=== PATIENT | female | born 1955 | race Caucasian/White ===

== ENCOUNTER 2018-05-09 15:18 | Outpatient (REF) | payer MEDICARE, SELFPAY ==
[2018-05-09 23:14] LABS: BUN 18 mg/dL (7-18); CREATININE 0.83 mg/dL (0.55-1.02); Calcium 9.4 mg/dL (8.5-10.1); Chloride 102 mmol/L (98-107); Glucose 111 mg/dL (70-100); Potassium 4.6 mmol/L (3.5-5.1); Sodium 140 mmol/L (136-145)
[2018-05-09 23:26] LABS: HGB 13.7 g/dL (12.0-15.5); Mean Corp. HGB Concentration 32.6 g/dL (32.0-36.0); Mean Corpuscular Hemoglobin 30.4 pg (27.0-33.0); Mean Corpuscular Volume 93.3 fL (80-95); Mean Platelet Volume 10.7 fL (8.0-11.0); Platelet Count 354 x1000/uL (130-400); White Blood Cell Count 7.05 k/cumm (4.4-10.8)
== END 2018-05-09 15:38 ==
LOC: NCHCN 15:18
PROVIDERS: PCP Specialist/Technologist Athletic Trainer; Visit Provider Specialist/Technologist Athletic Trainer
DX: D64.9 Anemia, unspecified (principal); R73.09 Other abnormal glucose; Z51.81 Encounter for therapeutic drug level monitoring
CPT/HCPCS: 80048; 85027

== ENCOUNTER 2018-05-10 10:55 | Outpatient (REF) | payer MEDICARE, SELFPAY | END 2018-05-10 11:15 | LOC: NCHCN 10:55 | PROVIDERS: PCP Specialist/Technologist Athletic Trainer; Visit Provider Physician Assistant Medical | DX: N39.0 Urinary tract infection, site not specified (principal) | CPT/HCPCS: 87077; 87086; 87186 ==

== ENCOUNTER 2018-07-06 10:14 | Outpatient (CLI) | payer MEDICARE, SELFPAY ==
--- NOTE | 2018-07-06 08:50 | DIABASSESS_ITS ---
DESCRIPTION/ASSESSMENT: Food Guidelines - Chelsea measures her food carefully, mixes carbohydrate with protein; already limits carbohydrate and has given up most sugar. 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 She does not snack. She self-reports 16 pound weight loss since diagnosis. Physical Activity - walks before lunch some days; knows she will not exercise after lunch. Medication - Metformin 500mg daily without side effects after first few days. Monitoring - Monitored mostly fasting 85-226 mostly less than 135. Her glucometer is broken at this time. She has returned to the pharmacy on a weekend and they were unable to help her after changing the battery. Risks/Related health history - h/o TBI with surgeries over past 8 years; sick past 3 years. Coping - reports an ability to let worries goat the door and is faithful to AA and its principles. She reports being 28 years sober. INTERVENTION: DSME is provided in the following AADE 7 areas based on patients interest and assessment of needs: Food Guidelines - reviewed diabetes food guide focused on balancing carbohydrate and protein/fat and to increase her variety of choices. Physical Activity - Discussed winter activities given that she needs to be careful to prevent injury. She loves a treadmill and will work to obtain one. Medication - discussed action of medication and dosage. Discussed possibility of going off medication if A1c decreases. Monitoring - Monitoring at least once a day, mostly fasting, until her glucometer broke. Troubleshooted this without success. Suggested she call [phone] on back for support. Problem Solving - discussed risks of heavy alcohol use years ago on diabetes development. ACTION PLAN: Face time [id number] No DM group education series being offered at this time.
== END 2018-07-06 10:34 ==
PROVIDERS: PCP Specialist/Technologist Athletic Trainer; Visit Provider Dietitian, Registered
DX: E11.9 Type 2 diabetes mellitus without complications (principal); Z71.3 Dietary counseling and surveillance
CPT/HCPCS: 97802

== ENCOUNTER 2018-09-14 22:26 | Outpatient (REF) | payer MEDICARE, SELFPAY ==
[2018-09-15 01:16] LABS: Cholesterol 161 mg/dL (50-200); HDL Cholesterol 28 mg/dL (40-60); LDL CHOLESTEROL 98 mg/dL (<100); Triglyceride 268 mg/dL (30-150)
[2018-09-15 01:44] LABS: HCT 39.8 % (36.0-46.0)
== END 2018-09-14 22:46 ==
LOC: NCHCN 22:26
PROVIDERS: PCP Specialist/Technologist Athletic Trainer; Visit Provider Specialist/Technologist Athletic Trainer
DX: E11.9 Type 2 diabetes mellitus without complications (principal); I10 Essential (primary) hypertension; E78.00 Pure hypercholesterolemia, unspecified; F64.9 Gender identity disorder, unspecified
CPT/HCPCS: 80061; 83721; 85014; 85018

== ENCOUNTER 2019-09-27 22:35 | Emergency (ER) | payer OTHER, SELFPAY ==
--- NOTE | 2019-09-27 00:08 | DI.CT_ITS ---
EXAM: CT BRAIN NECK CTA CLINICAL HISTORY: TIA COMPARISON: No exams were available for comparison FINDINGS: CT brain: The ventricles and sulci are consistent with the patient's age. There are areas of decreased attenua tion in the white matter most consistent with small vessel ischemic disease. No acute territorial in farct, hemorrhage, midline shift or mass effect is identified. Calvarium is intact. The visualized paranasal sinuses are clear. CT angiography of the neck: Common carotid arteries: Unremarkable. No evidence of dissection, stenosis or occlusion. External carotid arteries: Unremarkable. No evidence of occlusion or significant stenosis. Internal carotid arteries: No evidence of dissection, occlusion or significant stenosis. Vertebral arteries: Unremarkable. No evidence of dissection, occlusion or significant stenosis. Thyroid gland: Enlarged with several hypodense nodules measuring up to 1.[address] angiography of the head: Internal carotid arteries: Unremarkable. No evidence of occlusion, aneurysm or significant stenosis. Anterior cerebral arteries: Unremarkable. No evidence of occlusion, aneurysm or significant stenosis . Middle cerebral arteries: Unremarkable. No evidence of occlusion, aneurysm or significant stenosis. Posterior cerebral arteries: Unremarkable. No evidence of occlusion, aneurysm or significant stenosi s. Vertebral arteries and basilar artery: Unremarkable. No evidence of occlusion, aneurysm or significa nt stenosis. IMPRESSION: 1. No acute intracranial process. 2. No evidence of arterial occlusion or significant stenosis.
[2019-09-27 22:38] VITALS: BP 166/88; PULSE 77; RESP 16; TEMP 36.6; O2SAT 96
--- NOTE | 2019-09-27 22:46 | W.ED.GENAD ---
Discharge Plan Disposition Patient Disposition: HOME Condition: Stable Discharge Details Chief Complaint: AMS/LOC Clinical Impression: Slurring of speech Primary Care Provider: Aquilino Starkey ED Provider: Charles Richards Home Meds and New Rx's Prescriptions: Continued omeprazole 40 MG capsule,delayed release(DR/EC) 40 mg PO DAILY Qty: 30 RF: 1 simvastatin 20 MG tablet 20 mg PO DAILY RF: 0 estrogens-methyltestosterone 1 EACH tablet 1 ea PO DAILY RF: 0 metoprolol succinate 25 MG tablet extended release 24 hr 25 mg PO DAILY RF: 0 lisinopril-hydrochlorothiazide 1 EACH tablet 1 ea PO DAILY RF: 0 prazosin 2 MG capsule 3 cap PO HS RF: 0 mirtazapine 7.5 MG tablet 3 tab PO HS RF: 0 atomoxetine [Strattera] 80 MG capsule 80 mg PO DAILY RF: 0 CalMag Thins 1 EACH tablet 1 ea PO DAILY RF: 0 ferrous sulfate 325 MG tablet 325 mg PO DAILY RF: 0 venlafaxine [Effexor XR] 150 mg Capsule,Extended Release 24hr 300 mg PO DAILY RF: 0 bupropion HCl [Wellbutrin SR] 200 mg Tablet Sustained-Release 12 Hr 200 mg PO DAILY RF: 0 Discharge Instructions Instructions: Transient Ischemic Attack (ED) Additional Instructions: Based on your symptoms you likely had a transient ischemic attack (TIA) take 81mg aspirin daily see your primary care provider as soon as possible and have an MRI brain performed if you feel more ill, have weakness or vision changes return to the emergency department Medical Decision Making 64 yo female with hx of htn, gerd, hld, who comes in after she went to bed feeling fine but then woke up feeling anxious and noted wavy vision and felt her speech was slurred. This lasted a minute and she came here. She currently has no symptoms. She denies every having chest pain, abd pain, vomit, weakness, numbness. She has normal gait, CN II-XII are intact, clear speech, caox4, no focal motor or sensation deficits, NIH of 0. Unclear cause for her symptoms could be TIA vs anxiety, will obtain lab work and imaging and monitor. pt remains stable, nih 0 still. Labs and imaging unremarkable. I recommended admission but pt declined as she would prefer to see pcp and have outpatient MRI. She has capacity to make her own decisions. Will d/c and advised to take 81mg asa daily and return precautions given Differential Diagnosis Differential Diagnosis: TIA, anxiety, anemia Medical Records Medical records reviewed: Yes I reviewed the patient's medical records. Imaging Data Radiologic Study: Attestation: I personally reviewed and interpreted this imaging study as follows: Imaging: CT Scan Radiologist's impression: no acute findings Lab Data Lab results reviewed: Yes I reviewed the patient's lab results. ECG Data Attestation: I personally reviewed and interpreted this ECG (s) as follows: Prior ECG tracings: not available for review Interpretation: sinus rhythm, rate of 72, pr 196 HPI General Mode of arrival: ambulatory. Date/Time Provider Initiated Documentation: 09/27/19 22:36. Limitations to Documentation: no limitations. Information obtained by: patient. History of Present Illness 64 year old F presents to the emergency department with the chief complaint of slurred speech, described as moderate, Patient started experiencing this hour(s) (1) and it has been now resolved. No relieving factors improve symptom(s), No exacerbating factors reported . Patient did receive the following treatments prior to arrival, Aspirin Related Data Home Medications Medication Instructions Recorded Confirmed CalMag Thins 1 ea PO DAILY 05/11/17 09/27/19 atomoxetine [Strattera] 80 mg PO DAILY 05/11/17 09/27/19 estrogens-methyltestosterone 1 ea PO DAILY 05/11/17 09/27/19 lisinopril-hydrochlorothiazide 1 ea PO DAILY 05/11/17 09/27/19 metoprolol succinate 25 mg PO DAILY 05/11/17 09/27/19 mirtazapine 3 tab PO HS 05/11/17 09/27/19 prazosin 3 cap PO 05/11/17 09/27/19 simvastatin 20 mg PO DAILY 05/11/17 09/27/19 ferrous sulfate 325 mg PO DAILY 06/08/17 09/27/19 omeprazole 40 mg PO DAILY #30 tab-cap 06/25/17 09/27/19 bupropion HCl [Wellbutrin SR] 200 mg PO DAILY 09/27/19 09/27/19 venlafaxine [Effexor XR] 300 mg PO DAILY 09/27/19 09/27/19 Previous Rx's Medication Instructions Recorded omeprazole 40 mg PO DAILY #30 tab-cap 06/25/17 Allergies Allergy/AdvReac Type Severity Reaction Status Date / Time amoxicillin Allergy Skin Rash Unverified 09/27/19 23:04 Sulfa (Sulfonamide Allergy Skin Rash Unverified 09/27/19 23:04 Antibiotics) haloperidol [From Haldol] AdvReac Unverified 09/27/19 23:04 General Stated Complaint: AMS/LOC RICCI: 3 Review of Systems All systems reviewed & are unremarkable except as noted in HPI and below Constitutional Constitutional: Denies chills, Denies fever(s) and Denies weakness ENT Ears, Nose, Mouth, and Throat: Denies change in voice Cardiovascular Cardiovascular: Denies chest pain and Denies dyspnea Respiratory Respiratory: Denies cough and Denies dyspnea Gastrointestinal Gastrointestinal: Denies abdominal pain, Denies nausea and Denies vomiting Musculoskeletal Musculoskeletal: Denies joint swelling Neurologic Neurologic: Denies weakness Psychiatric Psychiatric: Denies depression [facility] Medical History (Updated 09/28/19 @ 01:07 by Charles Richards MD) Alcoholism in remission Allergic rhinitis Benign essential HTN Chronic depression Estrogen deficiency Family history of breast disease Hypercholesterolemia Prediabetes PTSD (post-traumatic stress disorder) Seasonal allergies Surgical History (Updated 05/19/17 @ 10:46 by Sonia Peng) Colonoscopy - MAC (05/17/17) EGD - MAC (05/17/17) Social History Smoking/Tobacco Use Status: Former Tobacco Use Alcohol Intake: former Drug use: Never Do you feel safe in your relationship?: Yes Exam Const General: no acute distress Orientation: alert HENMT Head: normal to inspection Ears: external ears normal General nose exam: external nose normal Mouth: moist mucous membranes Eyes General: appearance normal, both eyes and all related structures Neck Neck: normal visual inspection Resp Effort & Inspection: normal respiratory effort and able to speak in complete sentences Cardio Rate: regular rate Skin General skin exam: no rashes or lesions noted Neuro General: alert and oriented x3 Extrem General: normal to inspection Psych Mental Status: mental status grossly normal Course Vital Signs Vital signs: Vital Signs Temperature 36.6 C 09/27/19 22:38 Pulse 77 09/27/19 22:38 Respiratory Rate 16 09/27/19 22:38 Blood Pressure 166/88 H 09/27/19 22:38 Pulse Oximetry 96 09/27/19 22:38 Temperature 36.6 C 09/27/19 22:38 Temperature Source Skin 09/27/19 22:38 Pulse 77 02/12/20 22:38 Respiratory Rate 16 09/27/19 22:38 Respiratory Effort 09/27/19 22:42 Blood Pressure 166/88 H 09/27/19 22:38 Pulse Oximetry 96 09/27/19 22:38 Oxygen Delivery Method Room Air 09/27/19 22:38 Oxygen Flow Rate 0 09/27/19 22:38 Pain Level 0 09/27/19 22:38
[2019-09-27 22:52] VITALS: BP 156/67; PULSE 74; PULSE 77; RESP 20; O2SAT 92
[2019-09-27 23:01] VITALS: BP 120/59; PULSE 74; PULSE 75; RESP 19; O2SAT 92
[2019-09-27 23:03] LABS: Abs Immature Grans 0.02 k/cumm (0.0-0.09); Absolute Basophil Count 0.05 k/cumm (0.0-0.2); Absolute Eosinophil Count 1.06 k/cumm (0.0-0.7); Absolute Lymphocyte Count 1.85 k/cumm (1.2-3.4); Absolute Monocyte Count 0.61 k/cumm (0.11-0.7); Absolute Neutrophil Count 3.39 k/cumm (1.2-6.7); Basophils % 0.7; Eosinophils % 15.2; HCT 39.8 % (36.0-46.0); HGB 13.3 g/dL (12.0-15.5); Immature Grans % 0.3 %; Lymphocytes % 26.5; Mean Corp. HGB Concentration 33.4 g/dL (32.0-36.0); Mean Corpuscular Hemoglobin 30.4 pg (27.0-33.0); Mean Corpuscular Volume 90.9 fL (80-95); Mean Platelet Volume 9.1 fL (8.0-11.0); Monocytes % 8.7; Neutrophils % 48.6; Platelet Count 276 x1000/uL (130-400); RBC 4.38 m/cumm (4.00-5.20); White Blood Cell Count 6.98 k/cumm (4.4-10.8)
[2019-09-27 23:15] VITALS: PULSE 71; RESP 17; O2SAT 91
[2019-09-27 23:16] VITALS: BP 132/78; PULSE 70; PULSE 74; RESP 17; O2SAT 92
[2019-09-27 23:16] LABS: INR 0.9 (0.9-1.1); PTT Activated 24.6 sec (21.0-31.4); Prothrombin Time 9.5 sec (9.3-11.0)
[2019-09-27 23:20] LABS: ALT 29 U/L (14-59); AST 16 U/L (15-37); Albumin 3.5 g/dL (3.4-5.0); Alkaline Phosphatase 112 U/L (46-116); Anion Gap 8.7 mmol/L (3-11); BUN 18 mg/dL (7-18); Bilirubin, Total 0.1 mg/dL (0.2-1.0); CO2 28.3 mmol/L (21.0-32.0); Calcium 8.8 mg/dL (8.5-10.1); Chloride 105 mmol/L (98-107); Glucose 156 mg/dL (74-106); Magnesium 2.2 mg/dL (1.8-2.4); Potassium 3.9 mmol/L (3.5-5.1); Sodium 142 mmol/L (136-145)
--- NOTE | 2019-09-27 23:23 | DI.RAD_ITS ---
EXAM: XR CHEST 2V PA LATERAL CLINICAL HISTORY: TIA. TECHNIQUE: 2D digital imaging was performed. COMPARISON: No exams were available for comparison FINDINGS: LUNGS: Clear. No pleural abnormality seen. HEART: Normal. MEDIASTINUM: Normal. OTHER FINDINGS:Retrocardiac hiatal hernia. BONE:Age-appropriate degenerative changes. IMPRESSION: No acute pulmonary findings.
[2019-09-27 23:25] LABS: Troponin I < 0.05 ng/Ml (<0.06)
[2019-09-28] VITALS (10 sets, daily range): BP systolic 124–141; BP diastolic 65–83; PULSE 69–75; RESP 10–23; O2SAT 92–98
[2019-09-28] MEDS: Normal Saline - Diluent 50 ML VIAL IV (00:06)
[2019-09-28] MEDS: Omnipaque 350 MG/ML 100 ML BTL IJ (00:07)
[2019-09-28] MEDS: Normal Saline Flush 10 ML SYR IVP (00:08)
--- NOTE | 2019-09-28 00:18 | DI.VRAD_ITS ---
PROCEDURE INFORMATION: Exam: XR Chest, 2 Views Exam date and time: 09/27/2019 11:23 PM Age: 64 years old Clinical indication: Other: TIA; Prior surgery; Surgery date: 6+ months; Surgery type: Double mastectomy 2008, no HX breast cancer, brca2+; Additional info: PT states she was seeing white orbs swirling together, weakness, SOB x2days TECHNIQUE: Imaging protocol: XR of the chest Views: 2 views. COMPARISON: No relevant prior studies available. FINDINGS: Lungs: Unremarkable. No consolidation. Pleural space: Unremarkable. No pleural effusion. No pneumothorax. Heart/Mediastinum: Normal heart size. Evidence of retrocardiac hiatal hernia. Vasculature: The thoracic aorta is mildly tortuous and ectatic. Bones/joints: There is mild thoracic degenerative disc disease. IMPRESSION: No acute findings. Dictated and Authenticated by: Adis Lebron MD. Ordering:BRUNO Soto MD
--- NOTE | 2019-09-28 00:59 | DI.VRAD_ITS ---
PROCEDURE INFORMATION: Exam: CT Angiography Head Without And With Contrast Exam date and time: 09/27/2019 10:46 PM Age: 64 years old Clinical indication: Visual disturbance; Other visual defect; Patient HX: Brain injury in 2002; Additional info: PT states she was seeing white orbs swirling together, weakness, SOB x2days TECHNIQUE: Imaging protocol: Computed tomographic angiography of the head without and with intravenous contrast. 3D rendering: MIP and/or 3D reconstructed images were created by the technologist. Contrast material: [id number]; Contrast volume: 100 ml; Contrast route: IV RAC 18G; Other technique: STROKE PROTOCOL was implemented. COMPARISON: No relevant prior studies available. FINDINGS: Right internal carotid artery: Unremarkable. Intracranial segment is patent with no significant stenosis. No aneurysm. Right anterior cerebral artery: Unremarkable. No occlusion or significant stenosis. No aneurysm. Right middle cerebral artery: Unremarkable. No occlusion or significant stenosis. No aneurysm. Right posterior cerebral artery: Unremarkable. No occlusion or significant stenosis. No aneurysm. Right vertebral artery: Unremarkable. No occlusion or significant stenosis. No aneurysm. Left internal carotid artery: Unremarkable. Intracranial segment is patent with no significant stenosis. No aneurysm. Left anterior cerebral artery: Unremarkable. No occlusion or significant stenosis. No aneurysm. Left middle cerebral artery: Unremarkable. No occlusion or significant stenosis. No aneurysm. Left posterior cerebral artery: Unremarkable. No occlusion or significant stenosis. No aneurysm. Left vertebral artery: Unremarkable. No occlusion or significant stenosis. No aneurysm. Basilar artery: Unremarkable. No occlusion or significant stenosis. No aneurysm. HEAD: Brain: A focus of hypodensity seen in the left anterior insular region may be from remote lacunar infarct. No hemorrhage. No edema. Foci of hypodensity in the periventricular and subcortical white matter is likely on the basis of chronic microvascular ischemic disease. Ventricles: Normal. No ventriculomegaly. Bones/joints: Unremarkable. No acute fracture. Sinuses: Visualized sinuses are normal. No fluid levels. Mastoid air cells: Visualized mastoids are normal. No mastoid effusion. Soft tissues: Unremarkable. IMPRESSION: 1. No acute intracranial hemorrhage, mass effect or midline shift. 2. No arterial occlusion or significant stenosis. No aneurysm. ASSESSMENT: ASPECTS ([place] Stroke Program Early CT Score) is 10. PROCEDURE INFORMATION: Exam: CT Angiography Neck Without And With Contrast Exam date and time: 09/27/2019 10:46 PM Age: 64 years old Clinical indication: Visual disturbance; Other visual defect; Patient HX: Brain injury in 2002; Additional info: PT states she was seeing white orbs swirling together, weakness, SOB x2days TECHNIQUE: Imaging protocol: Computed tomographic angiography of the neck without and with intravenous contrast. 3D rendering: MIP and/or 3D reconstructed images were created by the technologist. Radiation optimization: All CT scans at this facility use at least one of these dose optimization techniques: automated exposure control; mA and/or kV adjustment per patient size (includes targeted exams where dose is matched to clinical indication); or iterative reconstruction. Contrast material: [id number]; Contrast volume: 100 ml; Contrast route: IV RAC 18G; COMPARISON: No relevant prior studies available. FINDINGS: VASCULATURE: Right common carotid artery: Unremarkable. No stenosis. No dissection or occlusion. Right internal carotid artery: No stenosis. No dissection or occlusion. There is a retropharyngeal course. Right external carotid artery: Unremarkable. No occlusion or stenosis of the origin. Right vertebral artery: Unremarkable. No stenosis. No dissection or occlusion. Left common carotid artery: Unremarkable. No stenosis. No dissection or occlusion. Left internal carotid artery: No stenosis. No dissection or occlusion. There is a retropharyngeal course. Left external carotid artery: Unremarkable. No occlusion or stenosis of the origin. Left vertebral artery: Unremarkable. No stenosis. No dissection or occlusion. NECK: Thyroid: The thyroid gland is enlarged and contains hypodense nodules measuring up to 1.3 cm on the left and 1.0 cm on the right. He he Bones/joints: No acute fracture. Soft tissues: Normal. No significant soft tissue swelling. Lungs: Mild ground-glass opacity seen in the lungs may be secondary to atelectasis versus motion artifact. IMPRESSION: No arterial occlusion or hemodynamically significant stenosis. No dissection or pseudoaneurysm. COMMENT: Using NASCET method for measuring degree of carotid artery stenosis: Mild is less than 50% stenosis. Moderate is 50-69% stenosis. Severe is 70-94% stenosis. Near occlusion is 95-99% stenosis. Dictated and Authenticated by: Chhaya Pierce MD. Ordering:BRUNO Soto MD
--- NOTE | 2019-09-28 00:59 | NUR.NOTE ---
Nursing Note: Pt sitting up in bed, talking with spouse. No c/o of feeling anxious or of visual changes since arrival to ER. Waiting CT results.
--- NOTE | 2019-09-28 06:11 | NUR.NOTE ---
FAXED REFERA;L TO PCP, MATT HUNT, , FOR FOLLOW UP APPOINTMENT FOR TIA PER REQUEST WITHIN 1 WEEK (Nursing Note:
== END 2019-09-28 00:15 | disposition home or self-care (01) ==
PROVIDERS: Emergency Provider Emergency Medicine; PCP Specialist/Technologist Athletic Trainer
DX: R47.81 Slurred speech (principal); F41.9 Anxiety disorder, unspecified; H53.8 Other visual disturbances; I10 Essential (primary) hypertension
CPT/HCPCS: 36415; 70496; 70498; 80053; 93005; 99285; 71046; 83735; 84484; 85025; 85610; 85730; 93010; J3490

== ENCOUNTER 2020-12-10 02:00 | Outpatient (CLI) | payer OTHER, SELFPAY ==
--- NOTE | 2020-12-10 | DI.DEXA_ITS ---
EXAM: XR DEXA BONE DENSITY W/WO MERARY CLINICAL HISTORY: SCREENING FOR OSTEOPOROSIS, Z13.820 TECHNIQUE: Routine DEXA evaluation of the lumbar spine, hip, or forearm. COMPARISON: No exams were available for comparison FINDINGS: Performed on a Hologic unit. Lateral image: No compression fracture evident. Lumbar Spine total T-score: 3.6 Hip total T-score:1.8 Independent reading at the femoral neck yields T-score 1.1 Forearm total T-score: 0.5 IMPRESSION: Bone mineral density measures in the normal range. Fracture risk is low. Note: Any spine fracture indicates 5x risk for subsequent spine fracture and 2x risk for subsequent h ip fracture. World Health Organization criteria for BMD interpretation classify patients: Normal...... T- Score at or above -1.0 Osteopenic... T- Score between -1.0 and -2.5 Osteoporosis... T-Score at or below -2.5
== END 2020-12-10 02:20 ==
PROVIDERS: PCP Specialist/Technologist Athletic Trainer; Visit Provider Nurse Practitioner Family
DX: Z13.820 Encounter for screening for osteoporosis (principal)
CPT/HCPCS: 77080

== ENCOUNTER 2021-04-09 10:20 | Outpatient (REF) | payer OTHER, SELFPAY ==
[2021-04-09 14:07] LABS: Anion Gap 12.2 mmol/L (3-11); BUN 17 mg/dL (7-18); CO2 24.8 mmol/L (21.0-32.0); CREATININE 0.7 mg/dL (0.55-1.02); Calcium 9.1 mg/dL (8.5-10.1); Calculated LDL 112 mg/dL (<100); Chloride 102 mmol/L (98-107); Cholesterol 195 mg/dL (<200); Glucose 152 mg/dL (74-106); HDL Cholesterol 36 mg/dL (40-60); Potassium 4.6 mmol/L (3.5-5.1); Sodium 139 mmol/L (136-145); Triglyceride 235 mg/dL (<150)
[2021-04-11 13:39] LABS: Tissue Transglutaminase Ab IgA <1.2 U/mL
== END 2021-04-09 10:21 | disposition home or self-care (01) ==
LOC: NCHCN 10:20
PROVIDERS: PCP Specialist/Technologist Athletic Trainer; Visit Provider Nurse Practitioner Family
DX: E11.9 Type 2 diabetes mellitus without complications (principal); Z83.79 Family history of other diseases of the digestive system
CPT/HCPCS: 80048; 80061; 83516

== ENCOUNTER 2021-07-18 19:00 | Outpatient (REF) | payer OTHER, SELFPAY ==
[2021-07-20 22:25] LABS: COVID-19 RT-PCR UVMMC Result Positive (Negative)
== END 2021-07-18 19:01 | disposition home or self-care (01) ==
LOC: NCHCN 19:00
PROVIDERS: PCP Specialist/Technologist Athletic Trainer; Visit Provider Family Medicine
DX: Z20.822 Contact with and (suspected) exposure to COVID-19 (principal); R05.8 Other specified cough
CPT/HCPCS: U0003

== ENCOUNTER 2021-07-21 10:58 | Outpatient (CLI) | payer MEDICARE, SELFPAY ==
[2021-07-21 14:45] VITALS: BP 152/87; PULSE 72; RESP 18; TEMP 36.8; O2SAT 93
[2021-07-21] MEDS: Normal Saline 500 ML 30 ML IV (14:58)
[2021-07-21 15:05] VITALS: BP 109/68; PULSE 74; RESP 20; TEMP 37.7; O2SAT 94
[2021-07-21] MEDS: Normal Saline Flush 10 ML SYR IVP (15:13)
[2021-07-21 15:24] VITALS: BP 127/82; PULSE 70; RESP 18; TEMP 37.9; O2SAT 94
[2021-07-21 16:10] VITALS: BP 133/76; PULSE 75; RESP 18; TEMP 37.9; O2SAT 96
== END 2021-07-21 10:59 | disposition home or self-care (01) ==
PROVIDERS: Visit Provider Family Medicine
DX: U07.1 COVID-19 (principal)
CPT/HCPCS: 96365

== ENCOUNTER 2022-01-29 18:26 | Outpatient (REF) | payer MEDICARE, SELFPAY ==
[2022-01-29 14:57] LABS: HCT 39.8 % (36.0-46.0); HGB 12.8 g/dL (11.2-15.7); MCH 29.5 pg (27.0-33.0); MCHC 32.2 % (32.0-36.0); MCV 92 fL (80-95); MPV 10.3 fL (8.0-11.0); Platelet Count 301 10^3/uL (130-400); RBC 4.34 10^6/uL (3.93-5.22); RDW 12.6 % (11.7-14.6); RDW-SD 42.2 fL; WBC 4.45 10^3/uL (4.4-10.8)
[2022-01-29 15:23] LABS: ALT 48 U/L (14-59); AST 25 U/L (15-37); Albumin 3.5 g/dL (3.4-5.0); Alkaline Phosphatase 160 U/L (46-116); BUN 20 mg/dL (7-18); Bilirubin, Total 0.2 mg/dL (0.2-1.0); CREATININE 0.9 mg/dL (0.55-1.02); Calcium 9.1 mg/dL (8.5-10.1); Calculated LDL 86 mg/dL (<100); Chloride 103 mmol/L (98-107); Cholesterol 169 mg/dL (<200); Glucose 249 mg/dL (74-106); HDL Cholesterol 33 mg/dL (40-60); Potassium 4.5 mmol/L (3.5-5.1); Sodium 138 mmol/L (136-145); Triglyceride 251 mg/dL (<150)
== END 2022-01-29 18:27 | disposition home or self-care (01) ==
LOC: NCHCN 18:26
PROVIDERS: Visit Provider Nurse Practitioner Family
DX: E11.9 Type 2 diabetes mellitus without complications (principal)
CPT/HCPCS: 80053; 80061; 85027

== ENCOUNTER 2022-03-24 18:53 | Outpatient (REF) | payer MEDICARE, SELFPAY ==
[2022-03-24 20:53] LABS: Bilirubin Negative (Negative); Blood Moderate (Negative); Clarity Cloudy (Clear); Glucose Negative (Negative); Ketones Negative (Negative); Leukocyte Esterase Small (Negative); Nitrite Positive (Negative); Specific Gravity 1.025 (1.005-1.025); Urobilinogen 0.2 EU/dL (Up TO 0.2)
[2022-03-24 21:10] LABS: Bacteria Moderate HPF (Negative); C & S Indicated? C&S Done As Ordered; Casts Negative LPF (Negative); Crystals Negative HPF (Negative); Epithelial Cells Few HPF (Negative); Mucus Negative (Negative); WBC >50 HPF (0-5)
== END 2022-03-24 18:54 | disposition home or self-care (01) ==
LOC: LBN 18:53
PROVIDERS: Visit Provider Nurse Practitioner Family
DX: N39.0 Urinary tract infection, site not specified (principal)
CPT/HCPCS: 87077; 81003; 81015; 87086; 87186

== ENCOUNTER 2023-07-06 18:49 | Outpatient (REF) | payer MEDICARE, SELFPAY ==
[2023-07-06 14:52] LABS: HCT 39.7 % (36.0-46.0); HGB 13.3 g/dL (11.2-15.7); MCH 30.2 pg (27.0-33.0); MCHC 33.5 % (32.0-36.0); MCV 90 fL (80-95); MPV 9.8 fL (8.0-11.0); Platelet Count 319 10^3/uL (130-400); RBC 4.41 10^6/uL (3.93-5.22); RDW 12.2 % (11.7-14.6); RDW-SD 40.8 fL; WBC 6.36 10^3/uL (4.4-10.8)
[2023-07-06 15:33] LABS: ALT 27 U/L (14-59); AST 21 U/L (15-37); Albumin 3.2 g/dL (3.4-5.0); Alkaline Phosphatase 116 U/L (46-116); Anion Gap 6.4 mmol/L (3-11); BUN 17 mg/dL (7-18); CO2 26.6 mmol/L (21.0-32.0); CREATININE 0.8 mg/dL (0.55-1.02); Calcium 9.7 mg/dL (8.5-10.1); Calculated LDL 88 mg/dL (<100); Chloride 102 mmol/L (98-107); Cholesterol 198 mg/dL (<200); Estimated GFR 79.22 (mL/min/1.73m2); Glucose 163 mg/dL (74-106); HDL Cholesterol 44 mg/dL (40-60); Potassium 4.3 mmol/L (3.5-5.1); Sodium 135 mmol/L (136-145); Total Protein 7.2 g/dL (6.4-8.2); Triglyceride 330 mg/dL (<150)
[2023-07-06 16:23] LABS: Bilirubin, Total 0.2 mg/dL (0.2-1.0)
== END 2023-07-06 18:50 | disposition home or self-care (01) ==
LOC: NCHCN 18:49
PROVIDERS: Visit Provider Nurse Practitioner Family
DX: I10 Essential (primary) hypertension (principal); E78.5 Hyperlipidemia, unspecified
CPT/HCPCS: 80053; 80061; 85027

== ENCOUNTER 2024-07-12 15:38 | Outpatient (REF) | payer OTHER, SELFPAY ==
[2024-07-12 14:56] LABS: HCT 41.1 % (36.0-46.0); HGB 13.4 g/dL (11.2-15.7); MCH 29.9 pg (27.0-33.0); MCHC 32.6 % (32.0-36.0); MCV 92 fL (80-95); MPV 9.8 fL (8.0-11.0); Platelet Count 327 10^3/uL (130-400); RBC 4.48 10^6/uL (3.93-5.22); RDW 12.4 % (11.7-14.6); RDW-SD 41.8 fL; WBC 5.86 10^3/uL (4.4-10.8)
[2024-07-12 15:40] LABS: ALT 41 U/L (14-59); AST 24 U/L (15-37); Albumin 3.5 g/dL (3.4-5.0); Alkaline Phosphatase 115 U/L (46-116); Anion Gap 8.1 mmol/L (3-11); BUN 13 mg/dL (7-18); CO2 27.9 mmol/L (21.0-32.0); CREATININE 0.8 mg/dL (0.55-1.02); Calcium 9.3 mg/dL (8.5-10.1); Calculated LDL 82 mg/dL (<100); Chloride 98 mmol/L (98-107); Cholesterol 172 mg/dL (<200); Estimated GFR 78.72 (mL/min/1.73m2); Glucose 180 mg/dL (74-106); HDL Cholesterol 44 mg/dL (40-60); Potassium 4.1 mmol/L (3.5-5.1); Sodium 134 mmol/L (136-145); Triglyceride 230 mg/dL (<150)
--- OUTSIDE RECORDS SUMMARY | 2024-07-12 15:55 | XMS_ITS | Encounter Summary ---
Author Organization [facility] Address [address] [place] [address] Care Team Providers Care Pipe Coverer Helper Name Role Phone Zain, Slick FINANCIAL WRITER Unavailable [phone] Kathia Alvarado ACCOUNTS RECEIVABLE SPECIALIST Primary Care Provider [phone] Reason for Visit * Reason Onset Date Comments Medications Refill 02/23/2022 Encounter Details Date Type Department Care Team (Late st Contact Info) Description 02/23/2022 Refill [facility] Family Psychiatry [address] [place] [address] Jannette Carroll RN [address] [facility] [address] [place] [address] Medications Refill Social History Tobacco Use Types Packs/Day Years Used Date Smoking Tobacco: Former Cigarettes Smokeless Tobacco: Never Comments:quit in 1985 Alcohol Use Standard Drinks/Week Comments Not Currently 0 (1 standard drink = 0.6 oz pur e alcohol) PHQ-2 Answer Date Recorded PHQ-2 SUBTOTAL 2 06/18/2021 Interpersonal Safety Answer Date Record ed Physically Hurt Never 03/18/2020 Verbally Threaten Not on file 03/18/2020 Comments Unknown Sex and Gender Information Value Date Recorded Sex Assigned at Not on file Legal Sex Female 14:41 EDT Gender Identity Female 08/21/2019 10:55 EST Sexual Orientation Not on file documented as of this encounter Functional Status * Because of a physical, mental, or emotional condition, does this person have difficulty doing errands alone such as visiting a doctor's office or shopping? Answer Date of Assessment Author No 12/06/2019 9:45 EDT documented as of this encounter Mental Status * Because of a physical, mental, or emotional condition, does this person have serious difficulty concentrating, remembering, or making decisions? Answer Entry Date Author No 12/06/2019 9:45 EDT documented in this encounter Ordered Prescriptions Prescription Sig Dispense Quantity Refills Last Filled Start Date End Date atomoxetine (STRATTERA) 80 mg capsule Take 1 capsule by mouth every morning. 30 capsule 02/23/2022 2 documented in this encounter Miscellaneous Notes * Telephone Encounter - Jannette Carroll RN - 02/23/2022 1104 EDT JUN 25 bryn/Aditya documented in this encounter Plan of Treatment Not on file documented as of this encounter Visit Diagnoses Not on filedocumented in this encounter Discontinued Medications Medication Sig Discontinue Reason Start Date End Da te atomoxetine (STRATTERA) 80 mg capsule Take 1 capsule by mouth every morning Reorder 12/26/2021 02/23/2022 documented as of this encounter Care Teams Pipe Coverer Helper Relationship Specialty Start Date End Date Kathia Alvarado FNP [address] [facility] [address] [place] [phone] PCP - General 12/16/20 Slick Pittman NP [address] [facility] [address] [place] [phone] Nurse Practitioner Psychiatry 05/10/20 12/15/23 documented as of this encounter
--- OUTSIDE RECORDS SUMMARY | 2024-07-12 15:55 | XMS_ITS | Encounter Summary ---
Author Organization [facility] Address [address] [place] [address] Care Team Providers Care Knife Edger Name Role Phone Slick Pittman EXTRUSION SUPERVISOR Unavailable [phone] Kathia Alvarado Primary Care Provider [phone] Reason for Visit * Reason Comments Other Encounter Details Date Type Department Care Team ([facility] Contact Info) Description 08/08/2021 [facility] Family Psychiatry [address] [place] [address] Slick Pittman NP [address] [facility] [address] [place] [address] Other Social History Tobacco Use Types Packs/Day Years [...] 12/06/2019 9:45 EDT documented in this encounter Plan of Treatment Not on file documented as of this encounter Visit Diagnoses Not on filedocumented in this encounter Care Teams Knife Edger Relationship Specialty Start Date End Date Kathia Alvarado FNP [address] [facility] [address] [place] [phone] PCP - General 12/16/20 Slick Pittman NP 82 [facility] [address] [place] [phone] Nurse Practitioner Psychiatry 05/10/20 12/15/23 documented as of this encounter
--- OUTSIDE RECORDS SUMMARY | 2024-07-12 15:55 | XMS_ITS | Encounter Summary ---
Author Organization [facility] Address [address] [place] [address] Care Team Providers Care International Operations Manager Name Role Phone Kathia Alvarado ELENA Primary Care Provider [phone] Reason for Visit * Reason Comments Medications Refill Encounter Details Date Type Department Care Team (Late st Contact Info) Description 03/31/2024 Refill [facility] Family Psychiatry [address] [place] [address] Slick Pittman NP 82 [facility] [address] [place] [phone] Medications Refill Social History Tobacco Use Types [...] on filedocumented in this encounter Care Teams International Operations Manager Relationship Specialty Start Date End Date Kathia Alvarado FNP [address] [facility] [address] [place] [phone] PCP - General 12/16/20 documented as of this encounter
--- OUTSIDE RECORDS SUMMARY | 2024-07-12 15:55 | XMS_ITS | Encounter Summary ---
Author Organization [facility] Address [address] [place] [address] Care Team Providers Care Fiberglass Quality Technician Name Role Phone Slick Pittman INTERNAL SPECIALIST Unavailable Kathia Alvarado Primary Care Provider [phone] Reason for Visit * Reason Comments Other Encounter Details Date Type Department Care Team (Late st Contact Info) Description 03/04/2021 Refill [facility] Family Psychiatry [address] [place] [address] Rodolfo Blanco NP 82 [facility] [address] [place] [address] Other Social History Tobacco Use Types Packs/Day Years Used Date Smoking Tobacco: Former Cigarettes Smokeless Tobacco: Never Comments:quit in 1985 Alcohol Use Standard Drinks/Week Comments Not Currently 0 (1 standard drink = 0.6 oz pur e alcohol) Interpersonal Safety Answer Date Record ed Physically [...] Refills Last Filled Start Date End Date Prazosin (MINIPRESS) 2 mg capsule TAKE 3 CAPSULES BY MOUTH AT BEDTIME 270 capsule 03/04/2021 documented in this encounter Miscellaneous Notes * Telephone Encounter - Jannette Carroll RN - 03/04/2021 0802 EDT JUN 26 documented in this encounter Plan of Treatment Not on file documented as of this encounter Visit Diagnoses Not on filedocumented in this encounter Discontinued Medications Medication Sig Discontinue Reason Start Date End Da te Prazosin (MINIPRESS) 2 mg capsule TAKE THREE CAPSULES BY MOUTH AT BEDTIME 01/01/2021 03/04/2021 documented as of this encounter Additional Health Concerns Infection Onset Date Last Indicated Resolved Time COVID-19 07/18/2021 07/18/2021 08/07/2021 22:1 5 EST documented as of this encounter Care Teams Fiberglass Quality Technician Relationship Specialty Start Date End Date Kathia Alvarado FNP 26 [facility] [address] [place] [phone] PCP - General 12/16/20 Slick Pittman NP 82 [facility] [address] [place] [phone] Nurse Practitioner Psychiatry 05/10/20 12/15/23 documented as of this encounter
--- OUTSIDE RECORDS SUMMARY | 2024-07-12 15:55 | XMS_ITS | Encounter Summary ---
Author Organization Health system Address [address] [place] [address] Care Team Providers Care Document Control Associate Name Role Phone Slick Pittman STRATEGIC MARKETING SPECIALIST Unavailable [phone] Kathia Alvarado Primary Care Provider [phone] Reason for Visit * Reason Comments Other Encounter Details Date Type Department Care Team ([facility] st Contact Info) Description 12/13/2021 [facility] Family Psychiatry [address] [place] [address] Slick Pittman NP 82 [facility] [address] [place] [address] Other Social History Tobacco Use [...] Refills Last Filled Start Date End Date mirtazapine (REMERON) 7.5 mg tablet TAKE 3 TABLETS BY MOUTH AT BEDTIME 270 Tablet 3 12/16/2021 2 documented in this encounter Plan of Treatment Not on file documented as of this encounter Visit Diagnoses Not on filedocumented in this encounter Discontinued Medications Medication Sig Discontinue Reason Start Date End Da te mirtazapine (REMERON) 7.5 mg tablet TAKE 3 TABLETS BY MOUTH AT BEDTIME 01/14/2021 12/16/2021 documented as of this encounter Care Teams Document Control Associate Relationship Specialty Start Date End Date Kathia Alvarado FNP 26 [facility] [address] [place] [phone] PCP - General 12/16/20 Slick Pittman NP 82 [facility] 3 [place] [address] Nurse Practitioner Psychiatry 05/10/20 12/15/23 documented as of this encounter
--- OUTSIDE RECORDS SUMMARY | 2024-07-12 15:55 | XMS_ITS | Encounter Summary ---
Author Organization [facility] Address [address] [place] [address] Care Team Providers Care Asphalt Roller Operator Name Role Phone Slick Pittman SUPERVISOR SHIPPING Unavailable [phone] Kathia Alvarado Primary Care Provider [phone] Reason for Visit * Reason Comments Other Encounter Details Date Type Department Care Team (Late st Contact Info) Description [facility] [address] [place] [address] Slick Pittman NP 82 [facility] [address] [place] [address] Other Social History Tobacco Use [...] CAPSULES BY MOUTH AT BEDTIME 270 capsule 05/06/2021 documented in this encounter Miscellaneous Notes * Telephone Encounter - Jannette Carroll RN - 05/06/2021 0813 EDT JUN 26 Van documented in this encounter Plan of Treatment Not on file documented as of this encounter Visit Diagnoses Not on filedocumented in this encounter Discontinued Medications Medication Sig Discontinue Reason Start Date End Da te Prazosin (MINIPRESS) 2 mg capsule TAKE 3 CAPSULES BY MOUTH AT BEDTIME 03/04/2021 05/06/2021 documented as of this encounter Additional Health Concerns Infection Onset Date Last Indicated Resolved Time COVID-19 07/18/2021 07/18/2021 08/07/2021 22:1 5 EST documented as of this encounter Care Teams Asphalt Roller Operator Relationship Specialty Start Date End Date Kathia Alvarado FNP 26 [facility] [address] [place] [address] PCP - General 12/16/20 Slick Pittman NP [address] [address] Nurse Practitioner Psychiatry 05/10/20 12/15/23 documented as of this encounter
--- OUTSIDE RECORDS SUMMARY | 2024-07-12 15:55 | XMS_ITS | Encounter Summary ---
Author Organization [facility] Address [address] [place] [address] Care Team Providers Care Piano Refinisher Name Role Phone Zain, Slick BUSINESS CENTER REPRESENTATIVE Unavailable [phone] Kathia AlvaradoP Primary Care Provider [phone] Reason for Visit * Reason Onset Date Comments Medications Refill 01/07/2021 Encounter Details Date Type Department Care Team (Late st Contact Info) Description 01/07/2021 Refill [facility] Family Psychiatry [address] [place] [address] Jannette Carroll RN 82 [facility] [place], [place] [address] Medications Refill Social History Tobacco Use Types [...] End Date atomoxetine (STRATTERA) 80 mg capsule One po q am 90 Cap 01/08/2021 04/03/2021 documented in this encounter Miscellaneous Notes * Telephone Encounter - Jannette Carroll RN - 01/07/2021 1605 EDT JUN 26 documented in this encounter Plan of Treatment Not on file documented as of this encounter Visit Diagnoses Not on filedocumented in this encounter Discontinued Medications Medication Sig Discontinue Reason Start Date End Da te atomoxetine (STRATTERA) 80 mg capsule One po q am Reorder 09/17/2020 01/07/2021 documented as of this encounter Care Teams Piano Refinisher Relationship Specialty Start Date End Date Kathia Alvarado FNP 26 [facility] [address] [place] [address] PCP - General 12/16/20 Slick Pittman NP 82 [facility] 3 [place] [address] Nurse Practitioner Psychiatry 05/10/20 12/15/23 documented as of this encounter
--- OUTSIDE RECORDS SUMMARY | 2024-07-12 15:55 | XMS_ITS | Encounter Summary ---
Author Organization [facility] Address [address] [place] [address] Care Team Providers Care White Sugar Boiler Name Role Phone Slick Pittman BARREL LAPPER Unavailable [phone] Kathia Alvarado Primary Care Provider [phone] Reason for Visit * Reason Comments Other Encounter Details Date Type Department Care Team ([facility] st Contact Info) Description 01/01/2022 [facility] Family Psychiatry [address] [place] [address] Slick Pittman NP 82 [facility] [address] [place] [address] Other Social History Tobacco Use [...] Refills Last Filled Start Date End Date venlafaxine (EFFEXOR-XR) 150 mg XR capsule TAKE 2 CAPSULES BY MOUTH DAILY 180 capsule 01/02/2022 documented in this encounter Miscellaneous Notes * Telephone Encounter - Jannette Carroll RN - 01/02/2022 0815 EDT JUN 21 documented in this encounter Plan of Treatment Not on file documented as of this encounter Visit Diagnoses Not on filedocumented in this encounter Discontinued Medications Medication Sig Discontinue Reason Start Date End Da te venlafaxine (EFFEXOR-XR) 150 mg XR capsule TAKE 2 CAPSULES BY MOUTH DAILY 10/14/2021 01/02/2022 documented as of this encounter Care Teams White Sugar Boiler Relationship Specialty Start Date End Date Kathia Alvarado FNP 26 [facility] [address] [place] [phone] PCP - General 12/16/20 Slick Pittman NP 82 [facility] 3 [place] [address] Nurse Practitioner Psychiatry 05/10/20 12/15/23 documented as of this encounter
--- OUTSIDE RECORDS SUMMARY | 2024-07-12 15:55 | XMS_ITS | Encounter Summary ---
Author Organization [facility] Address [address] [place] [address] Care Team Providers Care Media Relations Intern Name Role Phone Kathia Alvarado Primary Care Provider [phone] Encounter Details Date Type Department Care Team (Late st Contact Info) Description 07/12/2024 Lab Requisition [facility] Pathology & Laboratory Medicine - [facility] [address] [place] [address] Outr Resulting Lab, Provider Social History Tobacco Use Types Packs/Day Years [...] documented in this encounter Plan of Treatment Scheduled Orders Name Type Priority Associated Diagnoses Orde r Schedule HIV 1/2 ANTIGEN AND ANTIBODY , 4TH GENERATION Lab Routine Ordered: 024 documented as of this encounter Visit Diagnoses Not on filedocumented in this encounter Care Teams Media Relations Intern Relationship Specialty Start Date End Date Kathia Alvarado FNP [address] [place] [phone] PCP - General 12/16/20 documented as of this encounter
--- OUTSIDE RECORDS SUMMARY | 2024-07-12 15:55 | XMS_ITS | Encounter Summary ---
Author Organization [facility] Address [address] [place] [address] Care Team Providers Care Doughnut Icer Name Role Phone Zain, Slick DOCTOR OF NURSING PRACTICE Unavailable [phone] Kathia AlvaradoP Primary Care Provider [phone] Reason for Visit * Reason Onset Date Comments Medications Refill 01/01/2021 Encounter Details Date Type Department Care Team (Late st Contact Info) Description 01/01/2021 Refill [facility] Family Psychiatry [address] [place] [address] Jannette Carroll RN 82 [facility] [place], [place] [address] Medications Refill Social History Tobacco Use Types [...] Date Prazosin (MINIPRESS) 2 mg capsule TAKE THREE CAPSULES BY MOUTH AT BEDTIME 270 Cap 01/01/2021 documented in this encounter Miscellaneous Notes * Telephone Encounter - Jannette Carroll RN - 01/01/2021 1023 EDT JUN 26 Van documented in this encounter Plan of Treatment Not on file documented as of this encounter Visit Diagnoses Not on filedocumented in this encounter Discontinued Medications Medication Sig Discontinue Reason Start Date End Da te Prazosin (MINIPRESS) 2 mg capsule TAKE THREE CAPSULES BY MOUTH AT BEDTIME Reorder 09/30/2020 01/01/2021 documented as of this encounter Care Teams Doughnut Icer Relationship Specialty Start Date End Date Kathia Alvarado FNP 26 [facility] [address] [place] [phone] PCP - General 12/16/20 Slick Pittman NP 82 [facility] 3 [place] [address] Nurse Practitioner Psychiatry 05/10/20 12/15/23 documented as of this encounter
--- OUTSIDE RECORDS SUMMARY | 2024-07-12 15:55 | XMS_ITS | Encounter Summary ---
Author Organization [facility] Address [address] [place] [address] Care Team Providers Care Data Analytics Developer Name Role Phone Slick Pittman NETWORK OPERATIONS CENTER ENGINEER Unavailable [phone] Kathia Alvarado Primary Care Provider [phone] Reason for Visit * Reason Comments Other Encounter Details Date Type Department Care Team (Late st Contact Info) Description 10/14/2021 [facility] Family Psychiatry [address] [place] [address] Slick Pittman NP 82 [facility] [address] [place] [address] Other Social History Tobacco Use [...] 2 CAPSULES BY MOUTH DAILY 180 capsule 10/14/2021 documented in this encounter Miscellaneous Notes * Telephone Encounter - Jannette Carroll RN - 10/14/2021 0818 EST NOV 12/17 documented in this encounter Plan of Treatment Not on file documented as of this encounter Visit Diagnoses Not on filedocumented in this encounter Discontinued Medications Medication Sig Discontinue Reason Start Date End Da te venlafaxine (EFFEXOR-XR) 150 mg XR capsule TAKE 2 CAPSULES BY MOUTH DAILY 11/22/2020 10/14/2021 documented as of this encounter Care Teams Data Analytics Developer Relationship Specialty Start Date End Date Kathia Alvarado FNP 26 [facility] [address] [place] [phone] PCP - General 12/16/20 Slick Pittman NP 82 [facility] 3 [place] [address] Nurse Practitioner Psychiatry 05/10/20 12/15/23 documented as of this encounter
--- OUTSIDE RECORDS SUMMARY | 2024-07-12 15:55 | XMS_ITS | Encounter Summary ---
Author Organization [facility] Address [address] [place] [address] Care Team Providers Care Account Underwriter Name Role Phone Slick Pittman STAFF READINESS OFFICER Unavailable [phone] Kathia Alvarado Primary Care Provider [phone] Reason for Visit * Reason Onset Date Comments Medications Refill 10/05/2023 Mirtazapine 7 .5 mg Encounter Details Date Type Department Care Team (Late st Contact Info) Description 10/05/2023 Refill [facility] Family Psychiatry [address] [place] [address] Slick Pittman NP 82 [facility] [address] [place] [phone] Medications Refill (Mirtazapine 7.5 mg ) Social History Tobacco Use Types Packs/Day Years [...] End Date mirtazapine (REMERON) 7.5 mg tablet Take 3 Tablets by mouth at bedtime. 270 Tablet 10/06/2023 documented in this encounter Miscellaneous Notes * Telephone Encounter - Bhumi Pacheco - 10/05/2023 0826 EST 10/05 [place] needs a refill of Mitazapine 7.5 mg to [facility] documented in this encounter Plan of Treatment Not on file documented as of this encounter Visit Diagnoses Not on filedocumented in this encounter Discontinued Medications Medication Sig Discontinue Reason Start Date End Da te mirtazapine (REMERON) 7.5 mg tablet TAKE 3 TABLETS BY MOUTH AT BEDTIME Reorder 02/03/2023 10/05/2023 documented as of this encounter Care Teams Account Underwriter Relationship Specialty Start Date End Date Kathia Alvarado FNP 26 [facility] [address] [place] [address] PCP - General 12/16/20 Slick Pittman NP 82 [facility] 3 [place] [address] Nurse Practitioner Psychiatry 05/10/20 12/15/23 documented as of this encounter
--- OUTSIDE RECORDS SUMMARY | 2024-07-12 15:55 | XMS_ITS | Encounter Summary ---
Author Organization [facility] Address [address] [place] [address] Care Team Providers Care Nurse Extern Name Role Phone Kathia Alvarado Primary Care Provider [phone] Encounter Details Date Type Department Care Team (Late st Contact Info) Description 07/12/2024 Lab Requisition [facility] Pathology & Laboratory Medicine - [facility] [address] [place] [address] Outr Resulting Lab, Provider Social History Tobacco [...] Type Priority Associated Diagnoses Orde r Schedule HEPATITIS C AB W REFLEX TO H CV RNA BY PCR Lab Routine Ordered: 024 SYPHILIS SEROLOGY Lab Routine Ordered : 07/12/2024 documented as of this encounter Visit Diagnoses Not on filedocumented in this encounter Care Teams Nurse Extern Relationship Specialty Start Date End Date Kathia Alvarado FNP 26 [facility] [address] [place] [phone] PCP - General 12/16/20 documented as of this encounter
--- OUTSIDE RECORDS SUMMARY | 2024-07-12 15:55 | XMS_ITS | Encounter Summary ---
Author Organization [facility] Address [address] [place] [address] Care Team Providers Care Control Room Agent Name Role Phone Zain, Slick FINISHING SUPERVISOR Unavailable [phone] Kathia Alvarado Primary Care Provider [phone] Encounter Details Date Type Department Care Team (Late st Contact Info) Description 07/19/2021 Lab Requisition [facility] Pathology & Laboratory Medicine - [address] [address] Outr Resulting Lab, Provider Social History Tobacco [...] on file documented as of this encounter Procedures Procedure Name Priority Date/Time Associated Diagnosis Comments ZZCOVID-19 TEST [facility] PCR Today 07/18/2021 16:50 EST COVID-19 TESTING Routine 07/18/2021 16:5 0 EST documented in this encounter Results * COVID-19 TEST [facility] PCR (07/18/2021 16:50 EST) Swab 07/18/2021 16:5 0 EST 07/19/2021 22:13 EST us Provider Outr Resulting Lab MICROBIOLOGY - GENER AL ORDERABLES Final Result Performing Organization Address City/State/[facility] Co de Phone Number [facility] [address] [place] [phone] * (ABNORMAL) COVID-19 TESTING (07/18/2021 16:50 EST) COVID-19 rt-PCR Result Positive(AA ) Negative 07/20/2021 17:23 EST [facility] Comment: This test has not been FDA cleared or approved. This test has been authorized by FDA under an EUA for use by authorized laboratories. This test has been authorized only for detection of nucleic acid from 2019-nCoV, not for any other viruses or pathogens. This test is only authorized for the duration of the declaration that circumstances exist justifying the authorization of emergency use of in vitro diagnostic tests for detection and/or diagnosis of 2019-nCoV under section 564(b)(1) of Act, 21 U.S.C ?? 360bbb-3(b) (1), unless the authorization is terminated or revoked sooner. Performed on the Veriousher Fusion instrument Performing Lab [place] [facility] 07/20/2021 17:23 EST [facility] Swab 07/18/2021 16:5 0 EST 07/19/2021 22:13 EST us Provider Outr Resulting Lab MICROBIOLOGY - GENER AL ORDERABLES Final Result [facility] [address] [place] [address] documented in this encounter Visit Diagnoses Not on filedocumented in this encounter Additional Health Concerns Infection Onset Date Last Indicated Resolved Time COVID-19 07/18/2021 07/18/2021 08/07/2021 22:1 5 EST documented as of this encounter Care Teams Control Room Agent Relationship Specialty Start Date End Date Kathia Alvarado FNP 26 [facility] [address] [place] [address] PCP - General 12/16/20 Slick Pittman NP 82 [facility] [address] [place] [address] Nurse Practitioner Psychiatry 05/10/20 12/15/23 documented as of this encounter
--- OUTSIDE RECORDS SUMMARY | 2024-07-12 15:55 | XMS_ITS | Clinical Summary ---
Author Organization [facility] Address [address] [place] [address] Care Team Providers Care Field Artillery Basic Name Role Phone Kathia Alvarado ELENA Primary Care Provider [phone] Allergies Active Allergy Reactions Criticality Noted Date Comments Amoxicillin Hives 10/26/2018 Haloperidol 10/26/2018 Other reaction(s): agitation Sulfa (Sulfonamide Antibiotics) Rash 10/26/2018 Medications omega-3s/dha/epa /fish oil/D3 (VITAMIN-D + OMEGA-3 ORAL) 1 cap orally once daily Active Calcium-Cholecal ciferol, D3, (CALCARB) 600 mg(1,500mg) -200 unit tablet 1 tab(s) orally with mag once a day Active estrogens, conjugated, (PREMARIN) 0.9 mg tablet 1 tab(s) orally once a day Active hydroCHLOROthiaz ayana (HYDRODIURIL) 25 mg tablet 1 tab(s) orally once a day Active lisinopril (PRINIVIL) 10 mg tablet 1 tab(s) orally once a day Active lisinopril-hydro chlorothiazide (ZESTORETIC) 10-12.5 mg per tablet TKE 1 TABLET BY MOUTH DAILY 07/29/20 19 Active loratadine (CLARITIN) 10 mg tablet 1 orally every day A ctive metFORMIN (GLUCOPHAGE-XR) 500 mg ER tablet Take 500 mg by mouth 2 times daily. 3 07/15/20 19 Active Fish Oil-Whitewood-3 Fatty Acids (FISH OIL) 360-1,200 mg capsule 1 cap by mouth daily Active omeprazole (PRILOSEC) 40 mg capsule 1 cap(s) orally once a day Active simvastatin (ZOCOR) 20 mg tablet 1 tab(s) orally once a day (at bedtime) Active NONFORMULARY Active ferrous sulfate (IRON ORAL) as directed Active multivit-mins no.63/iron/folic (M-VIT ORAL) 1 Active MAGNESIUM STEARATE MISC 2,500 g. Active metoprolol succinate 25 mg capsule,sprinkle ,ER 24hr 1 tab(s) orally once a day Active cholecalciferol, Vitamin D3, 25 mcg (1,000 unit) tablet Take 2,000 Units by mouth daily. Active Whitewood-3 Fatty Acids 500 mg capsule Take 1 capsule by mouth daily. Active VITAMIN B COMPLEX ORAL Take 1 Tablet by mouth daily. Active atorvastatin (LIPITOR) 40 mg tablet 01/01/20 22 Active PREMPRO 0.625-2.5 mg per tablet 04/13/20 22 Active metFORMIN (GLUCOPHAGE) 500 mg tablet 04/20/20 22 Active metoprolol SUCCinate (TOPROL-XL) 25 mg tablet 05/19/20 22 Active omeprazole (PRILOSEC) 20 mg capsule 04/03/20 22 Active ONETOUCH VERIO TEST STRIPS test strips 02/22/20 23 Active OZEMPIC subcutaneous pen 11/17/19 23 Active Prazosin (MINIPRESS) 2 mg capsule TAKE 3 CAPSULE BY MOUTH AT BEDTIME 270 Capsule 1 10/04/19 24 Active venlafaxine (EFFEXOR-XR) 150 mg XR capsule Take 2 Capsules by mouth daily for 90 days. 180 Capsule 12/16/19 24 Active mirtazapine (REMERON) 7.5 mg tablet Take 3 Tablets by mouth at bedtime. 270 Tablet 12/16/19 24 Active OZEMPIC 1 mg/dose (4 mg/3 mL) pen injector INJECT 1 MG SUBCUTANEOUSLY ONCE WEEKLY 11/17/19 24 Active Active Problems Problem Noted Date Diagnosed Date Alcohol use disorder, mild, in sustained remissi on, abuse 06/17/2021 ADHD, adult residual type 08/23/2019 PTSD (post-traumatic stress disorder) 08/23/2019 Major depressive disorder, recurrent episode ( C-CMS) 01/03/2014 Cognitive change 10/09/2013 Acute post-traumatic headache, not intractable 0 10/06/2013 Anxiety 10/06/2013 Concussion with no loss of consciousness 014 Overview (06/17/2021): DOI 09/13/13 Dizziness 10/06/2013 MCI (mild cognitive impairment) 10/06/2013 Lumbar pain 05/15/2013 Overview (06/17/2021): chronic issue reported during PT eval Bilateral hip pain 04/26/2013 Encounters Date Type Department Care Team Description 07/12/2024 Lab Requisition [facility] Pathology & Laboratory [address] [address] Outr Resulting Lab, Provider 07/12/2024 Lab Requisition [facility] Pathology Laboratory [address] [address] Outr Resulting Lab, Provider 04/29/2024 Refill [facility] Family Psychiatry [address] [place] [address] lSick Pittman NP Medications Refill from Last 3 Months Immunizations Name Administration Dates Next Due Influenza Vaccine High Dose (FLUZONE HIGH DOSE) PF 0.7 ml IM (65 yrs+) 06/06/2019 Surgical History Surgery Date Site/Laterality Comments HYSTERECTOMY CHOLECYSTECTOMY MASTECTOMY COSMETIC SURGERY BREAST SURGERY Bilateral masectomy Medical History Medical History Date Comments History of blood transfusion Diabetes mellitus ([facility]) Hypertension Psychiatric problem PTSD ADHD, adult residual type TBI (traumatic brain injury) ([facility]) Hypercholesterolemia Family History Medical History Relation Comments Mental Illness Father Mental Illness Mother Relation Status Comments Brother Alive Daughter 1 Alive Daughter 2 Alive Father Mother Alive Sister Alive Social History Tobacco Use Types Packs/Day Years [...] 10:55 EST Sexual Orientation Not on file Obstetrics History Plan of Treatment Health Maintenance Due Date Last Done Comments Hepatitis C Screen 1953 Lipid Profile Screening (Cholesterol) 01/24/1956 Pneumococcal Immunization (65+) (1 of 2 - PCV) 959 Depression Screening 1965 Preventive Care Visit 1971 Tetanus (Adult) Immunization 01/24/1972 Shingles Immunization (1 of 2) 2003 Fall Risk Screening 2018 COVID-19 Vaccine (1 - 2023- season) 2024 Influenza Immunization (Adult) (#1) 05/16/202406/06 RSV Immunization ( o r 60+ Years) (1 - 1-dose 75+ series) 01/24/2028 Insurance [facility] MEDICARE Care Teams Field Artillery Basic Relationship Specialty Start Date End Date Kathia Alvarado FNP [address] [facility] [address] [place] [phone] PCP - General 12/16/20
--- OUTSIDE RECORDS SUMMARY | 2024-07-12 15:55 | XMS_ITS | Encounter Summary ---
Author Organization [facility] Address [address] [place] [address] Care Team Providers Care Cartridge Assembling Machine Adjuster Name Role Phone Kathia Alvarado ELENA Primary Care Provider [phone] Reason for Visit * Reason Comments Medications Refill Encounter Details Date Type Department Care Team (Late st Contact Info) Description 04/29/2024 Refill [facility] Family Psychiatry [address] [place] [address] Slick Pittman NP 82 [facility] [address] [place] [phone] Medications Refill Social History Tobacco Use Types [...] on filedocumented in this encounter Care Teams Cartridge Assembling Machine Adjuster Relationship Specialty Start Date End Date Kathia Alvarado FNP 26 [facility] [address] [place] [phone] PCP - General 12/16/20 documented as of this encounter
--- OUTSIDE RECORDS SUMMARY | 2024-07-12 15:55 | XMS_ITS | Encounter Summary ---
Author Organization [facility] Address [address] [place] [address] Care Team Providers Care Field Automobile Adjuster Name Role Phone Slick Pittman LAUNCHMAN Unavailable [phone] Kathia Alvarado Primary Care Provider [phone] Reason for Visit * Reason Comments Anxiety Depression ADHD Post Traumatic Stress Disorder Encounter Details Date Type Department Care Team (Late st Contact Info) Description 06/17/2021 10:00 EDT Office Visit [facility] Family Psychiatry [address] [place] [address] Slick Pittman NP 82 [facility] [address] [place] [address] ADHD, adult residual type (Primary Dx); PTSD (post-traumatic stress disorder); Anxiety; Moderate episode of recurrent major depressive disorder (HCC); Alcohol use disorder, mild, in sustained remission, abuse Social History Tobacco Use Types Packs/Day Years [...] mg capsule One po q am 90 capsule 06/17/2021 2 buPROPion (WELLBUTRIN XL) 150 mg XL tablet One every morning 90 Tablet 3 06/17/2021 4 documented in this encounter Progress Notes * Slick Pittman - 06/17/2021 1000 EDT Psychiatric Follow-Up Visit Visit Date: 06/17/2021 Present for Visit: Patient Chief Complaint/Reason for Visit: Chief Complaint Patient presents with ??? Anxiety ??? Depression ??? ADHD ??? Post Traumatic Stress Disorder History of Present Illness: 66??year old female with long history of mood and anxiety Sx concurrentwith problems with attention. ??These have responded well to treatment and she has been able to function independently. ??She also has a history of Alcohol Use Disorder - in remission Subjective: I'm a great grandmother twice. She describes her mood as good and stable with no PTSDSx at this time. We also discussed my planned shelter in June 2023. We will discuss this in more detail as that date draws nearer Side-effects to psychiatric medication: denies Social History Tobacco Use ??? Smoking status: Former Smoker Years: 32.00 ??? Smokeless tobacco: Never Used ??? Tobacco comment: quit in 1985 Substance Use Topics ??? Alcohol use: Not Currently ??? Drug use: Not Currently Allergies: Allergies Allergen Reactions ??? Amoxicillin Hives ??? Haloperidol Other reaction(s): agitation ??? Sulfa (Sulfonamide Antibiotics) Rash Medications: Current Outpatient Medications on File Prior to Visit Medication Sig Dispense Refill ??? atomoxetine (STRATTERA) 80 mg capsule One po q am 90 capsule 0 ??? buPROPion (WELLBUTRIN XL) 150 mg XL tablet One every morning 90 Tab 3 ??? Calcium-Cholecalciferol, D3, (CALCARB) 600 mg(1,500mg) -200 unit tablet 1 tab(s) orally with mag once a day ??? estrogens, conjugated, (PREMARIN) 0.9 mg tablet 1 tab(s) orally once a day ??? estrogens, conjugated,-methyltestosterone (ESTRATEST) 1.25-2.5 mg per tablet TAKE 1 TABLET BY MOUTH EVERY DAY WITH FOOD 1 ??? ferrous sulfate (IRON ORAL) as directed ??? Fish Oil-Waterloo-3 Fatty Acids (FISH OIL) 360-1,200 mg capsule 1 cap by mouth daily ??? hydroCHLOROthiazide (HYDRODIURIL) 25 mg tablet 1 tab(s) orally once a day ??? lisinopril (PRINIVIL) 10 mg tablet 1 tab(s) orally once a day ??? lisinopril-hydrochlorothiazide (ZESTORETIC) 10-12.5 mg per tablet TKE 1 TABLET BY MOUTH DAILY ??? loratadine (CLARITIN) 10 mg tablet 1 orally every day ??? MAGNESIUM STEARATE MISC 2,500 g. ??? metFORMIN (GLUCOPHAGE-XR) 500 mg ER tablet Take 500 mg by mouth 2 times daily. 3 ??? metoprolol succinate 25 mg capsule,sprinkle,ER 24hr 1 tab(s) orally once a day ??? mirtazapine (REMERON) 7.5 mg tablet TAKE 3 TABLETS BY MOUTH AT BEDTIME 270 Tab 3 ??? multivit-mins no.63/iron/folic (M-VIT ORAL) 1 ??? NONFORMULARY ??? omega-3s/dha/epa/fish oil/D3 (VITAMIN-D + OMEGA-3 ORAL) 1 cap orally once daily ??? omeprazole (PRILOSEC) 40 mg capsule 1 cap(s) orally once a day ??? Prazosin (MINIPRESS) 2 mg capsule TAKE 3 CAPSULES BY MOUTH AT BEDTIME 270 capsule 0 ??? simvastatin (ZOCOR) 20 mg tablet 1 tab(s) orally once a day (at bedtime) ??? venlafaxine (EFFEXOR-XR) 150 mg XR capsule TAKE 2 CAPSULES BY MOUTH DAILY 180 Cap 3 No current facility-administered medications on file prior to visit. Review of Systems: Psychiatric: also per HPI. Sleep - good/restorative Energy - good Appetite - wnl Psychiatric Exam: Current relevant Sx: denies General Appearance: casually dressed/well groomed Mood and Affect: good/full Speech: normal rate and tone Language: structured/appropriate Thought Process: wnl - no unusual content Associations: wnl Abnormal/Psychotic Thoughts:none Judgment and Insight: good/appropriate Orientation: alert, oriented x 4 Recent and Remote Memory: intact Attention and Concentration: attends well to conversation Fund of Knowledge: good SI/HI -NONE Assessment 1. ADHD, adult residual type Good Sx relief at this time 2. PTSD (post-traumatic stress disorder) No Sx at this time 3. Anxiety No current Sx 4. Moderate episode of recurrent major depressive disorder (HCC) Good and stable mood PLAN: Goals: 1) Minimize or eliminate Sx 2) Minimize or eliminate impact of Sx on functioning 3)Maintain or improve level of functioning Progress Towards Goals: 1) No current Sx of mood, anxiety, ADHD 2) No current impact on functioning 3) Functioning well at this time Treatment Plan: Modality - Psychotherapy/Medication management Frequency - q Duration of Sessions - 30 minutes Expected Duration of Therapy - ongoing Maintain current medications Follow-up in for medication management and psychotherapy 30 minute appointment The patient was requested to call my office if there was a significant change in symptoms. documented in this encounter Plan of Treatment Not on file documented as of this encounter Visit Diagnoses Diagnosis ADHD, adult residual type- Primary Attention deficit disorder with hyperactivity PTSD (post-traumatic stress disorder) Posttraumatic stress disorder Anxiety Anxiety state, unspecified Moderate episode of recurrent major depressive disorder (HCC-CMS) Alcohol use disorder, mild, in sustained remission, abuse documented in this encounter Discontinued Medications Medication Sig Discontinue Reason Start Date End Da te estrogens, conjugated,-methyltestos terone (ESTRATEST) 1.25-2.5 mg per tablet TAKE 1 TABLET BY MOUTH EVERY DAY WITH FOOD 06/02/2019 06/17/2021 buPROPion (WELLBUTRIN XL) 150 mg XL tablet One every morning Reorder 05/31/2020 atomoxetine (STRATTERA) 80 mg capsule One po q am Reorder 04/03/2021 06/17/2021 documented as of this encounter Historical Medications * This list may reflect changes made after this encounter. VITAMIN B COMPLEX ORAL Take 1 Tablet by mouth daily. Waterloo-3 Fatty Acids 500 mg capsule Take 1 capsule by mouth daily. cholecalciferol, Vitamin D3, 25 mcg (1,000 unit) tablet Take 2,000 Units by mouth daily. added in this encounter Care Teams Field Automobile Adjuster Relationship Specialty Start Date End Date Kathia Alvarado FNP 26 [facility] [address] [place] [address] PCP - General 12/16/20 Slick Pittman NP 82 [facility] 3 [place] [address] Nurse Practitioner Psychiatry 05/10/20 12/15/23 documented as of this encounter
--- OUTSIDE RECORDS SUMMARY | 2024-07-12 15:55 | XMS_ITS | Encounter Summary ---
Author Organization [facility] Address [address] [place] [address] Care Team Providers Care Environmental Scientist Name Role Phone Slick Pittman COMPENSATION SUPERVISOR Unavailable [phone] Kathia Alvarado Primary Care Provider [phone] Encounter Details Date Type Department Care Team (Late st Contact Info) Description 08/19/2021 Orders Only [facility] [address] [place] [address] Slick Pittman NP [address] [facility] [address] [place] [phone] Social History Tobacco Use Types Packs/Day Years [...] End Date Prazosin (MINIPRESS) 2 mg capsule 3 po Q HS 270 capsule 3 08/19/2021 10/09/2022 documented in this encounter Plan of Treatment Not on file documented as of this encounter Visit Diagnoses Not on filedocumented in this encounter Discontinued Medications Medication Sig Discontinue Reason Start Date End Da te Prazosin (MINIPRESS) 2 mg capsule TAKE 3 CAPSULES BY MOUTH AT BEDTIME Reorder 08/11/2021 08/19/2021 documented as of this encounter Care Teams Environmental Scientist Relationship Specialty Start Date End Date Kathia Alvarado FNP 26 [facility] [address] [place] [address] PCP - General 12/16/20 Slick Pittman NP 82 [facility] [address] [place] [address] Nurse Practitioner Psychiatry 05/10/20 12/15/23 documented as of this encounter
--- OUTSIDE RECORDS SUMMARY | 2024-07-12 15:55 | XMS_ITS | Encounter Summary ---
Author Organization [facility] Address [address] [place] [address] Care Team Providers Care Bean Snipper Name Role Phone Slick Pittman LAMP INSPECTOR Unavailable [phone] Kathia Alvarado Primary Care Provider Reason for Visit * Reason Onset Date Comments Medications Refill 11/02/2023 Effexor XR 15 0mg 2 daily Encounter Details Date Type Department Care Team (Late Contact Info) Description 11/02/2023 Refill [facility] Family Psychiatry [address] [place] [address] Slick Pittman NP 82 [facility] [address] [place] [phone] Medications Refill (Effexor XR 150mg 2 daily) Social History Tobacco Use Types Packs/Day Years [...] Date venlafaxine (EFFEXOR-XR) 150 mg XR capsule Take 2 Capsules by mouth daily for 90 days. 180 Capsule 11/02/2023 documented in this encounter Miscellaneous Notes * Telephone Encounter - Aleyda Laureano - 11/02/2023 1237 EDT Effexor XR 150mg 2 daily Mina Rees pt - NOV 12/16/23 documented in this encounter Plan of Treatment Not on file documented as of this encounter Visit Diagnoses Not on filedocumented in this encounter Discontinued Medications Medication Sig Discontinue Reason Start Date End Da te venlafaxine (EFFEXOR-XR) 150 mg XR capsule Take 2 Capsules by mouth daily for 90 days. Reorder 03/04/2023 11/02/2023 documented as of this encounter Care Teams Bean Snipper Relationship Specialty Start Date End Date Kathia Alvarado FNP 26 [facility] [address] [place] [phone] PCP - General 12/16/20 Slick Pittman NP 82 [facility] 3 [place] [address] Nurse Practitioner Psychiatry 05/10/20 12/15/23 documented as of this encounter
--- OUTSIDE RECORDS SUMMARY | 2024-07-12 15:55 | XMS_ITS | Encounter Summary ---
Author Organization [facility] Address [address] [place] [address] Care Team Providers Care Marketing Communication Manager Name Role Phone Slick Pittman PROCESS ARCHITECT Unavailable [phone] Kathia Alvarado Primary Care Provider [phone] Reason for Visit * Reason Comments Medications Refill Encounter Details Date Type Department Care Team (Late st Contact Info) Description 10/01/2023 Refill [facility] Family Psychiatry [address] [place] [address] Slick Pittman NP 82 [facility] [address] [place] [phone] Medications Refill Social History Tobacco Use Types [...] BY MOUTH AT BEDTIME 270 Capsule 1 10/04/2023 documented in this encounter Miscellaneous Notes * Telephone Encounter - Jannette Carroll RN - 10/04/2023 1002 EST JUN 18 documented in this encounter Plan of Treatment Not on file documented as of this encounter Visit Diagnoses Not on filedocumented in this encounter Discontinued Medications Medication Sig Discontinue Reason Start Date End Da te Prazosin (MINIPRESS) 2 mg capsule TAKE THREE CAPSULES BY MOUTH AT BEDTIME Reorder 10/09/2022 10/04/2023 documented as of this encounter Care Teams Marketing Communication Manager Relationship Specialty Start Date End Date Kathia Alvarado FNP 26 [facility] [address] [place] [phone] PCP - General 12/16/20 Slick Pittman NP 82 [facility] 3 [place] [phone] Nurse Practitioner Psychiatry 05/10/20 12/15/23 documented as of this encounter
--- OUTSIDE RECORDS SUMMARY | 2024-07-12 15:55 | XMS_ITS | Encounter Summary ---
Author Organization [facility] Address [address] [place] [address] Care Team Providers Care Oil Well Logging Engineer Name Role Phone Slick Pittman COMPLIANCE CLERK Unavailable [phone] Kathia Alvarado Primary Care Provider [phone] Reason for Visit * Reason Onset Date Comments Medication Problem 09/09/2021 patient has b een out of strattera for two weeks Encounter Details Date Type Department Care Team (Late Contact Info) Description 09/09/2021 Telephone [facility] Family Psychiatry [address] [place] [address] Slick Pittman NP 82 [facility] [address] [place] [address] Medication Problem (patient has been out of strattera for two weeks) Social History Tobacco Use Types Packs/Day Years [...] 12/06/2019 9:45 EDT documented in this encounter Miscellaneous Notes * Telephone Encounter - Jannette Carroll RN - 09/09/2021 1058 EST Not sure what pt was told or why, but I called [facility] and through insurance it's $300 and with the discount it's $75 for 90 days. They ran the rx through with no issues. I have informed pt she is all set. * Telephone Encounter - Sonia Valentine - 09/09/2021 1028 EST Patient called [facility] for refill of strattera About two weeks early - patient did not receive medication. Patient called again still has not received medication. Received phone call from pharmacy stating they could not give her a discount until she had seen Cabrera again. She can getmedication if she pays $75. documented in this encounter Plan of Treatment Not on file documented as of this encounter Visit Diagnoses Not on filedocumented in this encounter Care Teams Oil Well Logging Engineer Relationship Specialty Start Date End Date Kathia Alvarado FNP 26 [facility] [address] [place] [address] PCP - General 12/16/20 Slick Pittman NP 82 [facility] 3 [place] [address] Nurse Practitioner Psychiatry 05/10/20 12/15/23 documented as of this encounter
--- OUTSIDE RECORDS SUMMARY | 2024-07-12 15:55 | XMS_ITS | Encounter Summary ---
Author Organization [facility] Address [address] [place] [address] Care Team Providers Care Lawn Specialist Name Role Phone Slick Pittman FOOD TASTER Unavailable [phone] Kathia Alvarado Primary Care Provider [phone] Reason for Visit * Reason Comments Other Encounter Details Date Type Department Care Team ([facility] st Contact Info) Description 08/10/2021 [facility] [place] [facility] Family Psychiatry [address] [place] [address] Rodolfo Blanco NP 82 [facility] [address] [place] [address] Other Social History Tobacco Use [...] TAKE 3 CAPSULES BY MOUTH AT BEDTIME 90 capsule 08/11/2021 2 documented in this encounter Miscellaneous Notes * Telephone Encounter - Jannette Carroll RN - 08/11/2021 0835 EST NOV 09/17/21 bryn/Ten documented in this encounter Plan of Treatment Not on file documented as of this encounter Visit Diagnoses Not on filedocumented in this encounter Discontinued Medications Medication Sig Discontinue Reason Start Date End Da te Prazosin (MINIPRESS) 2 mg capsule TAKE 3 CAPSULES BY MOUTH AT BEDTIME 05/06/2021 08/11/2021 documented as of this encounter Care Teams Lawn Specialist Relationship Specialty Start Date End Date Kathia Alvarado FNP 26 [facility] [address] [place] [phone] PCP - General 12/16/20 Slick Pittman NP 82 [facility] 3 [place] [phone] Nurse Practitioner Psychiatry 05/10/20 12/15/23 documented as of this encounter
--- OUTSIDE RECORDS SUMMARY | 2024-07-12 15:55 | XMS_ITS | Encounter Summary ---
Author Organization [facility] Address [address] [place] [address] Care Team Providers Care Bakery Team Leader Name Role Phone Zain, Slick ASSOCIATE SPA DIRECTOR Unavailable [phone] Kathia Alvarado CLINICAL BUSINESS ANALYST Primary Care Provider [phone] Reason for Visit * Reason Onset Date Comments Medications Refill 04/15/2022 Encounter Details Date Type Department Care Team (Late st Contact Info) Description 04/15/2022 Refill [facility] Family Psychiatry [address] [place] [address] Jannette Carroll RN 82 [facility] [place] [address] Medications Refill Social History Tobacco Use Types [...] Take 1 capsule by mouth every morning. 90 capsule 04/16/2022 documented in this encounter Miscellaneous Notes * Telephone Encounter - Jannette Carroll RN - 04/15/2022 1029 EDT JUN 25 documented in this encounter Plan of Treatment Not on file documented as of this encounter Visit Diagnoses Not on filedocumented in this encounter Discontinued Medications Medication Sig Discontinue Reason Start Date End Da te atomoxetine (STRATTERA) 80 mg capsule Take 1 capsule by mouth every morning. Reorder 02/23/2022 04/15/2022 documented as of this encounter Care Teams Bakery Team Leader Relationship Specialty Start Date End Date Kathia Alvarado FNP 26 [facility] [address] [place] [phone] PCP - General 12/16/20 Slick Pittman NP 82 [facility] 3 [place] [address] Nurse Practitioner Psychiatry 05/10/20 12/15/23 documented as of this encounter
--- OUTSIDE RECORDS SUMMARY | 2024-07-12 15:55 | XMS_ITS | Encounter Summary ---
Author Organization [facility] Address [address] [place] [address] Care Team Providers Care Senior Site Manager Name Role Phone Kathia Alvarado ELENA Primary Care Provider [phone] Reason for Visit * Reason Comments ADHD Anxiety Post Traumatic Stress Disorder Encounter Details Date Type Department Care Team (Late st Contact Info) Description 12/16/2023 8:30 EDT Telemedicine [facility] [address] [place] [address] Slick Pittman NP [address] [facility] [address] [place] [id number] ADHD, adult residual type (Primary Dx); Alcohol use disorder, mild, in sustained remission, abuse; Anxiety; Moderate episode of recurrent major depressive disorder (HCC-CMS); PTSD (post-traumatic stress disorder) Social History Tobacco Use Types Packs/Day Years [...] Tablets by mouth at bedtime. 270 Tablet 12/16/2023 venlafaxine (EFFEXOR-XR) 150 mg XR capsule Take 2 Capsules by mouth daily for 90 days. 180 Capsule 12/16/2023 documented in this encounter Progress Notes * Slick Pittman - 12/16/2023 0830 EDT Psychiatric Follow-Up Visit The concept of ???Telemedicine?? has been described to the patient.? Patient has been informed of the anticipated benefits and possible risks.? Patient understands the information provided regardingtelemedicine, has had the opportunity to ask questions about this information, and all questions have been answered to patient???s satisfaction. Patient consents for the use of telemedicine in his/her medical care and authorizes the transmission of any relevant medical information to providers and their staff involved in patient???s medical or mental health care. Patient understands that they maybe responsible for copays, deductible or coinsurance for this service. TELEMEDICINE VIDEO VISIT Today's visit was provided through telemedicine video conferencing: I have reviewed the appropriateness of using video technology with the patient with regards to today's visit. The location of the patient : Home (where patient lives) The location of the provider: Office The following people and their roles were present for today's visit: Appointment Provider: Slick Pittman NP James Greenleaf, NP Visit Date: 12/16/2023 Present for Visit: Patient Chief Complaint/Reason for Visit: Chief Complaint Patient presents with ADHD Anxiety Post Traumatic Stress Disorder History of Present Illness: 68 year old female with long history of mood and anxiety Sx concurrent with problems with attention. These have responded well to treatment and she has been able to function independently. She also has a history of Alcohol Use Disorder - in remission Subjective: I'm pretty good. She reports that she is doing well. 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 She also has remainedabstinent from alcohol. She has spoken with her PCP about taking over her medications, and her PCP agreed to take this on. I ordered Rfs of her medications to last until the end of January. Side-effects to psychiatric medication: denies Social History Tobacco Use Smoking status: Former Types: Cigarettes Smokeless tobacco: Never Tobacco comments: quit in 1985 Substance Use Topics Alcohol use: Not Currently Drug use: Not Currently Allergies: Allergies Allergen Reactions Amoxicillin Hives Haloperidol Other reaction(s): agitation Sulfa (Sulfonamide Antibiotics) Rash Medications: Current Outpatient Medications on File Prior to Visit Medication Sig Dispense Refill atomoxetine (STRATTERA) 80 mg capsule Take 1 Capsule by mouth every morning. 90 Capsule 0 atorvastatin (LIPITOR) 40 mg tablet buPROPion (WELLBUTRIN XL) 150 mg XL tablet One every morning 90 Tablet 3 Calcium-Cholecalciferol, D3, (CALCARB) 600 mg(1,500mg) -200 unit tablet 1 tab(s) orally with mag once a day cholecalciferol, Vitamin D3, 25 mcg (1,000 unit) tablet Take 2,000 Units by mouth daily. estrogens, conjugated, (PREMARIN) 0.9 mg tablet 1 tab(s) orally once a day ferrous sulfate (IRON ORAL) as directed Fish Oil-[place]-3 Fatty Acids (FISH OIL) 360-1,200 mg capsule 1 cap by mouth daily hydroCHLOROthiazide (HYDRODIURIL) 25 mg tablet 1 tab(s) orally once a day lisinopril (PRINIVIL) 10 mg tablet 1 tab(s) orally once a day lisinopril-hydrochlorothiazide (ZESTORETIC) 10-12.5 mg per tablet TKE 1 TABLET BY MOUTH DAILY loratadine (CLARITIN) 10 mg tablet 1 orally every day MAGNESIUM STEARATE MISC 2,500 g. metFORMIN (GLUCOPHAGE) 500 mg tablet metFORMIN (GLUCOPHAGE-XR) 500 mg ER tablet Take 500 mg by mouth 2 times daily. 3 metoprolol SUCCinate (TOPROL-XL) 25 mg tablet metoprolol succinate 25 mg capsule,sprinkle,ER 24hr 1 tab(s) orally once a day mirtazapine (REMERON) 7.5 mg tablet Take 3 Tablets by mouth at bedtime. 270 Tablet 0 multivit-mins no.63/iron/folic (M-VIT ORAL) 1 NONFORMULARY [place]-3 Fatty Acids 500 mg capsule Take 1 capsule by mouth daily. omega-3s/dha/epa/fish oil/D3 (VITAMIN-D + OMEGA-3 ORAL) 1 cap orally once daily omeprazole (PRILOSEC) 20 mg capsule omeprazole (PRILOSEC) 40 mg capsule 1 cap(s) orally once a day ONETOUCH VERIO TEST STRIPS test strips OZEMPIC subcutaneous pen Prazosin (MINIPRESS) 2 mg capsule TAKE 3 CAPSULE BY MOUTH AT BEDTIME 270 Capsule 1 PREMPRO 0.625-2.5 mg per tablet simvastatin (ZOCOR) 20 mg tablet 1 tab(s) orally once a day (at bedtime) venlafaxine (EFFEXOR-XR) 150 mg XR capsule Take 2 Capsules by mouth daily for 90 days. 180 Capsule 0 VITAMIN B COMPLEX ORAL Take 1 Tablet by mouth daily. No current facility-administered medications on file prior to visit. Review of Systems: Psychiatric: also per HPI. Sleep - good/restorative Energy - good Appetite - wnl Psychiatric Exam: Current relevant Sx: General Appearance: casually dressed/well groomed Mood and Affect: good/full Speech: normal rate and tone Language: structured/appropriate Thought Process: wnl - no unusual content Associations: wnl Abnormal/Psychotic Thoughts:none Judgment and Insight: good/appropriate Orientation: alert, oriented x 4 Recent and Remote Memory: intact Attention and Concentration: attends well to conversation Fund of Knowledge: good SI/HI -NONE Assessment 1. ADHD, adult residual type 2. Alcohol use disorder, mild, in sustained remission, abuse 3. Anxiety 4. Moderate episode of recurrent major depressive disorder ([facility]) 5. PTSD (post-traumatic stress disorder) Stable, no current Sx PLAN: Goals: 1) Minimize or eliminate Sx 2) Minimize or eliminate impact of Sx on functioning 3)Maintain or improve level of functioning Progress Towards Goals: 1) Minimal impact of Sx on functioning 2) Functioning well. Treatment Plan: Modality - Psychotherapy/Medication management Duration of Sessions - 30 minutes Expected Duration of Therapy - ongoing Maintain current medications Follow-up with PCP 30 minute appointment The patient was requested to call my office if there was a significant change in symptoms. documented in this encounter Plan of Treatment Not on file documented as of this encounter Visit Diagnoses Diagnosis ADHD, adult residual type- Primary Attention deficit disorder with hyperactivity Alcohol use disorder, mild, in sustained remission, abuse Anxiety Anxiety state, unspecified Moderate episode of recurrent major depressive disorder ([facility]) PTSD (post-traumatic stress disorder) Posttraumatic stress disorder documented in this encounter Discontinued Medications Medication Sig Discontinue Reason Start Date End Da te atomoxetine (STRATTERA) 80 mg capsule Take 1 Capsule by mouth every morning. Therapy completed 03/04/2023 12/16/2023 buPROPion (WELLBUTRIN XL) 150 mg XL tablet One every morning 06/17/2021 mirtazapine (REMERON) 7.5 mg tablet Take 3 Tablets by mouth at bedtime. Reorder 10/06/2023 12/16/2023 venlafaxine (EFFEXOR-XR) 150 mg XR capsule Take 2 Capsules by mouth daily for 90 days. Reorder 11/02/2023 12/16/2023 documented as of this encounter Historical Medications * This list may reflect changes made after this encounter. OZEMPIC 1 mg/dose (4 mg/3 mL) pen injector INJECT 1 MG SUBCUTANEOUSLY ONCE WEEKLY 11/17/2023 added in this encounter Care Teams Senior Site Manager Relationship Specialty Start Date End Date Kathia Alvarado FNP [address] [place] [address] [address] [place] [phone] PCP - General 12/16/20 documented as of this encounter
--- OUTSIDE RECORDS SUMMARY | 2024-07-12 15:55 | XMS_ITS | Encounter Summary ---
Author Organization [facility] Address [address] [place] [address] Care Team Providers Care Vp Software Engineering Name Role Phone Slick Pittman SENIOR UI UX DESIGNER Unavailable [phone] Kathia Alvarado Primary Care Provider [phone] Reason for Visit * Reason Comments Anxiety ADHD Encounter Details Date Type Department Care Team ([facility] Contact Info) Description 06/19/2022 10:30 EDT Office Visit [facility] Family Psychiatry [address] [place] [address] Slick Pittman NP 82 [facility] [address] [place] [address] ADHD, adult residual type (Primary Dx); PTSD (post-traumatic stress disorder) Social History Tobacco [...] by mouth daily for 90 days. 180 capsule 3 06/19/2022 3 documented in this encounter Progress Notes * Slick Pittman - 06/19/2022 1030 EDT Psychiatric Follow-Up Visit Visit Date: 06/19/2022 Present for Visit: Patient Chief Complaint/Reason for Visit: Chief Complaint Patient presents with ??? Anxiety ??? ADHD History of Present Illness: 67??year old female with long history of mood and anxiety Sx concurrentwith problems with attention. ??These have responded well to treatment and she has been able to function independently. ??She also has a history of Alcohol Use Disorder - in remission ?? She is aware of [place] [facility] [place] Subjective: I've been abstinent. She states her mood has been good and stable and she is functioning well. She is also satisfied with the current Sx releif. Side-effects to psychiatric medication: denies Social History [...] Refill ??? atomoxetine (STRATTERA) 80 mg capsule Take 1 capsule by mouth every morning. 90 capsule 0 ??? atorvastatin (LIPITOR) 40 mg tablet ??? buPROPion (WELLBUTRIN XL) 150 mg XL tablet One every morning 90 Tablet 3 ??? Calcium-Cholecalciferol, D3, (CALCARB) 600 mg(1,500mg) -200 unit tablet 1 tab(s) orally with mag once a day ??? cholecalciferol, Vitamin D3, 25 mcg (1,000 unit) tablet Take 2,000 Units by mouth daily. ??? estrogens, conjugated, (PREMARIN) 0.9 mg tablet 1 tab(s) orally once a day ??? ferrous sulfate (IRON ORAL) as directed ??? Fish Oil-[place]-3 Fatty Acids (FISH OIL) 360-1,200 mg capsule [...] day ??? mirtazapine (REMERON) 7.5 mg tablet Take 3 Tablets by mouth at bedtime. 270 Tablet 3 ??? multivit-mins no.63/iron/folic (M-VIT ORAL) 1 ??? NONFORMULARY ??? [place]-3 Fatty Acids 500 mg capsule Take 1 capsule by mouth daily. ??? omega-3s/dha/epa/fish oil/D3 (VITAMIN-D + OMEGA-3 ORAL) 1 cap orally once daily ??? omeprazole (PRILOSEC) 40 mg capsule 1 cap(s) orally once a day ??? Prazosin (MINIPRESS) 2 mg capsule 3 po Q HS 270 capsule 3 ??? simvastatin (ZOCOR) 20 mg tablet 1 tab(s) orally once a day (at bedtime) ??? VITAMIN B COMPLEX ORAL Take 1 Tablet [...] -NONE Assessment 1. ADHD, adult residual type Reports good control of sx 2. PTSD (post-traumatic stress disorder) Reports good control of Sx. PLAN: Goals: 1) Minimize or eliminate Sx 2) Minimize or eliminate impact of Sx on functioning 3)Maintain or improve level of functioning Progress Towards Goals: 1) Mild to moderate Sx 2) Minimal impact of Sx on functioning 3) Functioning well Treatment Plan: Modality - Psychotherapy/Medication management Frequency - q 3 months Duration of Sessions - 30 minutes Expected Duration of Therapy - ongoing Maintain current medications Follow-up in 3 months for medication management and psychotherapy 30 minute [...] by mouth daily for 90 days. Reorder 01/27/2022 06/19/2022 documented as of this encounter Historical Medications * This list may reflect changes made after this encounter. Medication Sig Dispense Quantity Refills Last Filled Start D ate End Date omeprazole (PRILOSEC) 20 mg capsule 04/03/2022 metoprolol SUCCinate (TOPROL-XL) 25 mg tablet 05/19/2022 metFORMIN (GLUCOPHAGE) 500 mg tablet 04/20/2022 PREMPRO 0.625-2.5 mg per tablet 04/13/2022 added in this encounter Care Teams Vp Software Engineering Relationship Specialty Start Date End Date Kathia Alvardao FNP [address] [place] [phone] PCP - General 12/16/20 Slick Pittman NP [address] [address] Nurse Practitioner Psychiatry 05/10/20 12/15/23 documented as of this encounter
--- OUTSIDE RECORDS SUMMARY | 2024-07-12 15:55 | XMS_ITS | Encounter Summary ---
Author Organization [facility] Address [address] [place] [address] Care Team Providers Care Wet Washer Machine Name Role Phone Slick Pittman RAILROAD DISPATCHER Unavailable [phone] Kathia Alvarado Primary Care Provider [phone] Reason for Visit * Reason Comments Other Encounter Details Date Type Department Care Team ([facility] st Contact Info) Description 12/26/2021 [facility] Family Psychiatry [address] [place] [address] Slick Pittman NP 82 [facility] [address] [place] [address] Other Social History Tobacco Use [...] Take 1 capsule by mouth every morning 30 capsule 12/26/2021 2 documented in this encounter Miscellaneous Notes * Telephone Encounter - Sonia Valentine - 12/26/2021 1326 EDT LM 12/26/21 * Telephone Encounter - Jannette Carroll RN - 12/26/2021 1135 EDT Please schedule with Cabrera and return to me for refills - thanks documented in this encounter Plan of Treatment Not on file documented as of this encounter Visit Diagnoses Not on filedocumented in this encounter Discontinued Medications Medication Sig Discontinue Reason Start Date End Da te atomoxetine (STRATTERA) 80 mg capsule Take 1 capsule by mouth every morning 09/04/2021 12/26/2021 documented as of this encounter Care Teams Wet Washer Machine Relationship Specialty Start Date End Date Kathia Alvarado FNP [address] [facility] [address] [place] [phone] PCP - General 12/16/20 Slick Pittman NP 82 [facility] 3 [place] [address] Nurse Practitioner Psychiatry 05/10/20 12/15/23 documented as of this encounter
--- OUTSIDE RECORDS SUMMARY | 2024-07-12 15:55 | XMS_ITS | Encounter Summary ---
Author Organization [facility] Address [address] [place] [address] Care Team Providers Care Banking Services Clerk Name Role Phone Slick Pittman TALENT ACQUISITION OPERATIONS MANAGER Unavailable [phone] Kathia Alvarado Primary Care Provider [phone] Reason for Visit * Reason Comments Other Encounter Details Date Type Department Care Team ([facility] st Contact Info) Description 09/04/2021 [facility] Family Psychiatry [address] [place] [address] Slick Pittman NP 82 [facility] [address] [place] [address] Other Social History Tobacco Use [...] Take 1 capsule by mouth every morning 90 capsule 09/04/2021 documented in this encounter Miscellaneous Notes * Telephone Encounter - Jannette Carroll RN - 09/04/2021 1311 EST JUN 17 documented in this encounter Plan of Treatment Not on file documented as of this encounter Visit Diagnoses Not on filedocumented in this encounter Discontinued Medications Medication Sig Discontinue Reason Start Date End Da te atomoxetine (STRATTERA) 80 mg capsule One po q am 06/17/2021 09/04/2021 documented as of this encounter Care Teams Banking Services Clerk Relationship Specialty Start Date End Date Kathia Alvarado FNP [address] [employer] [address] [place] [address] PCP - General 12/16/20 Slick Pittman NP 82 [facility] 3 [place] [address] Nurse Practitioner Psychiatry 05/10/20 12/15/23 documented as of this encounter
--- OUTSIDE RECORDS SUMMARY | 2024-07-12 15:55 | XMS_ITS | Encounter Summary ---
Author Organization [facility] Address [address] [place] [address] Care Team Providers Care Licensed Architect Name Role Phone Slick Pittman POURER OFF Unavailable [phone] Kathia Alvarado Primary Care Provider [phone] Reason for Visit * Reason Comments Other Encounter Details Date Type Department Care Team (Late st Contact Info) Description 01/11/2021 [facility] Family Psychiatry [address] [place] [address] Rodolfo Blanco NP 82 [facility] [address] [place] [address] Other Social History Tobacco Use [...] BY MOUTH AT BEDTIME 270 Tab 3 01/14/2021 documented in this encounter Miscellaneous Notes * Telephone Encounter - Jannette Carroll RN - 01/14/2021 0844 EDT JUN 26 documented in this encounter Plan of Treatment Not on file documented as of this encounter Visit Diagnoses Not on filedocumented in this encounter Discontinued Medications Medication Sig Discontinue Reason Start Date End Da te mirtazapine (REMERON) 7.5 mg tablet Take 3 Tabs by mouth at bedtime for 360 days. 12/25/2019 01/14/2021 documented as of this encounter Additional Health Concerns Infection Onset Date Last Indicated Resolved Time COVID-19 07/18/2021 07/18/2021 08/07/2021 22:1 5 EST documented as of this encounter Care Teams Licensed Architect Relationship Specialty Start Date End Date Kathia Alvarado FNP 26 [facility] [address] [place] [address] PCP - General 12/16/20 Slick Pittman NP 82 [facility] 3 [place] [address] Nurse Practitioner Psychiatry 05/10/20 12/15/23 documented as of this encounter
--- OUTSIDE RECORDS SUMMARY | 2024-07-12 15:55 | XMS_ITS | Encounter Summary ---
Author Organization [facility] Address [address] [place] [address] Care Team Providers Care Steam Presser Name Role Phone Slick Pittman QUALITY CONTROL CLERK Unavailable [phone] Kathia Alvarado Primary Care Provider [phone] Reason for Visit * Reason Comments Other Encounter Details Date Type Department Care Team ([facility] st Contact Info) Description 10/10/2021 [facility] Family Psychiatry [address] [place] [address] Slick Pittman NP 82 [facility] [address] [place] [address] Other Social History Tobacco Use [...] on filedocumented in this encounter Care Teams Steam Presser Relationship Specialty Start Date End Date Kathia Alvarado FNP [address] [facility] [address] [place] [phone] PCP - General 12/16/20 Slick Pittman NP 82 [facility] 3 [place] [address] Nurse Practitioner Psychiatry 05/10/20 12/15/23 documented as of this encounter
--- OUTSIDE RECORDS SUMMARY | 2024-07-12 15:55 | XMS_ITS | Encounter Summary ---
Author Organization [facility] Address [address] [place] [address] Care Team Providers Care Tech Ed Teacher Name Role Phone Slick Pittman REGISTERED NURSE BONE MARROW TRANSPLANT Unavailable [phone] Kathia Alvarado Primary Care Provider [phone] Reason for Visit * Reason Onset Date Comments No Show 01/16/2022 Encounter Details Date Type Department Care Team (Late st Contact Info) Description 01/16/2022 Telephone [facility] Family Psychiatry [address] [place] [address] Slick Pittman NP 82 [facility] [address] [place] [address] No Show Social History Tobacco Use Types Packs/Day Years [...] * Telephone Encounter - Sonia Valentine - 01/19/2022 0926 EDT Appt 01/27/22 * Telephone Encounter - Slick Pittman - 01/16/2022 1114 EDT Ms. Jensen did not show for nor call to cancel her in-person appointment today documented in this encounter Plan of Treatment Not on file documented as of this encounter Visit Diagnoses Not on filedocumented in this encounter Care Teams Tech Ed Teacher Relationship Specialty Start Date End Date Kathia Alvarado FNP 26 [facility] [address] [place] [address] PCP - General 12/16/20 Slick Pittman NP [address] [facility] [place] [address] [place] [address] Nurse Practitioner Psychiatry 05/10/20 12/15/23 documented as of this encounter
--- OUTSIDE RECORDS SUMMARY | 2024-07-12 15:55 | XMS_ITS | Encounter Summary ---
Author Organization [facility] Address [address] [place] [address] Care Team Providers Care Air And Missile Defense Crewmember Name Role Phone Slick Pittman NYLON OPERATOR Unavailable [phone] Kathia Alvarado Primary Care Provider [phone] Reason for Visit * Reason Comments Other Encounter Details Date Type Department Care Team ([facility] st Contact Info) Description 07/24/2021 [facility] Family Psychiatry [address] [place] [address] Slick Pittman NP 82 [facility] [address] [place] [address] Other Social History Tobacco Use [...] documented as of this encounter Care Teams Air And Missile Defense Crewmember Relationship Specialty Start Date End Date Kathia Alvarado FNP 26 [facility] [address] [place] [address] PCP - General 12/16/20 Slick Pittman NP 82 [facility] 3 [place] [address] Nurse Practitioner Psychiatry 05/10/20 12/15/23 documented as of this encounter
--- OUTSIDE RECORDS SUMMARY | 2024-07-12 15:55 | XMS_ITS | Encounter Summary ---
Author Organization [facility] Address [address] [place] [address] Care Team Providers Care Electronics Mechanic Name Role Phone Slick Pittman HAND DRY CLEANER Unavailable [phone] Kathia Alvarado Primary Care Provider [phone] Reason for Visit * Reason Comments Anxiety ADHD Alcohol Problem Encounter Details Date Type Department Care Team ([facility] Contact Info) Description 01/27/2022 8:00 EDT Office Visit [facility] Family Psychiatry [address] [place] [address] Slick Pittman NP 82 [facility] [address] [place] [address] ADHD, adult residual type (Primary Dx); PTSD (post-traumatic stress disorder); Alcohol use disorder, mild, in sustained remission, [...] daily for 90 days. 180 capsule 3 01/27/2022 2 mirtazapine (REMERON) 7.5 mg tablet Take 3 Tablets by mouth at bedtime. 270 Tablet 3 01/27/2022 3 documented in this encounter Progress Notes * Slick Pittman - 01/27/2022 0800 EDT Psychiatric Follow-Up Visit Visit Date: 01/27/2022 Present for Visit: Patient Chief Complaint/Reason for Visit: Chief Complaint Patient presents with ??? Anxiety ??? ADHD ??? Alcohol Problem History of Present Illness: 67??year old female with long history of mood and anxiety Sx concurrentwith problems with attention. ??These have responded well to treatment and she has been able to function independently. ??She also has a history of Alcohol Use Disorder - in remission She is aware of my residential plans Subjective: I'm good. She is keeping busy at home, outside, and writing. She has made herself re- integrate back into society She started an AA meeting in [place] and this is going well. Side-effects to psychiatric medication: denies Social History [...] capsule by mouth every morning 30 capsule 0 ??? buPROPion (WELLBUTRIN XL) 150 [...] sulfate (IRON ORAL) as directed ??? Fish Oil-[place]-3 Fatty Acids (FISH OIL) 360-1,200 mg capsule [...] BY MOUTH AT BEDTIME 270 Tablet 3 ??? multivit-mins no.63/iron/folic (M-VIT ORAL) 1 ??? NONFORMULARY ??? [place]-3 Fatty Acids 500 mg capsule Take 1 [...] 2 CAPSULES BY MOUTH DAILY 180 capsule 0 ??? VITAMIN B COMPLEX ORAL Take 1 [...] Assessment 1. ADHD, adult residual type 2. PTSD (post-traumatic stress disorder) 3. Alcohol use disorder, mild, in sustained remission, abuse Functioning well at this time. Minimal Sx PLAN: Goals: 1) Minimize or eliminate Sx 2) Minimize or eliminate impact of Sx on functioning 3)Maintain or improve level of functioning Progress Towards Goals: 1) Minimal to no Sx at this time 2) No impact of Sx on functioning 3) Functioning well at this time Treatment Plan: Modality - Psychotherapy/Medication management Frequency - q 4 months Duration of Sessions - 30 minutes Expected Duration of Therapy - ongoing Maintain current medications Follow-up in 4 months for medication management and psychotherapy 30 minute appointment The patient was requested to call my office if there was a significant change in symptoms. documented in this encounter Plan of Treatment Not on file documented as of this encounter Visit Diagnoses Diagnosis ADHD, adult residual type- Primary Attention deficit disorder with hyperactivity PTSD (post-traumatic stress disorder) Posttraumatic stress disorder Alcohol use disorder, mild, in sustained remission, abuse documented in this encounter Discontinued Medications Medication Sig Discontinue Reason Start Date End Da te mirtazapine (REMERON) 7.5 mg tablet TAKE 3 TABLETS BY MOUTH AT BEDTIME Reorder 12/16/2021 01/27/2022 venlafaxine (EFFEXOR-XR) 150 mg XR capsule TAKE 2 CAPSULES BY MOUTH DAILY Reorder 01/02/2022 01/27/2022 documented as of this encounter Historical Medications * This list may reflect changes made after this encounter. Medication Sig Dispense Quantity Refills Last Filled Start D ate End Date atorvastatin (LIPITOR) 40 mg tablet 12/31/2021 added in this encounter Care Teams Electronics Mechanic Relationship Specialty Start Date End Date Kathia Alvarado FNP [address] [facility] [address] [place] [address] PCP - General 12/16/20 Slick Pittman NP 82 [facility] 3 [place] [address] Nurse Practitioner Psychiatry 05/10/20 12/15/23 documented as of this encounter
--- OUTSIDE RECORDS SUMMARY | 2024-07-12 15:55 | XMS_ITS | Encounter Summary ---
Author Organization [facility] Address [address] [place] [address] Care Team Providers Care Pulp Mixer Name Role Phone Zain, Slick DIGITAL SALES DIRECTOR Unavailable [phone] Kathia Alvarado CHROME CLEANER Primary Care Provider [phone] Reason for Visit * Reason Onset Date Comments Medications Refill 04/03/2021 Encounter Details Date Type Department Care Team (Late st Contact Info) Description 04/03/2021 Refill [facility] Family Psychiatry [address] [place] [address] Jannette Carroll RN 82 [facility] [place] [address] Medications Refill Social History Tobacco Use Types [...] capsule One po q am 90 capsule 04/03/2021 06/17/2021 documented in this encounter Miscellaneous Notes * Telephone Encounter - Jannette Carroll RN - 04/03/2021 1515 EDT JUN 26 documented in this encounter Plan of Treatment Not on file documented as of this encounter Visit Diagnoses Not on filedocumented in this encounter Discontinued Medications Medication Sig Discontinue Reason Start Date End Da te atomoxetine (STRATTERA) 80 mg capsule One po q am Reorder 01/08/2021 04/03/2021 documented as of this encounter Care Teams Pulp Mixer Relationship Specialty Start Date End Date Kathia Alvarado FNP 26 [facility] [address] [place] [address] PCP - General 12/16/20 Slick Pittman NP 82 [facility] 3 [place] [address] Nurse Practitioner Psychiatry 05/10/20 12/15/23 documented as of this encounter
--- OUTSIDE RECORDS SUMMARY | 2024-07-12 15:55 | XMS_ITS | Encounter Summary ---
Author Organization [facility] Address [address] [place] [address] Care Team Providers Care Preschool Assistant Name Role Phone Slick Pittman EMBEDDED FIRMWARE DEVELOPER Unavailable [phone] Kathia Alvarado Primary Care Provider [phone] Reason for Visit * Reason Comments New Med Request Encounter Details Date Type Department Care Team (Late st Contact Info) Description 10/04/2023 [facility] Family Psychiatry [address] [place] [address] Slick Pittman NP 82 [facility] [address] [place] [address] New Med Request Social History Tobacco Use Types Packs/Day Years [...] on filedocumented in this encounter Care Teams Preschool Assistant Relationship Specialty Start Date End Date Kathia Alvarado FNP 26 [facility] [address] [place] [address] PCP - General 12/16/20 Slick Pittman NP 82 [facility] 3 [place] [address] Nurse Practitioner Psychiatry 05/10/20 12/15/23 documented as of this encounter
--- OUTSIDE RECORDS SUMMARY | 2024-07-12 15:55 | XMS_ITS | Encounter Summary ---
Author Organization [facility] Address [address] [place] [address] Care Team Providers Care Dealer Accounts Investigator Name Role Phone Slick Pittman APPLICATION PROJECT LEADER Unavailable [phone] Kathia Alvarado Primary Care Provider [phone] Reason for Visit * Reason Comments ADHD Post Traumatic Stress Disorder Encounter Details Date Type Department Care Team ([facility] Contact Info) Description 03/04/2023 9:30 EDT Telemedicine [facility] [place] [address] [place] [address] Slick Pittman NP 82 [facility] [address] [place] [address] ADHD, adult residual type (Primary [...] Capsule by mouth every morning. 90 Capsule 03/04/2023 venlafaxine (EFFEXOR-XR) 150 mg XR capsule Take 2 Capsules by mouth daily for 90 days. 180 Capsule 3 03/04/2023 4 documented in this encounter Progress Notes * This document contains information received from the source organization and may not represent a complete record from that organization. * Restricted notes were excluded * Bhumi Pacheco - 03/04/2023 0930 EDT 03/29 left a VM for her to call us back to schedule her follow up appointment * Bhumi Pacheco - 03/04/2023 0930 EDT 09/08 Letter sent documented in this encounter Plan of Treatment Not on file documented as of this encounter Visit Diagnoses Diagnosis ADHD, adult residual type- Primary Attention deficit disorder with hyperactivity PTSD (post-traumatic stress disorder) Posttraumatic stress disorder documented in this encounter Discontinued Medications Medication Sig Discontinue Reason Start Date End Da te atomoxetine (STRATTERA) 80 mg capsule Take 1 capsule by mouth every morning. Reorder 04/16/2022 03/04/2023 venlafaxine (EFFEXOR-XR) 150 mg XR capsule Take 2 Capsules by mouth daily for 90 days. Reorder 06/19/2022 03/04/2023 documented as of this encounter Historical Medications * This list may reflect changes made after this encounter. Medication Sig Dispense Quantity Refills Last Filled Start D ate End Date OZEMPIC subcutaneous pen 11/16/2022 ONETOUCH VERIO TEST STRIPS test strips 02/21/2023 added in this encounter Care Teams Dealer Accounts Investigator Relationship Specialty Start Date End Date Kathia Alvarado FNP 26 [facility] [address] [place] [address] PCP - General 12/16/20 Slick Pittman NP 82 [facility] 3 [place] [address] Nurse Practitioner Psychiatry 05/10/20 12/15/23 documented as of this encounter
--- OUTSIDE RECORDS SUMMARY | 2024-07-12 15:55 | XMS_ITS | Referral Summary ---
Author Organization [facility] Address [address] [place] [address] Care Team Providers Care Small Engine Specialist Name Role Phone Kathia Alvarado ELENA Primary Care Provider [phone] Encounters Date Type Department Care Team Description 07/12/2024 Lab Requisition [facility] Pathology & Laboratory [facility] [address] [place] [address] Outr Resulting Lab, Provider 07/12/2024 Lab Requisition [facility] Pathology & Laboratory [facility] [address] [place] [address] Outr Resulting Lab, Provider 04/29/2024 Refill [facility] Family Psychiatry [address] [place] [address] Slick Pittman NP Medications Refill from Last 3 Months Allergies Active Allergy Reactions Criticality Noted Date [...] times daily. 3 07/15/20 19 Active Fish Oil-[place]-3 Fatty Acids (FISH OIL) 360-1,200 mg capsule [...] Take 2,000 Units by mouth daily. Active [place]-3 Fatty Acids 500 mg capsule Take 1 [...] Tablets by mouth at bedtime. 270 Tablet 05/02/20 24 Active OZEMPIC 1 mg/dose (4 mg/3 mL) pen injector INJECT 1 MG SUBCUTANEOUSLY ONCE WEEKLY 11/17/19 24 Active Active Problems Problem Noted Date Diagnosed Date Alcohol use disorder, mild, in sustained remissi on, abuse 06/17/2021 ADHD, adult residual type 08/23/2019 PTSD (post-traumatic stress disorder) 08/23/2019 Major depressive disorder, recurrent episode ( [facility]) 01/03/2014 Cognitive change 10/09/2013 Acute post-traumatic headache, not intractable 0 10/06/2013 Anxiety 10/06/2013 Concussion with no loss of consciousness 014 Overview (06/17/2021): DOI 09/13/13 Dizziness 10/06/2013 MCI (mild cognitive impairment) 10/06/2013 Lumbar pain 05/15/2013 Overview (06/17/2021): chronic issue reported during PT eval Bilateral hip pain 04/26/2013 Immunizations Name Administration Dates Next Due Influenza Vaccine High Dose (FLUZONE HIGH DOSE) PF 0.7 ml IM (65 yrs+) 06/06/2019 Social History Tobacco Use Types Packs/Day Years [...] 10:55 EST Sexual Orientation Not on file Functional Status * Because of a physical, mental, or emotional condition, does this person have difficulty doing errands alone such as visiting a doctor's office or shopping? Answer Date of Assessment Author No 12/06/2019 9:45 EDT Mental Status * Because of a physical, mental, or emotional condition, does this person have serious difficulty concentrating, remembering, or making decisions? Answer Entry Date Author No 12/06/2019 9:45 EDT Plan of Treatment Not on file Insurance [employer] Care Teams Small Engine Specialist Relationship Specialty Start Date End Date Kathia Alvarado FNP 26 [facility] [address] [place] [address] PCP - General 12/16/20
--- OUTSIDE RECORDS SUMMARY | 2024-07-12 15:55 | XMS_ITS | Encounter Summary ---
Author Organization [facility] Address [address] [place] [address] Care Team Providers Care Garbage Collection Supervisor Name Role Phone Slick Pittman MACHINERY CLEANER Unavailable [phone] Kathia Alvarado Primary Care Provider [phone] Reason for Visit * Reason Comments Medications Refill Encounter Details Date Type Department Care Team (Late st Contact Info) Description 02/02/2023 Refill [facility] Family Psychiatry [address] [place] [address] Slick Pittman NP 82 [facility] [address] [place] [phone] Medications Refill Social History Tobacco Use Types [...] BY MOUTH AT BEDTIME 270 Tablet 3 02/03/2023 4 documented in this encounter Miscellaneous Notes * Telephone Encounter - Jannette Carroll RN - 02/03/2023 0800 EDT JUN 22 documented in this encounter Plan of Treatment Not on file documented as of this encounter Visit Diagnoses Not on filedocumented in this encounter Discontinued Medications Medication Sig Discontinue Reason Start Date End Da te mirtazapine (REMERON) 7.5 mg tablet Take 3 Tablets by mouth at bedtime. 01/27/2022 02/03/2023 documented as of this encounter Care Teams Garbage Collection Supervisor Relationship Specialty Start Date End Date Kathia Alvarado FNP 26 [facility] [address] [place] [address] PCP - General 12/16/20 Slick Pittman NP 82 [facility] 3 [place] [address] Nurse Practitioner Psychiatry 05/10/20 12/15/23 documented as of this encounter
--- OUTSIDE RECORDS SUMMARY | 2024-07-12 15:55 | XMS_ITS | Encounter Summary ---
Author Organization [facility] Address [address] [place] [address] Care Team Providers Care Scientific Publications Editor Name Role Phone Slick Pittman INFECTION CONTROL PREVENTIONIST Unavailable [phone] Kathia Alvarado Primary Care Provider [phone] Reason for Visit * Reason Comments Medications Refill Encounter Details Date Type Department Care Team (Late st Contact Info) Description 10/09/2022 Refill [facility] Family Psychiatry [address] [place] [address] Slick Pittman NP 82 [facility] [address] [place] [phone] Medications Refill Social History Tobacco Use Types [...] THREE CAPSULES BY MOUTH AT BEDTIME 270 Capsule 3 10/09/2022 4 documented in this encounter Miscellaneous Notes * Telephone Encounter - Jannette Carroll RN - 10/09/2022 1022 EST JUN 20 documented in this encounter Plan of Treatment Not on file documented as of this encounter Visit Diagnoses Not on filedocumented in this encounter Discontinued Medications Medication Sig Discontinue Reason Start Date End Da te Prazosin (MINIPRESS) 2 mg capsule 3 po Q HS 08/19/2021 10/09/2022 documented as of this encounter Care Teams Scientific Publications Editor Relationship Specialty Start Date End Date Kathia Alvarado FNP [address] [place] [address] PCP - General 12/16/20 Slick Pittman NP 82 [facility] 3 [place] [address] Nurse Practitioner Psychiatry 05/10/20 12/15/23 documented as of this encounter
--- OUTSIDE RECORDS SUMMARY | 2024-07-12 15:56 | XMS_ITS | Encounter Summary ---
[place] [address] Care Team Providers Care Mail Agent Name Role Phone Charles Huitron MD Primary Care Provider [phone] Encounter Details Date Type Department Care Team (Latest Contact Info) Description 03/16/2024 Travel Social History Tobacco Use Types Packs/Day Years Used Date Smoking Tobacco: Former Cigarettes 1 22 0 12/24/1963 - 12/23/1985 Smokeless Tobacco: Never Alcohol Use Standard Drinks/Week Comments No 0 (1 standard drink = 0.6 oz pur e alcohol) stopped 21 yrs. ago Sex and Gender Information Value Date Recorded Sex Assigned at Not on file Gender Identity Not on file Sexual Orientation Not on file documented as of this encounter Plan of Treatment Upcoming Encounters Date Type Department Care Team (Late st Contact Info) Description 08/18/2024 1:30 PM EST Appointment Mammography/[place] [address] Kathia Alvarado APRN [address] [place] [address] documented as of this encounter Visit Diagnoses Not on filedocumented in this encounter Care Teams Mail Agent Relationship Specialty Start Date End Date Charles Huitron MD [address] [place] [address] PCP - General 07/08/10 documented as of this encounter
--- OUTSIDE RECORDS SUMMARY | 2024-07-12 15:56 | XMS_ITS | Encounter Summary ---
Author Organization [facility] Address [address] [place] [address] Care Team Providers Care English Language Learner Tutor Name Role Phone Aquilino Starkey PA-C Primary Care Provider [phone] Reason for Visit * Reason Onset Date Comments Medications Refill 12/11/2019 refill Encounter Details Date Type Department Care Team ([facility] st Contact Info) Description 12/11/2019 Telephone [facility] Family Psychiatry [address] [place] [address] Slick Pittman NP 82 [facility] [address] [place] [address] Medications Refill (refill) Social History Tobacco Use Types Packs/Day Years Used Date Smoking Tobacco: Former Cigarettes Smokeless Tobacco: Never Comments:quit in 1985 Alcohol Use Standard Drinks/Week Comments Not Currently 0 (1 standard drink = 0.6 oz pur e alcohol) Comments Unknown Sex and Gender Information Value [...] Miscellaneous Notes * Telephone Encounter - Sonia Drummnod - 12/11/2019 1249 EDT Refill Mirtazapine 7.5 MG Pharmacy - [facility] documented in this encounter Plan of Treatment Not on file documented as of this encounter Visit Diagnoses Not on filedocumented in this encounter Care Teams English Language Learner Tutor Relationship Specialty Start Date End Date Aquilino Starkey PA-C PCP - General 08/21/19 12/15/20 documented as of this encounter
--- OUTSIDE RECORDS SUMMARY | 2024-07-12 15:56 | XMS_ITS | Encounter Summary ---
Author Organization [facility] Address [address] [place] [address] Care Team Providers Care Extrusion Press Adjuster Name Role Phone Aquilino Starkey PA-C Primary Care Provider [phone] Reason for Visit * Reason Onset Date Comments No Show 03/12/2020 Encounter Details Date Type Department Care Team (Late st Contact Info) Description 03/12/2020 Telephone [facility] [place] [facility] [address] [place] [address] Slick Pittman NP 82 [facility] [address] [place] [phone] No Show Social History Tobacco Use Types [...] documented in this encounter Miscellaneous Notes * This document contains information received from the source organization and may not represent a complete record from that organization. * Restricted notes were excluded * Telephone Encounter - Sonia Valentine - 03/22/2020 1324 EDT appt scheduled documented in this encounter Plan of Treatment Not on file documented as of this encounter Visit Diagnoses Not on filedocumented in this encounter Care Teams Extrusion Press Adjuster Relationship Specialty Start Date End Date Aquilino Starkey PA-C PCP - General 08/21/19 12/15/20 documented as of this encounter
--- OUTSIDE RECORDS SUMMARY | 2024-07-12 15:56 | XMS_ITS | Encounter Summary ---
Author Organization [facility] Address [address] [place] [address] Care Team Providers Care Position Classification Specialist Name Role Phone Aquilino Starkey PA-C Primary Care Provider [phone] Slick Pittman NP Unavailable [phone] Kathia Alvarado Primary Care Provider [phone] Reason for Visit * Reason Comments Other Encounter Details Date Type Department Care Team (Late Contact Info) Description 11/21/2020 Refill [facility] Family Psychiatry [address] [place], [place] [id number] Rodolfo Blanco NP 82 [facility] [address] [place] [address] Other Social History Tobacco Use [...] CAPSULES BY MOUTH DAILY 180 Cap 3 11/22/2020 2 documented in this encounter Miscellaneous Notes * Telephone Encounter - Jannette Carroll RN - 11/22/2020 0803 EDT JUN 20 documented in this encounter Plan of Treatment Not on file documented as of this encounter Visit Diagnoses Not on filedocumented in this encounter Discontinued Medications Medication Sig Discontinue Reason Start Date End Da te venlafaxine (EFFEXOR-XR) 150 mg XR capsule TAKE 2 CAPSULES BY MOUTH DAILY 12/25/2019 11/22/2020 documented as of this encounter Additional Health Concerns Infection Onset Date Last Indicated Resolved Time COVID-19 07/18/2021 07/18/2021 08/07/2021 22:1 5 EST documented as of this encounter Care Teams Position Classification Specialist Relationship Specialty Start Date End Date Aquilino Starkey PA-C PCP - General 08/21/19 12/15/20 aKthia Alvarado FNP 26 [facility] [address] [place] [address] PCP - General 12/16/20 Slick Pittman NP [address] [address] Nurse Practitioner Psychiatry 05/10/20 12/15/23 documented as of this encounter
--- OUTSIDE RECORDS SUMMARY | 2024-07-12 15:56 | XMS_ITS | Encounter Summary ---
Author Organization [facility] [place] [address] Care Team Providers Care Food Editor Name Role Phone Charles Huitron MD Primary Care Provider [phone] Reason for Visit * Reason Comments Medication Refill Encounter Details Date Type Department Care Team (Late st Contact Info) Description 05/30/2015 Refill Psychiatry [place] [phone] Filomena Muñoz ONLINE USER EXPERIENCE STRATEGIST [facility] [place] [address] Social History Tobacco Use Types Packs/Day Years [...] 08/18/2024 1:30 PM EST Appointment Mammography/[place] [phone] Kathia Alvarado APRN [address] [place] [address] documented as of this encounter Visit Diagnoses Not on filedocumented in this encounter Care Teams Food Editor Relationship Specialty Start Date End Date Charles Huitron MD [address] [place] [address] PCP - General 07/08/10 documented as of this encounter
--- OUTSIDE RECORDS SUMMARY | 2024-07-12 15:56 | XMS_ITS | Encounter Summary ---
[place] [address] Care Team Providers Care Organic Preparation Analyst Name Role Phone Charles Huitron MD Primary Care Provider [phone] Encounter Details Date Type Department Care Team (Latest Contact Info) Description 02/24/2024 Travel Social History Tobacco Use Types Packs/Day [...] 08/18/2024 1:30 PM EST Appointment Mammography/[place] [address] Kathia Alvarado APRN [address] [place] [address] documented as of this encounter Visit Diagnoses Not on filedocumented in this encounter Care Teams Organic Preparation Analyst Relationship Specialty Start Date End Date Charles Huitron MD [address] [place] [address] PCP - General 07/08/10 documented as of this encounter
--- OUTSIDE RECORDS SUMMARY | 2024-07-12 15:56 | XMS_ITS | Encounter Summary ---
Author Organization [facility] [place] [address] Care Team Providers Care Mechanical Car Checker Name Role Phone Charles Huitron MD Primary Care Provider [phone] Reason for Visit * Reason Onset Date Comments Medication Refill 05/27/2015 Encounter Details Date Type Department Care Team (Late st Contact Info) Description 05/27/2015 Refill Psychiatry [place] [address] Filomena Muñoz SET UP TECHNICIAN [facility] [place] [address] Social History Tobacco Use Types Packs/Day Years [...] 08/18/2024 1:30 PM EST Appointment Mammography/[place] [address] Kathia Alvarado APRN [address] [place] [address] documented as of this encounter Visit Diagnoses Not on filedocumented in this encounter Care Teams Mechanical Car Checker Relationship Specialty Start Date End Date Charles Huitron MD [address] [place] [address] PCP - General 07/08/10 documented as of this encounter
--- OUTSIDE RECORDS SUMMARY | 2024-07-12 15:56 | XMS_ITS | Encounter Summary ---
Author Organization [place] [address] Care Team Providers Care Forge Utility Worker Name Role Phone Charles Huitron MD Primary Care Provider [phone] Reason for Visit * Reason Comments Medication Refill Encounter Details Date Type Department Care Team (Late st Contact Info) Description 10/29/2014 Refill Psychiatry [place] [id number] Filomena Muñoz PREASSEMBLER PRINTED [employer] BOARD [facility] [place] [address] Social History Tobacco Use Types Packs/Day Years [...] 08/18/2024 1:30 PM EST Appointment Mammography/[place] [phone] Kathia Alvarado APRN [address] [place] [address] documented as of this encounter Visit Diagnoses Not on filedocumented in this encounter Care Teams Forge Utility Worker Relationship Specialty Start Date End Date Charles Huitron MD [address] [place] [address] PCP - General 07/08/10 documented as of this encounter
--- OUTSIDE RECORDS SUMMARY | 2024-07-12 15:56 | XMS_ITS | Encounter Summary ---
Author Organization [facility] Address [facility] [place] [address] Care Team Providers Care Group Program Manager Name Role Phone Charles Huitron MD Primary Care Provider [phone] Encounter Details Date Type Department Care Team (Latest Contact Info) Description 02/24/2024 12:44 PM EDT - 02/24/2024 11:59 PM EDT Hospital [place] [facility] [place] [facility] [place] [id number] Left knee pain, unspecified chronicity Discharge Disposition: Home Social History Tobacco Use Types Packs/Day Years [...] on file documented as of this encounter Medications at Time of Discharge Medication Sig Dispensed Refills Start Date End Date semaglutide (Ozempic) 0.25 mg or 0.5 mg(2 mg/1.5 mL) Pen Injector 11/16/2022 blood sugar diagnostic strips (OneTouch Verio test strips) Strip 02/21/2023 omeprazole (PriLOSEC) [address] capsule Take 20 mg by mouth daily. atorvastatin (Lipitor) 40 mg tablet Take 40 mg by mouth daily. estrogen, conjugated,-medroxypr ogesterone (Prempro) 0.625-2.5 mg tablet 04/13/2022 prazosin (MINIPRESS) 2 mg Capsule Take 3 capsules by mouth nightly. NO FURTHER REFILLS FROM THIS AUTHOR WITHOUT RESCHEDULING; MAY OBTAIN FROM PCP 90 capsule 2 05/30/2015 mirtazapine (REMERON) 7.5 mg Tablet Take 3 tablets by mouth nightly. No further refills from this prescriber beyond these; may obtain from PCP. 90 tablet 2 05/27/2015 venlafaxine (EFFEXOR-XR) 150 mg Capsule, Sust. Release 24 hr TAKE 1 CAPSULE BY MOUTH DAILY WITH 75 MG CAPSULE 30 capsule 3 04/15/2015 metoprolol succinate (TOPROL-XL) 25 mg 24 hr tabletIndications:Shorty rhina Take 1 tablet by mouth daily. 30 tablet 3 04/14/2013 cholecalciferol, Vitamin D3, (VITAMIN D) 1,000 unit Tab tablet Take 2,000 Units by mouth daily. Calcium-Magnesium 750-465 mg Tab Take 1 tablet by mouth daily. lisinopril-hydrochlor othiazide (PRINZIDE;ZESTORETIC) 10-12.5 mg per tablet Take 1 tablet by mouth daily. meloxicam (Mobic) 15 mg tablet Take 1 tablet by mouth daily. 30 tablet 1 02/24/2024 04/18/2024 documented as of this encounter Plan of Treatment Upcoming Encounters Date Type Department Care Team (Late st Contact Info) Description 08/18/2024 1:30 PM EST Appointment Mammography/[place] [address] Kathia Alvarado APRN [address] [place] [address] documented as of this encounter Procedures Procedure Name Priority Date/Time Associated Diagnosis Comments XR KNEE STANDING ALIGNMENT AP LAT [place] SKYLINE LEFT Routine 02/24/2024 1:00 PM EDT Left knee pain, unspecified chronicity documented in this encounter Results * XR Knee Standing Alignment AP Lat [place] Left (02/24/2024 1:00 PM EDT) [place] [employer] [place] WORKSTATION ID [id number] RAD Anatomical Region Laterality Modality Left Digital Radiogra phy Impressions 02/24/2024 3:18 PM EDT 1. ??Mild bilateral knee osteoarthropathy. 2. ??Neutral alignment of both knees. 3. ??Foreign bodies projecting over the left tibiotalar joint, left distal tibia, and left distal fibula. These findings may represent foreign bodies that are internal and/or external to the patient. Recommend correlation with physical examination, including inspection of the patient's clothing. Recommend correlation with any history of penetrating trauma or surgery/instrumentation to this site which may place the patient at risk for retained foreign bodies. Thank you for letting us participate in the care of this patient. ??If you are a health care provider and have any questions regarding this report, please contact the number below. ??For patients who have questions please contact the health hospice home care coordinator that requested your imaging first. ? Electronically signed by: Nilda Bernal MD, [facility] ([phone]), at 02/24/2024 3:18 PM Narrative 02/24/2024 3:18 PM EDT EXAMINATION: XR KNEE STANDING ALIGNMENT AP LAT [place] SKYLINE LEFT CLINICAL HISTORY: LEFT KNEE PAIN M25.562, Pain in left knee (as entered by ordering provider in the order requisition) TECHNIQUE: Separate images of the pelvis, knees and feet were acquired in the AP projection with the patient standing. ??These images were stitched together to form a composite image of the pelvis and legs. AP, Holcomb, sunrise views the bilateral knees, lateral view the left knee. COMPARISON: None FINDINGS: The mechanical axis of the right leg passes between the tibial spines. Mechanical axis of the left leg passes through the lateral tibial spine. Radiodense foreign bodies projecting over the left distal tibia, distal fibula, tibiotalar joint and on the medial and lateral skin surface. Mild left hip joint space narrowing. ??The right hip joint space is preserved. Normal spacing the pubic symphysis and bilateral sacral iliac joints. There is degenerative disease and facet arthropathy lower lumbar spine. The right tibiotalar joint spaces are preserved. The left tibiotalar joint space is partially obscured by radiodense foreign bodies. Left knee: No focal soft tissue swelling. ??No joint effusion or lipohemarthrosis. No radiodense foreign body. ??No soft tissue gas. Normal alignment of the left knee. No acute fracture. Medial and lateral compartment narrowing. ??No destructive bone lesion. No osseous erosion. Right knee: Medial and lateral compartment narrowing. Procedure Note Nilad Bernal MD - 02/24/2024 EXAMINATION: XR KNEE STANDING ALIGNMENT AP LAT [place] SKYLINE LEFT CLINICAL HISTORY: LEFT KNEE PAIN M25.562, Pain in left knee (as entered by ordering provider in the order requisition) TECHNIQUE: Separate images of the pelvis, knees and feet were acquired inthe AP projection with the patient standing. These images were stitched togetherto form a composite image of the pelvis and legs. AP, Holcomb, sunriseviews the bilateral knees, lateral view the left knee. COMPARISON: None FINDINGS: The mechanical axis of the right leg passes between the tibial spines. Mechanical axis of the left leg passes through the lateral tibial spine. Radiodense foreign bodies projecting over the left distal tibia, distalfibula, tibiotalar joint and on the medial and lateral skin surface. Mild left hip joint space narrowing. The right hip joint space ispreserved. Normal spacing the pubic symphysis and bilateral sacral iliac joints. There is degenerative disease and facet arthropathy lower lumbar spine. The right tibiotalar joint spaces are preserved. The left tibiotalar joint space is partially obscured by radiodenseforeign bodies. Left knee: No focal soft tissue swelling. No joint effusion or lipohemarthrosis. No radiodense foreign body. No soft tissue gas. Normal alignment of the left knee. No acute fracture. Medial and lateral compartment narrowing. No destructive bone lesion.No osseous erosion. Right knee: Medial and lateral compartment narrowing. IMPRESSION 1. Mild bilateral knee osteoarthropathy. 2. Neutral alignment of both knees. 3. Foreign bodies projecting over the left tibiotalar joint, left distaltibia, and left distal fibula. These findings may represent foreign bodies thatare internal and/or external to the patient. Recommend correlation withphysical examination, including inspection of the patient's clothing. Recommend correlation with any history of penetrating trauma orsurgery/instrumentation to this site which may place the patient at risk for retained foreignbodies. Thank you for letting us participate in the care of this patient. If youare a health care provider and have any questions regarding this report,please contact the number below. For patients who have questions please contactthe health hospice home care coordinator that requested your imaging first. Electronically signed by: Nilda Bernal MD, [facility]([phone]), at 02/24/2024 3:18 PM Chris Mariee MD IMG DX ORDERABLES documented in this encounter Visit Diagnoses Diagnosis Left knee pain, unspecified chronicity documented in this encounter Care Teams Group Program Manager Relationship Specialty Start Date End Date Charles Huitron MD [address] [place] [id number] PCP - General 07/08/10 documented as of this encounter
--- OUTSIDE RECORDS SUMMARY | 2024-07-12 15:56 | XMS_ITS | Clinical Summary ---
Author Organization [facility] Address One [facility] [place] [address] Care Team Providers Care Nurse Orthopaedic Name Role Phone Charles Huitron MD Primary Care Provider [phone] Allergies Active Allergy Reactions Criticality Noted Date Comments Amoxicillin Trihydrate Rash Medium red from head to toe Haloperidol Medium Per patient, she was very anxious and scared. Haloperidol made these symptoms worse. Sulfa (Sulfonamide Antibiotics) Rash Medium red rash Medications Medication Sig Dispensed Refills Start Date End Date Status lisinopril-hydrochlor othiazide (PRINZIDE;ZESTORETIC) 10-12.5 mg per tablet Take 1 tablet by mouth daily. Active cholecalciferol, Vitamin D3, (VITAMIN D) 1,000 unit Tab tablet Take 2,000 Units by mouth daily. Active Calcium-Magnesium 750-465 mg Tab Take 1 tablet by mouth daily. Active metoprolol succinate (TOPROL-XL) 25 mg 24 hr tabletIndications:Shorty rhina Take 1 tablet by mouth daily. 30 tablet 3 04/14/2013 Active venlafaxine (EFFEXOR-XR) 150 mg Capsule, Sust. Release 24 hr TAKE 1 CAPSULE BY MOUTH DAILY WITH 75 MG CAPSULE 30 capsule 3 04/15/2015 Active mirtazapine (REMERON) 7.5 mg Tablet Take 3 tablets by mouth nightly. No further refills from this prescriber beyond these; may obtain from PCP. 90 tablet 2 05/27/2015 Active prazosin (MINIPRESS) 2 mg Capsule Take 3 capsules by mouth nightly. NO FURTHER REFILLS FROM THIS AUTHOR WITHOUT RESCHEDULING; MAY OBTAIN FROM PCP 90 capsule 2 05/30/2015 Active omeprazole (PriLOSEC) [address] capsule Take 20 mg by mouth daily. Active atorvastatin (Lipitor) 40 mg tablet Take 40 mg by mouth daily. Active estrogen, conjugated,-medroxypr ogesterone (Prempro) 0.625-2.5 mg tablet 04/13/2022 Activ e semaglutide (Ozempic) 0.25 mg or 0.5 mg(2 mg/1.5 mL) Pen Injector 11/16/2022 Active blood sugar diagnostic strips (OneTouch Verio test strips) Strip 02/21/2023 Active meloxicam (Mobic) 15 mg tabletIndications:Michelle ifrah osteoarthritis of left knee TAKE ONE TABLET BY MOUTH EVERY DAY 30 tablet 1 04/18/2024 Active Active Problems Problem Noted Date Diagnosed Date Acute pain of left knee 02/24/2024 Primary osteoarthritis of left knee 02/24/2024 Depression 01/03/2014 Major depressive disorder, recurrent episode 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 Preventative surgery Resolved Problems Problem Noted Date Diagnosed Date Resolved Date Right lateral epicondylitis 12/09/2012 01/05/2013 Overview (12/09/2012): PT diagnosis Encounters Date Type Department Care Team Description 04/16/2024 [place] [address] Arian Puente PA Primary osteoarthritis of left knee from Last 3 Months Immunizations Name Administration Dates Next Due Influenza (Fluzone HD) Quadr ivalent High Dose, Preservative Free 06/06/2020 Influenza Vaccine, Whole 04/29/2009,05/16,06/20/2006,06/21 Pneumococcal 23-Valent Polys accharide (Pneumovax 23) 01/20/2008 Tuberculin Skin Test, PPD 2013 Family History Medical History Relation Comments Alcohol Use Disorder Mother Breast Cancer Mother Relation Status Comments Mother Social History Tobacco Use Types Packs/Day Years [...] on file Sexual Orientation Not on file Last Filed Vital Signs Vital Sign Reading Time Taken Comments Blood Pressure 135/63 03/21/2015 10:24 AM EDT Pulse 89 03/21/2015 10:24 AM EDT Temperature 36.8 ??C (98.2 ??F) 01/05/2014 8:22 AM ED T Respiratory Rate 16 01/19/2014 11:02 AM EDT Oxygen Saturation 98% 01/19/2014 11:02 AM EDT Inhaled Oxygen Concentration - - Weight 90.7 kg (200 lb) 03/16/2024 3:53 PM EDT Height 158.8 cm (5' 2.5) 03/16/2024 3:53 PM EDT Body Mass Index 36 03/16/2024 3:53 PM EDT Plan of Treatment Upcoming Encounters Date Type Department Care Team (Late st Contact Info) Description 08/18/2024 1:30 PM EST Appointment Mammography/[place] [phone] Kathia Alvarado APRN [address] [place] [address] Health Maintenance Due Date Last Done Comments CT Colonography 1953 Colonoscopy 1953 Colorectal Cancer Screening 1953 FIT DNA 1953 FIT 1953 Sigmoidoscopy (10 year) with FIT yearly 1953 Sigmoidoscopy 1953 Hepatitis C Screening 1971 Tetanus/Diphtheria/Pertussis Vaccines (1 - Tdap) 01/24/1972 Breast Cancer Share Decision Needed 1993 Breast Cancer screening 1993 Zoster vaccine (1 of 2) 2003 Advance Directive 01/24/2008 Bone Density Scan 2018 Pneumoccocal Vaccine: 65+ (2 of 2 - PCV) 2018 01/20/2008 Covid-19 Vaccine (1 - 2023-2 5 season) 2024 Influenza (Flu) vaccine (1 o f 1 - Influenza standard series) 04/16/2024 06/06/2020, 04/29/2009, 06/03/2008, Additional history exists Procedures Procedure Name Priority Date/Time Associated Diagnosis Comments ORDS - PROVIDER CARE SCAN 04/13/2024 12:00 AM EDT from Last 3 Months Results * Scan Doc: Ords - Provider Care (04/13/2024 12:00 AM EDT) Narrative 04/13/2024 12:00 AM EDT Ordered by an unspecified provider. Scanning Provider MEDIA MGR SCAN EXT O RDR/RSLT from Last 3 Months Advance Directives * Full Code (Latest Code Status on File) Date Activated Date Inactivated Comments 01/05/2014 1:01 PM Question Answer Comments Does patient have decision m aking capacity? Yes, Order is based on Patients wishes. * Full Code Date Activated Date Inactivated Comments 01/03/2014 3:26 PM 01/05/2014 1:01 PM Question Answer Comments Does patient have decision m aking capacity? Yes, order is based on Patient wishes. * Full Code Date Activated Date Inactivated Comments 12/23/2010 1:31 PM 12/23/2010 8:39 PM Question Answer Comments Order Status: Initial Order Does patient have decision m aking capacity? Yes, Order is based on Patients wishes. * Full Code Date Activated Date Inactivated Comments 12/23/2010 11:56 AM 12/23/2010 1:31 PM Question Answer Comments Does patient have decision m aking capacity? Yes, order is based on Patient wishes. Care Teams Nurse Orthopaedic Relationship Specialty Start Date End Date Charles Huitron MD [address] [place] [address] PCP - General 07/08/10
--- OUTSIDE RECORDS SUMMARY | 2024-07-12 15:56 | XMS_ITS | Encounter Summary ---
Author Organization [facility] [place] [address] Care Team Providers Care Senior Solutions Workflow Consultant Name Role Phone Charles Huitron MD Primary Care Provider [phone] Reason for Visit * Reason Comments Follow-up LT KNEE INJECTION Encounter Details Date Type Department Care Team (Latest Contact Info) Description 03/16/2024 4:00 PM EDT [place] [address] Arian Puente PA [facility] [place] [address] Primary osteoarthritis of left knee (Primary Dx) Social History Tobacco Use Types Packs/Day Years [...] on file documented as of this encounter Last Filed Vital Signs Vital Sign Reading Time Taken Comments Blood Pressure - - Pulse - - Temperature - - Respiratory Rate - - Oxygen Saturation - - Inhaled Oxygen Concentration - - Weight 90.7 kg (200 lb) 03/16/2024 3:53 PM EDT Height 158.8 cm (5' 2.5) 03/16/2024 3:53 PM EDT Body Mass Index 36 03/16/2024 3:53 PM EDT documented in this encounter Progress Notes * Arian Puente PA - 03/16/2024 4:00 PM EDT Cheslea Jensen is a 69-year-old female who presents today for left knee injection. She was seenpreviously by me for left knee pain. X-rays shows mild knee osteoarthritis. Due to joint line pain,the tentative diagnosis was osteoarthritis on top of the degenerative meniscal tear. Conservative treatment was initiated with an anti-inflammatory and PT. Patient initially responded well with this and had about 3 to 4 days of no acute pain. She tried to do her normal walk on her treadmill and flared up her knee again. This caused pain for several days after. She presents to the outpatient clinic today for a left knee corticosteroid injection. Reviewed the risks, merits, benefits of these. A ti meout was performed, confirming the patient's name, , procedure, laterality, and allergies. The patient elects to proceed. The patient understands to call with any post-procedure difficulties. She has a tentative MRI scheduled of her left knee, and I encouraged her to keep this if the injection is ineffective at controlling her pain, or if she just wants to find the extent the arthritis ofthe pain generator in her knee. If the knee injection completely relieves her pain, she most certainly could cancel this. Left knee injection: We discussed with the patient the risks of this procedure include, but are not limited to increasedpain, infection, bleeding, increase in blood sugars, and steroid flare. A timeout was performed at the bedside. Patient confirmed name, , allergies, and site of injection. The injection site was marked over the supero-lateral border of the patella, and prepared with Dura-prep. Using sterile gloves, a local anesthetic injection was performed using 4 ccs of 1% plain Lidocaine on a 27 gauge needle followed by 40 mg of Kenalog with 4 mL of .25% Bupivicaine on a 22 gauge needle. The procedure waswell tolerated. The injection site was covered cleaned with sterile gauze and covered with a sterile band-aid. We discussed monitoring for signs and symptoms of infection which includes fevers, chills, night sweats, injection site redness and discharge, increase in knee pain, and red, hot, and swollen knee. documented in this encounter Plan of Treatment Upcoming Encounters Date Type Department Care Team (Late st Contact Info) Description 08/18/2024 1:30 PM EST Appointment Mammography/[place] [address] Kathia Alvarado APRN [address] [place] [address] documented as of this encounter Visit Diagnoses Diagnosis Primary osteoarthritis of left knee- Primary Primary localized osteoarthrosis, lower leg documented in this encounter Administered Medications Inactive Administered Medications - up to 3 most recent administrations Medication Order MAR Action Action Date Dose Rate Site BUPivacaine (pf) (Marcaine) (2.5 mg/mL) 0.25% injection 10 mg 10 mg, Intra-articular, ONCE, 1 dose, On Rhonda 03/16/24 at 1730, Routine Given 03/16/2024 5:07 PM EDT 10 mg lidocaine (Xylocaine) 1% (10 mg/mL) injection 40 mg 40 mg, Intra-articular, ONCE, 1 dose, On Rhonda 03/16/24 at 1730, Routine Given 03/16/2024 5:08 PM EDT 40 mg triamcinolone acetonide (Kenalog-40) (40 mg/mL) injection 40 mg 40 mg, Intra-articular, ONCE, 1 dose, On Rhonda 03/16/24 at 1730, Routine Given 03/16/2024 5:08 PM EDT 40 mg documented in this encounter Care Teams Senior Solutions Workflow Consultant Relationship Specialty Start Date End Date Charles Huitron MD [address] [place] [address] PCP - General 07/08/10 documented as of this encounter
--- OUTSIDE RECORDS SUMMARY | 2024-07-12 15:56 | XMS_ITS | Encounter Summary ---
Author Organization [facility] Address [address] [place] [address] Care Team Providers Care Mechanical Systems Engineer Name Role Phone Unknown, Provider Primary Care Provider Unava ilable Reason for Visit * Reason Onset Date Comments Medications Refill 08/03/2019 Encounter Details Date Type Department Care Team ([facility] Contact Info) Description 08/03/2019 Telephone [facility] [place] [facility] [place] [address] [place] [address] Slick Pittman NP [address] [facility] [address] [place] [phone] Medications Refill Social History Tobacco Use Types Packs/Day Years Used Date Smoking Tobacco: Never Assessed Comments Unknown Sex and Gender Information Value Date Recorded Sex Assigned at Not on file Legal Sex Female 14:41 EDT Gender Identity Female 08/21/2019 10:55 EST Sexual Orientation Not on file documented as of this encounter Ordered Prescriptions Prescription Sig Dispense Quantity Refills Last Filled Start Date End Date venlafaxine (EFFEXOR-XR) 150 mg XR capsule TAKE 2 CAPSULES BY MOUTH DAILY 180 Cap 3 08/03/2019 0 Prazosin (MINIPRESS) 2 mg capsule TAKE THREE CAPSULES BY MOUTH AT BEDTIME 270 Cap 3 08/03/2019 0 atomoxetine (STRATTERA) 80 mg capsule One po q am 90 Cap 1 08/03/2019 0 documented in this encounter Miscellaneous Notes * Telephone Encounter - Sonia Drummond - 08/03/2019 1352 EST Refill Prazosin 2 MG 3 times a day, Atomoxetine HCL 80 MG andVenlafaxine HCl 150 MG documented in this encounter Plan of Treatment Not on file documented as of this encounter Visit Diagnoses Not on filedocumented in this encounter Discontinued Medications Medication Sig Discontinue Reason Start Date End Da te atomoxetine (STRATTERA) 80 mg capsule one Reorder 08/03/2019 Prazosin (MINIPRESS) 2 mg capsule TAKE THREE CAPSULES BY MOUTH AT BEDTIME Reorder 05/09/2019 08/03/2019 venlafaxine (EFFEXOR-XR) 150 mg XR capsule TAKE 2 CAPSULES BY MOUTH DAILY FOR 90 DAYS Reorder 05/04/2019 08/03/2019 documented as of this encounter Historical Medications * This list may reflect changes made after this encounter. venlafaxine (EFFEXOR-XR) 150 mg XR capsule TAKE 2 CAPSULES BY MOUTH DAILY FOR 90 DAYS 3 05/04/2019 08/03/2019 Prazosin (MINIPRESS) 2 mg capsule TAKE THREE CAPSULES BY MOUTH AT BEDTIME 3 05/09/2019 08/03/2019 atomoxetine (STRATTERA) 80 mg capsule one 08/03/2019 added in this encounter Care Teams Mechanical Systems Engineer Relationship Specialty Start Date End Date Unknown, Provider, PCP - General 02/04/16 08/20/19 documented as of this encounter
--- OUTSIDE RECORDS SUMMARY | 2024-07-12 15:56 | XMS_ITS | Encounter Summary ---
Author Organization [facility] Address [address] [place] [address] Care Team Providers Care Lime Burner Name Role Phone Aquilino Starkey PA-C Primary Care Provider [phone] Reason for Visit * Reason Comments Anxiety Depression Alcohol Problem Encounter Details Date Type Department Care Team (Late st Contact Info) Description 12/06/2019 10:00 EDT Telemedicine [facility] [place] [facility] [place] [address] [place] [address] Slick Pittman NP [address] [facility] [address] [place] [phone] ADHD, adult residual type (Primary Dx); PTSD [...] Refills Last Filled Start Date End Date buPROPion (WELLBUTRIN XL) 150 mg XL tablet One every morning 90 Tab 3 12/06/2019 0 documented in this encounter Progress Notes * This document contains information received from the source organization and may not represent a complete record from that organization. 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
--- OUTSIDE RECORDS SUMMARY | 2024-07-12 15:56 | XMS_ITS | Encounter Summary ---
Author Organization [facility] Address [facility] [place] [address] Care Team Providers Care Children'S Tutor Name Role Phone Charles Huitron MD Primary Care Provider [phone] Reason for Visit * Reason Comments Establish Care Left Knee Pain * Consultation (Routine) - Closed Specialty Diagnoses / Procedures Referred By Beverly t Referred To Contact Orthopaedics Diagnoses LT KNEE PAIN, NO INJURY Self mail [facility] [address] [place] [address] Referral ID Status Reason Start Date Expiration Date V isits Requested Visits Authorized [id number] Closed Consult, Test & Treat 02/23/2024 02/22/2025 1 1 Encounter Details Date Type Department Care Team (Latest Contact Info) Description 02/24/2024 2:40 PM EDT Office [place] [address] Arian Puente PA [facility] [place] [address] Acute pain of left knee; Primary osteoarthritis of left knee Social History Tobacco Use Types Packs/Day Years [...] - - Weight 90.7 kg (200 lb) 02/24/2024 2:47 PM EDT Height 158.8 cm (5' 2.5) 02/24/2024 2:47 PM EDT Body Mass Index 36 02/24/2024 2:47 PM EDT documented in this encounter Progress Notes * Arian Puente PA - 02/24/2024 2:40 PM EDT Images from the original note were not included. Department of Orthopaedics Division of Adult Joint Reconstructive Surgery CHIEF COMPLAINT: Chief Complaint Patient presents with Establish Care Left Knee Pain ARTHROPLASTY HISTORY/PREVIOUS KNEE SURGERY: None Chelsea was referred from Self mail I.D.: Chelsea Jensen is a 69 y.o. year old female being seen today to discuss her left knee. Her history and physical exam were reviewed in detail. She states the knee has been symptomatic for weeks. The pain is predominantly medial, anterior, popliteral. There was not inciting trauma/injury. She does not describe hip pain. She feels that her knee pain is keeping her from walking, standing, ADLS. Insidious onset of pain. Denies hx of fracture, procedures, injection. She notes a history of some pain and swelling in the back of the knee 2 years ago, managed with a compressive brace, and went away on its own with no treatment. Tried a brace this time it flared back up, but did not resolve. Patient explains pain over the inside of the knee as she localizes to the medial joint line and back of the knee. She endorses that the pain can radiate up into the anterolateral thigh as she localizes. She denies any radiation of the knee pain into the thigh into the hip and groin. She denies any pain at the radiation down into the rubio and foot and ankle. She denies instability. She denies any m echanical symptoms. Presents today with radiographs to evaluate source of pain. Aggravating factors include activity, stair climbing, kneeling, deep knee bending, weight bearing. Alleviating factors include rest, medication: Ibuprofen, NSAID, Tylenol used but not effective. Chelsea has no pain at night.. She can weight bear on the left leg and does not use assistive devices. She has not tried physical therapy. She has not had injections into the joint She has NSAIDs/Pain meds: Ibuprofen, NSAID, Tylenol used and not effective. She has brace treatment: and not effective Ms. Jensen denies fevers/chills/headache/chest pain/shortness of breath/abdominal pain/nausea or vomiting/weight changes She does not endorse a history of DVT/PE or clotting disorder. QUESTIONNAIRE RESPONSES: 04/26/2013 General Health, Prior Treatments, PreExisting Condition, Health Habits, About You PROMIS-10 General Health Very Good PROMIS-10 Quality of Life Very Good PROMIS-10 Physical Health Very Good PROMIS-10 Mental Health Very Good PROMIS-10 Social Activity Very Good PROMIS-10 Everyday Activities Moderately PROMIS-10 Pain 6 PROMIS-10 Fatigue Moderate PROMIS-10 Social Roles Good PROMIS-10 Anxious or Depressed Never PROMIS PHYSICAL SCORE (range 16-68) 42.3 PROMIS MENTAL SCORE (range 21-68) 56 Live Alone Yes Combined Household Income $15,000 to less than $20,000 # People Supported 1 No data to display No data to display ALLERGIES Allergies Allergen Reactions Amoxicillin Trihydrate Rash red from head to toe Haloperidol Per patient, she was very anxious and scared. Haloperidol made these symptoms worse. Sulfa (Sulfonamide Antibiotics) Rash red rash Allergies to metals: None. SOCIAL HISTORY: reports that she quit smoking about 38 years ago. Her smoking use included cigarettes. She started smoking about 60 years ago. She has a 22 pack-year smoking history. She has never used smokeless tobacco. She reports that she does not drink alcohol and does not use drugs. 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 PHYSICAL EXAM: Constitution: Chelsea sits in the clinic today alert, appears stated age, and cooperative. The patient is alert and oriented. I have made the following determinations: Knee Exam: Left Prior surgery on this joint: No Knee ROM: Extension:0 Flexion: 120 Alignment: 0-4 degrees Neutral Stability: A/P Translation <5mm Varus (lateral stability) <5mm Valgus (medial stability) <5mm Extension La degrees or less Radiographic evidence of joint damage: [0= normal; 1=minimal ; 2= some osteophytes , some narrowing ; 3= moderate osteophytes, significantnarrowing, mild deformity; 4= large osteophytes, marked narrowing, obvious deformity]: 2= some osteophytes, some narrowing Patella Tracking: Normal Skin Integrity: Normal Pulses Palpable: Left PT:Yes Left DP:Yes Motor/Sensory: Distal Motor:Normal Distal Sensory: Normal Quadriceps Strength:5 Knee Effusion: 0-1+ Ecchymosis: none Patella: Patellar apprehension test: negative Patellar compression test: negative Tenderness: medial joint line. Most tender posterior medial joint line IMAGING: X-rays of the left knee demonstrate joint space narrowing, subchondral sclerosis, and shows DJD changes, likely chronic. There is mild bilateral knee osteoarthritis. This is characterized by some minimal medial compartment joint space narrowing. There is subchondral sclerosis about the medial tibia. There is also small marginal osteophytes about the medial tibia and femur. ASSESSMENT AND PLAN: Ms. Jensen is a 69 y.o. year old female with mild osteoarthritis of her left knee We discussed the elective management of osteoarthritis treatment. We discussed the arthritis ladder, attempting conservative therapy first with [id number] anti-inflammatories such as ibuprofen or naproxen along with acetaminophen if they can be tolerated. We also discussed attempting formal ph ysical therapy, as that can help keep core and knee musculature strong, in conjunction with focusing on range of motion. We also discussed using walking aids, continue and regular exercise along withmaintaining an appropriate weight. The patient is receptive to this. We also discussed corticosteroid injection. Risks and benefits explained including but not limited to steroid flare, increase in blood glucose, infection, continued pain, bleeding, damage to nerves and vessels and can safely be given every 3-4 months. We reviewed the indications of total knee arthroplasty and th elective management of this. We discussed the procedure, recovery, and expectations post-operatively. We reviewed risks and benefits, which include but are not limited to infection, bleeding, damage to nerves and vessels, hardware failure, fracture, dislocation, blood clot, heart attack, stroke, adverse reaction toanesthesia, and continued pain. Patient demonstrates and understanding of the above. We reviewed her history, her clinical exam, her radiographs. We discussed that her radiographs demonstrate mild knee osteoarthritis most confounded the medial compartment. This is where she is tender, most specifically posteriorly. We discussed that this could be an osteoarthritis flare, progression of some degenerative meniscal tears. At this point I offered the patient a trial of conservative therapy. We discussed stopping her ibuprofen and starting meloxicam 15 mg daily taken with food and water. We discussed a trial of physical therapy. We discussed at home versus formal outpatient PT. She would like to try some exercises at home. I handout was provided. We also discussed an MRI evaluating for an internal derangement such as progressive and degenerative meniscal tears. There is no trauma, and her knee exam is quite stable so I have a low threshold for ligamentous injury. We discussed possible corticosteroid injection if this flare does not aishwarya and her MRI shows progressive DJD. Until then, she would like to try a round of conservative treatment which I think is reasonable based on her exam and her plain films. She will call us to let us know how she is doing after 2 weeks. Potential barriers to total joint arthroplasty: -BMI > 40: No -Active Tobacco use: No -Diabetes with hemoglobin A1C > 7.5: No JSEUS KLEIN documented in this encounter Plan of Treatment Upcoming Encounters Date Type Department Care Team (Late st Contact Info) Description 08/18/2024 1:30 PM EST Appointment Mammography/[place] [address] Kathia Alvarado APRN [address] [place] [address] documented as of this encounter Visit Diagnoses Diagnosis Acute pain of left knee Primary osteoarthritis of left knee Primary localized osteoarthrosis, lower leg documented in this encounter Care Teams Children'S Tutor Relationship Specialty Start Date End Date Charles Huitron MD [address] [facility] [address] [place] [id number] PCP - General 07/08/10 documented as of this encounter
--- OUTSIDE RECORDS SUMMARY | 2024-07-12 15:56 | XMS_ITS | Encounter Summary ---
Author Organization [facility] Address [address] [place] [address] Care Team Providers Care Bottom Polisher Name Role Phone Aquilino Starkey PA-C Primary Care Provider [phone] Reason for Visit * Reason Comments Other Encounter Details Date Type Department Care Team ([facility] Contact Info) Description 02/08/2020 Refill [facility] [place] [address] [place] [address] Slick Pittman NP 82 [facility] [address] [place] [phone] Other Social History Tobacco Use Types Packs/Day [...] encounter Miscellaneous Notes * Telephone Encounter - Renetta Mancilla RN - 02/09/2020 0829 EDT Tele visit 01/09/20 Scheduled for 03/12/20 Mirtazapine 7.5 mg Take 3 tabs by mouth at bedtime Last filled 11/09/19 Noted also ordered through [facility] [employer] mail service on 12/25/19 for one years worth documented in this encounter Plan of Treatment Not on file documented as of this encounter Visit Diagnoses Not on filedocumented in this encounter Care Teams Bottom Polisher Relationship Specialty Start Date End Date Aquilino Starkey PA-C PCP - General 08/21/19 12/15/20 documented as of this encounter
--- OUTSIDE RECORDS SUMMARY | 2024-07-12 15:56 | XMS_ITS | Encounter Summary ---
Author Organization [facility] Address [address] [place] [address] Care Team Providers Care Secondary Set Up Man Name Role Phone Aquilino Starkey PA-C Primary Care Provider [phone] Slick Pittman BRASS PLATER Unavailable [phone] Reason for Visit * Reason Onset Date Comments Medications Refill 09/30/2020 prazosin - sh e would like this called in today so she will receive by Wednesday from mail order pharmacy Encounter Details Date Type Department Care Team (Late st Contact Info) Description 09/30/2020 Refill [facility] [place]ry [address] [place] [address] Slick Pittman NP 82 [facility] [address] [place] [phone] Medications Refill (prazosin - she would like this called in today so she will receive by Wednesday from mail order pharmacy) Social History Tobacco Use Types Packs/Day Years [...] CAPSULES BY MOUTH AT BEDTIME 270 Cap 09/30/2020 documented in this encounter Miscellaneous Notes * Addendum Note - Jannette Carroll RN - 09/30/2020 1421 ESTAddended by: JANNETTE CARROLL on: 09/30/2020 14:21 Modules accepted: Orders * Telephone Encounter - Jannette Carroll RN - 09/30/2020 1420 EST Appt tomorrow 10/01 Van * Telephone Encounter - Sonia Valnetine - 09/30/2020 1316 EST prazosin - she would like this called in today so she will receive by Wednesday from mail order pharmacy [facility] - fax to [phone] documented in this encounter Plan of Treatment Not on file documented as of this encounter Visit Diagnoses Not on filedocumented in this encounter Discontinued Medications Medication Sig Discontinue Reason Start Date End Da te Prazosin (MINIPRESS) 2 mg capsule TAKE THREE CAPSULES BY MOUTH AT BEDTIME Reorder 09/02/2020 09/30/2020 documented as of this encounter Care Teams Secondary Set Up Man Relationship Specialty Start Date End Date Aquilino Starkey PA-C PCP - General 08/21/19 12/15/20 Slick Pittman NP [address] [phone] Nurse Practitioner Psychiatry 05/10/20 12/15/23 documented as of this encounter
--- OUTSIDE RECORDS SUMMARY | 2024-07-12 15:56 | XMS_ITS | Encounter Summary ---
Author Organization [facility] Address [address] [place] [address] Care Team Providers Care Floor Care Technician Name Role Phone Unknown, Provider Primary Care Provider Unava ilable Encounter Details Date Type Department Care Team (Latest Contact Info) Description 05/17/2017 11:00 EDT - 05/17/2017 23:59 EDT Hospital Encounter [address] [address] Unknown, Provider, Discharge Disposition: Home or Self Care Social History Tobacco Use Types Packs/Day Years Used Date Smoking Tobacco: Never Assessed Comments Unknown Sex and Gender Information Value Date Recorded Sex Assigned at Not on file Legal Sex Female 14:41 EDT Gender Identity Female 08/21/2019 10:55 EST Sexual Orientation Not on file documented as of this encounter Discharge Disposition Disposition Code Departure Means Destination Home or Self [facility] documented in this encounter Plan of Treatment Not on file documented as of this encounter Visit Diagnoses Not on filedocumented in this encounter Care Teams Floor Care Technician Relationship Specialty Start Date End Date Unknown, ProviderMD PCP - General 02/04/16 08/20/19 documented as of this encounter
--- OUTSIDE RECORDS SUMMARY | 2024-07-12 15:56 | XMS_ITS | Encounter Summary ---
Author Organization [facility] Address [address] [place] [address] Care Team Providers Care Single Stroke Preformer Name Role Phone Aquilino Starkey PA-C Primary Care Provider [phone] Slick Pittman CONSUMER LOAN UNDERWRITER Unavailable [phone] Reason for Visit * Reason Onset Date Comments Medications Refill 09/02/2020 prazosin 2mg, 3 at bedtime - [facility] [place] - 30 day supply Encounter Details Date Type Department Care Team (Late st Contact Info) Description 09/02/2020 Refill [facility] [place] [address] [place] [address] Slick Pittman NP 82 [facility] [address] [place] [phone] Medications Refill (prazosin 2mg, 3 at bedtime - [facility] [place] - 30 day supply) Social History Tobacco Use Types Packs/Day Years [...] TAKE THREE CAPSULES BY MOUTH AT BEDTIME 90 Cap 09/02/2020 1 documented in this encounter Miscellaneous Notes * Telephone Encounter - Jannette Carroll RN - 09/02/2020 1028 EST NOV 10/01 Van * Telephone Encounter - Sonia Valentine - 09/02/2020 1021 EST prazosin 2mg, 3 at bedtime - [facility] - 30 day supply documented in this encounter Plan of Treatment Not on file documented as of this encounter Visit Diagnoses Not on filedocumented in this encounter Discontinued Medications Medication Sig Discontinue Reason Start Date End Da te Prazosin (MINIPRESS) 2 mg capsule TAKE THREE CAPSULES BY MOUTH AT BEDTIME Reorder 07/05/2020 09/02/2020 documented as of this encounter Care Teams Single Stroke Preformer Relationship Specialty Start Date End Date Aquilino Starkey PA-C PCP - General 08/21/19 12/15/20 Slick Pittman NP [address] [place] [phone] Nurse Practitioner Psychiatry 05/10/20 12/15/23 documented as of this encounter
--- OUTSIDE RECORDS SUMMARY | 2024-07-12 15:56 | XMS_ITS | Encounter Summary ---
Author Organization [facility] Address [address] [place] [address] Care Team Providers Care Agricultural Equipment Test Engineer Name Role Phone Aquilino Starkey PA-C Primary Care Provider [phone] Reason for Visit * Reason Comments Anxiety Depression ADHD Encounter Details Date Type Department Care Team (Late st Contact Info) Description 04/10/2020 9:00 EDT Telemedicine [facility] [place] [address] [place] [address] Slick Pittman NP 82 [facility] [address] [place] [phone] PTSD (post-traumatic stress disorder) (Primary Dx); ADHD, adult residual type Social History Tobacco Use Types Packs/Day Years [...] One po q am 90 Cap 1 04/10/2020 06/03/2020 documented in this encounter Progress Notes * This document contains information received from the source organization and may not represent a complete record from that organization. * Restricted notes were excluded * Sonia Valentine - 04/10/2020 0900 EDT 06/04/20 - appt scheduled documented in this encounter Plan of Treatment Not on file documented as of this encounter Visit Diagnoses Diagnosis PTSD (post-traumatic stress disorder)- Primary Posttraumatic stress disorder ADHD, adult residual type Attention deficit disorder with hyperactivity documented in this encounter Discontinued Medications Medication Sig Discontinue Reason Start Date End Da te atomoxetine (STRATTERA) 80 mg capsule One po q am Reorder 08/03/2019 04/10/2020 documented as of this encounter Care Teams Agricultural Equipment Test Engineer Relationship Specialty Start Date End Date Aquilino Starkey PA-C PCP - General 08/21/19 12/15/20 documented as of this encounter
--- OUTSIDE RECORDS SUMMARY | 2024-07-12 15:56 | XMS_ITS | Encounter Summary ---
Author Organization [facility]ly [facility] [place] [address] Care Team Providers Care Peripheral Edp Equipment Operator Name Role Phone Charles Huitron MD Primary Care Provider [phone] Reason for Visit * Reason Comments Medication Refill Encounter Details Date Type Department Care Team (Late st Contact Info) Description 06/20/2015 Refill Psychiatry [place] [phone] Filomena Muñoz EXTRUSION DIE CORRECTOR [facility] [place] [address] Social History Tobacco Use Types Packs/Day Years [...] 08/18/2024 1:30 PM EST Appointment Mammography/[place] [phone] Kathia Alvarado APRN [address] [place] [address] documented as of this encounter Visit Diagnoses Not on filedocumented in this encounter Care Teams Peripheral Edp Equipment Operator Relationship Specialty Start Date End Date Charles Huitron MD [address] [place] [address] PCP - General 07/08/10 documented as of this encounter
--- OUTSIDE RECORDS SUMMARY | 2024-07-12 15:56 | XMS_ITS | Encounter Summary ---
Author Organization [facility] [place] [address] Care Team Providers Care Family Centered Specialist Name Role Phone Charles Huitron MD Primary Care Provider [phone] Reason for Visit * Reason Comments Medication Refill Encounter Details Date Type Department Care Team (Late st Contact Info) Description 02/28/2015 Refill Psychiatry [place] [phone] Filomena Muñoz ASP NET C DEVELOPER [facility] [address] [place] [address] Social History Tobacco Use Types Packs/Day Years [...] 08/18/2024 1:30 PM EST Appointment Mammography/[place] [phone] Kathia Alvarado APRN [address] [place] [address] documented as of this encounter Visit Diagnoses Not on filedocumented in this encounter Care Teams Family Centered Specialist Relationship Specialty Start Date End Date Charles Huitron MD [address] [place] [address] PCP - General 07/08/10 documented as of this encounter
--- OUTSIDE RECORDS SUMMARY | 2024-07-12 15:56 | XMS_ITS | Encounter Summary ---
Author Organization [facility] Address [address] [place] [address] Care Team Providers Care Billing Administrator Name Role Phone Aquilino Starkey PA-C Primary Care Provider [phone] Encounter Details Date Type Department Care Team (Late st Contact Info) Description 12/11/2019 Orders Only [facility] [address] [place] [address] Slick Pittman NP 82 [facility] [address] [place] [address] Social History Tobacco Use Types Packs/Day Years [...] by mouth at bedtime for 360 days. 270 Tab 3 12/11/2019 0 documented in this encounter Plan of Treatment Not on file documented as of this encounter Visit Diagnoses Not on filedocumented in this encounter Discontinued Medications Medication Sig Discontinue Reason Start Date End Da te mirtazapine (REMERON) 7.5 mg tablet Take 22.5 mg by mouth at bedtime. Reorder 08/12/2019 12/11/2019 documented as of this encounter Care Teams Billing Administrator Relationship Specialty Start Date End Date Aquilino Starkey PA-C PCP - General 08/21/19 12/15/20 documented as of this encounter
--- OUTSIDE RECORDS SUMMARY | 2024-07-12 15:56 | XMS_ITS | Encounter Summary ---
Author Organization [facility] Address [address] [place] [address] Care Team Providers Care Metal Treater Name Role Phone Slick Pittman PATENT ENGINEER Unavailable [phone] Kathia Alvarado Primary Care Provider [phone] Reason for Visit * Reason Comments Anxiety Depression ADHD Encounter Details Date Type Department Care Team ([facility] Contact Info) Description 12/18/2020 15:00 EDT Telemedicine [facility] Family Psychiatry [address] [place] [address] Slick Pittman NP 82 [facility] [address] [place] [address] ADHD, adult residual type (Primary [...] 12/06/2019 9:45 EDT documented in this encounter Progress Notes * Slick Pittman - 12/18/2020 1500 EDT [facility] [place] Chief Complaint(s): Anxiety, Depression, and ADHD HPI: :??65??year old female with long history of mood and anxiety Sx concurrent with problems with attention. ??These have responded well to treatment and she has been able to function independently.She also has a history of Alcohol Use Disorder - in remission Subjective: I have a daughter getting this weekend. She is excited about this, and focussing on her home life. Objective: Alert, oriented. Mood good, affect full. Speech WNL and free of bizarre content or pressure. Denies AH, VH, HI, SI. I have reviewed current problem list and current medications. Assessment: Anxiety Depression Alcohol use Disorder Plan: Maintain current meds Routine follow-up Length of Visit: 22 minutes Today's visit was provided through telemedicine audio conferencing: The location of the patient: Home The location of the provider: Office Verbal consent: The concept of ???Telemedicine?? has been described to the patient. Patient has been informed of the anticipated benefits and possible risks. Patient understands the information provided regarding telemedicine, has had the opportunity to ask questions about this information, and all questions havebeen answered to patient's satisfaction. Patient consents for the use of telemedicine in his/her medical care and authorizes the transmission of any relevant medical information to providers and their staff involved in patient's medical or mental health care. Verbal consent obtained: yes. documented in this encounter Plan of Treatment Not on file documented as of this encounter Visit Diagnoses Diagnosis ADHD, adult residual type- Primary Attention deficit disorder with hyperactivity PTSD (post-traumatic stress disorder) Posttraumatic stress disorder documented in this encounter Care Teams Metal Treater Relationship Specialty Start Date End Date Kathia Alvarado FNP [address] [facility] [address] [place] [address] PCP - General 12/16/20 Slick Pittman NP 82 [facility] 3 [place] [address] Nurse Practitioner Psychiatry 05/10/20 12/15/23 documented as of this encounter
--- OUTSIDE RECORDS SUMMARY | 2024-07-12 15:56 | XMS_ITS | Encounter Summary ---
Author Organization [facility] Address [address] [place] [address] Care Team Providers Care Pole Sander Operator Name Role Phone Aquilino Starkey PA-C Primary Care Provider [phone] Slick Pittman FUSION JUNCTURE GRINDER Unavailable [phone] Reason for Visit * Reason Comments Anxiety Depression Encounter Details Date Type Department Care Team ([facility] Contact Info) Description 07/02/2020 8:00 EST Telemedicine [facility] Family Psychiatry [address] [place] [address] Slick Pittman NP 82 [facility] [address] [place] [address] ADHD, adult residual type (Primary [...] disorder documented in this encounter Care Teams Pole Sander Operator Relationship Specialty Start Date End Date Aquilino Starkey PA-C PCP - General 08/21/19 12/15/20 Slick Pittman NP [address] [phone] Nurse Practitioner Psychiatry 05/10/20 12/15/23 documented as of this encounter
--- OUTSIDE RECORDS SUMMARY | 2024-07-12 15:56 | XMS_ITS | Encounter Summary ---
Author Organization [facility] Address [address] [place] [address] Care Team Providers Care Biodiesel Engine Specialist Name Role Phone Aquilino Starkey PA-C Primary Care Provider [phone] Reason for Visit * Reason Onset Date Comments Follow-up 03/22/2020 not able to conn ect at time of last appt Encounter Details Date Type Department Care Team ([facility] Contact Info) Description 03/22/2020 Telephone [facility] Family Psychiatry [address] [place] [address] Slick Pittman NP 82 [facility] [address] [place] [address] Follow-up (not able to connect at time of last appt) Social History Tobacco Use Types Packs/Day Years [...] notes were excluded * Telephone Encounter - MemeSonia quiñones - 03/22/2020 1203 EDT Not able to connect at last appt - would like to talk with you briefly at some point today. She hasrescheduled appt. documented in this encounter Plan of Treatment Not on file documented as of this encounter Visit Diagnoses Not on filedocumented in this encounter Care Teams Biodiesel Engine Specialist Relationship Specialty Start Date End Date Aquilino Starkey PA-C PCP - General 08/21/19 12/15/20 documented as of this encounter
--- OUTSIDE RECORDS SUMMARY | 2024-07-12 15:56 | XMS_ITS | Encounter Summary ---
Author Organization [facility] Address [address] [place] [address] Care Team Providers Care X [employer] Electronics Wiring Technician Name Role Phone Aquilino Starkey PA-C Primary Care Provider [phone] Slick Pittman NP Unavailable [phone] Kathia Alvarado Primary Care Provider [phone] Reason for Visit * Reason Comments Other Encounter Details Date Type Department Care Team ([facility] Contact Info) Description 12/01/2020 Refill [facility] Family Psychiatry [address] [place], [place] [id number] Jabari Bean MD [address] [place] [phone] Other Social History Tobacco Use Types Packs/Day [...] documented as of this encounter Care Teams [employer] Wiring Technician Relationship Specialty Start Date End Date Aquilino Starkey PA-C PCP - General 08/21/19 12/15/20 Kathia Alvarado FNP [address] [facility] [address] [place] [address] PCP - General 12/16/20 Slick Pittman NP 82 [facility] 3 [place] [address] Nurse Practitioner Psychiatry 05/10/20 12/15/23 documented as of this encounter
--- OUTSIDE RECORDS SUMMARY | 2024-07-12 15:56 | XMS_ITS | Encounter Summary ---
Author Organization [facility] Address [address] [place] [address] Care Team Providers Care Fur Plucker Name Role Phone Aquilino Starkey PA-C Primary Care Provider [phone] Encounter Details Date Type Department Care Team (Late st Contact Info) Description 12/04/2019 Abstract [facility] [address] [place], [place] [address] Melo Garcia MD [address] [place] [id number] Social History Tobacco Use Types Packs/Day Years [...] as of this encounter Plan of Treatment Not on file documented as of this encounter Visit Diagnoses Not on filedocumented in this encounter Discontinued Medications Medication Sig Discontinue Reason Start Date End Da te metoprolol XL (TOPROL-XL) 25 mg tablet Take 25 mg by mouth daily. Abstraction 07/11/2019 12/04/2019 documented as of this encounter Historical Medications * This list may reflect changes made after this encounter. metoprolol succinate 25 mg capsule,sprinkle, ER 24hr 1 tab(s) orally once a day MAGNESIUM STEARATE MISC 2,500 g. multivit-mins no.63/iron/folic (M-VIT ORAL) 1 ferrous sulfate (IRON ORAL) as directed NONFORMULARY added in this encounter Care Teams Fur Plucker Relationship Specialty Start Date End Date Aquilino Starkey PA-C PCP - General 08/21/19 12/15/20 documented as of this encounter
--- OUTSIDE RECORDS SUMMARY | 2024-07-12 15:56 | XMS_ITS | Encounter Summary ---
Author Organization [facility] Address [address] [place] [address] Care Team Providers Care Net Developer Consultant Name Role Phone Unknown, Provider Primary Care Provider Unava ilable Encounter Details Date Type Department Care Team (Late st Contact Info) Description 05/18/2017 Results Only [facility] [phone] Alessia Diana MD [address] [place], [place] [id number] Social History Tobacco Use Types Packs/Day Years [...] Procedure Name Priority Date/Time Associated Diagnosis Comments SURGICAL PATHOLOGY Routine 05/17/2017 8:43 EDT documented in this encounter Results * SURGICAL PATHOLOGY (05/17/2017 8:43 EDT) Pathology Report: SURGICAL PATHOLOGY REPORT Reports generated via electronic interface contain original data; however they are lacking the format of the original report. Caution should be taken when reading/interpretin g unformatted reports. Name: ? CHELSEA MARINA ? Accession #: ? [id number] ? : ? 1955 (Age: 62) ??F ? Collect Date: ? 05/17/2017 ? Location: ? [facility] ? Receive Date: ? 05/18/2017 ? Provider: ALESSIA DIANA MD Copy to: MATT RITCHIE PAC ? Final Pathologic Diagnosis: A. DUODENAL, BIOPSY: - Duodenal mucosa with mild peptic duodenitis. B. STOMACH, ULCER, BIOPSY: - Intestinal metaplasia in a background of reactive (chemical) gastropathy. C. STOMACH, ANTRUM, BIOPSY: - Gastric antral mucosa with reactive (chemical) gastropathy. D. GASTROESOPHAGEAL JUNCTION, BIOPSY: - Squamous mucosa with mildly active reflux esophagitis. E. COLON, DESCENDING, POLYP, BIOPSY: - Hyperplastic polyp. - Deeper levels have been examined. Document reviewed and electronically signed by: JEREMY MEEK MD Report ??Date: 05/20/2017 10:27 By the signature above, the attending physician certifies that he/she has personally conducted a gross and/or microscopic examination of the described specimens and rendered or confirmed the above diagnosis. Specimen(s) Received: A. ??Duodenum bx B. ??Gastric ulcer bx C. ??Antrum bx D. ??GE junction bx E. ??Descending colon polyp Clinical History: Anemia Gross Description: A. ?Received in formalin labelled with proper patient identification (initials L, R) and 1. duodenum biopsy is a pink-beebe tissue fragment (0.5 x 0.2 x 0.1 cm). Submitted intact in A1. B. ?Received in formalin labelled with proper patient identification (initials L, R) and 2. gastric ulcer biopsies are two pink-beebe tissues (0.4 x 0.3 x 0.2 cm and 0.5 x 0.3 x 0.2 cm). Entirely submitted in B1. C. ?Received in formalin labelled with proper patient identification (initials L, R) and 3. antrum biopsies are three pink-beebe tissues (0.2 x 0.1 x 0.1 cm to 0.4 x 0.3 x 0.1 cm). Entirely submitted in C1. D. ?Received in formalin labelled with proper patient identification (initials L, R) and 4. GE junction biopsy is a pink-beebe tissue fragment (0.3 x 0.3 x 0.1 cm). Submitted intact in D1. E. ?Received in formalin labelled with proper patient identification (initials L, R) and 5. descending colon polyp is a pink-beebe tissue fragment (0.4 x 0.2 x 0.1 cm). Submitted intact in E1. JESUS Farris (ASCP) 05/18/2017 10:24 AM End of Report [facility] 05/17/2017 8:43 EDT 05/18/2017 8:43 EDT us Alessia Diana MD PATHOLOGY ORDERABLES Fin al Result Performing Organization Address City/State/[facility] Co de Phone Number [facility] [address] [place] [address] documented in this encounter Visit Diagnoses Not on filedocumented in this encounter Care Teams Net Developer Consultant Relationship Specialty Start Date End Date Unknown, Provider, PCP - General 02/04/16 08/20/19 documented as of this encounter
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
--- OUTSIDE RECORDS SUMMARY | 2024-07-12 15:56 | XMS_ITS | Encounter Summary ---
Author Organization [facility] Address [address] [place] [address] Care Team Providers Care Staff Software Engineer Name Role Phone Aquilino Starkey PA-C Primary Care Provider [phone] Slick Pittman BATTER MIXER HELPER Unavailable [phone] Reason for Visit * Reason Onset Date Comments Medications Refill 05/31/2020 Bupropion 150 mg Encounter Details Date Type Department Care Team (Late st Contact Info) Description 05/31/2020 Refill [facility] Family Psychiatry [address] [place] [address] Slick Pittman NP [address] [facility] [address] [place] [phone] Medications Refill (Bupropion 150 mg ) Social History Tobacco Use Types [...] tablet One every morning 90 Tab 3 05/31/2020 1 documented in this encounter Miscellaneous Notes * Telephone Encounter - Jannette Carroll RN - 05/31/2020 1119 EDT Bupropion XL 150mg tablet, take 1 tab daily Last OV 04/10 Nothing future scheduled yet [facility] * Telephone Encounter - Nichole Lowe - 05/31/2020 1047 EDT Bupropion Xl 150 mg - send to [facility] documented in this encounter Plan of Treatment Not on file documented as of this encounter Visit Diagnoses Not on filedocumented in this encounter Discontinued Medications Medication Sig Discontinue Reason Start Date End Da te buPROPion (WELLBUTRIN XL) 150 mg XL tablet One every morning Reorder 12/06/2019 05/31/2020 documented as of this encounter Care Teams Staff Software Engineer Relationship Specialty Start Date End Date Aquilino Starkey PA-C PCP - General 08/21/19 12/15/20 Slick Pittman NP [address] [place] [id number] Nurse Practitioner Psychiatry 05/10/20 12/15/23 documented as of this encounter
--- OUTSIDE RECORDS SUMMARY | 2024-07-12 15:56 | XMS_ITS | Encounter Summary ---
Author Organization [facility] [place] [address] Care Team Providers Care Lead Press Operator Name Role Phone Charles Huitron MD Primary Care Provider [phone] Encounter Details Date Type Department Care Team (Late st Contact Info) Description 09/01/2018 [place] [phone] Bhavani Martinez MD [facility] [place] [address] Social History Tobacco Use Types Packs/Day Years [...] 08/18/2024 1:30 PM EST Appointment Mammography[place] [phone] Kathia Alvarado APRN [address] [place] [address] documented as of this encounter Visit Diagnoses Not on filedocumented in this encounter Care Teams Lead Press Operator Relationship Specialty Start Date End Date Charles Huitron MD [address] [place] [id number] PCP - General 07/08/10 documented as of this encounter
--- OUTSIDE RECORDS SUMMARY | 2024-07-12 15:56 | XMS_ITS | Encounter Summary ---
Author Organization [facility] [place] [address] Care Team Providers Care Home Care Liaison Name Role Phone Charles Huitron MD Primary Care Provider [phone] Reason for Visit * Reason Comments Medication Refill Encounter Details Date Type Department Care Team (Late st Contact Info) Description 11/02/2014 Refill Psychiatry [place] [phone] Filomena Muñoz FURNITURE BUILDER [facility] [place] [address] Social History Tobacco Use Types Packs/Day Years [...] 08/18/2024 1:30 PM EST Appointment Mammography/[place] [phone] Kathia Alvarado APRN [address] [place] [address] documented as of this encounter Visit Diagnoses Not on filedocumented in this encounter Care Teams Home Care Liaison Relationship Specialty Start Date End Date Charles Huitron MD [address] [place] [id number] PCP - General 07/08/10 documented as of this encounter
--- OUTSIDE RECORDS SUMMARY | 2024-07-12 15:56 | XMS_ITS | Encounter Summary ---
Author Organization [facility] Address [address] [place] [address] Care Team Providers Care Drum Cleaner Name Role Phone Aquilino Starkey PA-C Primary Care Provider [phone] Reason for Visit * Reason Comments Anxiety Depression Encounter Details Date Type Department Care Team ([facility] st Contact Info) Description 01/09/2020 14:00 EDT Telemedicine [facility] Family Psychiatry [address] [place] [address] Slick Pittman NP [address] [facility] [address] [place] [phone] ADHD, adult residual type (Primary Dx) Social History Tobacco Use Types [...] notes were excluded * Sonia Drummond - 01/09/2020 1400 EDT 01/11 left message to schedule a follow up * Sonia Drummond - 01/09/2020 1400 EDT 01/23 left message to schedule a follow up * Sonia Drummond - 01/09/2020 1400 EDT scheduled documented in this encounter Plan of Treatment Not on file documented as of this encounter Visit Diagnoses Diagnosis ADHD, adult residual type- Primary Attention deficit disorder with hyperactivity documented in this encounter Care Teams Drum Cleaner Relationship Specialty Start Date End Date Aquilino Starkey PA-C PCP - General 08/21/19 12/15/20 documented as of this encounter
--- OUTSIDE RECORDS SUMMARY | 2024-07-12 15:56 | XMS_ITS | Encounter Summary ---
Author Organization [facility] [place] [address] Care Team Providers Care Grinder Set Up Operator Surface Name Role Phone Charles Huitron MD Primary Care Provider [phone] Reason for Visit * Reason Onset Date Comments Medication Refill 05/27/2015 Encounter Details Date Type Department Care Team (Late st Contact Info) Description 05/27/2015 Refill Psychiatry [place] [address] Filomena Muñoz AIR HOIST OPERATOR [facility] [place] [address] Social History Tobacco Use Types Packs/Day Years [...] 08/18/2024 1:30 PM EST Appointment Mammography[place] [address] Kathia Alvarado APRN [address] [place] [address] documented as of this encounter Visit Diagnoses Not on filedocumented in this encounter Care Teams Grinder Set Up Operator Surface Relationship Specialty Start Date End Date Charles Huitron MD [address] [place] [address] PCP - General 07/08/10 documented as of this encounter
--- OUTSIDE RECORDS SUMMARY | 2024-07-12 15:56 | XMS_ITS | Encounter Summary ---
Author Organization [facility] Address [address] [place] [address] Care Team Providers Care Box Brander Name Role Phone Aquilino Starkey PA-C Primary Care Provider [phone] Reason for Visit * Reason Comments Mood Disorder Encounter Details Date Type Department Care Team ([facility] st Contact Info) Description 08/23/2019 10:30 EST Office Visit [facility] Family Psychiatry [address] [place] [address] Slick Pittman NP [address] [facility] [address] [place] [phone] ADHD, adult residual type (Primary Dx); PTSD (post-traumatic stress disorder) Social History Tobacco Use Types Packs/Day Years Used Date Smoking Tobacco: Former Cigarettes Smokeless Tobacco: Never Alcohol Use Standard Drinks/Week Comments Not Currently [...] CAPSULES BY MOUTH DAILY 180 Cap 3 08/23/2019 0 documented in this encounter Progress Notes * Slick Pittamn - 08/23/2019 1030 EST Psychiatric Follow-Up Visit Visit Date: 08/23/2019 Present for Visit: Patient Chief Complaint Patient presents with ??? Mood Disorder Ms. Jensen reports ongoing situational stressors in her life but she feels she is addressing these appropriately. Her mood remains relatively stable and she is functioning well at her home. 1. ADHD, adult residual type stable 2. PTSD (post-traumatic stress disorder) Stable - functioning well Side-effects to psychiatric medication: none Therapist - Anup Collins Social History: Social History Tobacco Use ??? Smoking status: Not on file Substance Use Topics ??? Alcohol use: Not on file ??? Drug use: Not on file Allergies: Allergies not on file Medications: Current Outpatient Medications on File Prior to Visit Medication Sig Dispense Refill ??? atomoxetine (STRATTERA) 80 mg capsule One po q am 90 Cap 1 ??? buPROPion (WELLBUTRIN XL) 150 mg XL tablet one ??? Prazosin (MINIPRESS) 2 mg capsule TAKE THREE CAPSULES BY MOUTH AT BEDTIME 270 Cap 3 ??? venlafaxine (EFFEXOR-XR) 150 mg XR capsule TAKE 2 CAPSULES BY MOUTH DAILY 180 Cap 3 No current facility-administered medications on file prior to visit. Review of Systems: Psychiatric: also per HPI. Sleep - adequate Energy - none Appetite - good Psychiatric Exam: General Appearance: Neatly dressed, well-groomed Mood and Affect:good/full Speech: normal rate and tone Language: structured/appropriate Thought Process: wnl Associations: wnl Abnormal/Psychotic Thoughts:none Judgment and Insight: good Orientation: alert, oriented x 4 Recent and Remote Memory:intacct Attention and Concentration: attended well to conversation Fund of Knowledge:good Muscle Tone and Strength:good Gait and Station: good Assessment/Plan: Problem List Items Addressed This Visit Psychiatric ADHD, adult residual type - Primary PTSD (post-traumatic stress disorder) 1. ADHD, adult residual type 2. PTSD (post-traumatic stress disorder) Maintain current medications as patient is functioning well. A majority of the 30 minute appointment was spent in psychotherapy discussing mood management skills. documented in this encounter Plan of Treatment Not on file documented as of this encounter Visit Diagnoses Diagnosis ADHD, adult residual type- Primary Attention deficit disorder with hyperactivity PTSD (post-traumatic stress disorder) Posttraumatic stress disorder documented in this encounter Discontinued Medications Medication Sig Discontinue Reason Start Date End Da te venlafaxine (EFFEXOR-XR) 150 mg XR capsule TAKE 2 CAPSULES BY MOUTH DAILY Reorder 08/03/2019 08/23/2019 documented as of this encounter Historical Medications * This list may reflect changes made after this encounter. simvastatin (ZOCOR) 20 mg tablet 1 tab(s) orally once a day (at bedtime) omeprazole (PRILOSEC) 40 mg capsule 1 cap(s) orally once a day Fish Oil-[place]-3 Fatty Acids (FISH OIL) 360-1,200 mg capsule 1 cap by mouth daily metFORMIN (GLUCOPHAGE-XR) 500 mg ER tablet Take 500 mg by mouth 2 times daily. 3 07/15/2019 loratadine (CLARITIN) 10 mg tablet 1 orally every day lisinopril-hydroc hlorothiazide (ZESTORETIC) 10-12.5 mg per tablet TKE 1 TABLET BY MOUTH DAILY 07/29/2019 lisinopril (PRINIVIL) 10 mg tablet 1 tab(s) orally once a day hydroCHLOROthiazi de (HYDRODIURIL) 25 mg tablet 1 tab(s) orally once a day estrogens, conjugated, (PREMARIN) 0.9 mg tablet 1 tab(s) orally once a day Calcium-Cholecalc iferol, D3, (CALCARB) 600 mg(1,500mg) -200 unit tablet 1 tab(s) orally with mag once a day omega-3s/dha/epa/ fish oil/D3 (VITAMIN-D + [place]ME[place]-3 ORAL) 1 cap orally once daily mirtazapine (REMERON) 7.5 mg tablet Take 22.5 mg by mouth at bedtime. 08/12/2019 12/11/2019 metoprolol XL (TOPROL-XL) 25 mg tablet Take 25 mg by mouth daily. 3 07/11/2019 12/04/2019 estrogens, conjugated,-methy ltestosterone (ESTRATEST) 1.25-2.5 mg per tablet TAKE 1 TABLET BY MOUTH EVERY DAY WITH FOOD 1 06/02/2019 06/17/2021 buPROPion (WELLBUTRIN XL) 150 mg XL tablet one 12/06/19 20 added in this encounter Care Teams Box Brander Relationship Specialty Start Date End Date Aquilino Starkey PA-C PCP - General 08/21/19 12/15/20 documented as of this encounter
--- OUTSIDE RECORDS SUMMARY | 2024-07-12 15:56 | XMS_ITS | Encounter Summary ---
Author Organization [facility] [address] Care Team Providers Care Shot Grinder Operator Name Role Phone Charles Huitron MD Primary Care Provider [phone] Reason for Visit * Reason Comments Medication Refill Encounter Details Date Type Department Care Team (Late st Contact Info) Description 11/29/2014 Refill Psychiatry [place] [phone] Filomena Muñoz EXTRACORPOREAL TECHNICIAN [facility] [place] [address] Social History Tobacco Use Types Packs/Day Years [...] 08/18/2024 1:30 PM EST Appointment Mammography[place] [phone] Kathia Alvarado APRN [address] [place] [address] documented as of this encounter Visit Diagnoses Not on filedocumented in this encounter Care Teams Shot Grinder Operator Relationship Specialty Start Date End Date Charles Huitron MD [address] [place] [id number] PCP - General 07/08/10 documented as of this encounter
--- OUTSIDE RECORDS SUMMARY | 2024-07-12 15:56 | XMS_ITS | Encounter Summary ---
Author Organization [facility] Address [address] [place] [address] Care Team Providers Care Security Monitor Name Role Phone Aquilino Starkey PA-C Primary Care Provider [phone] Slick Pittman LOCAL TANKER TRUCK DRIVER Unavailable [phone] Reason for Visit * Reason Onset Date Comments Medications Refill 09/17/2020 strattera 80m g - [facility] Encounter Details Date Type Department Care Team (Late st Contact Info) Description 09/17/2020 Refill [facility] Family Psychiatry [address] [place] [address] Slick Pittman NP 82 [facility] [address] [place] [address] Medications Refill (strattera 80mg - [facility]) Social History Tobacco Use Types Packs/Day Years [...] capsule One po q am 90 Cap 09/17/2020 01/07/2021 documented in this encounter Miscellaneous Notes * Telephone Encounter - Jannette Carroll, RN - 09/17/2020 0848 EST Our records show pt stopped taking in May, however patient states she takes it every day. Says it was last filled at [facility] in [place]. [facility] shows last filled 06/15 for 90 days. JUN 17 * Telephone Encounter - Sonia Valentine - 09/17/2020 0834 EST strattera 80mg - [facility] documented in this encounter Plan of Treatment Not on file documented as of this encounter Visit Diagnoses Not on filedocumented in this encounter Care Teams Security Monitor Relationship Specialty Start Date End Date Aquilino Starkey PA-C PCP - General 08/21/19 12/15/20 Slick Pittman NP [address] [place] [id number] Nurse Practitioner Psychiatry 05/10/20 12/15/23 documented as of this encounter
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
--- OUTSIDE RECORDS SUMMARY | 2024-07-12 15:56 | XMS_ITS | Encounter Summary ---
Author Organization [facility] Address [address] [place] [address] Care Team Providers Care Regulatory Administrator Name Role Phone Aquilino Starkey PA-C Primary Care Provider [phone] Slick Pittman NP Unavailable [phone] Reason for Visit * Reason Onset Date Comments Medications Refill 07/05/2020 Prazosin 2mg Encounter Details Date Type Department Care Team ([facility] Contact Info) Description 07/31/2020 Telephone [facility] Family Psychiatry [address] [place], [place] [id number] Jannette Carroll RN 82 [facility] [place], [place] [address] Medications Refill (Prazosin 2mg ) Social History Tobacco Use Types Packs/Day [...] CAPSULES BY MOUTH AT BEDTIME 90 Cap 07/05/2020 1 documented in this encounter Miscellaneous Notes * Telephone Encounter - Jannette Carroll RN - 07/31/2020 0845 EST Prazosin 2mg documented in this encounter Plan of Treatment Not on file documented as of this encounter Visit Diagnoses Not on filedocumented in this encounter Discontinued Medications Medication Sig Discontinue Reason Start Date End Da te Prazosin (MINIPRESS) 2 mg capsule TAKE THREE CAPSULES BY MOUTH AT BEDTIME Reorder 12/25/2019 07/31/2020 documented as of this encounter Care Teams Regulatory Administrator Relationship Specialty Start Date End Date Aquilino Starkey PA-C PCP - General 08/21/19 12/15/20 Slick Pittman NP [address] [address] Nurse Practitioner Psychiatry 05/10/20 12/15/23 documented as of this encounter
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
--- OUTSIDE RECORDS SUMMARY | 2024-07-12 15:56 | XMS_ITS | Encounter Summary ---
Author Organization [facility] Address [address] [place] [address] Care Team Providers Care Senior Java Software Developer Name Role Phone Aquilino Starkey PA-C Primary Care Provider [phone] Slick Pittman UNEMPLOYMENT CLAIMS ADJUDICATOR Unavailable [phone] Reason for Visit * Reason Comments Anxiety ADHD Depression Alcohol Problem Encounter Details Date Type Department Care Team ([facility] Contact Info) Description 10/01/2020 8:00 EST Telemedicine [facility] Family Psychiatry [address] [place] [address] Slick Pittman NP 82 [facility] [address] [place] [address] ADHD, adult residual type (Primary [...] encounter Progress Notes * Slick Pittman - 10/01/2020 0800 EST [facility] Telephone Visit Chief Complaint(s): Anxiety, ADHD, Depression, and Alcohol Problem History of Present Illness: 65 year old female with long history of mood and anxiety Sx concurrent with problems with attention. ??These have responded well to treatment and she has been able to function independently. She also has a history of Alcohol Use Disorder - in remission Subjective: I've been good. She reports that about 4 weeks ago she began feeling more alone. We discussed how the imposed isolation has impacted her and other people. Objective: Alert, oriented. Mood good, affect full. Speech WNL and free of bizarre content or pressure. Denies AH, VH, HI, SI. I have reviewed current problem list and current medications. Assessment: ADHD Anxiety Alcohol Use Disorder (in remission) Plan: Maintain current medications Routine follow-up Length of Visit: 28 minutes Today's visit was provided through telemedicine telephone conferencing: The location of the patient: Home The location of the provider: Office Verbal consent: The concept of ???Telemedicine?? has been described to the patient. Patient has been informed of the anticipated benefits and possible risks. Patient understands the information provided regarding telemedicine, has had the opportunity to ask questions about this information, and all questions havebeen answered to patient???s satisfaction. Patient consents for the use of telemedicine in his/her medical care and authorizes the transmission of any relevant medical information to providers and their staff involved in patient???s medical or mental health care. Verbal consent obtained: yes. * Sonia Valentine - 10/01/2020 0800 EST 10/02/20 documented in this encounter Plan of Treatment Not on file documented as of this encounter Visit Diagnoses Diagnosis ADHD, adult residual type- Primary Attention deficit disorder with hyperactivity PTSD (post-traumatic stress disorder) Posttraumatic stress disorder documented in this encounter Care Teams Senior Java Software Developer Relationship Specialty Start Date End Date Aquilino Starkey PA-C PCP - General 08/21/19 12/15/20 Slick Pittman NP [address] [address] Nurse Practitioner Psychiatry 05/10/20 12/15/23 documented as of this encounter
--- OUTSIDE RECORDS SUMMARY | 2024-07-12 15:56 | XMS_ITS | Encounter Summary ---
Author Organization [facility] [place] [address] Care Team Providers Care Valve Assembler Name Role Phone Charles Huitron MD Primary Care Provider [phone] Reason for Visit * Reason Comments Medication Refill Encounter Details Date Type Department Care Team (Late st Contact Info) Description 04/16/2024 Ref[place] [address] Arian Puente PA [facility] [place] [address] Primary osteoarthritis of left knee Social History [...] on file documented as of this encounter Miscellaneous Notes * Telephone Encounter - Anselmo Oliveira RMA - 04/18/2024 8:34 AM EDT Surgery/Injury/Provider: Left knee OA Kwame Medication being requested: meloxicam 15mg Query: Last refill or Original Rx: 02/24/24 Seen within 30 days (if no, than when): 03/16/24 Requested Prescription to be sent electronically to [facility] in [place], [place] Prescription prepped and pended for Dr. Mariee to review. documented in this encounter Plan of Treatment Upcoming Encounters Date Type Department Care Team (Late st Contact Info) Description 08/18/2024 1:30 PM EST Appointment Mammography/[place] [address] Kathia Alvarado APRN [address] [place] [address] documented as of this encounter Visit Diagnoses Diagnosis Primary osteoarthritis of left knee Primary localized osteoarthrosis, lower leg documented in this encounter Care Teams Valve Assembler Relationship Specialty Start Date End Date Charles Huitron MD [address] [place] [address] PCP - General 07/08/10 documented as of this encounter
--- OUTSIDE RECORDS SUMMARY | 2024-07-12 15:56 | XMS_ITS | Encounter Summary ---
Author Organization [facility] [place] [address] Care Team Providers Care Electrophysiologist Name Role Phone Charles Huitron MD Primary Care Provider [phone] Encounter Details Date Type Department Care Team (Late st Contact Info) Description 02/23/2024 [place] [address] Arian Puente PA [facility] DR [place] [address] Left knee pain, unspecified chronicity Social History Tobacco Use Types Packs/Day Years [...] 08/18/2024 1:30 PM EST Appointment Mammography/[place] [address] Kathia Alvarado APRN [address] [place] [address] documented as of this encounter Results * XR Knee Standing Alignment AP Lat [place] Left (02/24/2024 1:00 PM EDT) WORKSTATION ID [id number] RAD Anatomical Region Laterality Modality Left Digital [...] who have questions please contact the health intensive care anaesthetist that requested your imaging first. ? Narrative 02/24/2024 3:18 PM EDT EXAMINATION: XR [...] Medial and lateral compartment narrowing. Procedure Note Nilda Bernal MD - 02/24/2024 EXAMINATION: XR KNEE [...] patients who have questions please contactthe health intensive care anaesthetist that requested your imaging first. Chris Mariee MD IMG DX ORDERABLES documented in this encounter Visit Diagnoses Diagnosis Left knee pain, unspecified chronicity Left knee pain, unspecified chronicity documented in this encounter Care Teams Electrophysiologist Relationship Specialty Start Date End Date Charles Huitron MD [address] [place] [address] PCP - General 07/08/10 documented as of this encounter
--- OUTSIDE RECORDS SUMMARY | 2024-07-12 15:56 | XMS_ITS | Encounter Summary ---
Author Organization [facility] Address [address] [place] [address] Care Team Providers Care Field Hand Name Role Phone Aquilino Starkey PA-C Primary Care Provider [phone] Reason for Visit * Reason Onset Date Comments Medications Refill 12/25/2019 Encounter Details Date Type Department Care Team (Late st Contact Info) Description 12/25/2019 Telephone [facility] - [facility] [place] Family Psychiatry [address] [place] [address] Rodolfo Blanco NP [address] [facility] [address] [place] [phone] Medications Refill Social History Tobacco Use Types [...] CAPSULES BY MOUTH DAILY 180 Cap 3 12/25/2019 1 Prazosin (MINIPRESS) 2 mg capsule TAKE THREE CAPSULES BY MOUTH AT BEDTIME 270 Cap 3 12/25/2019 0 mirtazapine (REMERON) 7.5 mg tablet Take 3 Tabs by mouth at bedtime for 360 days. 270 Tab 3 12/25/2019 1 documented in this encounter Miscellaneous Notes * Telephone Encounter - Nichole Lowe - 12/25/2019 0819 EDT [facility] mail order Prazosin 2 mg, Mirtazapine 7.5 mg, Effexor 150 mg- [place] pt appt 01/09/2020 documented in this encounter Plan of Treatment Not on file documented as of this encounter Visit Diagnoses Not on filedocumented in this encounter Discontinued Medications Medication Sig Discontinue Reason Start Date End Da te mirtazapine (REMERON) 7.5 mg tablet Take 3 Tabs by mouth at bedtime for 360 days. Reorder 12/11/2019 12/25/2019 Prazosin (MINIPRESS) 2 mg capsule TAKE THREE CAPSULES BY MOUTH AT BEDTIME Reorder 08/03/2019 12/25/2019 venlafaxine (EFFEXOR-XR) 150 mg XR capsule TAKE 2 CAPSULES BY MOUTH DAILY Reorder 08/23/2019 12/25/2019 documented as of this encounter Care Teams Field Hand Relationship Specialty Start Date End Date Aquilino Starkey PA-C PCP - General 08/21/19 12/15/20 documented as of this encounter
--- OUTSIDE RECORDS SUMMARY | 2024-07-12 15:56 | XMS_ITS | Encounter Summary ---
Author Organization [facility] Address [address] [place] [address] Care Team Providers Care Chef Under Name Role Phone Aquilino Starkey PA-C Primary Care Provider [phone] Slick Pittman NP Unavailable [phone] Kathia Alvarado Primary Care Provider [phone] Reason for Visit * Reason Onset Date Comments Other Medications Refill 09/17/2020 Encounter Details Date Type Department Care Team (Late st Contact Info) Description 09/11/2020 Refill [facility] - [facility] [place] [address] [place], [place] [address] Slick Pittman NP [address] [facility] [address] [place] [phone] Other; Medications Refill Social History Tobacco Use Types [...] documented as of this encounter Care Teams Chef Under Relationship Specialty Start Date End Date Aquilino Starkey PA-C PCP - General 08/21/19 12/15/20 Kathia Alvarado FNP [address] [facility] [address] [place] [phone] PCP - General 12/16/20 Slick Pittman NP 82 [facility] [address] [place] [address] Nurse Practitioner Psychiatry 05/10/20 12/15/23 documented as of this encounter
--- OUTSIDE RECORDS SUMMARY | 2024-07-12 15:56 | XMS_ITS | Encounter Summary ---
Author Organization [facility] Address [address] [place] [address] Care Team Providers Care Chain Builder Loom Control Name Role Phone Aquilino Starkey PA-C Primary Care Provider [phone] Slick Pittman GRADE RECORDER Unavailable [phone] Encounter Details Date Type Department Care Team (Late st Contact Info) Description 06/03/2020 Orders Only [facility] - [facility] [place] Family Psychiatry [address] [place] [address] Slick Pittman NP 82 [facility] [address] [place] [phone] Social History Tobacco Use Types Packs/Day Years [...] 80 mg capsule One po q am 04/10/2020 06/03/2020 documented as of this encounter Care Teams Chain Builder Loom Control Relationship Specialty Start Date End Date Aquilino Starkey PA-C PCP - General 08/21/19 12/15/20 Slick Pittman NP [address] [phone] Nurse Practitioner Psychiatry 05/10/20 12/15/23 documented as of this encounter
--- OUTSIDE RECORDS SUMMARY | 2024-07-12 15:56 | XMS_ITS | Encounter Summary ---
Author Organization [facility] [place] [address] Care Team Providers Care Scouring Machine Operator Name Role Phone Charles Huitron MD Primary Care Provider [phone] Reason for Visit * Reason Comments Medication Refill Encounter Details Date Type Department Care Team (Late st Contact Info) Description 02/28/2015 Refill Psychiatry [place] [phone] Filomena Muñoz PRINTED CIRCUIT BOARDS SOLDER LEVELER [facility] [place] [address] Social History Tobacco Use Types Packs/Day Years [...] 08/18/2024 1:30 PM EST Appointment Mammography[place] [phone] Kathia Alvarado APRN [address] [place] [address] documented as of this encounter Visit Diagnoses Not on filedocumented in this encounter Care Teams Scouring Machine Operator Relationship Specialty Start Date End Date Charles Huitron MD [address] [place] [address] PCP - General 07/08/10 documented as of this encounter
--- OUTSIDE RECORDS SUMMARY | 2024-07-12 15:56 | XMS_ITS | Encounter Summary ---
Author Organization [facility] [place] [address] Care Team Providers Care Servomechanism Designer Name Role Phone Charles Huitron MD Primary Care Provider [phone] Reason for Visit * Reason Comments Medication Refill Encounter Details Date Type Department Care Team (Late st Contact Info) Description 04/13/2015 Refill Psychiatry [place] [phone] Filomena Muñoz FELT PULLER [facility] [place] [address] Social History Tobacco Use Types Packs/Day Years [...] 08/18/2024 1:30 PM EST Appointment Mammography[place] [phone] Kathia Alvarado APRN [address] [place] [address] documented as of this encounter Visit Diagnoses Not on filedocumented in this encounter Care Teams Servomechanism Designer Relationship Specialty Start Date End Date Charles Huitron MD [address] [place] [address] PCP - General 07/08/10 documented as of this encounter
--- OUTSIDE RECORDS SUMMARY | 2024-07-12 15:56 | XMS_ITS | Encounter Summary ---
Author Organization [facility] [place] [address] Care Team Providers Care Mica Splitter Name Role Phone Charles Huitron MD Primary Care Provider [phone] Reason for Visit * Reason Comments Medication Refill Encounter Details Date Type Department Care Team (Late st Contact Info) Description 09/09/2014 Refill Psychiatry [place] [phone] Filomena Muñoz AURICULOTHERAPIST [facility] [place] [address] Social History Tobacco Use Types Packs/Day Years [...] 08/18/2024 1:30 PM EST Appointment Mammography/[place] [phone] Kathia Alvarado APRN [address] [place] [address] documented as of this encounter Visit Diagnoses Not on filedocumented in this encounter Care Teams Mica Splitter Relationship Specialty Start Date End Date Charles Huitron MD [address] [place] [address] PCP - General 07/08/10 documented as of this encounter
--- OUTSIDE RECORDS SUMMARY | 2024-07-12 15:57 | XMS_ITS | Encounter Summary ---
Author [facility] [place] [place] [address] Care Team Providers Care Stock Wetter Name Role Phone Charles Huitron MD Primary Care Provider [phone] Encounter Details Date Type Department Care Team (Late st Contact Info) Description 10/31/2013 9:00 AM EDT Follow-Up [place] [address] Yolanda Abbasi, OT [facility] PHYSICAL MEDICINE & [place] [address] Cognitive change; Concussion with no loss of consciousness, subsequent encounter Social History Tobacco Use Types Packs/Day Years [...] on file documented as of this encounter Progress Notes * Yolanda Abbasi, OT - 10/31/2013 8:53 AM EDT OCCUPATIONAL THERAPY PROGRESS NOTE CERTIFICATION PERIOD: 10/08/13 - 01/05/14 REFERRAL SOURCE: Merlyn Olsen APRN DIAGNOSIS: 1. Cognitive change 2. Concussion with no loss of consciousness, subsequent encounter NEXT MD FOLLOW UP: 11/10/13 with Merlyn Olsen APRN TOTAL TREATMENT TIME: 60 minutes TIMED CODE TREATMENT TIME: 60 minutes SUBJECTIVE: Pt reports she has had severe neck/shoulder pain over the past week. Ringing in her ears began 2 days after the neck/shoulder pain began. She has addressed this by icing regularly and having her SO provide massage. She rates current R>L neck/shoulder pain 3/10 on numeric pain scale (ache). -Pt reports she feels her memory has improved over the past week. She reports this was the first week she has not had a bathing cap sensation of pressure on her head. OBJECTIVE: Chelsea Gar is a 58 y.o. year old left handed female who presents today with a diagnosis of concussion. Patient was seen by Merlyn Olsen APRN and referred to occupational therapy for evaluation and treatment. Chelsea Gar was unloading the back of her car on 09/13/13 when the kilgore door came down on the top of her head. She was seen by her PCP later that day and sent home with recommendation to rest. The following morning, she awoke with symptoms of nausea and dizziness. She was evaluated by the ED and had a CT scan which was normal. TREATMENT TODAY: -Hospital-wide scavenger medley - provided pt with a list of items to locate/information to collect at various sites around the hospital. Instructed pt to formulate a logical plan prior to leaving the rehab department. With increased time using 2 maps of the facility, pt able to formulate and verbalize a plan to go to all locations and numbered each step by location. Pt ambulated the duration of the activity (~40) without a seated rest break. Pt completed 5/8 tasks on the scavenger medley and required cue to return to the rehab department by agreed upon time. Pt required occasional cues to attend to details she had written. Pt observed to interact with multiple staff members to ask for directions independently without difficulty. ASSESSMENT: Chelsea Gar presents today with limited functional performance due to headache pain, cognitive impairments, visual changes, and decreased activity tolerance; all related to a concussion sustained on 09/13/13. Pt has noted an improvement in cognitive skills over the past week but hashad severe neck/shoulder pain which has limited her participation in activities. Chelsea became somewhat overwhelmed when attempting to plan/organize a scavenger medley today and will benefit from further participation in similar high-level cognitive tasks. She demonstrated improved endurance and wasable to navigate around the hospital without significant difficulty, however she did require a reminder to appropriately manage her time. G-Code: Self-Care Status Modifier CURRENT CJ - At least 20 percent but less than 40 percent impaired, limited or restricted PROJECTED CI - At least 1 percent but less than 20 percent impaired, limited or restricted DISCHARGE Not Discharged Yet - Ongoing G Code Rationale: This G-Code and these disability modifiers were selected as the primary therapy goal based upon the patient's evaluation including the following functional test(s) Cognistat. Current ability measures, co-morbidities and clinical judgement were also used to select the disability modifier. Medicare Therapy G-Code Date Tracking: (Update G-Code status every 10 visits or when code changes) 1 2 3 4 5 6 7 8 9 10 10/09/13 10/17/13 10/31/13 [facility] Goals (to be met by discharge): Date Goal Met: 1.) Chelsea Gar will complete activities of daily living independently at a 10/10 level. Goal Status: 2.) Chelsea Gar will be able to resume all occupational roles independently without restriction. Goal Status: Short Term Goals (to be met by 2 weeks - 10/24/13): Date Goal Met: Chelsea Gar will be independent with home activities with 100% compliance. Goal Status: Chelsea Gar will be able to independently recall 5/5 pharmacy items and locate items in the store as measure of improved memory/attention. Goal Status: Extend x4 weeks (11/21/13) Chelsea Gar will score WNL on Map Scanning and Elevator Counting subtests of the TEA as measure of improved sustained attention. 10/17/13 Goal Status: Met PLAN: The patient is to be seen 1 time(s) per week, for 4 week(s) to progress toward short and care home goals. for Visual compensation, Cognitive retraining attention and compensatory strategies andSequencing and planning (X) Chelsea Gar participated in the evaluation, collaborated on treatment goals, and agrees tothe treatment plan. Yolanda Abbasi OT Pager: [phone] documented in this encounter Plan of Treatment Upcoming Encounters Date Type Department Care Team (Late st Contact Info) Description 08/18/2024 1:30 PM EST Appointment Mammography/[place] [address] Kathia Alvarado APRN [address] [place] [address] documented as of this encounter Visit Diagnoses Diagnosis Cognitive change Other signs and symptoms involving cognition Concussion with no loss of consciousness, subsequent encounter documented in this encounter Care Teams Stock Wetter Relationship Specialty Start Date End Date Charles Huitron MD [address] [facility] [address] [place] [address] PCP - General 07/08/10 documented as of this encounter
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
--- OUTSIDE RECORDS SUMMARY | 2024-07-12 15:57 | XMS_ITS | Encounter Summary ---
Author Organization [facility] Address [facility] [place] [address] Care Team Providers Care Senior Benefits Analyst Name Role Phone Charles Huitron MD Primary Care Provider [phone] Encounter Details Date Type Department Care Team (Late st Contact Info) Description 10/26/2013 Telephone [place] [address] Jannet Taveras, PT [facility] PHYSICAL MEDICINE & [place] [address] Social History Tobacco Use Types Packs/Day Years [...] encounter Miscellaneous Notes * Telephone Encounter - Jannet Taveras, PT - 10/26/2013 3:59 PM EDT Returned patient's call to me. She reports her neck started aching shortly after leaving PT yesterday. She took Tylenol and was icing. She awoke at 2:00 a.m. And had a burning sensation on the right side of her neck and had achiness in her (R) > (L) shoulder and across her shoulder blades. She has has continued to take Tylenol during the day and is icing. She reports her shoulder is looser butshe still has burning pain in the middle of her neck. She states she had a headache this morning when I asked but it has subsided. She denies UE numbness or paresthesias. No other new neuro symptoms.She contacted her PCP this morning and they felt she should speak with me. She feels the ice is helping-gives her relief--lasts for a while but she wants to ice it within 45 minutes. In her evaluation yesterday, she did report she was beginning to have (R) shoulder and cervical pain prior to the evaluation, but did not report any increased pain during the evaluation. I recommended she continue with icing and rest, she could do gentle stretches. She is scheduled forPT next Wednesday. I leg her know I am out of town until that time beginning tomorrow. She will contact us tomorrow if she is still having pain to see if someone else could see her. I recommended she contact her PCP if she has any onset of headache or numbness/paresthesias or any other new symptoms. She states she is comfortable with this plan. documented in this encounter Plan of Treatment Upcoming Encounters Date Type Department Care Team (Late st Contact Info) Description 08/18/2024 1:30 PM EST Appointment Mammography/[place] [address] Kathia Alvarado APRN [address] [place] [address] documented as of this encounter Visit Diagnoses Not on filedocumented in this encounter Care Teams Senior Benefits Analyst Relationship Specialty Start Date End Date Charles Huitron MD [address] [place] [address] PCP - General 07/08/10 documented as of this encounter
--- OUTSIDE RECORDS SUMMARY | 2024-07-12 15:57 | XMS_ITS | Encounter Summary ---
Author Organization [facility] [place] [address] Care Team Providers Care Civil Engineering Technician Name Role Phone Charles Huitron MD Primary Care Provider [phone] Encounter Details Date Type Department Care Team (Late st Contact Info) Description 01/18/2014 Telephone Psychiatry [place] [address] Carmen Palacios, [facility] [address] [facility] - [place] [address] Social History Tobacco Use Types Packs/Day Years [...] encounter Miscellaneous Notes * Telephone Encounter - Carmen [place], [facility] [place]/18/2014 1:45 PM EDT Pt called the scheduling office inquiring about her psychiatry intake appointment, as she was told from the inpatient unit it would happen quickly. ([facility] tells me she is low priority pt,andmay not be an extended length of time). Is concerned because she has learned her PCP is not willingto prescribe the psych meds for her, and she is feeling much better on the new medication and doesn't want it to run out. Eventually worked out the following colon and called th pt back to inform her of this plan and she agreed: 1. She will come see me at 10am on 01/23 for a quick check in appointment. If doing well, then 2. Dr Gordon has agreed to call in one more script for her. 3. She and I will work on getting a psychiatric referral set up over the next month. documented in this encounter Plan of Treatment Upcoming Encounters Date Type Department Care Team (Late st Contact Info) Description 08/18/2024 1:30 PM EST Appointment Mammography[place] [address] Kathia Alvarado APRN [address] [place] [address] documented as of this encounter Visit Diagnoses Not on filedocumented in this encounter Care Teams Civil Engineering Technician Relationship Specialty Start Date End Date Charles Huitron MD [address] [place] [address] PCP - General 07/08/10 documented as of this encounter
--- OUTSIDE RECORDS SUMMARY | 2024-07-12 15:57 | XMS_ITS | Encounter Summary ---
Author Organization [facility] Address [facility] [place] [address] Care Team Providers Care Decorating Kiln Operator Name Role Phone Charles Huitron MD Primary Care Provider [phone] Encounter Details Date Type Department Care Team (Late st Contact Info) Description 01/02/2014 3:30 PM EDT Follow-[place] [address] Santos Arshad, PT [facility] PHYSICAL MEDICINE & [place] [address] Unsteadiness on feet (Primary Dx); Concussion with no loss of consciousness, sequela Social History Tobacco Use Types Packs/Day Years [...] as of this encounter Progress Notes * Santos Arshad, PT - 01/02/2014 3:32 PM EDT Images from the original note were not included. Physical Therapy Progress Note Total Timed Code Treatment: 45 minutes Total Treatment Time: 45 minutes Medicare Cert Period: 01/20/14-03/01/14 G-Code: Mobility Status Modifier CURRENT CJ - At least [...] patient's evaluation including the following functional test(s) DHI - Dizziness Handicapped Inventory and FGA - Functional Gait Assessment. Current ability measures, co-morbidities and clinical judgement were also used to select the disability modifier. Ms. Gar's current G-Codefunctional level is 35% impaired based upon (-) Fall Risk on FGA and moderate category on DHI. Medicare Therapy G-Code Date Tracking: (Update G-Code status every 10 visits or when code changes) 1 2 3 4 5 6 7 8 9 10 10/25/13 11/07/13 11/10/13 11/17/13 11/24/13 12/22/13 01/02/14 --- --- --- Date of Exam/First treatment: 10/25/2013 Date of Onset 09/13/13 Referring Provider: Merlyn Olsen APRN Diagnosis: 1. Abnormality of gait 2. Concussion with no loss of consciousness, sequela S: Patient reports not a good day-3 appointments today (this is the 3rd appt). Saw Ayde Olsen APRN today-she is going to refer to psychiatry for meds. Overall there is improvement. She has startedusing ear plugs -helpful. She reports recovery with exs is faster. O: Therex: Neuromuscular Re-Ed (41156) 45 min Dizziness at onset of appt 3/10, range over the past few weeks 0-5/10-there are days with no pain (overall rating same as eval) (FGA 20/30 on eval) 8->3-below normal with > 2 line loss; rating of dizziness 4/10 (DVA with 5 line loss on eval) 360 pivot 2-3 seconds rated 2/10. (DHI 64/100 on eval) Instructed in, performed and add to HEP adding busy visual-will add TV on to VOR x 1 ex A: Improvement in function on DHI, just under MCID level (18 point difference), Improved FGA (Balance) score and now above the (+) Fall Risk range. She has continued scores below normal for gaze stabilization (DVA) testing. She will benefit from additional skilled PT for progressing balance and vestibular program. ST Goals: 11/25/13 1. Independent with home exercise program. 2. DVA losing no more than 4 lines to decrease symptoms in crowds/busy visual Not met 01/02/14 3. Walk with head turn and tilt without slowing or drift to improve balance looking around during ADL Not met 01/02/14 4. Tandem walk 10 steps without step out to improve balance and decrease fall risk with ADL met 01/02/14 LT Goals 01/22/14 1. DHI 30 or lower to indicate functional improvement with regards to dizziness or unsteadiness andbe in mild category Not met 01/02/14 but progress made 2. DVA losing no more than 3 lines to decrease symptoms in crowds/busy visual Not met 01/02/14 3. FGA at least 23/30 to decrease fall risk met 01/02/14 Plan: Frequency: every other week x 8 weeks, tapering as appropriate or adding appts if needed. Manual Techniques, Therapeutic exercise and Home Exercise Program , vestibular therex to include: 1. Progressing VOR to x 2, busy visual, unstable surface as needed 2. Postural stability exs: EC/EO, narrow DL, unstable surfaces 3. Progress habituation ex challenge 4. Cervical manual therapy and add stretching exs 5 Possibly do CDP at some point SANTOS ARSHAD PT documented in this encounter Plan of Treatment Upcoming Encounters Date Type Department Care Team (Late st Contact Info) Description 08/18/2024 1:30 PM EST Appointment Mammography/[place] [address] Kathia Alvarado APRN [address] [place] [address] documented as of this encounter Visit Diagnoses Diagnosis Unsteadiness on feet- Primary Abnormality of gait Concussion with no loss of consciousness, sequela documented in this encounter Care Teams Decorating Kiln Operator Relationship Specialty Start Date End Date Charles Huitron MD [address] [place] [address] PCP - General 07/08/10 documented as of this encounter
--- OUTSIDE RECORDS SUMMARY | 2024-07-12 15:57 | XMS_ITS | Encounter Summary ---
Author Organization [facility] [place] [address] Care Team Providers Care Weatherstrip Machine Operator Name Role Phone Charles Huitron MD Primary Care Provider [phone] Encounter Details Date Type Department Care Team (Late st Contact Info) Description 01/19/2014 9:30 AM EDT Follow-[place] [address] Sonia Solorio, [facility] PHYSICAL MEDICINE & [place] [address] Charles Huitron MD [facility] KYLE MULLEN [address] [address] Abnormality of gait and mobility (Primary Dx); Concussion with no loss of consciousness, subsequent encounter Discharge Disposition: Home Social History Tobacco [...] as of this encounter Progress Notes * Sonia Solorio, [facility] - 01/19/2014 10:18 AM EDT Physical Therapy Progress Note Total Timed Code Treatment: 45 minutes Total Treatment Time: 45 minutes Date of Exam/First treatment: 10/25/2013 Date of Onset 09/13/13 Referring Provider: Merlyn Olsen APRN Medicare Cert Period: 10/25/2013 - 01/22/14 G-Code: Mobility Status Modifier CURRENT CK - At least 40 percent but less than 60 percent impaired, limited or restricted PROJECTED CI [...] modifier. Ms. Gar's current G-Codefunctional level is 50% impaired based upon (+) Fall Risk on FGA and severe category on DHI. Medicare Therapy G-Code Date Tracking: (Update G-Code status every 10 visits or when code changes) 1 2 3 4 5 6 7 8 9 10 10/25/13 11/07/13 11/10/13 11/17/13 11/24/13 12/22/13 01/19/14 Follow up visit for a patient with ICD-9-CM 1. Abnormality of gait and mobility 781.2 2. Concussion with no loss of consciousness, subsequent encounter V58.89 3. Pain in left shoulder 719.41 S: Patient reports she is very good today. She states she is sleeping 3 more hours a night since her meds. have been adjusted. She wakes up ready to go which is huge. She states she has been able to walk a lot more. Some days she can do VOR with a busy background and some days not. O: neuromuscular re-ed: 35 min., manual therapy x 10 min. dizziness/fuzziness before treatment 0/10 treadmill 2.0 mph x 10 min.with head turns and tilts, gaze stabilization, tandem walking with no sxs. VOR x 1 with busy visual--no double vision or dizziness today VOR x 2--same as VOR x 1 2 foam: romberg stance with head turns and tilts, EC up to 1 min., EC with head turns x 30 sec.--moved slowly piotr discs: static stance, PF/DF, circles, marching, EC up to 21 sec. manual therapy x 10 min. to cervical musculature with occipital release and manual cervical traction A: Pt. is feeling better--able to do vestibular activities without sxs. She is able to be more active. She has an appt. with Ayde Olsen immediately following this treatment. ST Goals: 11/25/13 1. Independent with home exercise program. 2. DVA losing no more than 4 lines to decrease symptoms in crowds/busy visual 3. Walk with head turn and tilt without slowing or drift to improve balance looking around during ADL 4. Tandem walk 10 steps without step out to improve balance and decrease fall risk with ADL LT Goals 01/22/14 1. DHI 30 or lower to indicate functional improvement with regards to dizziness or unsteadiness andbe in mild category 2. DVA losing no more than 3 lines to decrease symptoms in crowds/busy visual 3. FGA at least to decrease fall risk 4. P: Continue PT for Therapeutic exercise and Balance and Gait Training SONIA SOLORIO, CRANE HELPER documented in this encounter Plan of Treatment Upcoming Encounters Date Type Department Care Team (Late st Contact Info) Description 08/18/2024 1:30 PM EST Appointment Mammography/[place] [address] Kathia Alvarado APRN [address] [place] [address] documented as of this encounter Visit Diagnoses Diagnosis Abnormality of gait and mobility- Primary Abnormality of gait Concussion with no loss of consciousness, subsequent encounter documented in this encounter Care Teams Weatherstrip Machine Operator Relationship Specialty Start Date End Date Charles Huitron MD [address] [place] [address] PCP - General 07/08/10 documented as of this encounter
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
--- OUTSIDE RECORDS SUMMARY | 2024-07-12 15:57 | XMS_ITS | Encounter Summary ---
Author Organization [place] [address] Care Team Providers Care Farm Facility Manager Name Role Phone Charles Huitron MD Primary Care Provider [phone] Encounter Details Date Type Department Care Team (Late st Contact Info) Description 12/22/2013 2:30 PM EDT [place] [address] Sonia Solorio PTA [facility] PHYSICAL MEDICINE & [place] [address] Eleazar Machuca MD [facility] [place] [address] Abnormality of gait and mobility (Primary Dx); [...] of this encounter Progress Notes * Sonia Solorio PTA - 12/22/2013 3:29 PM EDT Physical Therapy Progress Note Total Timed Code Treatment: 45 minutes Total Treatment Time: 45 minutes Medicare Cert Period: 10/25/2013 - 01/22/14 G-Code: [...] 10 10/25/13 11/07/13 11/10/13 11/17/13 11/24/13 12/22/13 Follow up visit for a patient with 1. Abnormality of gait and mobility 2. Concussion with no loss of consciousness, subsequent encounter S: Patient reports she is not good today. She states she is very fuzzy. Wednesday, 5 days ago, she spent a long time cleaning out her car and has been feeling bad since. 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 She states she had been doing so well. O: neuromuscular re-ed: 35 min., manual therapy x 10 min. dizziness/fuzziness before treatment 12/23 treadmill 2.0 mph x 10 min.with head turns and tilts, gaze stabilization VOR x 1 with busy visual--diplopia at edge of target VOR x 2--same as above-- 2 foam: romberg stance with head turns and tilts, EC up to 1 min. 2 foam: tandem stance up to 1 min. on each side 2' foam: 360 degree turns--dizziness after foam work at 2.5//10 manual therapy x 10 min. to cervical musculature with occipital release and manual cervical traction A: Pt. has not had a good week. She thinks it may be related to increased stress in her life. Her dizziness/fuzziness went to 2/[address] Goals: 11/25/13 1. Independent with [...] exercise and Balance and Gait Training SONIA SOLORIO PTA documented in this encounter Plan of Treatment Upcoming Encounters Date Type Department Care Team (Late st Contact Info) Description 08/18/2024 1:30 PM EST Appointment Mammography/[place] [address] Kathia Alvarado APRN [address] [place] [address] documented as of this encounter Visit Diagnoses Diagnosis Abnormality of gait and mobility- Primary Abnormality of gait Concussion with no loss of consciousness, subsequent encounter documented in this encounter Care Teams Farm Facility Manager Relationship Specialty Start Date End Date Charles Huitron MD [address] [place] [address] PCP - General 07/08/10 documented as of this encounter
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
--- OUTSIDE RECORDS SUMMARY | 2024-07-12 15:57 | XMS_ITS | Encounter Summary ---
[facility] [place] [address] Care Team Providers Care Title I Teacher Name Role Phone Yina Huitron MD Primary Care Provider [phone] Reason for Referral * Psychiatric (Routine) - Closed by system - Referral Specialty Diagnoses / Procedures Referred By Contac t Referred To Contact Psychiatry Diagnoses Migraine Cristino Perkins MD [facility] [place] [address] [facility] [address] Referral ID Status Reason Start Date Expiration Date Visits Requested Visits Authorized [id number] Closed by system - Referral Assume Subset of Care 01/04/2014 07/03/2014 1 1 Encounter Details Date Type Department Care Team (Latest Contact Info) Description 01/03/2014 1:02 PM EDT - 01/05/2014 2:01 PM EDT Hospital Encounter [address] [place] [address] Mauricio Christensen MD [facility] [address] [place] [address] Migraine Discharge Disposition: Home Social History Tobacco Use [...] Sign Reading Time Taken Comments Blood Pressure 118/75 01/05/2014 8:22 AM EDT Pulse 74 01/05/2014 8:22 AM EDT Temperature 36.8 ??C (98.2 ??F) 01/05/2014 8:22 AM ED T Respiratory Rate 18 01/05/2014 8:22 AM EDT Oxygen Saturation 99% 01/03/2014 1:10 PM EDT Inhaled Oxygen Concentration - - Weight 97.5 kg (214 lb 15.2 oz) 01/03/2014 4:21 PM EDT Height 157.5 cm (5' 2.01) 01/03/2014 4:21 PM ED T Body Mass Index 39.3 01/03/2014 4:21 PM EDT documented in this encounter Discharge Instructions * Discharge Instructions* Neisha Marie RN - 01/05/2014 9:[address] [facility] Bridge Program - Desk 5D Please call the program on January 09 at [phone] and speak to Carmen Mcneill. She will give you an intake appointment for next week. Regina Gee January 10 at 9:00am * Patient Instructions* Cristino Perkins - 01/05/2014 1:01 PM EDT PATIENT DISCHARGE INSTRUCTIONS Vital Signs: Vital Signs Temp: 36.8 ??C (98.2 ??F) Temp Source: Oral Heart Rate: 74 Resp: 18 BP: 118/75 mmHg BP Method: Automatic BP Location: Left arm Patient Position: Sitting SpO2: 99 % O2 Device: None (Room air) Operations and Procedures: None Pending Lab Data at Discharge: None Discharge Disposition: Home Primary Care Physician: YINA HUITRON MD [phone] Special Instructions Provided to Chelsea Gar: Call your doctor, your local mental health center, or your local emergency room if you develop worsening symptoms of depression, anxiety, thoughts of harming yourself, thoughts of harming others, or any other decline in your overall condition. [facility] Emergency Services: [facility] [phone] [facility] Emergency Services: [phone] [facility] Central Access Services: [phone] [facility] Main Line: [phone] Activity level: no restrictions from psychiatry Diet: no restrictions from psychiatry Driving: do not drive if sedated by medications Medications have been reviewed with the patient and the patient understands the use and side effects of these medications as evidenced by discussions on interdisciplinary rounds. Follow up appointments (external or yet-to-be scheduled): documented in this encounter Medications at Time of Discharge Medication Sig Dispensed Refills Start Date End Date metoprolol succinate (TOPROL-XL) 25 mg 24 hr tabletIndications:Migra ine Take 1 tablet by mouth daily. 30 tablet 3 04/14/2013 cholecalciferol, Vitamin D3, (VITAMIN D) 1,000 unit Tab tablet Take 2,000 Units by mouth daily. Calcium-Magnesium 750-465 mg Tab Take 1 tablet by mouth daily. lisinopril-hydrochlorot hiazide (PRINZIDE;ZESTORETIC) 10-12.5 mg per tablet Take 1 tablet by mouth daily. mirtazapine (REMERON) 7.5 mg tablet Take 3 tablets by mouth nightly. 90 tablet 0 01/05/2014 02/15/2014 traZODone (DESYREL) 50 mg tablet Take 1 tablet by mouth nightly as needed for Sleep. 90 tablet 0 01/05/2014 01/19/2014 traZODone (DESYREL) 50 mg tablet Take 1 tablet by mouth nightly. 60 tablet 0 01/05/2014 08/21/2014 Atomoxetine (STRATTERA) 80 mg Cap Take 1 capsule by mouth every morning. 08/21/2014 ascorbic acid (VITAMIN C) 1,000 mg tablet Take 1,000 mg by mouth daily. 02/24/2024 b complex vitamins tablet Take 1 tablet by mouth daily. 02/24/2024 estrogens, conjugated,-methyltesto sterone (ESTRATEST HS) 0.625-1.25 mg per tablet Take 1 tablet by mouth daily. 02/24/2024 [employer] Fatty Acids (FISH OIL) 500 mg Cap Take 1 capsule by mouth daily. 02/24/2024 prazosin (MINIPRESS) 5 mg capsule Take 5 mg by mouth nightly. 05/01/2014 simvastatin (ZOCOR) 20 mg tablet Take 20 mg by mouth daily. 02/24/2024 venlafaxine (EFFEXOR-XR) 75 mg 24 hr capsule Take 225 mg by mouth daily. 3 capsules--total 225 mg. 06/26/2014 documented as of this encounter Progress Notes * Cecy Mcadams RN - 01/05/2014 2:01 PM EDT Psychiatric Nursing Discharge Note Patient Completed Relapse Prevention Plan: yes Patient aware of follow-up appointments: yes Patient evidences understanding of medication use and regime: yes Patient belongings returned: cellphone and cubby items Patient left unit with: friend At what time? 1400 * Yu Soto MHT - 01/05/2014 10:15 AM EDT Inpatient Daily Group Note Group: Goals Group Reviewed Climb Your Ladder worksheet from the JACQUELINE folder. Encouraged members to be actively fillingout their CUB's daily. Provided rationale for JACQUELINE program highlighting that the overall goal is to have behavior be goal directed as opposed to mood directed. Attendance: Present Behavior: Quiet Mood: Stable Notes: Pt states she will be going home today. HARVINDER MEEHAN 01/05/2014 * Cecy Mcadams RN - 01/05/2014 9:36 AM EDT Pt denies depression, anxiety, pain, and SI. Pt reports she slept well last PM. States she has beenreminded by groups of good ways to cope and needs to practice them. Feels ready for discharge today. Bright. No mood lability. CFS- denies SI. Relapse prevention plan complete. * Mauricio Christensen MD - 01/05/2014 9:04 AM EDT PSYCHIATRY TEACHING PHYSICIAN INVOLVEMENT Location: Inpatient Psychiatry Attending Physician: BAUTISTA Christensen MD Resident name: Christian Perkins MD I saw and evaluated the patient with the above named resident/ See their note for details. I reviewed the patient's history during the visit and I agree with the details as written. My exam confirms the resident's findings. The assessment and plan were formulated in discussion with me and I agree with them as documented. Major issues addressed/discussed: 1. D/c to home today per pt request 2. F/u Ayde Olsen [facility] psychopharm clinic Primary Diagnosis: Major Depression I certify that the patient requires: [x] inpatient care for psychiatric treatment that could reasonably be expected to improve the patient's condition and or diagnostic study. * Cristino Perkins H - 01/05/2014 7:40 AM EDT Psychiatry Inpatient - Progress Note ID: Chelsea is a 58 yo F w a PPhx notable for MDD, PTSD and ADD who presents w worsening depression andinability to fxn over the past 3 weeks. Pertinent medical issues being addressed: None Interval History: (1,1,4) Denies SI/HI/AVH. Brighter affect. Has stated that increased stimulation throughout the day can overwhelm her. Quality: I feel good;+Depression Severity: No depression; anxiety 2/10 Timing: Persistent Assoc. signs & sxs: good energy levels; good appetite Modifying factors: Effect of medications: Tolerating well Effect of groups: Attending. Beneficial. Review of Systems: (0,1,2) CONST HENT CV No chest pain RESP No shortness of breath GI NEURO PSYCH See above Physical Exam: Patient Vitals for the past 24 hrs: BP Temp Temp src Pulse Resp 01/04/14 2100 113/63 mmHg - - - - 01/04/14 0816 102/55 mmHg 36.6 ??C (97.9 ??F) Oral 56 18 Musculoskeletal System: Ambulates independently Mental Status Exam: Appearance: NAD, resting in bed Behavior: No PMR or PMA noted. Cooperative. Speech: Normal rate and tone. No word finding difficulties. Language: Normal. Non-profane. Mood:calm Affect: Full. Mood congruent Thought Process: linear, circumstantial Associations: intact Thought Content: No SI/HI today Perception: Denies AVH. No delusions or IOR apparent. Orientation: Grossly oriented to self and situation. Attention/Concentration: Attends well to conversation. Answer questions appropriately. Does not seem to be responding to internal stimuli. Cognition: No gross impairments noted in conversation. Memory: No deficits noted in recent or remote recall. Fund of Knowledge: Seems appropriate for age, education, and experience. Insight: good Judgment: good Extent of Exam Determination: Vaibhav completed bullets and level of exam with x. Bullets Completed 1-5 6-8 x 9+ Level of Exam PF EPF x D Scheduled Meds: ??? mirtazapine 22.5 mg Oral Nightly ??? traZODone 50 mg Oral Nightly ??? ascorbic acid 1,000 mg Oral Daily ??? atomoxetine 80 mg Oral QAM ??? cholecalciferol (Vitamin D3) 2,000 Units Oral Daily ??? estrogens (conjugated)-methyltestosterone 1 tablet Oral Daily ??? metoprolol succinate 25 mg Oral Daily ??? omega-3 acid ethyl esters 1 capsule Oral Daily ??? prazosin 5 mg Oral Nightly ??? simvastatin 20 mg Oral QPM ??? venlafaxine 225 mg Oral Daily ??? B-Complex with Vitamin C 1 capsule Oral Daily ??? lisinopril 10 mg Oral Daily And ??? hydrochlorothiazide 12.5 mg Oral Daily ??? [DISCONTINUED] traZODone 100 mg Oral Nightly ??? [DISCONTINUED] mirtazapine 15 mg Oral Nightly PRN Meds:.traZODone, acetaminophen, [DISCONTINUED] traZODone Labs (over the last 24hr): No results found for this or any previous visit (from the past 24 hour(s)). Assessment: Chelsea is a 58 yo F w a PPhx notable for MDD, PTSD and ADD who presents w worsening depression andinability to fxn over the past 3 weeks. Pt's presentation was notable for functional limitations and intermittent SI in response to enduring effects of a head injury in August. CBC/BMP fairly unremar kable. TSH wnl. Urine tox screen negative. Pt consented to being started on Remeron for depression augmentation after being made aware of the r, b and se. Given risk of increased sedation with Trazodone+Remeron, the pt's outpatient dose of Trazodone was reduced. Pt feels very rested today. There are no safety concerns w this pt and she is ready for discharge today. Clinical Global Impression Severity of illness: Considering your total clinical experience with this particular population, how mentally ill is the patient at this time? 3 = Mildly ill Global improvement: Rate total improvement compared to condition at admission, how much has he changed? Markedly Improved Reasons for continued hospitalization: Stabilization. Monitoring for safety. Medication optimization. I certify that the patient requires inpatient care for psychiatric treatment that could reasonably be expected to improve the patient's condition and/or diagnostic study. Primary Diagnosis: MDD, r, s w/o PF Plan: Activity: ETG Diet: Regular Group therapy for coping skills training Pt to have outpatient follow up at [facility] vice president of human resources clinic Medications: Continue Remeron 22.5 mg PO nightly for sleep, depression augmentation and anxiety Continue Trazodone 50 mg PO nightly w 50 mg PO available as prn Continue Effexor 225 mg PO qd for MDD Continue Prazosin 5 mg PO nightly for PTSD-related sx Continue Atomoxetine 80 mg PO qd for ADD Continue Prinzide for HTN Continue Toprol 25 mg PO qd for migraine ppx Continue Simvastatin 20 mg PO qd for HLD Labs/Consults/Diagnostic Procedures ordered: None today Safety Risk Management: Pt is safe for discharge today. Disposition: After stabilization, patient expected to return home. Follow up: Current Psychiatrist: None Current Therapist: Regina Gee PCP: YINA HUITRON MD Patient Instruction/Education Provided: Patient provided verbal instructions regarding medications and treatment plan. I have reviewed and agree with the multidisciplinary treatment plan. Cristino Evan, MD Coding Determination Complexity of MDM Determination: Vaibhav appropriate # of Dx, Amt, complexity of date, Risk, & corresponding level of MDM with x.2 out of 3 elements in row must be met to qualify. # of Possible Diagnoses or Management Options Amount and/or Complexity of Data Risk of Complications, Morbidity, and or Mortality Type of Decision Making Minimal Minimal/None Minimal Straightforward Limited Limited Low Low Multiple Moderate Moderate Moderate x Extensive x Extensive x High x High Subsequent Hospital Day Service Code Determination: Vaibhav Hx, Exam, MDM & NAIDA/CPT Code with x. 2 out of # mcgregor components in the row must be met toqualify. HISTORY EXAM MDM NAIDA/CPT CODE PF PF Straightforward/Low 3005/62988 EPF EPF Moderate 3015/78535 x D x D x High x 3025/68316 * Carin Boland, RN - 01/04/2014 8:58 PM EDT Patient denies SI or HI, AH or VH, she is self care. She stated excellent sleep last night and attributes this to a better day. Depression is rated 0 and anxiety is 2. She is working on a relapse plan. She denies problems with bowels or urine and states no pain. Affect is brighter, speech is normal. She is attending groups. A friend visited and this went well. She met her goal today. * Jennie Stanley MSW - 01/04/2014 11:22 AM EDT Psychosocial Assessment Update: O: Patient is a 58 year old DWF, known to [facility] (last psychiatry discharge from [facility] on 07/19/09), who represents to address her worsening depression, passive suicidal ideation and overall inability tocope/function safely and effectively in her community. Please refer to admit note for details. For comprehensive family history please refer to [facility] note dated 05/01/09. Patient reports that her 89 year old Mother is currently living with her brother Niles in [place]. Additional siblings are Arian in [place] and Fanny in [place]. Patient reports that she has occasional telephone contact with Mother and no contact with siblings. Patient lives alone, dating Alex age 59 for the past 3 years. Patient's children are doing well, Dali is in [place]., Melinda in [place], Yolanda is in [place] and Kathia is in [place]. Patient reports that she has regular contact with all of her children. 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 Patient is hoping to move into Elderly and Adult housing which would be income based and free up some of her money. Patient remains active in AA but has not been attending much since her injury 5 months ago. A: Pleasant, engageable female, appearing in no distress throughout interview process. Patient identifies recent TBI as primary trigger to decompensation. Patient is hopeful that medication changes coupled with supportive milieu will help decrease some of her symptoms. Patient denies any current self harm urges and easily contracts for her safety at this time. Patient is agreeable to referral to the [facility]. P: Will follow with team, assist as needed/requested. Available to assist with discharge planning. * Nissa Rodgers, MS - 01/04/2014 10:53 AM EDT Inpatient Daily Group Note Group: Goals; Reviewed JACQUELINE, CUB, Avoidance, daily schedule, patients' progress, patients' goals andread daily text. Attendance: Present Behavior: Quiet Therapeutic Work Observed: Moderate Mood: Depressed Notes: Patient initially said I don't know and then manage my brain illness referring to her TBI. Patient had to leave group suddenly to get ear plugs that helps her decrease stimulation and increase focus. Patient encouraged to go to groups and meet with [facility] program. NISSA RODGERS, MS 01/04/2014 Inpatient Daily Group Note Group: Stress management Briefly reviewed stress cycle and then focused on techniques one uses to manage stressors. Attendance: Present Behavior: Conversational Therapeutic Work Observed: Moderate Mood: Calm Notes: Pt. attentive and took notes. Did share thoughts. YU CANDELARIO 01/04/2014 Inpatient Daily Group Note Group: Communication Skills: Discussed how anxiety can lead to passive communication and in turn decrease self-esteem. Focused in particular on communication with their medical team on the unit. Patients' identified goals for improving communication with providers, family, work and intimate relation ships. Attendance: Present Behavior: Expressive Therapeutic Work Observed: Moderate Mood: Calm Notes: Patient engaged actively in group; discussing difficulty to communicate with team this morning and described assumptions and automatic thoughts interfering with assertive communication at times. NISSA RODGERS MS 01/04/2014 * Mauricio Christensen MD - 01/04/2014 9:23 AM EDT PSYCHIATRY TEACHING PHYSICIAN INVOLVEMENT Location: Inpatient Psychiatry 2E Attending Physician: BAUTISTA Christensen MD Resident name: Christian Perkins MD I saw and evaluated the patient with the above named resident/ See their note for details. I reviewed the patient's history during the visit and I agree with the details as written. My exam confirms the resident's findings. The assessment and plan were formulated in discussion with me and I agree with them as documented. Major issues addressed/discussed: 1. Pt woke feeling more rested this am with improved mood and anxiety, but is feeling progressivelyworse as she attempted to get through functional tasks this am and confronted her impairments. 2. Group therapy for coping skills training 3. Collateral info, Ayde Olsen Primary Diagnosis: Major Depression I certify that the patient requires: [x] inpatient care for psychiatric treatment that could reasonably be expected to improve the patient's condition and or diagnostic study. * Cristino Perkins - 01/04/2014 8:45 AM EDT Psychiatry Inpatient - Progress Note ID: Chelsea is a 58 yo F w a PPhx notable for MDD, PTSD and ADD who presents w worsening depression andinability to fxn over the past 3 weeks. Pertinent medical issues being addressed: None Interval History: (1,1,4) Pt continues to perseverate on her TBI. Quality: This is a new type of admission to me. I have to be open minded right now. I knew I was getting depressed.;+Depression Severity: Depression 10/23 Timing: Persistent Assoc. signs & sxs: Slept 8.5 hrs; Feels drained of energy; anhedonia; guilt; difficulty concentrating; hopelessness Modifying factors: Effect of medications: Tolerating well Effect of groups: Will start attending today Review of Systems: (0,1,2) CONST HENT CV No chest pain RESP No shortness of breath GI NEURO PSYCH See above Physical Exam: Patient Vitals for the past 24 hrs: BP Temp Temp src Pulse Resp SpO2 Height Weight 01/04/14 0816 102/55 mmHg 36.6 ??C (97.9 ??F) Oral 56 18 - - - 01/03/14 2100 111/68 mmHg - - - - - - - 01/03/14 1803 128/71 mmHg - - - - - - - 01/03/14 1621 121/65 mmHg 36.6 ??C (97.9 ??F) Oral 52 16 - 157.5 cm (5' 2.01) 97.5 kg (214 lb 15.2oz) 01/03/14 1545 128/71 mmHg - - 61 - - - - 01/03/14 1310 121/65 mmHg 36.6 ??C (97.9 ??F) Oral 52 16 99 % 157.5 cm (5' 2) 97.5 kg (214 lb 15.2oz) Musculoskeletal System: Ambulates independently Mental Status Exam: Appearance: NAD, resting in bed Behavior: No PMR or PMA noted. Cooperative. Speech: Normal rate and tone. No word finding difficulties. Language: Normal. Non-profane. Mood:I'm okay Affect: Full. Mood congruent Thought Process: linear, circumstantial Associations: intact Thought Content: No SI/HI today Perception: Denies AVH. No delusions or IOR apparent. Orientation: Grossly oriented to self and situation. Attention/Concentration: Attends well to conversation. Answer questions appropriately. Does not seem to be responding to internal stimuli. Cognition: No gross impairments noted in conversation. Memory: No deficits noted in recent or remote recall. Fund of Knowledge: Seems appropriate for age, education, and experience. Insight: limited Judgment: poor Extent of Exam Determination: Vaibhav completed bullets and level of exam with x. Bullets Completed 1-5 6-8 x 9+ Level of Exam PF EPF x D Scheduled Meds: ??? ascorbic acid 1,000 mg Oral Daily ??? atomoxetine 80 mg Oral QAM ??? cholecalciferol (Vitamin D3) 2,000 Units Oral Daily ??? estrogens (conjugated)-methyltestosterone 1 tablet Oral Daily ??? metoprolol succinate 25 mg Oral Daily ??? omega-3 acid ethyl esters 1 capsule Oral Daily ??? prazosin 5 mg Oral Nightly ??? simvastatin 20 mg Oral QPM ??? venlafaxine 225 mg Oral Daily ??? B-Complex with Vitamin C 1 capsule Oral Daily ??? lisinopril 10 mg Oral Daily And ??? hydrochlorothiazide 12.5 mg Oral Daily ??? traZODone 100 mg Oral Nightly ??? mirtazapine 15 mg Oral Nightly ??? [DISCONTINUED] b complex vitamins 1 tablet Oral Daily ??? [DISCONTINUED] lisinopril-hydrochlorothiazide 1 tablet Oral Daily ??? [DISCONTINUED] traZODone 200 mg Oral Nightly PRN Meds:.acetaminophen, traZODone Labs (over the last 24hr): Recent Results (from the past 24 hour(s)) BASIC METABOLIC PANEL (NON-FASTING) Component Value Range Glucose Lvl 90 60 - 199 mg/dL BUN 19 (*) 8 - 18 mg/dL Creatinine 0.79 0.70 - 1.20 mg/dL Sodium 137 135 - 145 mmol/L Potassium 4.0 3.5 - 5.0 mmol/L Chloride 101 98 - 107 mmol/L CO2 24 22 - 31 mmol/L Anion Gap 12 5 - 15 mmol/L Calcium 9.1 8.5 - 10.5 mg/dL Estimated GFR >60 >=60 TSH Component Value Range TSH 1.18 0.27 - 4.20 mcIU/mL CBC (WITH DIFF) Component Value Range WBC 7.6 4.0 - 10.0 x10(3)/mcL RBC 4.01 3.93 - 5.22 x10(6)/mcL Hemoglobin 11.5 11.2 - 15.7 gm/dL Hematocrit 36.3 34.0 - 45.0 % MCV 90.5 79.0 - 94.0 fL MCH 28.7 26.6 - 32.2 pg MCHC 31.7 (*) 32.0 - 36.5 gm/dL Platelets 312 145 - 370 x10(3)/mcL RDWSD 43.9 35.0 - 46.0 fL RDWCV 13.3 10.9 - 14.4 % MPV 9.9 9.0 - 12.0 fL DIFFERENTIAL, AUTOMATED Component Value Range Neutrophils % 61.8 34.0 - 71.0 % Neutr Abs (ANC) 4.73 1.50 - 6.30 x10(3)/mcL Lymphocytes % 29.1 19.0 - 53.0 % Lymphocytes Abs 2.2 1.0 - 3.6 x10(3)/mcL Monocytes % 5.9 4.0 - 13.0 % Monocyte Abs 0.4 0.2 - 1.0 x10(3)/mcL Eosinophils % 2.4 0.0 - 7.0 % Eosinophils Abs 0.2 0.0 - 0.5 x10(3)/mcL Basophils % 0.7 0.0 - 2.0 % Basophils Abs 0.0 0.0 - 0.2 x10(3)/mcL Immature Gran % 0.10 0.00 - 0.66 % Josselyn Gran Abs 0.01 0.00 - 0.05 x10(3)/mcL RAPID QUALITATIVE DRUG SCREEN, URINE ([facility]) Component Value Range THERESA Marijuana Metabolites Scr None Detected None Detected THERESA Phencyclidine Scr None Detected None Detected THERESA Cocaine Metabolites Scr None Detected None Detected THERESA Methamphetamines Scr None Detected None Detected THERESA Opiates Scr None Detected None Detected THERESA Amphetamines Scr None Detected None Detected THERESA Benzodiazepines Scr None Detected None Detected THERESA Tricyclics Scr None Detected None Detected THERESA Methadone Scr None Detected None Detected THERESA Barbiturates Scr None Detected None Detected THERESA Oxycodone Scr None Detected None Detected THERESA Propoxyphene Scr None Detected None Detected THERESA Buprenorphine Scr None Detected None Detected Assessment: Chelsea is a 58 yo F w a PPhx notable for MDD, PTSD and ADD who presents w worsening depression andinability to fxn over the past 3 weeks. Pt's presentation was notable for functional limitations and intermittent SI in response to enduring effects of a head injury in August. CBC/BMP fairly unremar kable. TSH wnl. Urine tox screen negative. Pt consented to being started on Remeron for depression augmentation after being made aware of the r, b and se. Given risk of increased sedation with Trazodone+Remeron, the pt's outpatient dose of Trazodone was reduced. Plan as below. Clinical Global Impression Severity of illness: Considering your total clinical experience with this particular population, how mentally ill is the patient at this time? 6 = Severely ill Global improvement: Rate total improvement compared to condition at admission, how much has he changed? No Change Reasons for continued hospitalization: Stabilization. Monitoring for safety. Medication optimization. I certify that the patient requires inpatient care for psychiatric treatment that could reasonably be expected to improve the patient's condition and/or diagnostic study. Primary Diagnosis: MDD, r, s w/o PF Plan: Activity: ETG Diet: Regular Group therapy for coping skills training Pt to have outpatient follow up at [facility] vice president of human resources clinic Medications: Will increase Remeron to 22.5 mg PO nightly (from 15 mg PO nightly) for sleep, depression augmentation and anxiety Will reduce Trazodone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 (select one of three reasons): No Discharge Conditions/Prognosis: Satisfactory condition. Prognosis is dependent on patient's participation in ongoing treatment and compliance with medications. Discharge to: Home. Discharge Medications ( Reviewed at time of discharge, Indication for Use Included): Your Medications As of 01/05/2014 1:02 PM New Medications Dose Details mirtazapine 7.5 mg tablet Commonly known as: REMERON Take 3 tablets by mouth nightly. 22.5 mg Quantity: 90 tablet Refills: 0 * traZODone 50 mg tablet Commonly known as: DESYREL Take 1 tablet by mouth nightly as needed for Sleep. 50 mg Quantity: 90 tablet Refills: 0 * Notice: This list has 1 medication(s) that are the same as other medications prescribed for you. Read the directions carefully, and ask your doctor or other care provider to review them with you. Continued medications with new dosing Dose Details * traZODone 50 mg tablet Commonly known as: DESYREL Take 1 tablet by mouth nightly. What changed: - medication strength - dose - doctor's instructions 50 mg Quantity: 60 tablet Refills: 0 * Notice: This list has 1 medication(s) that are the same as other medications prescribed for you. Read the directions carefully, and ask your doctor or other care provider to review them with you. Continued medications, unchanged Dose Details b complex vitamins tablet Take 1 tablet by mouth daily. 1 tablet Refills: 0 Calcium-Magnesium 750-465 mg Tab Take 1 tablet by mouth daily. 1 tablet Refills: 0 estrogens (conjugated)-methyltestosterone 0.625-1.25 mg per tablet Commonly known as: ESTRATEST HS Take 1 tablet by mouth daily. 1 tablet Refills: 0 FISH OIL 500 mg Cap Take 1 capsule by mouth daily. Generic drug: [employer] Fatty Acids 1 capsule Refills: 0 lisinopril-hydrochlorothiazide 10-12.5 mg per tablet Commonly known as: PRINZIDE;ZESTORETIC Take 1 tablet by mouth daily. 1 tablet Refills: 0 metoprolol succinate 25 mg 24 hr tablet Commonly known as: TOPROL-XL Take 1 tablet by mouth daily. 25 mg Quantity: 30 tablet Refills: 3 prazosin 5 mg capsule Commonly known as: MINIPRESS Take 5 mg by mouth nightly. 5 mg Refills: 0 simvastatin 20 mg tablet Commonly known as: ZOCOR Take 20 mg by mouth daily. 20 mg Refills: 0 STRATTERA 80 mg Cap Take 1 capsule by mouth every morning. Generic drug: Atomoxetine 1 capsule Refills: 0 venlafaxine 75 mg 24 hr capsule Commonly known as: EFFEXOR-XR Take 225 mg by mouth daily. 3 capsules--total 225 mg. 225 mg Refills: 0 VITAMIN C 1,000 mg tablet Take 1,000 mg by mouth daily. Generic drug: ascorbic acid 1000 mg Refills: 0 Vitamin D 1,000 unit Tab tablet Take 2,000 Units by mouth daily. Generic drug: cholecalciferol (Vitamin D3) 2000 Units Refills: 0 Remeron for sleep, depression augmentation and anxiety; Trazodone for sleep; Effexor for MDD; Prazosin for PTSD-related sx Atomoxetine for ADD; Prinzide for HTN; Toprolfor migraine ppx; Simvastatin for HLD; Fish oil for supplementation; Vitamin C for supplementation; Vitamin D for supplementation; Estratest for supplementation; Calcium-Magnesium for supplementation; b complex vitamin for supplementation Updated Allergies/ADRs: Allergies Allergen Reactions ??? Amoxicillin Trihydrate Rash red from head to toe ??? Haloperidol Per patient, she was very anxious and scared. Haloperidol made these symptoms worse. ??? Sulfa (Sulfonamide Antibiotics) Rash red rash Recommendations for Follow-Up Providers: - Monitor patient's condition and adjust treatment/medications as appropriate. Instructions Given to Patient at Discharge: Provider Instructions PATIENT DISCHARGE INSTRUCTIONS Vital Signs: Vital Signs Temp: 36.8 ??C (98.2 ??F) Temp Source: Oral Heart Rate: 74 Resp: 18 BP: 118/75 mmHg BP Method: Automatic BP Location: Left arm Patient Position: Sitting SpO2: 99 % O2 Device: None (Room air) Operations and Procedures: None Pending Lab Data at Discharge: None Discharge Disposition: Home Primary Care Physician: YINA HUITRON MD [phone] Special Instructions Provided to Chelsea Gar: Call your doctor, your local mental health center, or your local emergency room if you develop worsening symptoms of depression, anxiety, thoughts of harming yourself, thoughts of harming others, or any other decline in your overall condition. [facility] Emergency Services: [facility] [phone] [facility] Emergency Services: [phone] [facility] Central Access Services: [phone] [facility] Main Line: [phone] Activity level: no restrictions from psychiatry Diet: no restrictions from psychiatry Driving: do not drive if sedated by medications Medications have been reviewed with the patient and the patient understands the use and side effects of these medications as evidenced by discussions on interdisciplinary rounds. Follow up appointments (external or yet-to-be scheduled): General Instructions [facility] Bridge Program - Desk 5D Please call the program on January 09 at [phone] and speak to Cramen Mcneill. She will give you an intake appointment for next week. Regina Gee January 10 at 9:00am Pt to also have outpatient follow up at [facility] vice president of human resources clinic Follow Up Providers/Appointments (if not listed above): Future Appointments and Orders Future Appointments: Provider: Department: Dept Phone: Center: 01/09/2014 9:15 AM Yolanda Abbasi OT Occupational Therapy [phone] [facility] 01/19/2014 9:30 AM Sonia Sharp [facility] Physical Therapy [phone] [facility] 2014 9:00 AM Yolanda Abbasi OT Occupational Therapy [phone] [facility] 02/02/2014 9:30 AM Sonia Sharp, SIDE SEAM MACHINE OPERATOR Physical Therapy [phone] [facility] 03/01/2014 10:45 AM Jannetjoann Taveras, PT Physical Therapy [phone] [facility] Future Orders Please Complete By Expires Referral to Psychiatry [REF91 Custom] Process Instructions: If no progress note charted, please enter Clinical details in comments. Scheduling Instructions: Comments: Questions: Responses: My question or request is: Resident clinic for med management and follow up Full code [COD2 Custom] Process Instructions: 1) Ordering MD or PRINTED CIRCUIT LAYOUT TAPER must provide Order Justification documentation for a: Partial Code Order Do Not Attempt Resuscitation (DNR) Revision of Code Status order (Rescind DNR Order) 2) If the Attending of Record, as the Responsible decision maker selects a Partial Code or DNR order, a 2nd physician must document in a note, their agreement that resuscitation would be a non-beneficial treatment. 3) If the ordering provider is not the Attending of Record, the ordering MD or PRINTED CIRCUIT LAYOUT TAPER must obtain (verbal) approval of the Attending of Record. Completing this documentation indicates that you have obtained verbal approval from the Attending of Record Scheduling Instructions: Comments: Questions: Responses: Responsible decision maker(s), other than patient Does patient have decision making capacity? Yes, Order is based on Patients wishes. Content of discussion: Discharge References/Attachments None Signed: CRISTINO PERKINS MD 01/05/2014 * Miscellaneous - ProviderJuan - 01/04/2014 2:39 PM EDT * Plan of Care - Cecy Mcadams RN - 01/04/2014 10:13 AM EDT Problem: Coping, Compromised Individual (Adult, Obstetrics, Pediatric) Goal: Identify Signs and Symptoms and Related Risk Factors Signs and symptoms and related risk factors are identified upon initiation of Human Response Clinical Practice Guideline (CPG) Outcome: Present (see interventions, notes) Pt reports depression as 0, anxiety as 0, pain as 0, and denies SI. Pt reports Am's are good, but the increased stimulation throughout the day frequently overwhelms her and I cry a lot. I have difficulty concentrating, and my energy is drained easily. Pt requesting her PCP be included in her plan of care. * Plan of Care - Neisha Marie RN - 01/04/2014 9:06 AM EDT MULTIDISCIPLINARY TREATMENT PLAN Patient: Chelsea Gar Guardian: Ph: DPOA: Ph: Todays Date: 01/04/2014 Next Kin: Melinda Evans Admit Date: 01/03/2014 1:02 PM CODE STATUS: Full Initial date of care plan. 01/04/2014 Update every 7 day PATIENT'S REASON FOR HOSPITALIZATION (his or her own words) 1. I don't have the energy to be happy STRESSORS/PROBLEMS TARGET SYMPTOMS: 1. recent TBI 1. feeling overwhelmed, inability to function 2. 2. increasing depressive symptoms 3. 3. GOALS 1. Stabilize target symptoms and improve understanding of illness 2. Work with Patient Grooming Assistant to create and implement aftercare plan 3. Assessment of need following hospitalization, referrals as indicated 4. Groups for education, skill building and support 5. Complete Relapse Plan prior to discharge PHYSICIAN INTERVENTIONS ACTIVITY INTERVENTIONS 1. Continued psychiatric evaluation 1. Behavioral Activation Communication Program 2. Med management/Brief therapy 2. Therapeutic groups & activities 3. Diagnostic/Medical testing/Labs 3. Pt and family education NURSING INTERVENTIONS PCM & SW INTERVENTIONS 1. Purposeful rounding 1. Facilitate communication with family/supports as indicated 2. See Nursing care plan 2. Colaboration of care with outpatient providers 3. Medication administration and teaching 3. Assist with discharge planning I have worked with my treatment team and agree with the plan above. PATIENT SIGNATURE DATE: 01/04/14 Chelsea J Cong PRINT NAME: DATE: RESIDENT PHYSICIAN Cristino Perkins MD 01/04/14 ATTENDING PHYSICIAN Mauricio Christensen MD 01/04/14 NURSING Esther Mcadams, RN 01/04/14 PATIENT COMPUTER FORENSIC EXAMINER Venus Maire, [place]- 01/04/14 THERAPIST Nissa Rodgers [facility] 01/04/14 COMMERCIAL ESCROW OFFICER Jennie Stanley, [facility] 01/04/14 * Med Student Progress Note - Adis Duncan - 01/04/2014 8:54 AM EDT Psychiatry Inpatient - Progress Note Admit Date: 01/03/2014 Hospital Day Chief Complaint/ Brief Clinical History: Chelsea Gar is a 58 y.o. female with a PPHx of MDD, PTSD and ADD who presented from outpatient PT/OT with worsening depressive symptoms and inability to function in the setting of a recent TBI. Interim HPI: Chelsea slept 8.5 hours overnight and she believes the medication addition and adjustment from yesterday made a difference. She reports her depression as a 0/10 and anxiety as a 0/10. States that myhead feels better, further explaining that her feelings of poor balance, fuzzy headaches, and sensitive hearing have improved significantly since yesterday. However upon revisiting the patient laterin the morning after her breakfast and shower, she states depression is 3/10 and feels overwhelmed by sensory stimuli. Also describes feeling disappointed though she does not expound upon this. Pt feels that her symptoms worsen throughout the day as she becomes more fatigued, and thinks she may benefit from a nap in the afternoon. Pt denies SI/HI, delusions, or hallucinations. Review of Systems: Appetite and energy good. No racing thoughts or restlessness. Denies GI upset, trouble breathing, or chest pain. Mediations: Scheduled: Ascorbic acid 1000 mg PO qd Atomoxetine 80 mg PO qam Cholecalciferol 2000 U PO qd Estratest HS 1.25 mg PO qd Lisinopril 10 mg PO qd HCTZ 12.5 mg PO qd Metoprolol 25 mg PO qd Lovaza 1 g PO qd Prazosin 5 mg PO qhs Simvastatin 20 mg PO qhs Venlafaxine 225 mg PO qd Mirtazapine 15 mg PO qhs Trazodone 100 mg PO qhs PRN: Acetaminophen 650 mg q6h Trazodone 100 mg PO qhs Physical Exam: Vitals: Last value Range last 24hrs Temperature Temp: 36.6 ??C (97.9 ??F) Temp: [36.6 ??C (97.9 ??F)-36.8 ??C (98.2 ??F)] Heart Rate Heart Rate: 56 Heart Rate: [52-61] Blood Pressure BP: 102/55 mmHg BP: (102-128)/(55-71) Respiratory Rate Resp: 18 Resp: [14-18] SpO2 SpO2: 99 % SpO2: [99 %-100 %] Mental Status Evaluation: Appearance: Elderly woman, wearing sweater and shorts, upright posture, well groomed Behavior: Calm and collected; sitting in chair with arms crossed or hands folded. Mood: Okay Affect: Blunted, supple Thought Process: Tangential, difficulty describing her symptoms at times Thought Content: No HI/SI, no delusions or hallucinations Orientation: Oriented to person, place, time, and purpose Cognition/Fund of knowledge: Appropriate Insight: Full Judgment: Fair Assessment: Chelsea Gar is a 58 year old woman with a PPHx of MDD, PTSD and ADD who presented from outpatient PT/OT with worsening depressive symptoms and inability to function in the setting of a recent TBI.Over the past 24 hours her mood has subjectively improved, having described feeling depressed and anxious to 8/10 yesterday and now 3/10 today. She is showing some lability of mood and affect, been very depressed yesterday and today only 3/10. She is also intermittently tearful when trying to express her feelings. She seems to have responded well to the addition of mirtazapine and decrease in trazodone, as she noted better sleep and increased energy upon wakening. Will consider increasing mirtazapine for augmentation as an antidepressant and anxiolytic, and decrease trazodone to avoid oversedation. Diagnosis: [place] I: MDD without psychotic features, PTSD, ADD [place] II: Deferred [place] III: Hypertention, hyperlipidemia [place] IV: Economic stressors, inability to cope Plan: - Increase mirtazapine to 22.5 mg PO qhs - Decrease trazodone to 50 mg PO qhs, with 50 mg PO prn - Continue all other medications as prescribed - Group therapy for coping skills - Schedule for outpatient follow-up at [facility] clinic Adis Duncan MS3, [facility] [address] Psychiatry Pager [phone] * Miscellaneous - Provider, Scanning - 01/03/2014 8:52 PM EDT * Miscellaneous - Provider, Scanning - 01/03/2014 8:50 PM EDT * Plan of Care - Cecy Cooney RN - 01/03/2014 7:33 PM EDT Problem: Coping, Compromised Individual (Adult, Obstetrics, Pediatric) Goal: Effective Coping Patient will demonstrate the desired outcomes. Outcome: Present (see interventions, notes) Pt continues to experience symptoms from TBI related to accident within last yr. Pt expresses understanding time will be necessary for healing but relates frustration with symptoms, feelings of hopeless and isolation as she lives alone. Provided re-assurance, support and treatment for chronic, dullheadache pain. documented in this encounter Plan of Treatment Upcoming Encounters Date Type Department Care Team (Late st Contact Info) Description 08/18/2024 1:30 PM EST Appointment Mammography/[place] [id number] Kathia Alvarado APRN [address] [place] [address] Scheduled Referrals Name Type Priority Associated Diagnoses Order Schedule Referral to Psychiatry Outpatient Referral Routine Migraine Ordered: 01/04/2014 documented as of this encounter Procedures Procedure Name Priority Date/Time Associated Diagnosis Comments RAPID DRUG SCREEN W/O CONFIRMATION, URINE Routine 01/03/2014 8:02 PM EDT DIFFERENTIAL, AUTOMATED Routine 01/03/2014 3:42 PM EDT CBC (WITH DIFF) Routine 01/03/2014 3:42 PM EDT TSH Routine 01/03/2014 3:42 PM EDT BASIC METABOLIC PANEL Routine 01/03/2014 3:42 PM EDT documented in this encounter Results * Rapid Qual Drug Screen, Urine ([facility]) (01/03/2014 8:02 PM EDT) Pathologist [facility] THERESA Marijuana Metabolites Screen None Detected None Detected CERNER MILLENNIUM Comment: The marijuana metabolites screen detects the THC Metabolite (05-epp-9-carboxy-? 9 -THC) at concentrations >50 ng/mL. Qualitative Drug screens are reported as None Detected or Presumptive Positive as the results are not routinely confirmed by highly-specific methods. As with any screen occasional false positive results from cross-reacting substances can occur. Not for Medico-Legal Purposes. Phencyclidine Screen, Urine None Detected None Detected CERNER MILLENNIUM Comment: The phencyclidine screen detects phencyclidine at concentrations >25 ng/mL. Qualitative Drug screens are reported as None Detected or Presumptive Positive as the results are not routinely confirmed by highly-specific methods. As with any screen occasional false positive results from cross-reacting substances can occur. Not for Medico-Legal Purposes. THERESA Cocaine Metabolites Screen None Detected None Detected CERNER MILLENNIUM Comment: The cocaine metabolites screen detects benzoylecgonine (Cocaine Metabolite) at concentrations >150 ng/mL. Qualitative Drug screens are reported as None Detected or Presumptive Positive as the results are not routinely confirmed by highly-specific methods. As with any screen occasional false positive results from cross-reacting substances can occur. Not for Medico-Legal Purposes. Methamphetamines Screen, Urine None Detected None Detected CERNER MILLENNIUM Comment: The methamphetamine screen detects d-methamphetamine at concentrations >500 ng/mL. Qualitative Drug screens are reported as None Detected or Presumptive Positive as the results are not routinely confirmed by highly-specific methods. As with any screen occasional false positive results from cross-reacting substances can occur. Not for Medico-Legal Purposes. THERESA Opiates Screen None Detected None Detected CERNER MILLENNIUM Comment: The opiates screen detects opiates at a concentration >100 ng/mL and oxymorphone >250 ng/mL. Qualitative Drug screens are reported as None Detected or Presumptive Positive as the results are not routinely confirmed by highly-specific methods. As with any screen occasional false positive results from cross-reacting substances can occur. Not for Medico-Legal Purposes. THERESA Amphetamines Screen None Detected None Detected CERNER MILLENNIUM Comment: The amphetamine screen detects d-amphetamine at concentrations >500 ng/mL. Qualitative Drug screens are reported as None Detected or Presumptive Positive as the results are not routinely confirmed by highly-specific methods. As with any screen occasional false positive results from cross-reacting substances can occur. Not for Medico-Legal Purposes. THERESA Benzodiazepines Screen None Detected None Detected CERNER MILLENNIUM Comment: The benzodiazepines screen detects benzodiazepines at concentrations >150 ng/mL. Not all benzodiazepines cross-react equally with antibody used in this screen. Due to the low dosage of clonazepam, false negatives may be obtained due to low concentration of clonazepam metabolites. Qualitative Drug screens are reported as None Detected or Presumptive Positive as the results are not routinely confirmed by highly-specific methods. As with any screen occasional false positive results from cross-reacting substances can occur. Not for Medico-Legal Purposes. THERESA Tricyclics Screen None Detected None Detected CERNER MILLENNIUM Comment: The tricyclics screen detects tricyclic antidepressants at concentrations >300 ng/mL. Not all tricyclics cross-react equally with the antibody used in this screen. Qualitative Drug screens are reported as None Detected or Presumptive Positive as the results are not routinely confirmed by highly-specific methods. As with any screen occasional false positive results from cross-reacting substances can occur. Not for Medico-Legal Purposes. THERESA Methadone Screen None Detected None Detected CERNER MILLENNIUM Comment: The methadone screen detects methadone at concentrations >200 ng/mL. Qualitative Drug screens are reported as None Detected or Presumptive Positive as the results are not routinely confirmed by highly-specific methods. As with any screen occasional false positive results from cross-reacting substances can occur. Not for Medico-Legal Purposes. THERESA Barbiturates Screen None Detected None Detected CERNER MILLENNIUM Comment: The barbiturates screen detects barbiturate at concentrations >200 ng/mL. Note: Not all barbiturates cross-react equally with antibody used in this screen. Qualitative Drug screens are reported as None Detected or Presumptive Positive as the results are not routinely confirmed by highly-specific methods. As with any screen occasional false positive results from cross-reacting substances can occur. Not for Medico-Legal Purposes. THERESA Oxycodone Srceen None Detected None Detected CERNER MILLENNIUM Comment: The oxycodone screen detects oxycodone at concentrations >100 ng/mL and oxymorphone >250 ng/ml. Qualitative Drug screens are reported as None Detected or Presumptive Positive as the results are not routinely confirmed by highly-specific methods. As with any screen occasional false positive results from cross-reacting substances can occur. Not for Medico-Legal Purposes. Propoxyphene Screen, Urine None Detected None Detected CERNER MILLENNIUM Comment: The propoxyphene screen detects propoxyphene at concentrations >300 ng/mL. Qualitative Drug screens are reported as None Detected or Presumptive Positive as the results are not routinely confirmed by highly-specific methods. As with any screen occasional false positive results from cross-reacting substances can occur. Not for Medico-Legal Purposes. THERESA Buprenorphine Screen None Detected None Detected CERNER MILLENNIUM Comment: The buprenorphine screen detects buprenorphine at concentrations >10 ng/mL. Qualitative Drug screens are reported as None Detected or Presumptive Positive as the results are not routinely confirmed by highly-specific methods. As with any screen occasional false positive results from cross-reacting substances can occur. Not for Medico-Legal Purposes. Urine specimen (specimen) 01/03/2014 8:02 PM EDT 01/03/2014 8:14 PM EDT Narrative Resulting Agency Comment Spec In Lab Mauricio Christensen MD URINE ORDERABLES CERNER MILLENNIUM * Differential, Automated (01/03/2014 3:42 PM EDT) Neutrophil % 61.8 34.0 - 71.0 % CERNER MILLENNIUM Neutrophil Absolute 4.73 1.50 - 6.30 x10(3)/mcL CERNER MILLENNIUM Lymph % 29.1 19.0 - 53.0 % CERNER MILLENNIUM Lymphocytes Abs 2.2 1.0 - 3.6 x10(3)/mcL CERNER MILLENNIUM Monocyte % 5.9 4.0 - 13.0 % CERNER MILLENNIUM Monocyte Abs 0.4 0.2 - 1.0 x10(3)/mcL CERNER MILLENNIUM Eos % 2.4 0.0 - 7.0 % CERNER MILLENNIUM Eosinophils Abs 0.2 0.0 - 0.5 x10(3)/mcL CERNER MILLENNIUM Basophil % 0.7 0.0 - 2.0 % CERNER MILLENNIUM Baso Absolute 0.0 0.0 - 0.2 x10(3)/mcL CERNER MILLENNIUM Immature Gran % 0.10 0.00 - 0.66 % CERNER MILLENNIUM Comment: Immature granulocytes(IG's)percentage and absolute count will include metamyelocytes, myelocytes, and promyelocytes. Blood smears from CBCs yielding IG's will be scanned manually for concordance. If this scan disagrees with the automated IG or if promyelocytes are noted, a manual differential will be performed. Immature Gran Absolute 0.01 0.00 - 0.05 x10(3)/mcL CJNER JADAENNIUM Blood specimen (specimen) 01/03/2014 3:42 PM EDT 01/03/2014 3:48 PM EDT Mauricio Christensen MD HEMATOLOGY ORDERABL ES Performing Organization Address [facility] Co de Phone Number [facility] * TSH (01/03/2014 3:42 PM EDT) Thyroid Stimulating Hormone 1.18 0.27 - 4.20 mcIU/mL [facility] Blood specimen (specimen) 01/03/2014 3:42 PM EDT 01/03/2014 3:47 PM EDT Narrative Resulting Agency Comment Spec In Lab Mauricio Christensen MD CHEMISTRY ORDERABLE S Performing Organization Address [facility]/ZIP Co de Phone Number [facility] * (ABNORMAL) Basic Metabolic Panel (non-fasting) (01/03/2014 3:42 PM EDT) Glucose 90 60 - 199 mg/dL [facility] Comment:Diabetes: >=200 mg/d L plus symptoms Blood Urea Nitrogen 19(H) 8 - 18 mg/dL [facility] MILLENNIUM Creatinine 0.79 0.70 - 1.20 mg/dL CERNER MILLENNIUM Comment: Please note that the pediatric reference intervals supplied above were not validated at [facility]. Results from pediatric patients should be interpreted in conjunction to the patient's age, height and muscle mass. Sodium 137 135 - 145 mmol/L CERNER MILLENNIUM Potassium 4.0 3.5 - 5.0 mmol/L CERNER MILLENNIUM Comment: Please note: ??Patients with WBC >100,000 may have falsely elevated Potassium levels. ??For accurate Potassium quantification in these patients send serum separator tube (gold top) for subsequent determinations. ??Contact the Clinical Chemistry Laboratory if there are any questions. Chloride 101 98 - 107 mmol/L CERNER MILLENNIUM Carbon Dioxide 24 22 - 31 mmol/L CERNER MILLENNIUM Anion Gap 12 5 - 15 mmol/L CERNER MILLENNIUM Calcium 9.1 8.5 - 10.5 mg/dL CERNER MILLENNIUM Est Glomerular Filtration Rate >60 >=60 CERNER MILLENNIUM Comment: This estimated GFR (eGFR) value was calculated using the MDRD equation which has been validated on patients between the ages of 18 and 70. The MDRD should not be used to assess kidney function in patients < 18 years of age or in patients with extremes of body mass, or in patients with acute kidney failure. This value should be multiplied by 1.2 for patients. For further information please copy and paste the following links into your internet browser. http://www.nkdep.nih.gov/lab-evaluation.shtml http://www.kidney.org/professionals/ Blood specimen (specimen) 01/03/2014 3:42 PM EDT 01/03/2014 3:47 PM EDT Narrative Resulting Agency Comment Spec In Lab Mauricio Christensen MD CHEMISTRY ORDERABLE S [facility] * (ABNORMAL) CBC (with Diff) (01/03/2014 3:42 PM EDT) White Blood Cell 7.6 4.0 - 10.0 x10(3)/mc L CERNER MILLENNIUM Red Blood Cell 4.01 3.93 - 5.22 x10(6)/mc L CERNER MILLENNIUM Hemoglobin 11.5 11.2 - 15.7 gm/dL CERNER MILLENNIUM Hematocrit 36.3 34.0 - 45.0 % CERNER MILLENNIUM Mean Cell Volume 90.5 79.0 - 94.0 fL CERNER MILLENNIUM Mean Cell Hemoglobin 28.7 26.6 - 32.2 pg CERNER MILLENNIUM Mean Cell Hemoglobin Concentration 31.7(L) 32.0 - 36.5 gm/dL [facility]ER[facility] MILLENNIUM Platelet 312 145 - 370 x10(3)/mc L [facility]ER[facility] MILLENNIUM RDW Standard Deviation 43.9 35.0 - 46.0 fL [facility] MILLENNIUM RDW coefficient of variation 13.3 10.9 - 14.4 % [place] MILLENNIUM Mean Platelet Volume 9.9 9.0 - 12.0 fL [place] ELIASENNIUM Blood specimen (specimen) 01/03/2014 3:42 PM EDT 01/03/2014 3:48 PM EDT Narrative Resulting Agency Comment Spec In Lab Mauricio Christensen MD HEMATOLOGY ORDERABL ES [place] CONTRERAS documented in this encounter Visit Diagnoses Diagnosis Migraine Migraine, unspecified, without mention of intractable migraine without mention of status migrainosus Major depressive disorder, recurrent episode Major depressive disorder, recurrent episode, unspecified documented in this encounter Administered Medications Inactive Administered Medications - up to 3 most recent administrations Medication Order MAR Action Action Date Dose Rate Site acetaminophen (TYLENOL) tablet 650 mg 650 mg, Oral, EVERY 6 HOURS PRN, Starting on Wed01/03/14 at 1526, Until Wed01/05/14 at 1601, Pain, Fever, Administer for temperature greater than or equal to 38.2 degrees celsius (Not to exceed 4000 mg per 24 hours), Routine Given 01/03/2014 5:39 PM EDT 650 mg ascorbic acid (VITAMIN C) tablet 1,000 mg 1,000 mg, Oral, DAILY, First dose on Wed01/03/14 at 1545, Until Discontinued, Routine Given 01/05/2014 9:00 AM EDT 1,000 mg Given 01/04/2014 8:04 AM EDT 1,000 mg atomoxetine (STRATTERA) capsule 80 mg 80 mg, Oral, EVERY MORNING, First dose on Wed01/04/14 at 0900, Until Discontinued, Routine Given 01/05/2014 9:00 AM EDT 80 mg Given 01/04/2014 8:04 AM EDT 80 mg B-Complex with Vitamin C (SUPER B C) capsule 1 capsule 1 capsule, Oral, DAILY, First dose on Wed01/03/14 at 1600, Until Discontinued Given 01/05/2014 9:00 AM EDT 1 capsul e Given 01/04/2014 8:04 AM EDT 1 capsule cholecalciferol (Vitamin D3) tablet 2,000 Units 2,000 Units, Oral, DAILY, First dose on Wed01/03/14 at 1545, Until Discontinued, Routine Given 01/05/2014 9:00 AM EDT 2,000 Units Given 01/04/2014 8:04 AM EDT 2,000 Units hydrochlorothiazide (HYDRODIURIL) tablet 12.5 mg 12.5 mg, Oral, DAILY, First dose on Wed01/03/14 at 1600, Until Discontinued, Therapeutic interchange for: Prinzide;Zestoretic, Routine Given 01/05/2014 9:00 AM EDT 12.5 mg Given 01/04/2014 8:04 AM EDT 12.5 mg Given 01/03/2014 6:04 PM EDT 12.5 mg lisinopril (PRINIVIL;ZESTRIL) tablet 10 mg 10 mg, Oral, DAILY, First dose on Wed01/03/14 at 1600, Until Discontinued, Therapeutic interchange for: Prinzide;Zestoretic, Routine Given 01/05/2014 9:0 0 AM EDT 10 mg Given 01/04/2014 8:04 AM EDT 10 mg Given 01/03/2014 6:03 PM EDT 10 mg metoprolol succinate (TOPROL-XL) XL tablet 25 mg 25 mg, Oral, DAILY, First dose on Wed01/03/14 at 1545, Until Discontinued, Routine Given 01/05/2014 9:00 AM EDT 25 mg Given 01/04/2014 8:04 AM EDT 25 mg Given 01/03/2014 3:45 PM EDT 25 mg mirtazapine (REMERON) tablet 15 mg 15 mg, Oral, NIGHTLY, First dose on Wed01/03/14 at 2100, Until Discontinued, Routine Given 01/03/2014 9:00 PM EDT 15 mg mirtazapine (REMERON) tablet 22.5 mg 22.5 mg, Oral, NIGHTLY, First dose (after last modification) on Wed01/04/14 at 2100, Until Discontinued, Routine Given 01/04/2014 9:00 PM EDT 22.5 mg omega-3 acid ethyl esters (LOVAZA) capsule 1 g 1 g (1 capsule), Oral, DAILY, First dose on Wed01/03/14 at 1545, Until Discontinued, Routine Given 01/05/2014 9:00 AM EDT 1 g Given 01/04/2014 8:04 AM EDT 1 g prazosin (MINIPRESS) capsule 5 mg 5 mg, Oral, NIGHTLY, First dose on Wed01/03/14 at 2100, Until Discontinued, Routine Given 01/04/2014 9:00 PM EDT 5 mg Given 01/03/2014 9:00 PM EDT 5 mg simvastatin (ZOCOR) tablet 20 mg 20 mg, Oral, EVERY EVENING, First dose on Wed01/03/14 at 1700, Until Discontinued Given 01/04/2014 5:32 PM EDT 20 mg Given 01/03/2014 5:47 PM EDT 20 mg traZODone (DESYREL) tablet 100 mg 100 mg, Oral, NIGHTLY, First dose (after last modification) on Wed01/03/14 at 2100, Until Discontinued, Routine Given 01/03/2014 9:00 PM EDT 100 mg traZODone (DESYREL) tablet 50 mg 50 mg, Oral, NIGHTLY, First dose (after last modification) on Rhonda 01/04/14 at 2100, Until Discontinued, Routine Given 01/04/2014 9:00 PM EDT 50 mg venlafaxine (EFFEXOR-XR) XR Capsule 225 mg 225 mg, Oral, DAILY, First dose on Wed01/03/14 at 1545, Until Discontinued, Routine Given 01/05/2014 9:00 AM EDT 225 mg Given 01/04/2014 8:04 AM EDT 225 mg documented in this encounter Active and Recently Administered Medications Times are shown in EDT. Scheduled Medication Order 01/03/2014 01/04/2014 01/05/2014 ascorbic acid (VITAMIN C) tablet 1,000 mg (CANCELED) 1,000 mg, Oral, DAILY, First dose on Wed01/03/14 at 1545, Until Discontinued, Routine 1739 (Not Given - Provider: Cecy Cooney RN - Reason: See comment - Comment: Pt took this a.m.) 0804 (Given - Provider: Cecy Mcadams RN) 0900 (Given - Provider: Cecy Mcadams RN) atomoxetine (STRATTERA) capsule 80 mg (CANCELED) 80 mg, Oral, EVERY MORNING, First dose on Wed01/04/14 at 0900, Until Discontinued, Routine 0804 (Given - Provider: Cecy Mcadams RN) 0900 (Given - Provider: Cecy Mcadams RN) B-Complex with Vitamin C (SUPER B C) capsule 1 capsule (CANCELED) 1 capsule, Oral, DAILY, First dose on Wed01/03/14 at 1600, Until Discontinued 1600 (Not Given - Provider: Cecy Cooney RN - Reason: See comment - Comment: Pt [id number] took daily dose.) 0804 (Given - Provider: Cecy Mcadams RN) 0900 (Given - Provider: Cecy Mcadams RN) cholecalciferol (Vitamin D3) tablet 2,000 Units (CANCELED) 2,000 Units, Oral, DAILY, First dose on Wed01/03/14 at 1545, Until Discontinued, Routine 1545 (Not Given - Provider: Cecy Cooney RN - Reason: See comment - Comment: Pt took this a.m.) 0804 (Given - Provider: Cecy Mcadams RN) 0900 (Given - Provider: Cecy Mcadams RN) hydrochlorothiazide (HYDRODIURIL) tablet 12.5 mg (CANCELED)(Linked Group 1) 12.5 mg, Oral, DAILY, First dose on Wed01/03/14 at 1600, Until Discontinued, Therapeutic interchange for: Prinzide;Zestoretic, Routine 1804 (Given - Provider: Cecy Cooney RN) 0804 (Given - Provider: Cecy Mcadams RN) 0900 (Given - Provider: Cecy Mcadams RN) lisinopril (PRINIVIL;ZESTRIL) tablet 10 mg (CANCELED)(Linked Group 1) 10 mg, Oral, DAILY, First dose on Wed01/03/14 at 1600, Until Discontinued, Therapeutic interchange for: Prinzide;Zestoretic, Routine 1803 (Given - Provider: Cecy Cooney RN) 0804 (Given - Provider: Cecy Mcadams RN) 0900 (Given - Provider: Cecy Mcadams RN) metoprolol succinate (TOPROL-XL) XL tablet 25 mg (CANCELED) 25 mg, Oral, DAILY, First dose on Wed01/03/14 at 1545, Until Discontinued, Routine 1545 (Given - Provider: Cecy Cooney RN) 0804 (Given - Provider: Cecy Mcadams RN) 0900 (Given - Provider: Cecy Mcadams RN) mirtazapine (REMERON) tablet 15 mg (CANCELED) 15 mg, Oral, NIGHTLY, First dose on Wed01/03/14 at 2100, Until Discontinued, Routine 2100 (Given - Provider: Carin Boland RN) mirtazapine (REMERON) tablet 22.5 mg 22.5 mg, Oral, NIGHTLY, First dose (after last modification) on Wed01/04/14 at 2100, Until Discontinued, Routine 2100 (Given - Provider: Carin Boland RN) omega-3 acid ethyl esters (LOVAZA) capsule 1 g (CANCELED) 1 g (1 capsule), Oral, DAILY, First dose on Wed01/03/14 at 1545, Until Discontinued, Routine 1746 (Not Given - Provider: Cecy Cooney RN - Reason: See comment - Comment: Pt took this a.m.) 0804 (Given - Provider: Cecy Mcadams RN) 0900 (Given - Provider: Cecy Mcadams RN) prazosin (MINIPRESS) capsule 5 mg (CANCELED) 5 mg, Oral, NIGHTLY, First dose on Wed01/03/14 at 2100, Until Discontinued, Routine 2100 (Given - Provider: Carin Boland RN) 2100 (Given - Provider: Carin Boland RN) simvastatin (ZOCOR) tablet 20 mg (CANCELED) 20 mg, Oral, EVERY EVENING, First dose on Wed01/03/14 at 1700, Until Discontinued 1747 (Given - Provider: Cecy Cooney RN) 173 (Given - Provider: Cecy Mcadams RN) traZODone (DESYREL) tablet 100 mg (CANCELED) 100 mg, Oral, NIGHTLY, First dose (after last modification) on Wed01/03/14 at 2100, Until Discontinued, Routine 2100 (Given - Provider: Carin Boland RN) traZODone (DESYREL) tablet 50 mg 50 mg, Oral, NIGHTLY, First dose (after last modification) on Wed01/04/14 at 2100, Until Discontinued, Routine 2100 (Given - Provider: Carin Boland RN) venlafaxine (EFFEXOR-XR) XR Capsule 225 mg (CANCELED) 225 mg, Oral, DAILY, First dose on Wed01/03/14 at 1545, Until Discontinued, Routine 1545 (Not Given - Provider: Cecy Cooney RN - Reason: See comment - Comment: Pt took this a.m.) 0804 (Given - Provider: Cecy Mcadams RN) 0900 (Given - Provider: Cecy Mcadams RN) PRN Medication Order 01/03/2014 01/04/2014 01/05/2014 acetaminophen (TYLENOL) tablet 650 mg (CANCELED) 650 mg, Oral, EVERY 6 HOURS PRN, Starting on Wed01/03/14 at 1526, Until Wed01/05/14 at 1601, Pain, Fever, Administer for temperature greater than or equal to 38.2 degrees celsius (Not to exceed 4000 mg per 24 hours), Routine 1739 (Given - Provider: Cecy Cooney RN) traZODone (DESYREL) tablet 50 mg 50 mg, Oral, NIGHTLY PRN, Starting on Wed01/04/14 at 1123, Until Wed01/05/14 at 1601, Sleep, Routine Linked Groups Order Group 1: lisinopril (PRINIVIL;ZESTRIL) tablet 10 mg (CANCELED)Jump to med 10 mg, Oral, DAILY, First dose on Wed01/03/14 at 1600, Until Discontinued, Therapeutic interchange for: Prinzide;Zestoretic, Routine And hydrochlorothiazide (HYDRODIURIL) tablet 12.5 mg (CANCELED)Jump to med 12.5 mg, Oral, DAILY, First dose on Wed01/03/14 at 1600, Until Discontinued, Therapeutic interchange for: Prinzide;Zestoretic, Routine documented in this encounter Care Teams Title I Teacher Relationship Specialty Start Date End Date Yina Huitron MD [address] [place] [id number] PCP - General 07/08/10 documented as of this encounter
--- OUTSIDE RECORDS SUMMARY | 2024-07-12 15:57 | XMS_ITS | Encounter Summary ---
[facility] Organization [facility] [place] [address] Care Team Providers Care Manager Scheduling Name Role Phone Charles Huitron MD Primary Care Provider [phone] Reason for Visit * Reason Comments Depression Encounter Details Date Type Department Care Team (Late st Contact Info) Description 01/03/2014 10:05 AM EDT - 01/03/2014 1:00 PM EDT [place] [address] Quan Solo MD [facility] [place] [address] Depression Discharge Disposition: Psychiatric Center in an Acute Care Facility Social History Tobacco Use Types Packs/Day Years [...] Sign Reading Time Taken Comments Blood Pressure 123/71 01/03/2014 10:09 AM EDT Pulse 60 01/03/2014 10:09 AM EDT Temperature 36.8 ??C (98.2 ??F) 01/03/2014 10:09 AM E DT Respiratory Rate 14 01/03/2014 10:09 AM EDT Oxygen Saturation 100% 01/03/2014 10:09 AM EDT Inhaled Oxygen Concentration - - Weight - - Height - - Body Mass Index - - documented in this encounter Medications at Time [...] mouth nightly. 60 tablet 0 01/05/2014 08/21/2014 traZODone (DESYREL) 100 mg tablet Take 200 mg by mouth nightly. Taking 2 tablets--total 200 mg. 01/05/2014 Atomoxetine (STRATTERA) 80 mg Cap Take 1 capsule by mouth every morning. 08/21/2014 ascorbic acid (VITAMIN C) 1,000 mg tablet Take 1,000 mg by mouth daily. 02/24/2024 b complex vitamins tablet Take 1 tablet by mouth daily. 02/24/2024 estrogens, conjugated,-methyltesto sterone (ESTRATEST HS) 0.625-1.25 mg per tablet Take 1 tablet by mouth daily. 02/24/2024 [place]-3 Fatty Acids (FISH OIL) 500 mg Cap Take 1 capsule by mouth daily. 02/24/2024 prazosin (MINIPRESS) 5 mg capsule Take 5 mg by mouth nightly. 05/01/2014 simvastatin (ZOCOR) 20 mg tablet Take 20 mg by mouth daily. 02/24/2024 venlafaxine (EFFEXOR-XR) 75 mg 24 hr capsule Take 225 mg by mouth daily. 3 capsules--total 225 mg. 06/26/2014 documented as of this encounter ED Notes * Quan Solo MD - 01/03/2014 10:44 AM EDT Chief Complaint Patient presents with ??? Depression HPI Comments: 58 yof presenting w/ depression. Referred here from psych clinic. Pt has been functioning poorly as of late. Not getting things done, doesn't want to get out of bed. Vague suicidal thoughts last week. No specific plan. Pt doesn't feel that this is something she could go through with. No thoughts of hurting others. Pt taking her meds, but doesn't feel that they are helping. These include effexor, strattera, trazodone. 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 Pt is s/p a head injury this winter, being seen in rehab for same. She reports some persistent dizziness & headaches. This is not new or unusual relative to her baseline symptoms. No recent injury or illness. No cough, congestion, sob. Pt has been seeing a psychic healer as of late, feels that this has been quite helpful. The history is provided by the patient and medical records. No pot puller was used. Allergies Allergen Reactions ??? Amoxicillin Trihydrate Rash red from head to toe ??? Haloperidol Per patient, she was very anxious and scared. Haloperidol made these symptoms worse. ??? Sulfa (Sulfonamide Antibiotics) Rash red rash Review of Systems Constitutional: Negative for fever, chills and diaphoresis. HENT: Negative for congestion and sore throat. Eyes: Negative for discharge and visual disturbance. Respiratory: Negative for cough and shortness of breath. Cardiovascular: Negative for chest pain. Gastrointestinal: Negative for nausea, vomiting, abdominal pain and diarrhea. Genitourinary: Negative for dysuria and hematuria. Musculoskeletal: Negative for joint swelling and arthralgias. Skin: Negative for rash. Neurological: Positive for dizziness and headaches. Negative for weakness and numbness. Psychiatric/Behavioral: Positive for suicidal ideas, dysphoric mood and decreased concentration. Negative for self-injury and agitation. The patient is not nervous/anxious. All other systems reviewed and are negative. Physical Exam Nursing note and vitals reviewed. Constitutional: She is oriented to person, place, and time. She appears well- developed and well-nourished. HENT: Head: Normocephalic and atraumatic. Eyes: Conjunctivae normal are normal. Neck: Neck supple. Cardiovascular: Normal rate, regular rhythm and normal heart sounds. Pulmonary/Chest: Effort normal and breath sounds normal. Abdominal: Soft. Bowel sounds are normal. She exhibits no distension and no mass. There is no tenderness. Musculoskeletal: Normal range of motion. She exhibits no edema. Neurological: She is alert and oriented to person, place, and time. She has normal strength. No cranial nerve deficit or sensory deficit. Coordination normal. GCS eye subscore is 4. GCS verbal subscore is 5. GCS motor subscore is 6. Skin: Skin is warm and dry. No rash noted. Psychiatric: Her behavior is normal. Judgment and thought content normal. Her affect is blunt. Her speech is delayed. Cognition and memory are normal. She expresses no suicidal plans and no homicidalplans. Pt is slightly slow to respond to most questions. Admits to recent suicidal thoughts, although noneat the moment. No plan. Pt does not feel that she would actually carry it out. Procedures MDM Number of Diagnoses or Management Options Amount and/or Complexity of Data Reviewed Obtain history from someone other than the patient: yes Discuss the patient with other providers: yes Risk of Complications, Morbidity, and/or Mortality Presenting problems: high Management options: high ED Course: 58 yof referred here from psych clinic for depression. Vague suicidal thoughts, no plan. Contracts for safety. No recent illness or injury. No substance abuse. Pt suffers from residual sequela of oldhead injury, this is unchanged on review of the chart. Psychiatry contacted. They are planning to admit the patient for further management as an inpatient. DX: Acute exacerbation of depression Dispo: Admit Quan Solo MD 01/10/14 1204 * Merlyn Frank RN - 01/03/2014 10:17 AM EDT Psych called,s shana w/ attending in ED, she needs medical clearance and then admission to psych at [facility]. documented in this encounter Miscellaneous Notes * Miscellaneous - ProviderJuan - 01/03/2014 7:57 PM EDT * Med Student H&P - Adis Duncan - 01/03/2014 1:02 PM EDT * ED Triage - Jannette Portillo, [place] - 01/03/2014 10:08 AM EDT Pt here with thoughts of suicide last week, HX of brain injury since July, Lives alone No developed plan of self harm, no plan or intent to harm others Does Contract for safety documented in this encounter Plan of Treatment Upcoming Encounters Date Type Department Care Team (Late st Contact Info) Description 08/18/2024 1:30 PM EST Appointment Mammography/[place] [id number] Kathia Alvarado APRN [address] [place] [address] documented as of this encounter Visit Diagnoses Diagnosis Depression Depressive disorder, not elsewhere classified documented in this encounter Care Teams Manager Scheduling Relationship Specialty Start Date End Date Charles Huitron MD [address] [place] [address] PCP - General 07/08/10 documented as of this encounter
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
--- OUTSIDE RECORDS SUMMARY | 2024-07-12 15:57 | XMS_ITS | Encounter Summary ---
Author Organization [facility] [place] [address] Care Team Providers Care Press Set Up Person Name Role Phone Charles Huitron MD Primary Care Provider [phone] Reason for Visit * Reason Comments Major Depressive Disorder Encounter Details Date Type Department Care Team (Latest Contact Info) Description 02/02/2014 Unscheduled Encounter Psychiatry and [place] [phone] Carmen Palacios, [facility] [address] [facility] [place] [address] Depression (Primary Dx) Social History Tobacco Use [...] this encounter Progress Notes * Carmen Little, [facility] - 03/13/2014 3:33 PM EDT Pt arrived coming form another appointment in the hospital. Still trying to make sure she has enough medication that was so helpful from her hospitalization, as she is due to run out of the medication soon. See note of 01/18 when the plan was arranged. Pt could not make the appointment set up for 01/18, today is the appointment rescheduled. Pt come to 30 minute contact, dressed casually, presented very well with good eye contact and in a good mood, and reports is sleeping very well (aobut 9 hours a night) and wakes up refreshed and ready to tackle the day. Is very pleased and expresses no side effects from the Remeron that she started inpatient and now is crediting with a dramatic turn around in her mood. Denied any suicidal or homicidal thoughts, stated her depression is about a 2 (on scale of 1 - 10) and feels is doing very well. Reiterated plan with pt, that she will see Filomena Gomes soon for a full medication evaluation, but I will call her inpatient physician and see if he is willing to call in a refill of the Remeron. Called Dr Gordon and he to call in script to her pharmacy. documented in this encounter Plan of Treatment Upcoming Encounters Date Type Department Care Team (Late st Contact Info) Description 08/18/2024 1:30 PM EST Appointment Mammography/[place] [phone] Kathia Alvarado APRN [address] [place] [address] documented as of this encounter Visit Diagnoses Diagnosis Depression- Primary Depressive disorder, not elsewhere classified documented in this encounter Care Teams Press Set Up Person Relationship Specialty Start Date End Date Charles Huitron MD [address] [place] [address] PCP - General 07/08/10 documented as of this encounter
--- OUTSIDE RECORDS SUMMARY | 2024-07-12 15:57 | XMS_ITS | Encounter Summary ---
Author Organization [facility] [place] [address] Care Team Providers Care Mold Filling Operator Name Role Phone Charles Huitron MD Primary Care Provider [phone] Encounter Details Date Type Department Care Team (Late st Contact Info) Description 11/17/2013 1:00 PM EDT Follow-[place] [address] Sonia Solorio PTA [facility] PHYSICAL MEDICINE & [place] [address] Eleazar Machuca MD [facility] [place] [address] Abnormality of gait and mobility (Primary Dx); [...] Progress Notes * Sonia Solorio PTA - 11/17/2013 4:21 PM EDT Physical Therapy Progress Note Total Timed Code Treatment: 40 minutes Total Treatment Time: 40 minutes Medicare Cert Period: 10/25/2013 - 01/22/14 [...] 8 9 10 10/25/13 11/07/13 11/10/13 11/17/13 Follow up visit for a patient with 1. Abnormality of gait and mobility 2. Concussion with no loss of consciousness, subsequent encounter S: Patient reports she is good today. She states she had a massage this week and now has increased cervical ROM. Her ongoing pain is 98% better. She had dizziness last Wednesday--went to a birthday alliance party--rested all day. She states she panicked due to the noise from a live band. She didn't feel better until Thurs. evening. Today she went out for a 45 to 1 hour walk (at that point her brain was saying that's enough). She states even her eyes have been better. Her dizziness before this treatment is .5/10, and she noticed her memory is getting better. O: neuromuscular re-ed: 40 min treadmill 2.0 mph x 5 min.with head turns and tilts, gaze stabilization--dizziness with head turns 1/10 down from 7/10 at last treatment, without UE support x 2 min. VOR x 1 with double vision from the beginning, but did not progress as she proceeded 2 foam: romberg stance with head turns and tilts, EC up to 45 sec.--improved from 15 sec. last treatment, turning to look behind, 360 degree turns walking with head turns and tilts, tandem walking, gaze stabilization, bending to touch the floor, 360 degree turns 4/10 dizziness--resolved following a few minutes, walking with EC, braiding, retro walking A: Pt. demonstrated marked improvement with dizziness with balance activities. Any dizziness resolves fairly quickly. ST Goals: 11/25/13 1. Independent with home [...] 08/18/2024 1:30 PM EST Appointment Mammography/[place] [phone] Kathia Alvarado APRN [address] [place] [address] documented as of this encounter Visit Diagnoses Diagnosis Abnormality of gait and mobility- Primary Abnormality of gait Concussion with no loss of consciousness, subsequent encounter documented in this encounter Care Teams Mold Filling Operator Relationship Specialty Start Date End Date Charles Huitron MD [address] [place] [address] PCP - General 07/08/10 documented as of this encounter
--- OUTSIDE RECORDS SUMMARY | 2024-07-12 15:57 | XMS_ITS | Encounter Summary ---
Author Organization [facility] [place] [place] [address] Care Team Providers Care Direct Sales Consultant Name Role Phone Charles Huitron MD Primary Care Provider [phone] Encounter Details Date Type Department Care Team (Late st Contact Info) Description 11/24/2013 9:15 AM EDT [place] [address] Sonia Solorio, [facility] PHYSICAL [facility] & [place] [address] Concussion with no loss of consciousness, subsequent encounter; Abnormality of gait and mobility Social History Tobacco Use Types Packs/Day Years [...] this encounter Progress Notes * Sonia Solorio, JUNIOR HIGH SCHOOL TEACHER - 11/24/2013 12:38 PM EDT Physical Therapy Progress Note Total [...] 9 10 10/25/13 11/07/13 11/10/13 11/17/13 11/24/13 Follow up visit for a patient with 1. Concussion with no loss of consciousness, subsequent encounter 2. Abnormality of gait and mobility S: Patient reports it has been easier this week. No brain squeezing feeling this week. She states she doesn't have as much fear to move--moving more freely. She states she doesn't have any dizziness,but she is on the edge. No LILLY or nausea. She went for 2 walks this week and found it much easier and decreased difficulty with night driving. O: neuromuscular re-ed: 35 min., manual therapy x 10 min. treadmill 2.0 mph x 5 min.with head turns and tilts, gaze stabilization VOR x 1--diplopia at edge of target not on the top VOR x 2--same as above--difficulty with concentrating piotr disc: static stance x 1 min., marching x 20 sec., EC x 4 sec.--became tearful--states she was on the verge of nausea foam beam: tandem walking--able to walk the full distance without stepping off walking with bouncing a ball and toss from one hand to the other manual therapy x 10 min. to cervical musculature with occipital release and manual cervical traction A: Pt. continues to improve with decreased dizziness and improved ability with balance challenges. She did state that her neck tightened up following the balance challenges. No dizziness at end of treatment. ST Goals: 11/25/13 1. Independent with [...] 08/18/2024 1:30 PM EST Appointment Mammography[place] [phone] Kathia Alvarado APRN [address] [place] [address] documented as of this encounter Visit Diagnoses Diagnosis Concussion with no loss of consciousness, subsequent encounter Abnormality of gait and mobility Abnormality of gait documented in this encounter Care Teams Direct Sales Consultant Relationship Specialty Start Date End Date Charles Huitron MD [address] [place] [address] PCP - General 07/08/10 documented as of this encounter
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
--- OUTSIDE RECORDS SUMMARY | 2024-07-12 15:57 | XMS_ITS | Encounter Summary ---
Author Organization [facility] [place] [address] Care Team Providers Care Insulation Installer Name Role Phone Charles Huitron MD Primary Care Provider [phone] Encounter Details Date Type Department Care Team (Late st Contact Info) Description 11/14/2013 9:00 AM EDT Follow-[place] [address] CLINIC, Eleazar Remy MD [facility] [place] [address] Yolanda Abbasi, OT [facility] PHYSICAL MEDICINE & [place] [address] Cognitive change; Concussion with no loss of [...] Progress Notes * Yolanda Abbasi, OT - 11/14/2013 8:59 AM EDT OCCUPATIONAL THERAPY PROGRESS NOTE CERTIFICATION PERIOD: 2/23/14 - 01/05/14 REFERRAL SOURCE: Merlyn Olsen APRN DIAGNOSIS: 1. Cognitive change 2. Concussion with no loss of consciousness, subsequent encounter NEXT MD FOLLOW UP: 12/08/13 with Merlyn Olsen APRN TOTAL TREATMENT TIME: 60 minutes TIMED CODE TREATMENT TIME: 60 minutes SUBJECTIVE: Pt reports she is feeling very fuzzy today. She has noticed increased diplopia. OBJECTIVE: Chelsea Gar is a 58 y.o. [...] CT scan which was normal. TREATMENT TODAY: -Pt arrived with her friend Amisha. Reviewed pt's activities over the past week - pt/Amisha report pt has had increasing depressive symptoms. Led skilled discussion of common increase in anxiety/depression among people with TBI and possible avenues to address increase in symptoms. Pt with emotional lability during this discussion. Pt/friend in agreement with plan to call the office of her former psychiatrist to schedule an appt with the local office. Pt/friend also in agreement with plan topursue increased participation in leisure activities to address boredom pt is feeling at home - pt's friend to help with pt applying for a scholarship to the local [employer]. -Meal prep (pasta and sauce) to address planning/organization and safety awareness - pt prepared pasta on stovetop and heated sauce in microwave. Pt completed all steps independently and timed meal such that both parts were ready at the same time. Pt required 1 cue to initiate a rest break while pasta was cooking. Pt noted to leave upper cabinets open while ambulating around kitchen. ASSESSMENT: Chelsea Gar presents today with limited functional performance due to headache pain, cognitive impairments, visual changes, and decreased activity tolerance; all related to a concussion sustained on 09/13/13. Pt was very emotional today, and she and her friend reported concerns thatdepressive symptoms are increasing. She also spoke to Merlyn Olsen APRN on 11/10/13 about this and plans to follow-up with her former psychiatrist for recommendations. Chelsea performed very well on meal prep activity today, demonstrating good planning/organiziation skills. The only safety concern noted was pt left an overhead cabinet open while cooking, possibly posing a risk of bumping her head. She also required a cue to take a rest break and will benefit from further education on energy conservation. G-Code: Self-Care Status Modifier CURRENT CJ - [...] 7 8 9 10 10/09/13 10/17/13 10/31/13 11/07/13 11/14/13 Fpc Goals (to be met by discharge): Date [...] 4 week(s) to progress toward short and intermediate goals. for Visual compensation, Cognitive retraining attention and compensatory strategies andSequencing and planning (X) Chelsea Gar participated in the evaluation, collaborated on treatment goals, and agrees tothe treatment plan. Yolanda Abbasi OT Pager: [phone] documented in this encounter Plan of Treatment Upcoming Encounters Date Type Department Care Team (Late st Contact Info) Description 08/18/2024 1:30 PM EST Appointment Mammography/[place] [address] Kathia Alvarado APRN [address] [place] [address] documented as of this encounter Visit Diagnoses Diagnosis Cognitive change Other signs and symptoms involving cognition Concussion with no loss of consciousness, subsequent encounter documented in this encounter Care Teams Insulation Installer Relationship Specialty Start Date End Date Charles Huitron MD [address] [place] [address] PCP - General 07/08/10 documented as of this encounter
--- OUTSIDE RECORDS SUMMARY | 2024-07-12 15:57 | XMS_ITS | Encounter Summary ---
Author Organization [facility] [place] [address] Care Team Providers Care Formwork Carpenter Name Role Phone Charles Huitron MD Primary Care Provider [phone] Encounter Details Date Type Department Care Team (Late st Contact Info) Description 10/24/2013 2:00 PM EDT Follow-Up [place] [address] Yolanda Abbasi, OT [facility] PHYSICAL MEDICINE & [place] [address] Cognitive change; Concussion with no loss of [...] Progress Notes * Yolanda Abbasi, OT - 10/24/2013 2:01 PM EDT OCCUPATIONAL THERAPY PROGRESS NOTE CERTIFICATION PERIOD: 10/08/13 - 01/05/14 REFERRAL SOURCE: Merlyn Olsne APRN DIAGNOSIS: 1. Cognitive change 2. Concussion [...] CT scan which was normal. TREATMENT TODAY: Hopkin's Verbal Learning Test 12 Words Free Recall --- Trial #1 05/27 Trial #2 06/27 Trial #3 07/27 Delayed Recall 07/27 Recognition --- True Positives 07/27 False Positives related 0/6 False Positives unrelated 0/6 -Administered the remaining subtests of the Test of Everyday Attention (TEA). The TEA is a standardized, normed assessment of various forms of attention. -Subtests administered 10/17/13: 1) Map Search: 23 symbols in 1 (WNL), 46 symbols in 2 (WNL) 2) Elevator Countin/7 (normal) 3) Elevator Counting with Distraction: raw score 6/10 (BNL) 4) Visual Elevator: 9/10 correct, 5.26 timing score (WNL) 5) Elevator Counting with Reversal: raw score 3/10 (BNL) Subtests administered 10/24/13: 6) Telephone Search: 60 seconds, 15/20 symbols located (4.0 time per target score) 7) Telephone Search While Countin/20 symbols located, 2 minutes 55 seconds 8) Lottery: 3/6 (BNL) Vision Assessment ACUITY INTERMEDIATE DISTANCE Instruct the client to identify numbers on the Intermediate Distance Chart celio distance of 1 meter. Right eye noe 20/30 Left eye noe 20/30 Eyes together noe 20/30 READING ACUITY Instruct the client to read the sentences on the Nexeon text card at a distance of 40cm/16 inches noe 20/25 Observations: Pt wore reading glasses. Contrast sensitivity: Dalila numbers scale Instruct the client to read the first number of each row on the Dalila Numbers Screener at a distance of 40 cm using both eyes together. 1.25% (WNL) Kinetic Two-Person Confrontation Test Horizontal and Vertical Gonzales -Visual gonzales intact in all directions. Ocular Motor Function Assessment Eye Movement SMOOTH PURSUIT Instruct the client to focus on the penlight; move the penlight slowly in an arc 20 inches from the face through the 9 cardinal directions of gaze. Record deficiencies/deviations in eye movement. -Smooth pursuits in all directions Convergence Instruct the client to focus on the penlight (held vertically). Beginning at 20 inches, slowly movethe penlight towards the bridge of the client???s nose. Observe convergent eye movements. Record the distance from the nose at which the client breaks fixation in 1 or both eyes. Record deficiencies/deviations in eye movement. Also note pupillary response, effort, and ability to sustain convergence Near point of convergence in inches: 6 inches -No abnormal blinking noted or discomfort reported by the pt ASSESSMENT: Chelsea Gar presents today with limited functional performance due to headache pain, cognitive impairments, visual changes, and decreased activity tolerance; all related to a concussion sustained on 09/13/13. Results of vision screen reveal good intermediate distance and reading acuity, as well as intact visual gonzales and oculomotor functions WNL Continued administration of subtests of the TEA suggest possible decreased visual processing speed and decreased sustained auditory attention. G-Code: Self-Care Status Modifier CURRENT CJ - [...] 6 7 8 9 10 10/09/13 10/17/13 10/24/13 Halfway Goals (to be met by discharge): Date Goal Met: 1.) Chelsea Lita Gar will complete activities of daily living independently at a 10/10 level. Goal Status: 2.) Chelsea Gar will be able to resume all occupational roles independently without restriction. Goal Status: Short Term Goals (to be met by 2 weeks - 10/24/13): Date Goal Met: Chelsea Gar will be independent with home activities with 100% compliance. Goal Status: Extend x3 weeks - 11/14/13 Chelsea Gar will be able to independently recall 5/5 pharmacy items and locate items in the store as measure of improved memory/attention. Goal Status: Extend x3 weeks - 11/14/13 Chelsea Gar will score WNL on Map [...] tothe treatment plan. Yolanda Abbasi OT Pager: [phone] documented in this encounter Plan of Treatment Upcoming Encounters Date Type Department Care Team (Late st Contact Info) Description 08/18/2024 1:30 PM EST Appointment Mammography/[place] [address] Kathia Alvarado APRN [address] [place] [address] documented as of this encounter Visit Diagnoses Diagnosis Cognitive change Other signs and symptoms involving cognition Concussion with no loss of consciousness, subsequent encounter documented in this encounter Care Teams Formwork Carpenter Relationship Specialty Start Date End Date Charles Huitron MD [address] [place] [address] PCP - General 07/08/10 documented as of this encounter
--- OUTSIDE RECORDS SUMMARY | 2024-07-12 15:57 | XMS_ITS | Encounter Summary ---
Author Organization [facility] [place] [address] Care Team Providers Care Retail Salesworker Name Role Phone Charles Huitron MD Primary Care Provider [phone] Encounter Details Date Type Department Care Team (Late st Contact Info) Description 01/22/2014 Telephone Psychiatry [place] [address] Carmen Palacios, [facility] DR [facility] - [place] [address] Social History Tobacco Use Types Packs/Day Years [...] Notes * Telephone Encounter - Carmen Little, [facility] - 01/22/2014 12:51 PM EDT Call to pt to reschedule appointment set up for tomorrow at 10:00 am. She was not home so left a message and offered 9 or 9:30 am on Wednesday 6/11. documented in this encounter Plan of Treatment Upcoming Encounters Date Type Department Care Team (Late st Contact Info) Description 08/18/2024 1:30 PM EST Appointment Mammography/[place] [address] Kathia Alvarado APRN [address] [place] [address] documented as of this encounter Visit Diagnoses Not on filedocumented in this encounter Care Teams Retail Salesworker Relationship Specialty Start Date End Date Charles Huitron MD [address] [place] [address] PCP - General 07/08/10 documented as of this encounter
--- OUTSIDE RECORDS SUMMARY | 2024-07-12 15:57 | XMS_ITS | Encounter Summary ---
Author Organization [facility] [place] [address] Care Team Providers Care Base Filler Name Role Phone Charles Huitron MD Primary Care Provider [phone] Encounter Details Date Type Department Care Team (Late st Contact Info) Description 11/21/2013 9:00 AM EDT Follow-[place] [address] Yolanda Abbasi, OT [facility] PHYSICAL MEDICINE & [place] [address] Cognitive change; Concussion with no loss of [...] Progress Notes * Yolanda Abbasi, OT - 11/21/2013 9:04 AM EDT OCCUPATIONAL THERAPY PROGRESS NOTE CERTIFICATION PERIOD: 10/08/13 - 01/05/14 REFERRAL SOURCE: Merlyn Olsen APRN DIAGNOSIS: 1. Cognitive change 2. Concussion with no loss of consciousness, subsequent encounter NEXT MD FOLLOW UP: 12/08/13 with Merlyn Olsen APRN TOTAL TREATMENT TIME: 60 minutes TIMED CODE TREATMENT TIME: 60 minutes SUBJECTIVE: Pt reports she is feeling much better than last week. She got her new glasses yesterday. She has increased her hours at work (worked an 8-hour shift yesterday). OBJECTIVE: Chelsea Gar is a 58 y.o. [...] CT scan which was normal. TREATMENT TODAY: -Shifting attention activity - instructed pt to alphabetize and type a list of unusual names on thecomputer. While pt participated in this activity, called pt from another room and left phone messages with numerous details. Within allotted time, pt correctly alphabetized 20/30 names. Based the notes she had taken while on the phone, pt accurately recalled ~75-80% details (i.e. Names, dates). ASSESSMENT: Chelsea Gar presents today with limited functional performance due to headache pain, cognitive impairments, visual changes, and decreased activity tolerance; all related to a concussion sustained on 09/13/13. Pt presented with significantly improved mood today and is pleased she is feeling much better overall than last week. She demonstrated adequate shifting attention skills to attend to a challenging activity, then quickly shift attention to taking a phone call and taking notes. She will benefit from continued participation in similar activities. G-Code: Self-Care Status Modifier CURRENT CJ - [...] 9 10 10/09/13 10/17/13 10/31/13 11/07/13 11/14/13 11/21/13 Fpc Goals (to be met by discharge): [...] 4 week(s) to progress toward short and custodial goals. for Visual compensation, Cognitive retraining attention and compensatory strategies andSequencing and planning (X) Chelsea Gar participated in the evaluation, collaborated on treatment goals, and agrees tothe treatment plan. Yolanda Abbasi OT Pager: [phone] documented in this encounter Plan of Treatment Upcoming Encounters Date Type Department Care Team (Late st Contact Info) Description 08/18/2024 1:30 PM EST Appointment Mammography/[place] [address] Kathia Alvarado APRN [address] [place] [address] documented as of this encounter Visit Diagnoses Diagnosis Cognitive change Other signs and symptoms involving cognition Concussion with no loss of consciousness, subsequent encounter documented in this encounter Care Teams Base Filler Relationship Specialty Start Date End Date Charles Huitron MD [address] [place] [address] PCP - General 07/08/10 documented as of this encounter
--- OUTSIDE RECORDS SUMMARY | 2024-07-12 15:57 | XMS_ITS | Encounter Summary ---
Author Organization [facility] [place] [address] Care Team Providers Care Assistant Chief Train Dispatcher Name Role Phone Charles Huitron MD Primary Care Provider [phone] Reason for Visit * Reason Comments Follow-up Encounter Details Date Type Department Care Team (Late st Contact Info) Description 01/19/2014 11:00 AM EDT Follow-[place] [id number] Merlyn Olsen TIRE SHOP MANAGER [facility] [place] [address] MCI (mild cognitive impairment); Concussion with no loss of consciousness, sequela Discharge Disposition: Home Social History Tobacco Use [...] Sign Reading Time Taken Comments Blood Pressure 131/71 01/19/2014 11:02 AM EDT Pulse 72 01/19/2014 11:02 AM EDT Temperature - - Respiratory Rate 16 01/19/2014 11:02 AM EDT Oxygen Saturation 98% 01/19/2014 11:02 AM EDT Inhaled Oxygen Concentration - - Weight - - Height - - Body Mass Index - - documented in this encounter Progress Notes * Merlyn Olsen, TIRE SHOP MANAGER - 03/07/2014 3:44 PM EDT Division of Trauma and Acute Surgical Care Problem-focused Outpatient Progress Note: Rehabilitation Encounter Date: 01/19/14 Chief Complaint: Visit for rehabilitation needs s/p head trauma Date of Injury: 09/13/13 HPI: Please see previous records. In brief, Chelsea Gar sustained a concussion when she was unloading the back of her Civic, the kilgore door came down on her head. She states that she dropped to her knees and felt dazed, initially thinking that she had walked into the door edge somehow... Later realizing that it fell on tot he top of her head. She was seen by her PCP that day and sent home with recommendation for strict rest. The following morning, she awoke with dramatic fatigue, dizzinessand nausea. She presented to [facility] ED. She had a Head CT of the brain, read as normal and was discharged with follow up here as needed. Since last visit, she has had a psychiatric admission. She reports that there were medication changes recommended and that she did not find the groups helpful. In general however, understands why we had recommended admission, and reports feeling much better. Prior head trauma: 15 years ago, stood up quickly and hit head. Concussion. Previous migraine hx treated by Dr Cutler. Usually only bothered in warm weather. Identified problems for this visit: 1. MCI (mild cognitive impairment) 2. Concussion with no loss of consciousness, sequela Allergies and Medications: Allergies Allergen Reactions ??? Amoxicillin Trihydrate Rash red from head to toe ??? Haloperidol Per patient, she was very anxious and scared. Haloperidol made these symptoms worse. ??? Sulfa (Sulfonamide Antibiotics) Rash red rash Current Outpatient Prescriptions on File Prior to Visit Medication Sig Dispense Refill ??? traZODone (DESYREL) 50 mg tablet Take [...] tablet Take 1 tabletby mouth daily. ??? [place]-3 Fatty Acids (FISH OIL) 500 mg Cap [...] by mouth daily. 3 capsules--total 225 mg. Social History: History Substance Use Topics ??? Smoking status: Former Smoker -- 1.0 packs/day for 22 years Types: Cigarettes Quit date: 12/23/1985 ??? Smokeless tobacco: Never Used ??? Alcohol Use: No Comment: stopped 23 yrs. ago Lives alone. No pets. Adult children nearby. Significant other involved, supportive Connected with PCP and counselor. Psychiatric issues well controlled Has been on disability for 10 years for Depression and PTSD. 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 Left handed. Subjective: Concussion symptom checklist (in the last week) 0=none, 1-2=mild, 3-4=moderate, 5-6=severe 11/10 12/08 6/6 Physical symptoms headache 2 0 0 0 nausea 0 0 0 0 vomiting 0 0 0 0 balance problem 3 2 1 1 dizziness 3 2 1 1 visual problems 1 0 0 fatigue 1 3 2 0 sensitivity to light 3 0 0 0 sensitivity to sound / noise 4 1 0 1 numbness / tingling 0 0 0 0 pain other than headache 0 2 0 0 Cognitive symptoms feeling mentally foggy 4 1 0 1 feeling slowed down 4 1 1 0 difficulty concentrating 2 2 1 1 difficulty remembering 2 2 1 1 Sleep drowsiness 0 0 0 sleeping less than usual 4 0 0 0 sleeping more than usual 0 1 0 4 trouble falling asleep 1 0 0 0 Emotional symptoms irritability 3 2 0 0 sadness 4 2 0 0 nervousness 4 1 1 0 feeling more emotional 4 2 1 1 (n?) Symptoms are worse with cognitive activity (y) Symptoms are worse with physical activity Additional ROS: Chelsea Gar denies recent illness, and has had no new injury. Medication changes: remeron and trazodone changes -- sleeping better. Objective: Chelsea Gar is a pleasant, overweight woman wearing glasses and appropriate garb. She is alert, oriented to person, place, time and condition. she makes good eye contact and is able to engage in a linear and logical conversation about the injury symptoms and plan of care. she is nottangential. Brighter affect. Attention and concentration is appropriate for the context of this evaluation. No word finding difficulty. she can follow multi-step directions without delay. Insightful,but some limited ability to generate new ideas / problem-solving / anticipating management of symptoms. Assessment / Recommendations: Chelsea Gar is a 59 y.o. female who has sustained a concussive brain injury. Reviewed education given r/t concussion and metabolic changes following brain injury. Overall feeling better with improved energy - feeling rested. Mood improved and she feels that her functional status has markedly improved as well. She will continue with rehab interventions to meet stated therapy goals. We have also discussed the energy and importance of attention to sleep, nutrition, and encouraged light exercise. Additional restrictions: Drive with caution Follow up visit / return to clinic: 2-3 mo, prn follow up visit: 23 of this 25 minute visit (>than 50%) was spent on counseling and discussion related to recovery from traumatic brain injury and rehabilitation plan as discussed above. Ayde Olsen APRN, [facility]OR Trauma Division, Section of Trauma and Acute Care Surgery Department of General Surgery, [facility] documented in this encounter Plan of Treatment Upcoming Encounters Date Type Department Care Team (Late st Contact Info) Description 08/18/2024 1:30 PM EST Appointment Mammography/[place] [phone] Kathia Alvarado APRN [address] [place] [address] documented as of this encounter Visit Diagnoses Diagnosis MCI (mild cognitive impairment) Mild cognitive impairment, so stated Concussion with no loss of consciousness, sequela documented in this encounter Care Teams Assistant Chief Train Dispatcher Relationship Specialty Start Date End Date Charles Huitron MD [address] [place] [address] PCP - General 07/08/10 documented as of this encounter
--- OUTSIDE RECORDS SUMMARY | 2024-07-12 15:57 | XMS_ITS | Encounter Summary ---
Author Organization [facility] [place] [address] Care Team Providers Care Crew Truck Driver Name Role Phone Charles Huitron MD Primary Care Provider Encounter Details Date Type Department Care Team (Late st Contact Info) Description 01/03/2014 8:00 AM EDT Follow-[place] [address] Dorie Hills, GLACIOLOGIST Other specified nonpsychotic mental disorders following organic [...] as of this encounter Progress Notes * Dorie Hills GLACIOLOGIST - 01/09/2014 2:01 PM EDT Speech-Language Pathology Treatment session 01/03/2014 Total Treatment Time: 71 min. Total Timed Code Treatment: 71 min. KX Modifier used beginning date: n/a S: Patient was scheduled to be seen today to complete a cognitive-linguistic evaluation. At the beginning of the session, patient reported feeling desperate. She has been experiencing frustration with her symptoms following her most recent concussion and feels as if she can no longer care for herself. She is not satisfied with her current medication and feels as if she needs to see a psychiatrist. Chelsea discussed her history of depression including being admitted to the Psych Unit at [facility] on two separate occasions, once for suicidality and the second for homicidal intent. Chelsea stated complete anger toward [employer] and with everyone who works for [employer]. She understands that she shouldn't feel this way but cannot help it. 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 Chelsea was crying throughout the session. O + A: The majority of today's session involved discussion with the patient regarding her cognitive-linguistic impairment s/p recent concussion as well as her current frustration with symptoms associated with mTBI. Given concern with the patient's current emotional status, this GLACIOLOGIST requested assistance from Ayde Olsen who contacted the Psych Crisis Team, who agreed to evaluate Chelsea. Following evaluation, Chelsea was admitted to the inpatient psychiatry. P: 3 follow-up sessions 1x/month for 1 hour to be scheduled when patient is discharged from [facility]. Patient is in agreement with plan. RECOMMENDATIONS: Follow-up with psych Contact this GLACIOLOGIST to schedule visit when discharged from [facility] G-Code: Memory Status Modifier CURRENT CJ - At least 20 percent but less than 40 percent impaired, limited or restricted PROJECTED CI - At least 1 percent but less than 20 percent impaired, limited or restricted DISCHARGE Not Discharged Yet - Ongoing G Code Rationale: This G-Code and these disability modifiers were selected as the primary speech therapy goal based upon the patient's evaluation including clinical presentation on tests and clinicaljudgement. Ms. Gar's current G- Code functional level is 30% impaired based upon results of formal and informal assessment measures. 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
--- OUTSIDE RECORDS SUMMARY | 2024-07-12 15:57 | XMS_ITS | Encounter Summary ---
Author Organization [facility] Address [facility] [place] [address] Care Team Providers Care Geospatial Extractor Analysis Name Role Phone Charles Huitron MD Primary Care Provider [phone] Encounter Details Date Type Department Care Team (Late st Contact Info) Description 11/10/2013 2:45 PM EDT Follow-[place] [address] Sonia Solorio, [facility] PHYSICAL MEDICINE & [place] [address] Abnormality of gait and mobility (Primary Dx); [...] this encounter Progress Notes * Sonia Solorio CANDY PACKER - 11/13/2013 6:43 AM EDT Physical Therapy Progress Note Total [...] 7 8 9 10 10/25/13 11/07/13 11/10/13 Follow up visit for a patient with 1. Abnormality of gait and mobility 2. Concussion with no loss of consciousness, subsequent encounter S: Patient reports she is O.K. today. Her neck is still sore but better. She states her dizziness/unbalance is 4/10 after doing a lot of activity today. O: Manual Therapy (36135) 15 min, neuromuscular re-ed: 25 min dizziness 4/10 treadmill 2.0 mph with head turns and tilts--dizziness with head turns is 7/10 and tilts 4/10 VOR x 1 with dizziness within seconds 2 foam: romberg stance with head turns and tilts--she became tearful, scared she is not going to improve, EC up to 15 sec., 360 degree turns--dizziness turning to the (L) walking with head turns and tilts, tandem walking, gaze stabilization--she states she is tired at this time supine STM to anterior, lateral and posterior cervical musculature manual cervical traction occipital/suboccipital release A: Pt. was able to tolerate increased activity today, but she does still fatigue fairly quickly. Her dizziness takes a few minutes to resolve and did not go below 4/[address] Goals: 11/25/13 1. Independent [...] 08/18/2024 1:30 PM EST Appointment Mammography/[place] [address] Kathia Alvarado APRN [address] [place] [address] documented as of this encounter Visit Diagnoses Diagnosis Abnormality of gait and mobility- Primary Abnormality of gait Concussion with no loss of consciousness, subsequent encounter documented in this encounter Care Teams Geospatial Extractor Analysis Relationship Specialty Start Date End Date Charles Huitron MD [address] [place] [address] PCP - General 07/08/10 documented as of this encounter
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
--- OUTSIDE RECORDS SUMMARY | 2024-07-12 15:57 | XMS_ITS | Encounter Summary ---
Author Organization [facility] [address] Care Team Providers Care Agricultural Plow Operator Name Role Phone Charles Huitron MD Primary Care Provider [phone] Reason for Visit * Reason Comments Medication Refill Encounter Details Date Type Department Care Team (Late st Contact Info) Description 07/09/2014 Refill Psychiatry [place] [phone] Filomena Muñoz TURNING LATHE TENDER [facility] [address] [place] [address] Social History Tobacco Use Types Packs/Day Years [...] 08/18/2024 1:30 PM EST Appointment Mammography[place] [phone] Kathia Alvarado APRN [address] [place] [address] documented as of this encounter Visit Diagnoses Not on filedocumented in this encounter Care Teams Agricultural Plow Operator Relationship Specialty Start Date End Date Charles Huitron MD [address] [place] [address] PCP - General 07/08/10 documented as of this encounter
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
--- OUTSIDE RECORDS SUMMARY | 2024-07-12 15:57 | XMS_ITS | Encounter Summary ---
Author Organization [facility] [place] [address] Care Team Providers Care Dredge Deckhand Name Role Phone Charles Huitron MD Primary Care Provider [phone] Encounter Details Date Type Department Care Team (Late st Contact Info) Description 12/12/2013 9:00 AM EDT Follow-Up Occupational [place] [address] Yolanda Abbasi, OT [facility] PHYSICAL MEDICINE & [place] [address] Cognitive change; Concussion with no loss of [...] Progress Notes * Yolanda Abbasi, OT - 12/12/2013 9:05 AM EDT OCCUPATIONAL THERAPY PROGRESS NOTE CERTIFICATION PERIOD: 10/08/13 - 01/05/14 REFERRAL SOURCE: Merlyn Olsen APRN DIAGNOSIS: 1. Cognitive change 2. Concussion with no loss of consciousness, subsequent encounter NEXT MD FOLLOW UP: TBD TOTAL TREATMENT TIME: 60 minutes TIMED CODE TREATMENT TIME: 60 minutes therapeutic activities SUBJECTIVE: Pt reports she was driving to [place] 2 weeks ago and suddenly had the sensation that je was rolling backwards. 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 OBJECTIVE: Chelsea Gar is a 58 y.o. [...] CT scan which was normal. TREATMENT TODAY: -Led skilled discussion of energy conservation strategies and balancing rest/activity. Instructed pt to generate a list of activities that are enjoyable and do not provoke symptoms: 1) Knitting 2) Puzzles online 3) Folding clothes 4) Small meeting 2x/week 5) Cooking 6) Putting makeup 7) Watching the Red Sox -Instructed pt to begin using her appointment book as a place to track activity level and symptoms in a an attempt to find patterns. Pt in agreement with plan. -Re-administered the following subtests of the Test of Everyday Attention (TEA) to compare to performance on 10/17/13 and 10/24/13. The TEA is a standardized, normed assessment of various forms of attention. 1) Map Search: 25 symbols in 1, 48 symbols in 2 (WNL) 2) Elevator Countin/7 (normal) 3) Elevator Counting with Distraction: NE 4) Visual Elevator: NE 5) Elevator Counting with Reversal: NE 6) Telephone Search: NE 7) Telephone Search While Counting: NE 8) Lottery: NE ASSESSMENT: Chelsea Gar presents today with limited functional performance due to headache pain, cognitive impairments, visual changes, and decreased activity tolerance; all related to a concussion sustained on 09/13/13. Pt presented with fatigue today and reports she had a very stressful week.She has had difficulty balancing rest and activity and will benefit from keeping a daily journal totrack activity and symptoms. G-Code: Self-Care Status Modifier CURRENT CJ - [...] 10 10/09/13 10/17/13 10/31/13 11/07/13 11/14/13 11/21/13 12/12/13 Master Automotive Glass Technician Goals (to be met by discharge): Date [...] improved memory/attention. Goal Status: Extend x4 weeks (12/19/13) Chelsea Gar will score WNL on Map Scanning and Elevator Counting subtests of the TEA as measure of improved sustained attention. 10/17/13 Goal Status: Met PLAN: The patient is to be seen 1 time(s) per week, for 4 week(s) to progress toward short and assisted goals. for Visual compensation, Cognitive retraining attention and compensatory strategies andSequencing and planning (X) Chelsea Gar participated in the evaluation, collaborated on treatment goals, and agrees tothe treatment plan. Yolanda Abbasi OT Pager: [phone] documented in this encounter Plan of Treatment Upcoming Encounters Date Type Department Care Team (Late st Contact Info) Description 08/18/2024 1:30 PM EST Appointment Mammography/[place] [address] Kathia Alvarado APRN [address] [place] [address] documented as of this encounter Visit Diagnoses Diagnosis Cognitive change Other signs and symptoms involving cognition Concussion with no loss of consciousness, subsequent encounter documented in this encounter Care Teams Dredge Deckhand Relationship Specialty Start Date End Date Charles Huitron MD [address] [place] [address] PCP - General 07/08/10 documented as of this encounter
--- OUTSIDE RECORDS SUMMARY | 2024-07-12 15:57 | XMS_ITS | Encounter Summary ---
Author Organization [facility] [place] [address] Care Team Providers Care Radio Station Engineer Name Role Phone Charles Huitron MD Primary Care Provider [phone] Reason for Visit * Reason Comments Follow-up med check Encounter Details Date Type Department Care Team (Late st Contact Info) Description 01/02/2014 12:30 PM EDT Follow-Up [place] [phone] Merlyn Olsen APRN [facility] [place] [address] Acute post-traumatic headache, not intractable; Cognitive change; Concussion with no loss of consciousness, subsequent encounter; Depression; MCI (mild cognitive impairment) Discharge Disposition: Home Social History Tobacco Use [...] Sign Reading Time Taken Comments Blood Pressure 110/57 01/02/2014 12:12 PM EDT Pulse 59 01/02/2014 12:12 PM EDT Temperature - - Respiratory Rate - - Oxygen Saturation 99% 01/02/2014 12: 12 PM EDT Inhaled Oxygen Concentration - - Weight 96.6 kg (212 lb 14.4 oz) 014 12:12 PM EDT Height - - Body Mass Index 38.32 06/05/2013 8:24 AM EDT documented in this encounter Progress Notes * Merlyn Olsen APRN - 01/04/2014 3:38 PM EDT Division of Trauma and Acute Surgical Care Problem-focused Outpatient Progress Note: Rehabilitation 01/02/14 Chelsea Gar is a 58 y.o. female seen today in follow up. This was a brief visit as Chelsea is fatigue and distressed. Feeling as though she is not getting better. Frustrated. doesn't want to live like this. Discussed past depressive episodes and past psych hospitalizations. Suicidal ideation: yes Plan: no Means: n/a Intent: no Chelsea states that it has been years since she has had any adjustment in her psych meds, that her PCP was comfortable in prescribing as long as she were stable, and now is encouraging her to find a psychiatrist. She reports that she has been unsuccessful with this and agrees to referral here. Chelsea is quite distressed. Tearful. Fatigued. She would like to stay for physical therapy eval this afternoon, but is markedly tired. She drove herself. Arranged for her to stay in darkened exam room to rest until appointment. She felt strongly that this was all she needed to be able to follow through with treatment recommendations. Agrees to call / reach out for additional assistance and knows her resources. (later - patient appropriately left the exam room and completed PT appointment in the afternoon). Ayde Olsen APRN, CBIS Trauma Division, Section of Trauma and Acute Care Surgery Department of General Surgery, [facility] documented in this encounter Plan of Treatment Upcoming Encounters Date Type Department Care Team (Late st Contact Info) Description 08/18/2024 1:30 PM EST Appointment Mammography/[place] [address] Kathia Alvarado APRN [address] [place] [address] documented as of this encounter Visit Diagnoses Diagnosis Acute post-traumatic headache, not intractable Acute post-traumatic headache Cognitive change Other signs and symptoms involving cognition Concussion with no loss of consciousness, subsequent encounter Depression Depressive disorder, not elsewhere classified MCI (mild cognitive impairment) Mild cognitive impairment, so stated documented in this encounter Care Teams Radio Station Engineer Relationship Specialty Start Date End Date Charles Huitron MD [address] [place] [address] PCP - General 07/08/10 documented as of this encounter
--- OUTSIDE RECORDS SUMMARY | 2024-07-12 15:57 | XMS_ITS | Encounter Summary ---
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 12/29/2013-03/31/14 Total Timed Code Treatment: 120 minutes KX Modifier used beginning on date: N/A Presenting Problem: Patient is a 58 y.o. female who presents today with a diagnosis of concussion. Chelsea was seen by Merlyn Olsen APRN and referred to speech-language pathology to further evaluate her cognitive-linguistic function. Chelsea sustained a concussion on 09/13/13 when she was unloading her car and the kilgore door came down on her head. She was seen by her PCP that day and sent home with recommendation for rest. The following morning, Chelsea exhibited extreme dizziness, nausea and fatigue. She went to the ED that day and a Head CT was performed which was normal. Upon interview, Chelsea reports a history of alcoholism, attention deficit disorder and two previous concussions which she feels may be further complicating her recovery. She has a learning disability at baseline. She now presents with difficulty with word retrieval, memory, attention and higher level thought organization. She heavily relies on written notes to assist her in recall of salient information. She has increased sensitivity to sound, which she indicated she had at baseline and now can be unbearable at times. Her symptoms tend to fluctuate and she requires frequent rest breaks throughout the day. In addition, Chelsea has a history of depression and feels that it has been harder to manage her symptoms following her head injury. She is concerned that she may need a medication adjustment. She has been trying to set up an appointment with a psychiatrist, but has been unable to find one that will take her in. She is scheduled to see a counselor next week. Functional Limitations: Reduced communicative competence. Past Medical History: Past Medical History Diagnosis Date ??? Allergy ??? Elevated cholesterol ??? Chronic pain ??? Headache(784.0) Medications: Current Outpatient Prescriptions Medication Sig Dispense Refill ??? metoprolol succinate [...] tablet Take 1 tabletby mouth daily. ??? [place]-3 Fatty Acids (FISH OIL) 500 mg Cap [...] daily. 3 capsules--total 225 mg. Social History: Chelsea has 3 children, 1 of which was adopted, and 8 grandchildren. All live locally. She enjoys knitting in her free time. Academic/Vocational History: Chelsea completed her claudia year of high school and received her GED.She has taken a few college level courses. 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 Currently, she is being trained in the practice of Reiki, but has had to place this on hold following her recent concussion. S: Pt. contacted, alert. Sitting in chair. The room was quiet at the time of the assessment with reduced distractions. Chelsea was without report of pain at the time. O: Oral / Laryngeal Mechanism Clinical Assessment: Lingual: Tongue protrudes midline with functional ROM on all planes. Labial: Equal protrusion and retraction bilaterally. Velar: Uvula is midline. Velar elevation is present. Sensation: Grossly intact. Vocal fold function and airway protection: Strong productive cough. Speech Production & Voice Motor planning / execution: Within normal limits Slurred speech: Negative Nasality: Within normal limits Pitch: Within normal limits Rate: Within normal limits Loudness: Within normal limits Breath support: Adequate breath support Cognitive-linguistic skills: Corine-Trey Tests of Cognitive Ability: Subtest Memory for Names: An auditory-visual association task that measures the patient's ability to learn associations between unfamiliar auditory and visual stimuli, primarily measuring long-term retrieval. Raw Score: 40/72 W Score: 488 Standard Score: 4 Percentile: 35 WJ-R Classification: Average Subtest Memory for Sentences: A short-term memory and attention task, measures the ability to remember and repeat single words, phrases and sentences of stimuli presented in an auditory manner (of note the video recorded portion of this subtest was presented verbally which should be considered whenlooking at below standardized scores). Raw Score: 45/59 W Score: 498 Standard Score: 91 Percentile: 27 WJ-R Classification: Average Subtest Visual Matching: A test to primarily measure a patient's processing speed. Raw Score: 40/60 W Score: 501 Standard Score: 94 Percentile: 36 WJ-R Classification: Average Rome Naming Test (BNT): The Rome Naming Test (BNT) assesses word retrieval via confrontational naming in which the patient is presented with 60 black and white line drawings of objects. This assessment takes into account the finding that patients with dysnomia often have greater difficulties with the naming of low frequency objects. Thus, instead of a simple category of anomia, naming difficulties can be rank ordered along a continuum. Raw Score: 51/60 This places her below the mean BNT score when compared to same aged peers (mean=53.3) Chelsea falls within 1 SD of the mean (SD=4.6) Generative Naming Tasks: Chelsea named an average of 19 words per concrete category (>15 words=WNL). This placed Chelsea within normal limits. Trials with [employer] computer software program: ?? Under the Memory panel, Chelsea retrieved up to 5 single digit numbers before erring. Greater than 7 digits is considered WNL. ?? Chelsea passed on the first trial of the Fixed Point Visual reaction under the Attention panel. Chelsea appears to have good eye-hand coordination and could sustain her attention in order to achieve a pass. *Of note, the testing portion of this evaluation was incomplete as Chelsea exhibited extreme headache, nausea and fatigue during testing and could not go further. A: Summary: At the time of this assessment, Chelsea appears to have some cognitive- linguistic weaknessthat may inhibit his ability to perform everyday tasks. Chelsea was unable to complete the standardized portion of today's assessment due to symptoms that came on following 45 minutes of testing. Further testing is warranted as a thorough evaluation could not be completed. Chelsea's word retrieval when assessed via BNT, fell with the average range, but below the mean when compared to same aged peers. Chelsea was noted to have mild word finding difficulty during conversational speech with delayed recall intermittently. Regarding cognitive-linguistic skills, Chelsea presented within normal limits when assessed on long-term retrieval, short-term memory and processing speed. However, it is evident that Chelsea is breaking down on a functional level as she is heavily relying on use of strategies to facilitate recall of salient information. According to Chelsea, she is far from her baseline function and is motivated to participate in therapy. Further diagnostic evaluation is warranted priorto developing goals and a treatment plan. Would like to see Chelsea back within the next 2 weeks tocomplete our assessment. Dx: Cognitive-linguistic skills are judged to be impaired. P: 1 follow-up session scheduled within the next 2 weeks to complete this evaluation. Patient is in agreement with plan. RECOMMENDATIONS: Build rest breaks into the day with reduced stimuli Have an established routine in place Utilize memory strategies including the following: Rehearsal: Repeating the information either in your mind or aloud Association: Pairing information to be remembered with more automatic behaviors Visualization: Taking a mental picture of the information to be remembered Chunking: Breaking large strings of information into smaller more manageable units to be remembered Mnemonic device: SHARA EDMOND= Colors of the rainbow Use external memory aids including the following: Memory journal Medication box Checklists of things to remember, or steps in a task to be completed Write notes and post them in obvious places to remind you to do tasks Set an alarm clock to remind you to do something at a certain time or to remind you when to complete an activity Utilize the following strategies to enhance attention and recall Reduce distractions/organize your environment Break tasks into small, simple steps Take short breaks Restate all instructions before doing Talk out loud about the task, step by step as you do it G-Code: Memory Status Modifier CURRENT CJ - [...] 5 6 7 8 9 10 12/29/13 Thank you for this consult with this patient. Please feel free to contact me with any questions or comments. 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
--- OUTSIDE RECORDS SUMMARY | 2024-07-12 15:57 | XMS_ITS | Encounter Summary ---
Author Organization [facility] [place] [address] Care Team Providers Care Heart Nurse Name Role Phone Charles Huitron MD Primary Care Provider Encounter Details Date Type Department Care Team (Late st Contact Info) Description 02/02/2014 9:30 AM EDT [place] [address] Sonia Solorio, [facility] PHYSICAL MEDICINE & [place] [address] Abnormality of gait and mobility (Primary Dx); [...] this encounter Progress Notes * Sonia Solorio, PUMPER GAUGER - 02/02/2014 10:18 AM EDT Physical Therapy Progress Note [...] no loss of consciousness, subsequent encounter V58.89 S: Patient reports she is still doing very well. She is not having any dizziness. Since her last P.T. appt., 2 weeks ago, she states she has had 2 episodes of fuzziness in her brain, and both times she was out with a group. The level of dizziness was 1/10, much lower level than previously. She states she doesn't even think about going out walking now she just does it. O: neuromuscular re-ed: 35 min., manual therapy x 10 min. dizziness/fuzziness before treatment 0/10 treadmill 2.0 mph x 5 min.with head turns and tilts, gaze stabilization, tandem walking with no sxs. VOR x 1 with busy visual--no double vision or dizziness today VOR x 2--same as VOR x 1--no sxs. piotr discs: static stance, PF/DF, circles, marching, head turns, EC up to 22 sec. foam beam: tandem walking, tandem walking with ball toss, stepping over cups, picking cups up, headturns and gaze stabilization--no sxs.--she states she feels fatigued at this point, unable to coordinate manual therapy x 10 min. to cervical musculature with occipital release and manual cervical traction A: Pt. is feeling better. No sxs. throughout this treatment. ST Goals: 11/25/13 1. [...] 08/18/2024 1:30 PM EST Appointment Mammography/[place] [address] Kathia Alvarado APRN [address] [place] [address] documented as of this encounter Visit Diagnoses Diagnosis Abnormality of gait and mobility- Primary Abnormality of gait Concussion with no loss of consciousness, subsequent encounter documented in this encounter Care Teams Heart Nurse Relationship Specialty Start Date End Date Charles Huitron MD [address] [place] [address] PCP - General 07/08/10 documented as of this encounter
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
--- OUTSIDE RECORDS SUMMARY | 2024-07-12 15:57 | XMS_ITS | Encounter Summary ---
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 Total Timed Code Treatment: 63 min. KX Modifier used beginning date: N/A S: Chelsea arrived on time to today's appointment. She feels that she has been functioning well since her discharge from [facility] inpatient psychiatry department. She has been responding well to her medication change and has been getting more sleep at night. She is exercising daily as her energy level has improved. She is waking in the morning and completing tasks, which were difficult to even initiat e in the past. She has been using earplugs when in crowded environments with excess auditory stimuli. She reported improvements with her cognitive function as she now recognizes the need to build rest breaks into her day and use compensatory strategies. She is better able to identify when she needsa break as she is recognizing signs of fatigue. She is no longer multi-tasking, which is allowing her to sustain her attention with one task for a longer period of time. She is working 3 days/week and feels satisfied with her ability to perform work related tasks. O: Pt. seen for treatment of cognitive-linguistic skills. Goals: Pt will demonstrate independent use of compensatory speech strategies when experiencing word finding difficulty during conversational speech tasks. Chelsea is independently using gestures to facilitate recall when experiencing word finding difficulty. Trained Chelsea in use of circumlocution as an additional strategy. Pt will demonstrate independent use of external memory aids to improve functional recall within hercurrent living environment. Chelsea has become successful with use of written communication to facilitate recall. She is now carrying a notepad with her at all times where she writes down salient info rmation. She additionally has been creating to do lists where she writes down 3 important tasks that need to be completed daily. Chelsea has been using an appointment book to keep track of her appointments. Patient will demonstrate independent use of internal memory strategies to facilitate functional recall within her current living environment. Trained Chelsea in use of internal memory strategies including rehearsal, visualization, association and mnemonic devices. Patient will demonstrate independent use of strategies to improve attention and recall. Chelsea hasbeen using earplugs to improve attention to task and reduce sensory overload when in crowded environments. She additionally has been breaking large tasks into smaller parts to assist with task completion. For example, she recently made a homemade pie and broke down the process into 3 separate partsto be completed over the course of 3 days. Patient will sign up for [employer] and complete selected tasks daily. Chelsea has researchedthe program, however has not yet signed up. Today in therapy we completed tasks targeting executivefunction and memory. On the digit retention task under the memory track, Chelsea exhibited difficulty recalling greater than 5 digits (7 digits=WNL). A: Chelsea has made a great deal of progress since our last session. Her medications have been changedand her energy has improved. She feels that she has demonstrated progress with her performance on cognitive tasks with improved use of strategies. Chelsea is demonstrating independent use of various external memory aids including use of written information and a daily demand planner to facilitate recall of salient information and appointments. She has additionally demonstrated progress with use of strategies to improve attention including reducing sensory overload by using earplugs in crowded environments. Educated Chelsea on use of internal memory strategies to improve recall including rehearsal, visualization and association. Regarding word retrieval, Chelsea demonstrated independent use of gestures when experiencing word finding difficulty during today's session. Discussed use of circumlocution as an additional strategy to facilitate recall. Also, discussed use of a visual cue when Chelsea is experiencing delayed recall. This would be an appropriate strategy to use when the word is on the tip of the tongue. Chelsea has excellent insight into her deficits and demonstrated significantlyimproved performance during our session today. Would like to see Chelsea for an additional follow-up session in approximately one month. P: Dx: Cognitive-linguistic skills are judged to be impaired. P: 1 follow-up session in one month or as patient's schedule allows. Patient is in agreement with plan. RECOMMENDATIONS: Build rest breaks into the day with reduced stimuli Have an established routine in place Continue with use of noise cancelling headphones/earplugs Utilize memory strategies including the following: Rehearsal: [...] upon results of formal and informal assessment measures performed 12/29/13. 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
--- OUTSIDE RECORDS SUMMARY | 2024-07-12 15:57 | XMS_ITS | Encounter Summary ---
Author Organization [facility] [place] [address] Care Team Providers Care Simulation Analyst Name Role Phone Charles Huitron MD Primary Care Provider [phone] Encounter Details Date Type Department Care Team (Late st Contact Info) Description 10/17/2013 3:30 PM EST Follow-[place] [phone] CLINIC, Eleazar Remy MD [facility] [place] [address] Yolanda Abbasi, OT [facility] PHYSICAL MEDICINE & [place] [address] Cognitive change; Concussion with no loss of [...] Progress Notes * Yolanda Abbasi, OT - 10/17/2013 3:30 PM EST OCCUPATIONAL THERAPY PROGRESS NOTE CERTIFICATION PERIOD: 10/08/13 - 01/05/14 REFERRAL SOURCE: Merlyn Olsen APRN DIAGNOSIS: 1. Cognitive change 2. Concussion with no loss of consciousness, subsequent encounter NEXT MD FOLLOW UP: 11/10/13 with Merlyn Olsen APRN TOTAL TREATMENT TIME: 60 minutes TIMED CODE TREATMENT TIME: 15 minutes therapeutic exercise 45 minutes therapeutic activities SUBJECTIVE: Pt reports she went to a large meeting yesterday and was unable to maintain attention to both her knitting and the meeting. She is feeling fuzzy today. OBJECTIVE: Chelsea Gar is a 58 y.o. [...] CT scan which was normal. TREATMENT TODAY: STRENGTH: (Measured in pounds using a dynamometer and pinch meter) Right Left Health Service Worker setting 2 84.1, 84.7, 79.6 80.9, 87.1, 83.1 Health Service Worker Average 82.8 (WNL) 83.7 (WNL) Roldan 23 23.5 3 Pt 20 21 Tip 14 14 9 Hole Peg Test RIGHT LEFT Trial #1 24 23 Trial #2 19 20 Trial #3 20 22 Average: 21 22 Administered the following subtests of the Test of Everyday Attention (TEA). The TEA is a standardized, normed assessment of various forms of attention. 1) Map Search: 23 symbols in 1 (WNL), 46 symbols in 2 (WNL) 2) Elevator Countin/7 (normal) 3) Elevator Counting with Distraction: raw score 6/10 (BNL) 4) Visual Elevator: 9/10 correct, 5.26 timing score (WNL) 5) Elevator Counting with Reversal: raw score 3/10 (BNL) 6) Telephone Search: NE 7) Telephone Search While Counting: NE 8) Lottery: NE ASSESSMENT: Chelsea Gar presents today with limited functional performance due to headache pain, cognitive impairments, visual changes, and decreased activity tolerance; all related to a concussion sustained on 09/13/13. Results of B UE strength/coordination testing reveal above average strength in B hands and coordination WNL bilaterally. She continues to drop small objects and her handwriting has been affected - will continue to explore whether this might be related to a visual or attentional issue. Results of subtests of the TEA administered thus far suggest visual selective attention,visual shifting attention, and sustained auditory attention are areas of strength. Areas that were particularly challenging include selective auditory attention and auditory- verbal working memory. G-Code: Self-Care Status Modifier CURRENT CJ - [...] 6 7 8 9 10 10/09/13 10/17/13 Counselor At [employer] Goals (to be met by discharge): Date [...] tothe treatment plan. Yolanda Abbasi OT Pager: [phone] documented in this encounter Plan of Treatment Upcoming Encounters Date Type Department Care Team (Late st Contact Info) Description 08/18/2024 1:30 PM EST Appointment Mammography/[place] [address] Kathia Alvarado APRN [address] [place] [address] documented as of this encounter Visit Diagnoses Diagnosis Cognitive change Other signs and symptoms involving cognition Concussion with no loss of consciousness, subsequent encounter documented in this encounter Care Teams Simulation Analyst Relationship Specialty Start Date End Date Charles Huitron MD [address] [place] [address] PCP - General 07/08/10 documented as of this encounter
--- OUTSIDE RECORDS SUMMARY | 2024-07-12 15:57 | XMS_ITS | Encounter Summary ---
Author Organization [facility] [place] [address] Care Team Providers Care Market Research Executive Name Role Phone Charles Huitron MD Primary Care Provider [phone] Reason for Visit * Reason Comments Follow-up s/p concussion Encounter Details Date Type Department Care Team (Late st Contact Info) Description 12/08/2013 9:30 AM EDT Follow-[place] [phone] Merlyn Olsen, PHYLLIS [facility] [place] [address] Concussion with no loss of consciousness, subsequent encounter; Dizziness; MCI (mild cognitive impairment); Cognitive change; Acute post-traumatic headache, not intractable Discharge Disposition: Home Social History Tobacco Use [...] Sign Reading Time Taken Comments Blood Pressure 121/70 12/08/2013 9:20 AM EDT Pulse 79 12/08/2013 9:20 AM EDT Temperature - - Respiratory Rate - - Oxygen Saturation - - Inhaled Oxygen Concentration - - Weight 95.3 kg (210 lb) 12/08/2013 9:20 AM EDT Height - - Body Mass Index 37.8 06/05/2013 8:24 AM EDT documented in this encounter Progress Notes * Merlyn OlsenPHYLLIS - 12/08/2013 9:45 AM EDT Division of Trauma and Acute Surgical Care Problem-focused Outpatient Progress Note: Rehabilitation Encounter Date: 12/08/13 Chief Complaint: Visit for rehabilitation needs s/p [...] dramatic fatigue, dizzinessand nausea. She presented to [facility] ED. She had a Head CT of the brain, read as normal and was discharged with follow up here as needed. Since last visit, she has continued with PT, OT and has seen SOIL SCIENCE PROFESSOR. She states that she has received new glasses, and has had resolution of double vision. Prior head trauma: 15 years ago, stood up quickly and hit head. Concussion. Previous migraine hx treated by Dr Cutler. Usually only bothered in warm weather. Identified problems for this visit: ICD-9-CM 1. Concussion with no loss of consciousness, subsequent encounter V58.89 2. Dizziness 780.4 3. MCI (mild cognitive impairment) 331.83 4. Cognitive change 799.59 5. Acute post-traumatic headache, not intractable 339.21 Allergies and Medications: Allergies Allergen Reactions ??? [...] tablet Take 1 tabletby mouth daily. ??? Winger-3 Fatty Acids (FISH OIL) 500 mg Cap [...] years for Depression and PTSD. 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 Left handed. Subjective: Concussion symptom checklist (in the last week) 0=none, 1-2=mild, 3-4=moderate, 5-6=severe 11/10 12/08 Physical symptoms headache 2 0 0 nausea 0 0 0 vomiting 0 0 0 balance problem 3 2 1 dizziness 3 2 1 visual problems 1 0 fatigue 1 3 2 sensitivity to light 3 0 0 sensitivity to sound / noise 4 1 0 numbness / tingling 0 0 0 pain other than headache 0 2 0 Cognitive symptoms feeling mentally foggy 4 1 0 feeling slowed down 4 1 1 difficulty concentrating 2 2 1 difficulty remembering 2 2 1 Sleep drowsiness 0 0 sleeping less than usual 4 0 0 sleeping more than usual 0 1 0 trouble falling asleep 1 0 0 Emotional symptoms irritability 3 2 0 sadness 4 2 0 nervousness 4 1 1 feeling more emotional 4 2 1 (n?) Symptoms are worse with cognitive activity (n?) Symptoms are worse with physical activity Additional ROS: Chelsea Gar denies recent illness, and has had no new injury. Medication changes: none recent. Overall feeling well. Objective: Chelsea Gar is a pleasant, overweight [...] she can follow multi-step directions without delay. Insightful, but some limited ability to generate new ideas / problem-solving / anticipating management of symptoms. Assessment / Recommendations: Chelsea Gar is a 59 y.o. female who has sustained a concussive brain injury. Reviewed education given r/t concussion and metabolic changes following brain injury. Also discussed previous condition and the effects of stimulation. Discussed possible increased sensitivity to medications and discussed possible decrease of trazodone. She reports efforts to re-engage with psychotherapist - also having difficulty finding psychiatrist. I think she would continue to benefit from brief treatment with physical and occupational therapy for balance and dizziness, activity titration and occupational planning, as well as SOIL SCIENCE PROFESSOR for higher level cognition and memory tasks. We have also discussed the energy and importance of attention to sleep, nutrition, and encouraged light exercise. Additional restrictions: Drive with caution Follow up visit / return to clinic: 2-3 mo follow up visit: 23 of this 25 minute visit (>than 50%) was spent on counseling and discussion related to recovery from traumatic brain injury and rehabilitation plan as discussed above. Ayde Olsen APRN, CBIS Trauma Division, Section of Trauma and Acute Care Surgery Department of General Surgery, [facility] documented in this encounter Plan of Treatment Upcoming Encounters Date Type Department Care Team (Late st Contact Info) Description 08/18/2024 1:30 PM EST Appointment Mammography/[place] [address] Kathia Alvarado APRN [address] [place] [address] documented as of this encounter Visit Diagnoses Diagnosis Concussion with no loss of consciousness, subsequent encounter Dizziness Dizziness and giddiness MCI (mild cognitive impairment) Mild cognitive impairment, so stated Cognitive change Other signs and symptoms involving cognition Acute post-traumatic headache, not intractable Acute post-traumatic headache documented in this encounter Care Teams Market Research Executive Relationship Specialty Start Date End Date Charles Huitron MD [address] [place] [address] PCP - General 07/08/10 documented as of this encounter
--- OUTSIDE RECORDS SUMMARY | 2024-07-12 15:57 | XMS_ITS | Encounter Summary ---
Author Organization [facility] Address [facility] [place] [address] Care Team Providers Care Helpdesk Manager Name Role Phone Charles Huitron MD Primary Care Provider [phone] Encounter Details Date Type Department Care Team (Late st Contact Info) Description 02/02/2014 Telephone Psychiatry [place] [address] Cristino Gordon MD [facility] [place] [address] Social History Tobacco Use Types Packs/Day Years [...] encounter Miscellaneous Notes * Telephone Encounter - Cristino Gordon - 02/02/2014 4:09 PM EDT Received call from Carmen Palacios today stating that pt would like refill for her Remeron until her next f/u appt. Called pt who reported that she has been tolerating Remeron well: she denied any dry mouth, constipation, increased appetite, sedation, dizziness, confusion or changes in urinary fxn. She also denied any seizures or sx's of ciara. Agreed to provide pt w 30 day supply, no refills script of Remeron 22.5 mg PO nightly, and have phoned in the rx to the pt's pharmacy, [facility] in [place]. Pt is aware. Carmen Palacios stated that she will will work on getting a psychiatric referral for pt set up soon. documented in this encounter Plan of Treatment Upcoming Encounters Date Type Department Care Team (Late st Contact Info) Description 08/18/2024 1:30 PM EST Appointment Mammography/[place] [address] Kathia Alvarado APRN [address] [place] [address] documented as of this encounter Visit Diagnoses Not on filedocumented in this encounter Care Teams Helpdesk Manager Relationship Specialty Start Date End Date Charles Huitron MD [address] [place] [address] PCP - General 07/08/10 documented as of this encounter
--- OUTSIDE RECORDS SUMMARY | 2024-07-12 15:57 | XMS_ITS | Encounter Summary ---
Author Organization [facility] [place] [address] Care Team Providers Care Farmworker Turkey Farm Name Role Phone Charles Huitron MD Primary Care Provider [phone] Encounter Details Date Type Department Care Team (Late st Contact Info) Description 11/07/2013 11:15 AM EDT Follow-[place] [address] Sonia Solorio, [facility] [place] [address] Abnormality of gait and mobility; Concussion with no loss of consciousness, subsequent [...] Progress Notes * Sonia Solorio PTA - 11/07/2013 12:16 PM EDT Physical Therapy Progress Note Total [...] used to select the disability modifier. Ms. aGr's current G-Codefunctional level is 50% impaired based upon (+) Fall Risk on FGA and severe category on DHI. Medicare Therapy G-Code Date Tracking: (Update G-Code status every 10 visits or when code changes) 1 2 3 4 5 6 7 8 9 10 10/25/13 11/07/13 Follow up visit for a patient with 1. Abnormality of gait and mobility 2. Concussion with no loss of consciousness, subsequent encounter S: Patient reports she just came from O.T. and is feeling a little foggy. She states she feels something is out of whack on the (R) side of her neck. She feels her neck tightened when doing the VOR/DVA test at her initial eval. She states she has not been O.K. to do HEP but plans to get started. O: Manual Therapy (79950) 25 min Therex: Strength/Endurance/ROM (14941) 15 min dizziness 3/10 instructed in and pt. demonstrated cervical stretches: UT, LS and SCM stretch supine STM to anterior, lateral and posterior cervical musculature manual cervical traction occipital/suboccipital release seated STM/stretch to UT/LS A: Pt. has not been feeling well enough to do her HEP. She reports increased cervical ROM followingtreatment--boiler tender at (R) cervical musculature but better following STM. She has good form with exercises and plans to resume the exercises issued at her I.E. ST Goals: 11/25/13 1. Independent with home [...] 08/18/2024 1:30 PM EST Appointment Mammography/[place] [address] Kathia Alvarado APRN [address] [place], [place] [address] documented as of this encounter Visit Diagnoses Diagnosis Abnormality of gait and mobility Abnormality of gait Concussion with no loss of consciousness, subsequent encounter documented in this encounter Care Teams Farmworker Turkey Farm Relationship Specialty Start Date End Date Charles Huitron MD [address] [place] [address] PCP - General 07/08/10 documented as of this encounter
--- OUTSIDE RECORDS SUMMARY | 2024-07-12 15:57 | XMS_ITS | Encounter Summary ---
Author Organization [facility] [place] [address] Care Team Providers Care Sdc Teacher Name Role Phone Charles Huitron MD Primary Care Provider [phone] Encounter Details Date Type Department Care Team (Late st Contact Info) Description 2014 9:00 AM EDT Follow-[place] [address] CLINIC, Charles De Luna MD [address] [place] [address] [address] Yolanda Abbasi, OT [facility] & [place] [address] Cognitive change; Concussion with no loss of [...] Progress Notes * Yolanda Abbasi, OT - 2014 9:00 AM EDT OCCUPATIONAL THERAPY PROGRESS NOTE CERTIFICATION PERIOD: 01/06/14 - 04/08/14 REFERRAL SOURCE: Merlyn Olsen APRN DIAGNOSIS: ICD-9-CM 1. Cognitive change 799.59 2. Concussion with no loss of consciousness, subsequent encounter V58.89 NEXT MD FOLLOW UP: TBD TOTAL TREATMENT TIME: 60 minutes TIMED CODE TREATMENT TIME: 60 minutes therapeutic activities OBJECTIVE: Chelsea Gar is a 59 y.o. year old left handed female who [...] normal. TREATMENT TODAY: -Led skilled discussion of pt's functional performance since her recent inpatient psych admission. Pt reports she has been feeling very well over the past several weeks. She has been walking every day and sleeping 9 hours/night since her medications were adjusted. She is back to working her typicalschSimpleTuitionule and has been cleaning her house without difficulty. She has only felt symptoms once over the past week (fuzzy head). -Pt completed a scheduling activity from the Cognitive Rehab Workbook with 100% accuracy within a reasonable amount of time. -Trailmaking series: -A: 21 seconds (WNL) -B: 73 seconds (WNL) -Pt completed financial mgmt (checkbook) activity - pt completed calculations with nearly 100% accuracy, independently noting she had made an error and was able to self-correct. Pt independently problem-solved need to transfer money from savings->checking account and wrote all checks accurately. ASSESSMENT: Chelsea Gar presents today with significantly reduced symptoms. Post-concussive symptoms have eased and she is feeling very well since her medications were adjusted. She demonstratedimprovements in both sustained and alternating attention today as well as good problem-solving skills when participating in a checkbook activity. At this time, she is appropriate for reduction in frequency of OT services. G-Code: Self-Care Status Modifier CURRENT CJ - [...] 5 6 7 8 9 10 12/26/13 01/23/14 Bleach Boiler Filler Goals (to be met by discharge): Date [...] measure of improved memory/attention. Goal Status: Extend x6 weeks (03/06/14) Chelsea Gar will score WNL on Map Scanning and Elevator Counting subtests of the TEA as measure of improved sustained attention. 10/17/13 Goal Status: Met PLAN: The patient is to be seen for follow-up in 6 weeks (with potential to add additional sessions) to progress toward short and fci goals. for Visual compensation, Cognitive retraining attention and compensatory strategies and Sequencing and planning (X) Chelsea Gar participated in the evaluation, collaborated on treatment goals, and agrees tothe treatment plan. Yolanda Abbasi OT Pager: [phone] documented in this encounter Plan of Treatment Upcoming Encounters Date Type Department Care Team (Late st Contact Info) Description 08/18/2024 1:30 PM EST Appointment Mammography/[place] [address] Kathia Alvarado APRN [address] [place] [address] documented as of this encounter Visit Diagnoses Diagnosis Cognitive change Other signs and symptoms involving cognition Concussion with no loss of consciousness, subsequent encounter documented in this encounter Care Teams Sdc Teacher Relationship Specialty Start Date End Date Charles Huitron MD [address] [place] [address] PCP - General 07/08/10 documented as of this encounter
--- OUTSIDE RECORDS SUMMARY | 2024-07-12 15:58 | XMS_ITS | Encounter Summary ---
Author Organization [facility] Address [facility] [place] [address] Care Team Providers Care Flume Maker Name Role Phone Charles Huitron MD Primary Care Provider [phone] Encounter Details Date Type Department Care Team (Late st Contact Info) Description 05/29/2013 3:30 PM EDT Follow-Up Physical Therapy at [facility] [address] [place] [phone] Alvarez Hoyt, PT Bilateral hip pain; Lumbar pain Social History Tobacco Use Types Packs/Day Years [...] as of this encounter Progress Notes * Alvarez Hoyt, PT - 05/29/2013 3:41 PM EDT Physical Therapy Progress Note Total treatment time: 45 minutes Total timed code treatment: 40 minutes Date of Exam/First treatment: 05/10/2013 Date of onset: January 2013 Referring Physician: JESUS Andre Authorizing Provider: Niles Wright MD certification period: 05/10/2013 - 07/05/13 Medicare Therapy G-Code Date Tracking: (Update G-Code status every 10 visits or when code changes) 1 2 3 4 5 6 7 8 9 10 05/10/13 05/19/13 05/26/13 05/29/13 I. E. Follow up visit for patient with: 1. Bilateral hip pain 2. Lumbar pain S: Pt reports that she walked 2 miles yesterday and she had no pain in her hips at all, but that tight gripping pain in the center of her back is still there. She rates today's sx's as 2/10 in her lower back and 0/10 in her hips. O: Therapeutic Exercise (08127) 15 minutes and Manual Therapy (94468) 25 minutes ?? Nu-Step with arms #10, Seat 10, for 10 min ?? Lower Trunk Rotation 2 min ?? Stretches 2x30 - Passive ?? Piriformis ?? Hamstring ?? Lumbar Rotation Supine - passive (pt crosses arm, stabilize opp shoulder, bring opp knee across towards therapist) ?? Manual Therapy STM to lumbar spine, piriformis, hamstring origins, IT band - Prone 15 min ?? Spinal Rotation Mobs L2-L5 Prone 2 minutes ?? (PT proximal hand press toward floor away from spine opposite PT, distal hand on opposite ASIS pulling toward ceiling) ?? Supine Long axis distraction 2 min (uni LE, then B LE) A: Ms. Gar reported improved hip and back pain symptoms following session. Her back pain is now centralized to the L3-L4 L4-L5 region of the spine and the dorsal nerve roots going to her paraspinals. We will continue to work on her spinal flexibility and mobilizations while she continues with her walking and stretching program at home. The sacral area pain is starting to recede as well and wasnot irritable to palpation as she was previously. Ms. Gar will continue to benefit from skilled PT services to improve her LE mobility, strength, and ROM. We will also continue to work on the lumbro-sacral area as this is a source of pain and decreased mobility. P: Cont physical therapy for improved ROM, strengthening, manual therapy. Previous Clinic Exercises/Activities: Standing IT Band stretch 2x30 Prone Press up 2x MIRIAM LTR 10x10 Quadruped Stretch for Lumbar Spine 2x30 Iliocostalis in Quadruped 2x30 Current goals: GOALS: Therapy Short Term Goals (3 weeks) Patient will... 1. be indep with home exercise program to begin self management of symptoms. 2. demonstrate ability to walk for 2 blocks with report of little difficulty in her hips as reported on the LEFS. 3. report ability to sleep for > 6 hours without waking secondary to hip and back pain. 4. demonstrate improved LEFS score greater than 9 points for statistically significant improvement in LE functional ability Therapy [facility] Goals (6 weeks) Patient will... 1. report ability to walk for 1 mile with no difficulty in her hips as reported on the LEFS. 2. demonstrate ability to squat, lift objects from floor with report of no difficulty in her hipsas reported on the LEFS. 3. report ability to stand for 1 hour without difficulty in her hips as reported on the LEFS. 4. demonstrate improved LEFS score greater than 15 points for statistically significant improvementin LE functional ability G-Code: Mobility Status Modifier CURRENT CK - At least 40 percent but less than 60 percent impaired, limited or restricted PROJECTED CI - At least 1 percent but less than 20 percent impaired, limited or restricted DISCHARGE Not Discharged Yet - Ongoing G Code Rationale: This G-Code and these disability modifiers were selected on 05/15/13 as the primary therapy goal based upon the patient's evaluation including the following functional test(s) LEFS -Lower Extremity Functional Scale. Current ability measures, co-morbidities and clinical judgement were also used to select the disability modifier. Ms. Gar's current G-Code functional level is 53%impaired based upon LEFS score and tests/measures performed during clinic evaluation. documented in this encounter Plan of Treatment Upcoming Encounters Date Type Department Care Team (Late st Contact Info) Description 08/18/2024 1:30 PM EST Appointment Mammography/[place] [address] Kathia Alvarado APRN [address] [place], [place] [address] documented as of this encounter Visit Diagnoses Diagnosis Bilateral hip pain Pain in joint, pelvic region and thigh Lumbar pain Lumbago documented in this encounter Care Teams Flume Maker Relationship Specialty Start Date End Date Charles Huitron MD [address] [place] [address] PCP - General 07/08/10 documented as of this encounter
--- OUTSIDE RECORDS SUMMARY | 2024-07-12 15:58 | XMS_ITS | Encounter Summary ---
Author Organization [facility] Address [facility] [place] [address] Care Team Providers Care Vacuum Technician Name Role Phone Charles Huitron MD Primary Care Provider [phone] Encounter Details Date Type Department Care Team (Late st Contact Info) Description 05/26/2013 3:00 PM EDT Follow-Up Physical Therapy at [facility] [address] [place] [phone] Alvarez Hoyt, PT Bilateral hip pain; Lumbar [...] Progress Notes * Alvarez Hoyt, PT - 05/26/2013 2:57 PM EDT Physical Therapy Progress Note Total treatment time: 45 minutes Total timed code treatment: 45 minutes Date of Exam/First treatment: 05/10/2013 Date of onset: January 2013 Referring Physician: JESUS Andre Authorizing Provider: Niles Wright MD certification period: 05/10/2013 - 07/05/13 Medicare Therapy G-Code Date Tracking: (Update G-Code status every 10 visits or when code changes) 1 2 3 4 5 6 7 8 9 10 05/10/13 05/19/13 05/26/13 I. E. Follow up visit for patient with: 1. Bilateral hip pain 2. Lumbar pain S: Pt reports that yesterday she went for a 1/4 mi walk and this was the first time that her hips were not sore. The center of her back did tighten up though. She rates today's sx's as 1/10 in her lower back and 0/10 in her hips. She reports that walking begins to hurt her pretty quickly in the back though. O: Therapeutic Exercise (05069) 25 minutes and Manual Therapy (37956) 15 minutes ?? Nu-Step with arms #10, Seat 10, for 8 min ?? Lower Trunk Rotation 2 min ?? Stretches 2x30 - Passive ?? Piriformis ?? Hamstring ?? MIRIAM LTR 10x10 NEW ?? Manual Therapy STM to lumbar spine, piriformis, hamstring origins, IT band - Prone 15 min ?? Spinal Rotation Mobs L2-L5 Prone 2 minutes ?? (PT proximal hand press toward floor away from spine opposite PT, distal hand on opposite ASIS pulling toward ceiling) ?? Quadruped Stretch for Lumbar Spine 2x30 ?? Iliocostalis in Quadruped 2x30 A: Ms. Gar reported improved hip and back pain symptoms. Her bed mobility was much improved compared to last session. Ms. Gar will continue to benefit from skilled PT services to improve her LEmobility, strength, and ROM. We will also continue to work on the lumbro-sacral area as this is a source of pain and decreased mobility. P: Cont physical therapy for improved ROM, strengthening, manual therapy. Previous Clinic Exercises/Activities: Standing IT Band stretch 2x30 Prone Press up 2x Current goals: GOALS: Therapy Short Term Goals [...] significant improvement in LE functional ability Therapy [place] Department Supervisor Goals (6 weeks) Patient will... 1. report [...] 08/18/2024 1:30 PM EST Appointment Mammography[place] [address] Kathia Alvarado APRN [address] [place] [address] documented as of this encounter Visit Diagnoses Diagnosis Bilateral hip pain Pain in joint, pelvic region and thigh Lumbar pain Lumbago documented in this encounter Care Teams Vacuum Technician Relationship Specialty Start Date End Date Charles Huitron MD [address] [place] [address] PCP - General 07/08/10 documented as of this encounter
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
--- OUTSIDE RECORDS SUMMARY | 2024-07-12 15:58 | XMS_ITS | Encounter Summary ---
Author Organization [facility] Address [facility] [place] [address] Care Team Providers Care Lawn Maintenance Worker Name Role Phone Charles Huitron MD Primary Care Provider [phone] Encounter Details Date Type Department Care Team (Latest Contact Info) Description 06/18/2011 7:33 AM EDT - 06/18/2011 11:59 PM EDT Hospital Encounter XRay at [address] [place] [id number] CLINIC, Sukhdev Da Silva MD [facility] [place] [address] Closed fracture of metatarsal bone(s) Discharge Disposition: Home Social History Tobacco Use Types Packs/Day Years Used Date Smoking Tobacco: Former Cigarettes Q uit: 12/23/1985 Alcohol Use Standard Drinks/Week Comments No 0 (1 standard drink = 0.6 oz pur e alcohol) stopprd 21 yrs. ago Sex and Gender Information Value Date Recorded Sex Assigned at Not on file Gender Identity Not on file Sexual Orientation Not on file documented as of this encounter Medications at Time of Discharge Medication Sig Dispensed Refills Start Date End Date lisinopril-hydrochlorot hiazide (PRINZIDE;ZESTORETIC) 10-12.5 mg per tablet Take 1 tablet by mouth daily. simvastatin (ZOCOR) 20 mg tablet Take 20 mg by mouth daily. 02/24/2024 venlafaxine (EFFEXOR-XR) 75 mg 24 hr capsule Take 225 mg by mouth daily. 3 capsules--total 225 mg. 06/26/2014 ibuprofen (ADVIL;MOTRIN) 400 mg tablet Take 2 tablets by mouth every 6 hours as needed for Pain. 30 tablet 12 12/23/2010 12/23/2011 documented as of this encounter Plan of Treatment Upcoming Encounters Date Type Department Care Team (Late st Contact Info) Description 08/18/2024 1:30 PM EST Appointment Mammography/[place] [address] Kathia Alvarado APRN [address] [place] [address] documented as of this encounter Procedures Procedure Name Priority Date/Time Associated Diagnosis Comments XR FOOT MINIMUM 3 VIEWS Routine 06/18/2011 7:44 AM EDT Closed fracture of metatarsal bone(s) documented in this encounter Results * XR foot minimum 3 views (06/18/2011 7:44 AM EDT) Anatomical Region Laterality Modality Foot N/A Radiographic Varsha ging 06/18/2011 7:44 AM EDT Narrative 06/18/2011 3:54 PM EDT EXAMINATION: LEFT FOOT THREE VIEWS. DATE OF EXAM: 06-18-11. CLINICAL HISTORY: Followup fractures. COMPARISON: 06-03-11. 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 There is no displacement and no appreciable change in comparison to the earlier study. As on the previous study, the lateral cortex of the cuboid is slightly irregular in appearance suggesting the possibility of a nondisplaced impaction fracture. I do not see a significant difference in the appearance of this bone when compared to the earlier study. No other suspicious areas are identified. Procedure Note Mauricio Hutton MD - 06/18/2011 EXAMINATION: LEFT FOOT THREE VIEWS. DATE OF EXAM: 06-18-11. CLINICAL HISTORY: Followup fractures. COMPARISON: 10-19-11. 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 There is no displacement and no appreciable change in comparison tothe earlier study. As on the previous study, the lateral cortex of the cuboidis slightly irregular in appearance suggesting the possibility of anondisplaced impaction fracture. I do not see a significant difference in theappearance of this bone when compared to the earlier study. No other suspicious areasare identified. Sukhdev Kim MD IMG DX ORDERABLES documented in this encounter Visit Diagnoses Diagnosis Closed fracture of metatarsal bone(s) documented in this encounter Care Teams Lawn Maintenance Worker Relationship Specialty Start Date End Date Charles Huitron MD [address] [place] [address] PCP - General 07/08/10 documented as of this encounter
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
--- OUTSIDE RECORDS SUMMARY | 2024-07-12 15:58 | XMS_ITS | Encounter Summary ---
Author Organization [facility] [place] [address] Care Team Providers Care Rubber Tile Floor Layer Name Role Phone Charles Huitron MD Primary Care Provider [phone] Encounter Details Date Type Department Care Team (Late st Contact Info) Description 12/26/2012 10:00 AM EDT Follow-Up Physical Therapy at [facility] [address] [place] [phone] Alvarez Hoyt, PT Right lateral epicondylitis (Primary Dx) Social History Tobacco Use Types Packs/Day Years Used Date Smoking Tobacco: Former Cigarettes Q uit: 12/23/1985 Smokeless Tobacco: Never Alcohol Use Standard Drinks/Week Comments No 0 (1 standard drink = 0.6 oz pur e alcohol) stopped 21 yrs. ago Sex and Gender Information Value Date Recorded Sex Assigned at Not on file Gender Identity Not on file Sexual Orientation Not on file documented as of this encounter Progress Notes * Alvarez Hoyt, PT - 12/26/2012 10:05 AM EDT Physical Therapy Progress Note Total treatment time: 40 minutes Total timed code treatment: 40 minutes Date of Exam/First Treatment: 12/09/2012 Date of onset: Jul 2012 Referring Provider: Charles Huitron Medicare Certification period: 12/09/2012 - 02/03/13 Follow up visit for patient with 1. Right lateral epicondylitis S: Pt reports that her elbow is achy today. Rates today's sx's 10/23. She reports that after last session she felt pretty good. She had to get her car set up for the [employer] yesterday which is why her elbow is flared up. If not for the set up she really has been doing quite well with her elbow sx's being very low to non-existent. O: Therapeutic Exercise (50902) 15 minutes, Manual Therapy (86989) 15 minutes and Ultrasound (71552) 10 minutes ?? UBE 6 min (reverse direction every minute) ?? Ultrasound 2.5 w/cm2, 3.3 mHz to the R elbow extensors 8 minutes (not including set up) ?? Manual Therapy 10 minutes ?? STM to the wrist extensor wad, elbow flexors/extensors, ?? Therex 10 minutes ?? Wrist/Elbow Stretches 2x30 ?? Wrist Extensors (straight elbow) ?? Pronator ?? Wrist Extensors straight arm with pronation (arm by side) ?? T-Band Exercises Red 10x ?? Scapular retraction ?? Wrist extension ?? Wrist flexion ?? Bicep Curls ?? Triceps Extension (band over shoulder in Hammering Fashion) ?? 2 lbs Pronation / Supination 10x (NEW) ?? Cryotherapy - Ice Cup Massage to the lateral extensors. 5 minutes A: Pt. Responded well to today's session. Added additional strengthening into Pron/Supination. She reports decreased sx's after therapy. I would like for her to [place] over the next few days to test the elbow out and report back to me. Continued with modalities for sx relief and manual therapy for improved flexibility. Ms. Gar will benefit from skilled PT for stretching, soft tissue massage andmodalities for further elbow flexibility gains P: No Heat prior to session. Cont with UBE for warm up. Cont physical therapy for modalities, stretching, soft tissue. Previous Clinic Exercises/Activities: Moist Heat (before session) 10 minutes to the R elbow Stretches Triceps Wrist Flexors B shoulder retractors Current goals: Therapy Short Term Goals (3 weeks) Patient to... 1. be indep with home exercise program. 2. Improve NIKIA/ASES score by 9 points for statistically significant improvement in functional mobility and use of the affected elbow. 3. 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 4. Demonstrate ability to lift 1 gal (8-10 lbs) to above shoulder level with report of some R elbow difficulty as reported on the NIKIA/ASES. Therapy Senior Care Goals (6 weeks) Patient to... 1. improve NIKIA/ASES score by 15 points to demo statistically significant improvement in functionalmobility and use of the affected shoulder. 2. Report ability to perform all work related tasks including turning patient and helping with ADL's without difficulty in her R elbow as reported on the NIKIA/ASES. 3. Demonstrate ability to carrying, lift 10 lbs to above shoulder level with no difficulty as reported on the NIKIA/ASES. documented in this encounter Plan of Treatment Upcoming Encounters Date Type Department Care Team (Late st Contact Info) Description 08/18/2024 1:30 PM EST Appointment Mammography/[place] [phone] Kathia Alvarado APRN [address] [place] [address] documented as of this encounter Visit Diagnoses Diagnosis Right lateral epicondylitis- Primary Lateral epicondylitis of elbow documented in this encounter Care Teams Rubber Tile Floor Layer Relationship Specialty Start Date End Date Charles Huitron MD [address] [place] [address] PCP - General 07/08/10 documented as of this encounter
--- OUTSIDE RECORDS SUMMARY | 2024-07-12 15:58 | XMS_ITS | Encounter Summary ---
Author Organization [facility] Address [facility] [place] [address] Care Team Providers Care Chemistry Specialist Name Role Phone Charles Huitron MD Primary Care Provider [phone] Encounter Details Date Type Department Care Team (Late st Contact Info) Description 04/26/2013 8:18 AM EDT - 04/26/2013 11:59 PM EDT Hospital [place] [facility] [place] [phone] Hip pain Social History Tobacco Use Types Packs/Day [...] tablet Take 1 tablet by mouth daily. traZODone (DESYREL) 100 mg tablet Take 200 [...] Take 1 tablet by mouth daily. 02/24/2024 [place]-3 Fatty Acids (FISH OIL) 500 mg Cap Take 1 capsule by mouth daily. 02/24/2024 prazosin (MINIPRESS) 5 mg capsule Take 5 mg by mouth nightly. 05/01/2014 simvastatin (ZOCOR) 20 mg tablet Take 20 mg by mouth daily. 02/24/2024 venlafaxine (EFFEXOR-XR) 75 mg 24 hr capsule Take 225 mg by mouth daily. 3 capsules--total 225 mg. 06/26/2014 documented as of this encounter Plan of Treatment Upcoming Encounters Date Type Department Care Team (Late st Contact Info) Description 08/18/2024 1:30 PM EST Appointment Mammography/[place] [phone] Kathia Alvarado APRN [address] [place] [address] documented as of this encounter Procedures Procedure Name Priority Date/Time Associated Diagnosis Comments XR PELVIS AP AND 2 VIEWS BOTH HIPS Routine 04/26/2013 8:38 AM EDT Hip pain documented in this encounter Results * XR pelvis AP and 2 views both hips (04/26/2013 8:38 AM EDT) Anatomical Region Laterality Modality Pelvis, Hip N/A Radiographic Varsha ging 04/26/2013 8:38 AM EDT Narrative 04/26/2013 9:20 AM EDT Examination AP PELVIS AND TWO VIEWS BOTH HIPS Clinical History BILAT HIP PAIN Comparison None. Technique AP pelvis, 2 views both hips. Findings No acute fracture or dislocation is identified. ??Bilateral hip joint spaces are maintained without appreciable osteophytosis. ??There is advanced facet arthropathy bilaterally at the L4-L5 and L5-S1 levels. ??Mild degenerative changes at the pubic symphysis with mild subchondral sclerosis. Small sclerotic focus projecting over the proximal right femoral shaft noted, felt likely to represent a bone island. ?? Impression No fracture or dislocation. Preservation of hip joint spaces. Advanced lower lumbar facet arthropathy bilaterally. Procedure Note Slick Floyd MD - 04/26/2013 Examination AP PELVIS AND TWO VIEWS BOTH HIPS Clinical History BILAT HIP PAIN Comparison None. Technique AP pelvis, 2 views both hips. Findings No acute fracture or dislocation is identified. Bilateral hip jointspaces are maintained without appreciable osteophytosis. There is advanced facet arthropathy bilaterally at the L4-L5 and L5-S1 levels. Mild degenerative changes at the pubic symphysis with mild subchondral sclerosis. Smallsclerotic focus projecting over the proximal right femoral shaft noted, felt likelyto represent a bone island. Impression No fracture or dislocation. Preservation of hip joint spaces. Advanced lower lumbar facet arthropathy bilaterally. Niles Wright MD IMG DX ORDERABLES documented in this encounter Visit Diagnoses Diagnosis Hip pain Pain in joint, pelvic region and thigh documented in this encounter Care Teams Chemistry Specialist Relationship Specialty Start Date End Date Charles Huitron MD [address] [place] [address] PCP - General 07/08/10 documented as of this encounter
--- OUTSIDE RECORDS SUMMARY | 2024-07-12 15:58 | XMS_ITS | Encounter Summary ---
[place] [address] Care Team Providers Care Mobile Home Set Up Person Name Role Phone Charles Huitron MD Primary Care Provider [phone] Encounter Details Date Type Department Care Team (Late st Contact Info) Description 12/23/2010 12:27 PM EDT Anesthesia Event [place] [address] Ade Oneal MD [facility] [place] [address] Anesthesia Record Procedure Summary Procedure Name Responsible Anesthesiologist Anesthesia Start Time Anesthesia Stop Time REVISION OF RECONSTRUCTED BREAST (WRVU 11.17) (Left: Breast) Ade Oneal MD 12/23/10 1227 12/23/10 1447 Events Date Time Event Comment 12/23/2010 1227 Start 1229 1447 Stop Meds * Agents No agents on file. * Blood No blood administrations on file. Lines, Drains, and Airways Type Details Placement Removal (RETIRED) Peripheral IV Line - Single Lumen 12/23/10; 1229; 12/23/10; 1605 12/23/10 1229 by Jasmeet Mirza RN 12/23/10 1605 by Esther Gipson 12/23/10; 1315; breast; 01/05/14; 1401 12/23/10 1315 by Jayla Santizo RN 01/05/14 1401 by Cecy Mcadams RN documented in this encounter Social History Tobacco Use Types Packs/Day Years Used Date Smoking Tobacco: Former Cigarettes Q uit: 12/23/1985 Sex and Gender Information Value Date Recorded Sex Assigned at Not on file Gender Identity Not on file Sexual Orientation Not on file documented as of this encounter OR Notes * Anesthesia Postprocedure Evaluation - Ade Oneal MD - 12/23/2010 3:39 PM EDT Patient: Chelsea Gar Procedure(s) Performed: REVISION OF RECONSTRUCTED BREAST - ANESTHESIA CONSULT; RECONSTRUCTION, NIPPLE/AREOLA, ABBIE Patient location: PACU Post-op pain: Adequate analgesia Post-op nausea: no nausea or vomiting Last Vitals: Filed Vitals: 12/23/10 1517 BP: 96/57 Pulse: 66 Temp: Resp: 16 Post-op cardiovascular and respiratory status: is stable Level of consciousness: awake Complications: no apparent complications Fluid Status: normal * Anesthesia Preprocedure Evaluation - Ade Oneal MD - 12/23/2010 12:27 PM EDT Anesthesia Evaluation Airway Mallampati: II TM distance: <3 FB Neck ROM: full Comment: Old records reviewed: Grade 2-3 view with Pate; LMA placement successful after three attempts. Dental Comment: Multiple missing teeth. Pulmonary - negative ROS and normal exam Cardiovascular - normal exam Exercise tolerance: good (+) hypertension, valvular problems/murmurs, Rhythm: regular Neuro/Psych (+) psychiatric history GI/Hepatic/Renal (+) GERD well controlled, Endo/Other Abdominal - normal exam Anesthesia Plan ASA 3 General with intravenous induction Questions answered and patient wishes to proceed. Anesthetic plan and risks discussed with patient. documented in this encounter Miscellaneous Notes * Addendum Note - Torri Taylor - 12/24/2010 8:46 AM EDT Addendum created 12/24/10 0846 by Torri Taylor Modules edited:Anesthesia Events, Anesthesia Responsible Staff documented in this encounter Plan of Treatment Upcoming Encounters Date Type Department Care Team (Late st Contact Info) Description 08/18/2024 1:30 PM EST Appointment Mammography/[place] [address] Kathia Alvarado APRN [address] [place] [address] documented as of this encounter Visit Diagnoses Not on filedocumented in this encounter Care Teams Mobile Home Set Up Person Relationship Specialty Start Date End Date Charles Huitron MD [address] [place] [address] PCP - General 07/08/10 documented as of this encounter
--- OUTSIDE RECORDS SUMMARY | 2024-07-12 15:58 | XMS_ITS | Encounter Summary ---
Author Organization [facility] [place] [address] Care Team Providers Care Health Safety Coordinator Name Role Phone Charles Huitron MD Primary Care Provider [phone] Encounter Details Date Type Department Care Team (Late st Contact Info) Description 06/28/2012 [place] [address] Torri Yang, RN Social History Tobacco Use Types Packs/Day Years [...] 08/18/2024 1:30 PM EST Appointment Mammography/[place] [phone] Kathia Alvarado APRN [address] [place] [address] documented as of this encounter Visit Diagnoses Not on filedocumented in this encounter Care Teams Health Safety Coordinator Relationship Specialty Start Date End Date Charles Huitron MD [address] [place] [address] PCP - General 07/08/10 documented as of this encounter
--- OUTSIDE RECORDS SUMMARY | 2024-07-12 15:58 | XMS_ITS | Encounter Summary ---
Author Organization [facility] [place] [address] Care Team Providers Care Consultant Rn Name Role Phone Charles Huitron MD Primary Care Provider Reason for Visit * Reason Comments Advice Only nipple tattoo Encounter Details Date Type Department Care Team (Late st Contact Info) Description 04/01/2011 9:30 AM EDT [place] [phone] Dorcas Florez MD [facility] [place] [address] S/P breast reconstruction (Primary Dx) Discharge Disposition: Home Social History Tobacco Use [...] on file documented as of this encounter Patient Instructions * Patient Instructions* Jennifer Galeana, RN - 04/01/2011 9:53 AM EDT Welcome to KitchIn, your secure online access to your electronic medical record at [facility]. Using KitchIn you will be able to send messages to your providers, view your test results, renew prescriptions, schedule appointments, and much more. Follow these instructions to enter your personal Message[employer] account for the first time: 1. Start your internet browser. Go to [email or web address] and click on the KitchIn link. 2. Click SIGN UP NOW to go to the NEW MEMBER SIGN UP page. 3. Enter your KitchIn Access Code exactly as it appears below. (You will not need this access code after you have completed the sign-up process.) ?? Your KitchIn Access Code: [email or web address] ?? Expires: 05/16/11 09:53 AM ?? IMPORTANT: This Access Code will on the above mentioned date. If you do not sign up before this date, you will need to request a new Access Code number. 4. Enter your Date of (mm/dd/yyyy) and zip code click SUBMIT to go to the next page. 5. Create a MessageCast-Vidmaker identification (ID). This will be your KitchIn login ID and cannot be changed, so think of one that is secure and easy to remember. 6. Create a password which you can change at any time. Your password must contain six (6) letters and two (2) numbers. 7. Enter your Password Reset Question and Answer. This will be used if you forget your password. 8. Enter your e-mail address. This is used to let you know when new information is available in KitchIn. 9. Click SIGN UP to complete the process. You can now view your electronic medical record. If you have any questions about KitchIn or your Access Code, please call for [place], for [place] or for [place]. If you need technical support, please e-mail [email or web address]. Remember, myD-H is NOT for urgent needs! Always dial 911 for medical emergencies. Please review your pre-op packet prior to surgery. If you have any questions please call the plastic surgery nurses at [phone]. Thank You. documented in this encounter Progress Notes * Dorcas Florez MD - 04/01/2011 10:01 AM EDT PLASTIC SURGERY POST OP NOTE Dorcas Florez MD Primary Care Physician: CHARLES HUITRON MD Reason for visit: F/U status post procedure Date of surgery: 12/29/10 Procedure(s): Bilateral NAC construction post breast recon with R Latissimus flap and left TRAM at time of mastectomy Complications: None reported Meds: Current outpatient prescriptions ordered prior to encounter Medication Sig Dispense Refill ??? lisinopril-hydrochlorothiazide (PRINZIDE;ZESTORETIC) 10-12.5 mg per tablet Take 1 tablet by mouth daily. ??? simvastatin (ZOCOR) 20 mg tablet Take 20 mg by mouth daily. ??? venlafaxine (EFFEXOR-XR) 75 mg 24 hr capsule Take by mouth daily. 225 mg = Take 3 - 75mg tabs daily ??? prazosin (MINIPRESS) 5 mg capsule 5 MG = 1 Capsule(s), PO, QHS ??? b complex vitamins tablet ??? Calcium-Magnesium (CALCIUM AND MAGNESIUM) 750-465 mg Tab ??? Cholecalciferol, Vitamin D3, (VITAMIN D) 1,000 unit Tab ??? [place]-3 Fatty Acids (FISH OIL) 500 mg Cap ??? estrogens, conjugated,-methyltestosterone (ESTRATEST HS) 0.625-1.25 mg per tablet ??? ascorbic acid (VITAMIN C) 1,000 mg tablet ??? OXYcodone (ROXICODONE) 5 mg immediate release tablet Take 1-2 tablets by mouth every 4 hours asneeded for Pain. 30 tablet 0 ??? ibuprofen (ADVIL;MOTRIN) 400 mg tablet Take 2 tablets by mouth every 6 hours as needed for Pain. 30 tablet 12 All: Amoxicillin trihydrate, Sulfa (sulfonamide antibiotics) and Haloperidol Examination: Gen: WDWN, NAD Neuro: Alert, oriented, follows, Ambulates. HEENT: Perrl eomi fs Extrem: wwp, no c/e/e, no lesions, no rashes Incisions: CDI, healing well. Nipple pink, viable. No collection, no erythema, no evidence of cellulitis. Impression: Chelsea Gar is a 56 y.o. female was seen today for follow-up after the above procedure. Pleasesee the operative note for details. She is doing well without complaints. Plan: 1. F/U for NAC tattooing in minor surgery documented in this encounter Miscellaneous Notes * Miscellaneous - Reuben, Balling Head Tender - 04/22/2011 5:42 PM EDT documented in this encounter Plan of Treatment Upcoming Encounters Date Type Department Care Team (Late st Contact Info) Description 08/18/2024 1:30 PM EST Appointment Mammography/[place] [address] Kathia Alvarado APRN [address] [place] [address] documented as of this encounter Visit Diagnoses Diagnosis S/P breast reconstruction- Primary Breast replaced by other means documented in this encounter Care Teams Consultant Rn Relationship Specialty Start Date End Date Charles Huitron MD [address] [place] [address] PCP - General 07/08/10 documented as of this encounter
--- OUTSIDE RECORDS SUMMARY | 2024-07-12 15:58 | XMS_ITS | Encounter Summary ---
Author Organization [facility] [place] [address] Care Team Providers Care Video Production Specialist Name Role Phone Charles Huitron MD Primary Care Provider [phone] Reason for Visit * Reason Comments Left Foot Fracture DOI 06/03/11 Encounter Details Date Type Department Care Team (Late st Contact Info) Description 07/30/2011 9:20 AM EST [place] [address] CLINIC, Isac Leone MD [facility] [place] [address] Metatarsal fracture (Primary Dx) Discharge Disposition: Home Social History [...] as of this encounter Progress Notes * Isac Ibrahim MD - 07/30/2011 9:37 AM EST Subjective: Patient ID: Chelsea Gar is a 56 y.o. female. HPI This 56 yo white female comes for follow up for L base of the 5th metatarsal fx and she is in clogs walking without much pain and feeling lie she is making good progress ROS - unchanged - please see prior notes Objective: Physical Exam WD/WN white female in NAD - alert and oriented x 3 Skin - dry and intact Ortho Exam L foot - minimal swelling and she is not tender over the base of the 5th Neurologic Exam WNL X Rays - no dramatic change - there is some suggestion of new bone but the fracture line is still evident Assessment and Plan: Healing L 5th metatarsal fracture No problem-specific visit notes found for this encounter. !. She will continue to protect this with stiff soled shoe or clog and we will see back with hopefully final x Rays in another 6 weeks documented in this encounter Plan of Treatment Upcoming Encounters Date Type Department Care Team (Late st Contact Info) Description 08/18/2024 1:30 PM EST Appointment Mammography/[place] [phone] Kathia Alvarado APRN [address] [place] [address] documented as of this encounter Visit Diagnoses Diagnosis Metatarsal fracture- Primary Closed fracture of metatarsal bone(s) documented in this encounter Care Teams Video Production Specialist Relationship Specialty Start Date End Date Charles Huitron MD [address] [place] [address] PCP - General 07/08/10 documented as of this encounter
--- OUTSIDE RECORDS SUMMARY | 2024-07-12 15:58 | XMS_ITS | Encounter Summary ---
Author Organization [facility] [place] [address] Care Team Providers Care Monorail Crane Operator Name Role Phone Charles Huitron MD Primary Care Provider [phone] Encounter Details Date Type Department Care Team (Late st Contact Info) Description 01/05/2013 10:30 AM EDT Follow-Up Physical Therapy at [facility] [address] [place] [id number] Alvarez Hoyt, PT Right lateral epicondylitis (Primary [...] Progress Notes * Alvarez Hoyt, PT - 01/05/2013 10:43 AM EDT Images from the original note were not included. Physical Therapy Progress Note - Re-Evaluation/Discharge Total treatment time: 30 minutes Total timed code treatment: 25 minutes Date of Exam/First Treatment: 12/09/2012 Date of onset: Jul 2012 Referring Provider: Charles Huitron Medicare Certification period: 12/09/2012 - 02/03/13 Follow up visit for patient with 1. Right lateral epicondylitis S: Pt reports that her elbow is doing good today. Rates today's sx's 0/10. She is back to her hobbies of knitting/michael and also able to do all activities without any elbow or shoulder problems on her R side. NOTE: She was in the ED for an ankle sprain sustained after her last visit. O: Therapeutic Exercise (41521) 25 minutes ?? UBE 6 min (reverse direction every minute) Palpation: tenderness with palpation at: R elbow extensors ELBOW and SHOULDER Range of Motion and strength: Affected ELBOW: RIGHT AROM LEFT AROM RIGHT MMT (/5) LEFT MMT (/5) RIGHT SHOULDER flexion 0-170 0-170 5/5 5/5 abduction 0-170 0-170 5/5 5/5 ER 0-T4 0-T4 5/5 5/5 IR 0-T9 0-T9 5/5 5/5 extension 0-55 0-55 5/5 5/5 ELBOW Flexion 0-145 0-145 5/5 5/5 Ext 0 0 5/5 5/5 WRIST All motions full All motions full 5/5 5/5 NA = Not assessed * = performed with increased pain sx's Hand Dynameter Loan Documents Closer position 2 SEWER TAPPER Position 1 RIGHT lbs LEFT lbs Trial 1 75.8 78 Trial 2 65 80.5 Trial 3 74.7 81.1 [place]oldan Pinch RIGHT lbs LEFT lbs Trial 1 20 18 Trial 2 21 20 Trial 3 21 20 Functional Assessment Tool: NIKIA/ASES Shoulder Score: Can't do it at all: = 0 Much difficulty: = 1 Some difficulty: = 2 No difficulty = 3 Did not do before injury = X A: Ms. Gar has seen significant improvement in her ROM, Strength and functional mobility of her R elbow and arm. She is able to self manage her sx's following periods of activity in which she feels discomfort. I've advised her to continue her stretching and exercises for at least the next 2 months and then to do it as needed after that. She has done very well with skilled PT services and was apleasure to work with. Thank you for the referral. Discharge to home program to consist of further stretching, strengthening and self management of symptoms. P: Discharge to home exercise program. Previous Clinic Exercises/Activities: Manual Therapy 15 minutes STM to the wrist extensor wad, elbow flexors/extensors, Therex 5 minutes Wrist/Elbow Stretches 2x30 Wrist Extensors (straight elbow) Pronator Wrist Extensors straight arm with pronation (arm by side) T-Band Exercises Red 10x Scapular retraction Wrist extension Wrist flexion Bicep Curls Triceps Extension (band over shoulder in Hammering Fashion) 2 lbs Pronation / Supination 10x (NEW) Cryotherapy - Ice Cup Massage to the lateral extensors. 5 minutes Stretches Triceps Wrist Flexors B shoulder retractors Ultrasound 2.5 w/cm2, 3.3 mHz to the R elbow extensors 8 minutes (not including set up) Current goals: Therapy Short Term Goals (3 weeks) Patient to... 1. be indep with home exercise program. 2. Improve NIKIA/ASES score by 9 points for statistically significant improvement in functional mobility and use of the affected elbow. 3. Report ability to it compliance analyst and open jars with little difficulty using her R hand. 4. Demonstrate ability to lift 1 gal (8-10 lbs) to above shoulder level with report of some R elbow difficulty as reported on the NIKIA/ASES. Therapy Cardiac Care Unit Nurse Goals (6 weeks) Patient to... 1. improve [...] 08/18/2024 1:30 PM EST Appointment Mammography/[place] [address] Kathia Alvarado APRN [address] [place] [address] documented as of this encounter Visit Diagnoses Diagnosis Right lateral epicondylitis- Primary Lateral epicondylitis of elbow documented in this encounter Care Teams Monorail Crane Operator Relationship Specialty Start Date End Date Charles Huitron MD [address] [place] [address] PCP - General 07/08/10 documented as of this encounter
--- OUTSIDE RECORDS SUMMARY | 2024-07-12 15:58 | XMS_ITS | Encounter Summary ---
Author Organization [facility] [place] [address] Care Team Providers Care Legal Executive Assistant Name Role Phone Charles Huitron MD Primary Care Provider [phone] Encounter Details Date Type Department Care Team (Late st Contact Info) Description 09/08/2012 Abstract [place] [id number] Mendez Cutler MD [facility] [place] [address] Social History Tobacco Use Types Packs/Day Years [...] 08/18/2024 1:30 PM EST Appointment Mammography/[place] [phone] Kathia Alvarado APRN [address] [place] [address] documented as of this encounter Visit Diagnoses Not on filedocumented in this encounter Care Teams Legal Executive Assistant Relationship Specialty Start Date End Date Charles Huitron MD [address] [address] PCP - General 07/08/10 documented as of this encounter
--- OUTSIDE RECORDS SUMMARY | 2024-07-12 15:58 | XMS_ITS | Encounter Summary ---
Author Organization [facility] [place] [address] Care Team Providers Care Inspector Paper Products Name Role Phone Charlse Huitron MD Primary Care Provider [phone] Reason for Visit * Reason Comments Foot Pain Encounter Details Date Type Department Care Team (Late st Contact Info) Description 01/02/2013 3:48 PM EDT - 01/02/2013 4:45 PM EDT [place] [phone] Josué [place] [address] EMERGENCY DEPT, [facility] [place] [address] Sprain and strain of foot (Primary Dx) Discharge Disposition: Home Social History [...] Sign Reading Time Taken Comments Blood Pressure 131/82 01/02/2013 3:51 PM EDT Pulse 55 01/02/2013 3:51 PM EDT Temperature 36.8 ??C (98.2 ??F) 01/02/2013 3:51 PM ED T Respiratory Rate 18 01/02/2013 3:51 PM EDT Oxygen Saturation 99% 01/02/2013 3:51 PM EDT Inhaled Oxygen Concentration - - Weight - - Height - - Body Mass Index - - documented in this encounter Discharge Instructions * Discharge Instructions* Josué Mcallister PA - 01/02/2013 4:36 PM EDT Ice and elevate as needed for swelling and pain. Tylenol and/or ibuprofen as needed for pain. Wear hard sole shoe and weight-bear as tolerated. Evaluate with any new or worsening symptoms. * Attachments The following attachments cannot be sent through Care Everywhere. * FOOT SPRAIN (METATARSOPHALANGEAL JOINT): EXERCISES (ECUADOREAN) documented in this encounter Medications at Time of Discharge Medication Sig Dispensed Refills Start Date End Date cholecalciferol, Vitamin D3, (VITAMIN D) 1,000 unit [...] 1 capsule by mouth every morning. 08/21/2014 metoprolol succinate (TOPROL-XL) 25 mg 24 hr tabletIndications:Migra ine Take 1 tablet by mouth daily. 30 tablet 3 09/15/2012 04/14/2013 ascorbic acid (VITAMIN C) 1,000 mg tablet Take 1,000 mg by mouth daily. 02/24/2024 b complex vitamins tablet Take 1 tablet by mouth daily. 02/24/2024 estrogens, conjugated,-methyltesto sterone (ESTRATEST HS) 0.625-1.25 mg per tablet Take 1 tablet by mouth daily. 02/24/2024 Mentone-3 Fatty Acids (FISH OIL) 500 mg Cap [...] as of this encounter ED Notes * Merlyn Frank RN - 01/02/2013 4:44 PM EDT Pt ambulatory w/ steady gait, pt has a post op shoe at home. * Josué Mcallister PA - 01/02/2013 4:17 PM EDT Images from the original note were not included. Chief Complaint Patient presents with ??? Foot Pain Patient is a 57 y.o. female presenting with foot injury. The history is provided by the patient. Foot Injury The incident occurred 1 to 2 hours ago. The incident occurred at home. Injury mechanism: Stepped down and landed awkwardly on her foot. The pain is present in the left foot. The pain is mild. The pain has been constant since onset. Pertinent negatives include no numbness, no inability to bear weight, no loss of motion, no muscle weakness, no loss of sensation and no tingling. She reports no foreign bodies present. The symptoms are aggravated by bearing weight. She has tried nothing for the symptoms. The patient says that she fell pain on the plantar surface of her lateral foot. She is able to walkwith a limp, but this makes it worse. She does have a history of a fracture in her foot in the past. She denies numbness or tingling. She denies any knee or ankle pain. She denies any other symptoms at this time. Allergies Allergen Reactions ??? Amoxicillin Trihydrate Rash red from head to toe ??? Haloperidol Sx worsen ??? Sulfa (Sulfonamide Antibiotics) Rash red rash Review of Systems Constitutional: Negative for fever. HENT: Negative for neck pain and neck stiffness. Gastrointestinal: Negative for nausea and vomiting. Musculoskeletal: Positive for gait problem (due to pain in the left foot). Skin: Negative for rash and wound. Neurological: Negative for tingling and numbness. Physical Exam Nursing note and vitals reviewed. Constitutional: She is oriented to person, place, and time. She appears well- developed and well-nourished. HENT: Head: Normocephalic and atraumatic. Musculoskeletal: Left foot: She exhibits tenderness. She exhibits normal range of motion, no swelling, normal capillary refill, no crepitus, no deformity and no laceration. Feet: Neurological: She is alert and oriented to person, place, and time. Skin: Skin is warm and dry. Psychiatric: She has a normal mood and affect. Her behavior is normal. X-ray: Independent review the x-rays by myself demonstrates no acute fractures but an old malunion fracture of the fifth metatarsal: The radiology reading is reviewed and is: Again noted is the fracture nonunion with 2 well corticated fragments at the base of the left 5th metatarsal. These are unchanged in position or alignment as compared to previous. I see no evidence for a stress reaction along the left 5th metatarsal shaft. There is a small amount of thickening. No evidence for acute bony fracture or dislocation. Procedures MDM ED Course: The patient was evaluated as above. X-rays were obtained and reviewed. The patient will be discharged home with instructions to ice and elevate as well as use Tylenol and/or ibuprofen. A hard sole shoe. Was recommended and she does have these at home. She'll reevaluate with any new or worsening symptoms and followup in 7-10 days. If not improved Josué Mcallister PA 01/02/13 1635 documented in this encounter Miscellaneous Notes * Discharge Summary - Provider, Scanning - 01/03/2013 8:58 AM EDT * Miscellaneous - Provider, Scanning - 01/02/2013 9:23 PM EDT * ED Triage - Samantha Agee RN - 01/02/2013 3:50 PM EDT I fell and landed on my foot and rolled my ankle, I am worried I really hurt my foot. Pt ambulatory with limp. Pt with area of swelling to L lateral foot. documented in this encounter Plan of Treatment Upcoming Encounters Date Type Department Care Team (Late st Contact Info) Description 08/18/2024 1:30 PM EST Appointment Mammography/[place] [address] Kathia Alvarado APRN [address] [place] [address] documented as of this encounter Procedures Procedure Name Priority Date/Time Associated Diagnosis Comments XR FOOT MINIMUM 3 VIEWS STAT 01/02/2013 4:27 PM EDT documented in this encounter Results * XR foot minimum 3 views (01/02/2013 4:27 PM EDT) Anatomical Region Laterality Modality Foot N/A Radiographic Varsha ging 01/02/2013 4:27 PM EDT Narrative 01/02/2013 4:32 PM EDT Examination FOOT MIN 3 VIEWS/LEFT Clinical History plantar lateral pain after injury Comparison Multiple images of the left foot dating 06/03/2011, 06/18/2011 07/30/2011. ?? Again. Technique Findings Again noted is the fracture nonunion with 2 well corticated fragments at the base of the left 5th metatarsal. ??These are unchanged in position or alignment as compared to previous. ??I see no evidence for a stress reaction along the left 5th metatarsal shaft. ??There is a small amount of thickening. ??No evidence for acute bony fracture or dislocation. Procedure Note Celine Gunderson MD - 01/02/2013 Examination FOOT MIN 3 VIEWS/LEFT Clinical History plantar lateral pain after injury Comparison Multiple images of the left foot dating 06/03/2011, 06/18/2011 07/30/2011. Again. Technique Findings Again noted is the fracture nonunion with 2 well corticated fragments atthe base of the left 5th metatarsal. These are unchanged in position oralignment as compared to previous. I see no evidence for a stress reaction alongthe left 5th metatarsal shaft. There is a small amount of thickening. Noevidence for acute bony fracture or dislocation. Slick Mcgraw Jr., MD IMG DX ORDERABLES documented in this encounter Visit Diagnoses Diagnosis Sprain and strain of foot- Primary Sprain of foot, unspecified site documented in this encounter Care Teams Inspector Paper Products Relationship Specialty Start Date End Date Charles Huitron MD [address] [address] PCP - General 07/08/10 documented as of this encounter
--- OUTSIDE RECORDS SUMMARY | 2024-07-12 15:58 | XMS_ITS | Encounter Summary ---
[place] [address] Care Team Providers Care Mine Foreman Name Role Phone Charles Huitron MD Primary Care Provider [phone] Reason for Referral * Surgical (Routine) - Closed Specialty Diagnoses / Procedures Referred By Contac t Referred To Contact Orthopaedic Surgery / Orthopaedics Diagnoses Bilateral hip pain Dali Capone PA [facility] [place] [address] [facility] [place] [address] [address] Referral ID Status Reason Start Date Expiration Date V isits Requested Visits Authorized [id number] Closed Consult, Test & Treat 04/26/2013 10/23/2013 1 1 * Physical Therapy (Routine) - Closed Specialty Diagnoses / Procedures Referred By Contac t Referred To Contact Physical Therapy Diagnoses Bilateral hip pain Dali Capone PA [facility] [place] [address] [facility] [place] [address] Referral ID Status Reason Start Date Expiration Date V isits Requested Visits Authorized [id number] Closed Evaluate and Treat 04/26/2013 10/23/2013 12 12 Reason for Visit * Reason Comments Bilateral Hip Pain Encounter Details Date Type Department Care Team (Late st Contact Info) Description 04/26/2013 9:00 AM EDT Office [place] [address] Niles Wright MD [facility] [place] [address] Bilateral hip pain (Primary Dx) Discharge Disposition: Home Social History [...] Sign Reading Time Taken Comments Blood Pressure 111/62 04/26/2013 9:56 AM EDT Pulse 72 04/26/2013 9:56 AM EDT Temperature - - Respiratory Rate - - Oxygen Saturation - - Inhaled Oxygen Concentration - - Weight 95.7 kg (211 lb) 04/26/2013 9:56 AM EDT Height 161.3 cm (5' 3.5) 04/26/2013 9:56 AM EDT Body Mass Index 36.79 04/26/2013 9:56 AM EDT documented in this encounter Patient Instructions * Patient Instructions* Merlyn Bolton, JAREN - 04/26/2013 9:57 AM EDT Welcome to [employer], your secure online access to your electronic medical record at [facility]. Using [employer] you will be able to send messages to your providers, view your test results, renew prescriptions, schedule appointments, and much more. Follow these instructions to enter your personal [employer] account for the first time: 1. Start your internet browser and type [email or web address] into the address bar. 2. In the New User box on the right-hand side of the Welcome page click the link that states, ???I have an activation code.?? 3. On the Identification page, follow these steps: a) Enter your [employer] activation code: [email or web address] b) Expires: 06/10/2013 9:57 AM IMPORTANT: This Activation Code will on the above mentioned date. If you do not sign up for [employer] by this date, you will need to request another activation code. c) Enter your date of , using the calendar tool provided. d) Enter your Zip code. e) Select ???submit?? to go to the next page. 4. On the Create Account page, follow these steps: a) Create a [employer]-H username. This can???t be changed, so choose one you won???t forget. b) Create a password that???s at least six characters long, and that contains at least two numbers.Your password can be changed at any time. Confirm your password by entering it once more. c) Enter your email address. This will be used to alert you to new information. Confirm your email address by entering it once more. d) Enter your security question. This will be used if you forget your password. e) Enter your security answer. Confirm your security answer by entering it once more. f) Select ???submit?? to view your electronic medical record. If you have any questions about [employer] or your Access Code, please call for [place], for [place] or for [place]. If you need technical support, please e-mail [email or web address]. Remember, [employer] is NOT for urgent needs! Always dial 911 for medical emergencies. documented in this encounter Progress Notes * Dali Capone PA - 04/26/2013 10:01 AM EDT PATIENT NAME: Chelsea Gar AGE: 58 y.o. MR#: [id number] DATE OF VISIT: 04/26/2013 DATE OF INJURY/ONSET: greater than 1 year or so STAFF: Niles Wright MD CHIEF COMPLAINT: Bilateral hip pain HISTORY OF PRESENT ILLNESS: Ms. Gar is a very pleasant 58 y.o. year old female who comes into clinic today for evaluation of bilateral hip pain. This is been ongoing now for a little over a year. There were no inciting injuries or falls. About 3 weeks ago she noticed a significant increase in pain. She was trying to get back into her walking routine, in the past she used to walk 3 miles daily but has not done this for the last few years. She did try to walk 1 mile and thumb is very difficult. She has significant pain in both hips and felt like her legs were shaking. She feels this is been gradually getting worse. She denies any groin pain. Her primary severe pain is lateral over both hips. She also has some low back and SI joint pain. She is a difficult time standing for a long period of time. She also notices sitting with her legs up that her legs will go to sleep, this improves with moving around. She denies any popping, clicking, or giving way in either hip. She does think both of her legs feel weaker. She is not using any assistive device. She's tried Motrin and Tylenol whichhelps some. She has not done any physical therapy. PAST SURGICAL HX: Elective bilateral mastectomies and reconstruction for BRCA-2 gene. Complicationssecondary to mastectomies with infection, on IV antibiotics for at least 4 months. History of hysterectomy. Bilateral oophorectomy. Cholecystectomy. Tubal ligation and then reversal. PAST MEDICAL HX: Patient Active Problem List Diagnosis Code ??? Breast cancer 174.9 ??? S/P breast reconstruction V43.82 ??? Bilateral hip pain 719.45 SOCIAL HX: Smoking: Non-smoker, quit 25 years ago. Sober x 23 years. 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 Lives with a partner part-time. ROS: Denies fevers, chills, night sweats, chest pain, shortness of breath, nausea, vomiting. No recent illnesses. No recent hospitalizations. PHYSICAL EXAM: Ms. Gar is a pleasant 58 y.o. year old who is alert and oriented x 3, well developed, well nourished. She appears in no acute discomfort and is resting comfortably in a chair in theexam room. Ambulates with antalgia, somewhat Trendelenburg gait. Inspection: When supine, leg lengths are equal. No obvious deformity over either hip, skin is cleanand dry. Palpation: Very tender over both trochanteric bursa, right more than left. Both IT band significantly tight and tender. Nontender over sciatic notch. Some tenderness over low back and PSIS bilaterally. No pain with gentle pelvic rock. No increased pain with log roll either leg. Strength: +5/5 in EHL, FHL, tibialis anterior, gastrocnemius. Able to SLR both legs. Neuro/Vascular: Sensation intact and equal to light and deep touch in all distributions. Both calves soft and non-tender. Pedal pulses +2/4 and equal. Range of motion right hip: Flexion to 95??, external rotation 45??, internal rotation 15??, abduction 40??, abduction 10??. Range of motion left hip: Flexion to 110??, external rotation 45??, internal rotation 20??, abduction 45??, abduction 10??. Both hips with no pain with range of motion, only some discomfort with maximum external rotation radiating to the lateral hips by IT bands RADIOLOGICAL STUDIES: 04/26/2013- AP pelvis and 2 views both hips (per radiology) Findings - No acute fracture or dislocation is identified. Bilateral hip joint spaces are maintained without appreciable osteophytosis. There is advanced facet arthropathy bilaterally at the L4-L5 and L5-S1 levels. Mild degenerative changes at the pubic symphysis with mild subchondral sclerosis. Small sclerotic focus projecting over the proximal right femoral shaft noted, felt likely to represent a bone island. Impression - No fracture or dislocation. Preservation of hip joint spaces. Advanced lower lumbar facet arthropathy bilaterally. ASSESSMENT: Bilateral hip pain consistent with significant IT band tightness and trochanteric bursitis. PLAN: This patient was discussed in detail Dr. Wright who agrees the following plan. Ms. Gar and I discussed her radiologic findings and physical exam findings. On x-ray, she does not have any significant degeneration in either of her hip joints. She is noted to have degeneration in her lower lumbar spine and the facet joints. On exam, she has findings consistent with trochanteric bursitis. We discussed this in detail as well as the treatment options. My recommendation is to start with physical therapy to work on modalities to ease her IT band tightness and then progress with stretching, range of motion, and strengthening as she tolerates. We did discuss that this can take a very long time to resolve completely and some people do not have complete resolution of her symptoms. I also recommended NSAIDs as needed for discomfort, she can also try heat or cold against her hips.She should avoid overdoing activity as she is able. 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 Plan to followup in 3 months to discuss her progress. If she is not making significant improvement,we may discuss referral to the spine center for further evaluation of her low back. We can also consider steroid injections in her trochanteric bursa to see if this helps. She does not have any further questions today and she is encouraged to contact us with further questions or concerns. The patient understands to contact us if they have any other questions or concerns. JESUS SCHULTE 04/26/2013 documented in this encounter Plan of Treatment Upcoming Encounters Date Type Department Care Team (Late st Contact Info) Description 08/18/2024 1:30 PM EST Appointment Mammography/[place] [address] Kathia Alvarado APRN [address] [place] [address] Scheduled Referrals Name Type Priority Associated Diagnoses Orde r Schedule Referral to Spine Center Outpatient Referral Routine Bilateral hip pain Ordered: 04/26/2013 documented as of this encounter Procedures Procedure Name Priority Date/Time Associated Diagnosis Comments AMB REFERRAL TO PHYSICAL THERAPY Routine 05/15/20 13 Bilateral hip pain documented in this encounter Results * Referral to Physical Therapy (05/15/2013) Niles Wright MD AMB THERAPY REFER RALS documented in this encounter Visit Diagnoses Diagnosis Bilateral hip pain- Primary Pain in joint, pelvic region and thigh documented in this encounter Care Teams Mine Foreman Relationship Specialty Start Date End Date Charles Huitron MD [address] [place] [address] PCP - General 07/08/10 documented as of this encounter
--- OUTSIDE RECORDS SUMMARY | 2024-07-12 15:58 | XMS_ITS | Encounter Summary ---
Author Organization [facility] Address [address] [facility] [place] [address] Care Team Providers Care Plastic Surgeon Name Role Phone Charles Huitron MD Primary Care Provider [phone] Encounter Details Date Type Department Care Team (Late st Contact Info) Description 06/09/2013 9:30 AM EDT Follow-Up Physical Therapy at [facility] [address] [place] [id number] Alvarez Hoyt, PT Bilateral hip pain; Lumbar [...] Progress Notes * Alvarez Hoyt, PT - 06/09/2013 9:40 AM EDT Physical Therapy Progress Note Total [...] 8 9 10 05/10/13 05/19/13 05/26/13 05/29/13 06/02/13 06/09/13 I. E. Follow up visit for patient with: 1. Bilateral hip pain 2. Lumbar pain S: Pt reports that her hips are doing great. Her back pain is very slight / today. She reports feeling better and better all the time. O: Therapeutic Exercise (71232) 25 minutes and Manual Therapy (96963) 15 minutes ?? Nu-Step with arms #10, Seat 10, for 10 min ?? Lower Trunk Rotation 2 min ?? Stretches 2x30 - Passive ?? Piriformis ?? Hamstring ?? Lumbar Rotation Supine - passive (pt crosses arm, stabilize opp shoulder, bring opp knee across towards therapist) ?? MIRIAM Bridging 10x5 ?? Bird Dog 10x5 holds NEW ?? Manual Therapy STM to lumbar spine, piriformis, hamstring origins, IT band - Prone 15 min ?? Spinal Rotation Mobs L2-L5 Prone 2 minutes ?? (PT proximal hand press toward floor away from spine opposite PT, distal hand on opposite ASIS pulling toward ceiling) ?? Supine Long axis distraction 2 min (uni LE, then B LE) A: Ms. Gar continues to have improved lumbar pain sx's following our sessions in the clinic. Added core stabilization exercise to her program today (bird dog) which she needed verbal cuing for correction. Ms. Gar will continue to benefit from skilled PT services to improve her LE mobility, strength, and ROM. We will also continue to work on the lumbro-sacral area as this is a source of painand decreased mobility. P: Cont physical therapy for [...] significant improvement in LE functional ability Therapy Fpc Goals (6 weeks) Patient will... 1. report [...] 08/18/2024 1:30 PM EST Appointment Mammography/[place] [address] Kathia Alvarado APRN [address] [place] [address] documented as of this encounter Visit Diagnoses Diagnosis Bilateral hip pain Pain in joint, pelvic region and thigh Lumbar pain Lumbago documented in this encounter Care Teams Plastic Surgeon Relationship Specialty Start Date End Date Charles Huitron MD [address] [place] [address] PCP - General 07/08/10 documented as of this encounter
--- OUTSIDE RECORDS SUMMARY | 2024-07-12 15:58 | XMS_ITS | Encounter Summary ---
Author Organization [facility] [place] [address] Care Team Providers Care Esl Instructor Name Role Phone Charles Huitron MD Primary Care Provider [phone] Reason for Visit * Reason Comments Left Foot Fracture doi 06/09/11 Encounter Details Date Type Department Care Team (Late st Contact Info) Description 06/18/2011 8:40 AM EDT Office Visit [place] [phone] CLINIC, DR JULIANN Ibrahim, Isac Peng MD [facility] [place]THOPAEDIC [place] [address] Fx metatarsal (Primary Dx) Discharge Disposition: Home Social History [...] Sign Reading Time Taken Comments Blood Pressure 130/80 06/18/2011 8:33 AM EDT Pulse - - Temperature - - Respiratory Rate - - Oxygen Saturation - - Inhaled Oxygen Concentration - - Weight 90.7 kg (200 lb) 06/18/2011 8:33 AM EDT Height 160 cm (5' 3) 06/18/2011 8:33 AM EDT Body Mass Index 35.43 06/18/2011 8:33 AM EDT documented in this encounter Progress Notes * Isac Ibrahim MD - 06/18/2011 9:05 AM EDT Subjective: Patient ID: Chelsea Gar is a 56 y.o. female. 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 1. She is to remain in here NON ROM walker boot and only towards one month post injury try to get to supportive shoe as a trail 2. She is to remain on ASA 81mg qd 3. She can work but limit her work to 4 hours per day - a slip was given 4. I will see her back with repeat X Rays in 6 weeks - hopefully a final visit at that time - she was warned that the old ossicle may prove to be painful more longterm She is to call ion interim if problems documented in this encounter Miscellaneous Notes * Miscellaneous - Reuben, Supervisor Telephone Clerks - 09/10/2011 9:12 AM EST documented in this encounter Plan of Treatment Upcoming Encounters Date Type Department Care Team (Late st Contact Info) Description 08/18/2024 1:30 PM EST Appointment Mammography/[place] [address] Kathia Alvarado APRN [address] [place] [address] documented as of this encounter Results * XR foot minimum 3 views (07/30/2011 8:24 AM EST) Anatomical Region Laterality Modality Foot N/A Radiographic Varsha ging 07/30/2011 8:24 AM EST Impressions 07/31/2011 10:03 AM EST IMPRESSION: ?? Healed nondisplaced fracture of the cuboid. ? Film and interpretation reviewed by the attending Narrative 07/31/2011 10:03 AM EST LEFT FOOT, 07/30/11: ?? HISTORY: Question healing base of fifth, old ossicle. ??Question new marginal fracture which showed some healing. ?? COMPARISON: 06/18/11 and 06/03/11. ?? TECHNIQUE: Three views of the left foot were obtained. ?? FINDINGS: There is increased sclerosis at the lateral aspect of the cuboid, at the site of the previously seen cortical irregularity. ??Increased sclerosis suggests a healed fracture. ??There are two ossicles adjacent to the base of the fifth metatarsal, which are well corticated and are compatible with nonunited bone fragments. ??No new fractures are identified. ?? Procedure Note Deana Cano MD - 07/31/2011 LEFT FOOT, 07/30/11: HISTORY: Question healing base of fifth, old ossicle. Question newmarginal fracture which showed some healing. COMPARISON: 06/18/11 and 06/03/11. TECHNIQUE: Three views of the left foot were obtained. FINDINGS: There is increased sclerosis at the lateral aspect of thecuboid, at the site of the previously seen cortical irregularity. Increasedsclerosis suggests a healed fracture. There are two ossicles adjacent to the baseof the fifth metatarsal, which are well corticated and are compatible withnonunited bone fragments. No new fractures are identified. IMPRESSION IMPRESSION: Healed nondisplaced fracture of the cuboid. Film and interpretation reviewed by the attending Isac Ibrahim MD IMG DX ORDERABLES documented in this encounter Visit Diagnoses Diagnosis Fx metatarsal- Primary Closed fracture of metatarsal bone(s) Fx metatarsal Closed fracture of metatarsal bone(s) documented in this encounter Care Teams Esl Instructor Relationship Specialty Start Date End Date Charles Huitron MD [address] [place] [address] PCP - General 07/08/10 documented as of this encounter
--- OUTSIDE RECORDS SUMMARY | 2024-07-12 15:58 | XMS_ITS | Encounter Summary ---
Author Organization [facility] [place] [address] Care Team Providers Care Tourist Adviser Name Role Phone Charles Huitron MD Primary Care Provider Encounter Details Date Type Department Care Team (Late st Contact Info) Description 03/31/2011 Abstract [place] [address] Regina Santana RN Breast cancer Social History Tobacco Use Types Packs/Day Years [...] 08/18/2024 1:30 PM EST Appointment Mammography[place] [phone] Kathia Alvarado APRN [address] [place] [address] documented as of this encounter Visit Diagnoses Diagnosis Breast cancer Malignant neoplasm of breast (female), unspecified site documented in this encounter Care Teams Tourist Adviser Relationship Specialty Start Date End Date Charles Huitron MD [address] [place] [address] PCP - General 07/08/10 documented as of this encounter
--- OUTSIDE RECORDS SUMMARY | 2024-07-12 15:58 | XMS_ITS | Encounter Summary ---
Author Organization [facility] [place] [address] Care Team Providers Care Cost And Sales Record Supervisor Name Role Phone Charles Huitron MD Primary Care Provider [phone] Encounter Details Date Type Department Care Team (Latest Contact Info) Description 12/09/2012 1:00 PM EDT Office Visit Physical Therapy at [facility] [address] [place] [phone] Sanna Wing, PT Charles Huitron MD [address] [place] [address] [id number] Right lateral epicondylitis (Primary Dx) Discharge Disposition: Home Social History [...] Progress Notes * Sanna Wing, PT - 12/09/2012 1:04 PM EDT Images from the original note were not included. Physical Therapy Initial Evaluation Note: Outpatient Date of Exam/First Treatment: 12/09/2012 Date of onset: Jul 2012 Referring Provider: Charles Huitron Diagnosis: 1. Right lateral epicondylitis Medicare Certification period: 12/09/2012 - 02/03/13 History of current problem: Chelsea Gar is a 57 y.o. female referred to physical therapy for right arm pain including elbow and wrist extensor muscles. She saw Dr. Huitron who diagnosed lateral epicondylitis. About 4 months ago she moved to a new place and she felt that the muscle got pulled. She thought it would go away, but her pain never did. It has been very bad over the last week usually dependent upon what she is doing. 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 Client is 6 foot tall and unable to contribute much to his care including ADL's: Bathing, dressing, eating, transfers from bed to shower chair. Note: Was on disability due to being very sick a few years Hand dominance: Left Current Exercises: Was stretching the elbow but was afraid of pushing it to far. Prior elbow injuries/history: negative for prior surgery, trauma, arthritis or disorders Imaging: None at this time. Pain: at best: 2/10; at worst: 8/10 within the last 2 weeks (worst yesterday) Located: diffuse, lateral and medial Describes pain as: dull, numbing, shooting and throbbing. It moves around her elbow to forearms Reports pain during: all activities, reaching, lifting, pulling, carrying, twisting, ADL's, work ator above shoulder height reports numbness and tingling Note: Diagram replicated from patient self-report health history form Home treatment has included: ice and OTC NSAIDS Prior level of function: able to care for patient (caregiver) without elbow pain. Able to lift, carry without issues Clinical Findings: Associated symptoms: none Posture: Forward head , Thoracic kyphosis decreased and Rounded shoulders Palpation: tenderness with palpation at: R elbow extensors ELBOW and SHOULDER Range of Motion and strength: Affected ELBOW: RIGHT AROM LEFT AROM RIGHT MMT (/5) LEFT MMT (/5) RIGHT SHOULDER flexion 0-160 0-150* 4+/5 5/5 abduction 0-165 0-165 4+/5 5/5 ER 0-T3 0-T3 5/5 5/5 IR 0-T9 0-T9 5/5 5/5 extension 0-55 0-55 5/5 5/5 ELBOW Flexion NA = Not assessed * = performed with increased pain sx's Hand Dynameter Packager Head position 2 SALES REPRESENTATIVE ADDING MACHINES Position 1 RIGHT lbs LEFT lbs Trial 1 40.1 69.4 Trial 2 57.9 76.4 Trial 3 69.1 74.9 Roldan Pinch RIGHT lbs LEFT lbs Trial 1 NT NT Trial 2 NT NT Trial 3 NT NT Cervical Motion: (% restricted) Flexion 0% Extension 0% Rotation R 0% Rotation L 0% Side Bending R 0% Side Bending L 0% Flexibility: decreased at pectoralis and biceps Functional Assessment Tool: NIKIA/ASES Shoulder Score: Can't do it at all: = 0 Much difficulty: = 1 Some difficulty: = 2 No difficulty = 3 Did not do before injury = X Clinical Evaluation and Diagnosis: These findings are consistent with right lateral elbow pain associated with lateral epicondylitis symptoms. She also has some signs of Biceps Tendon irritability during lifting and reaching activities. Ms. Gar will benefit from skilled PT services for improved mobility, decreased pain and returnto function. Expect with skilled physical therapy interventions patient will be able to return to prior level offunction. GOALS: Therapy Short Term Goals (3 weeks) Patient to... 1. be indep with home exercise program. 2. Improve NKIIA/ASES score by 9 points for statistically significant improvement in functional mobility and use of the affected elbow. 3. Report ability to grain broker and market operator and open jars with little difficulty using her R hand. 4. Demonstrate ability to lift 1 gal (8-10 lbs) to above shoulder level with report of some R elbow difficulty as reported on the NIKIA/ASES. Therapy [facility] Goals (6 weeks) Patient to... 1. improve [...] no difficulty as reported on the NIKIA/ASES. INITIAL TREATMENT INCLUDED: Examination and instruction in a home exercise program (refer to scan doc in the electronic medical record), patient education regarding physical therapy plan of care, anatomy and diagnosis. Elbow flexor strap given for epicondyle pain. Plan: Frequency and Duration: 2 x per week x 6 weeks then 1x every other week for 2 more visits if needed. Manual Techniques, Soft tissue mobilization, Stretching, Joint mobilization, Therapeutic exercise, Modalities (PRN to control pain and inflammation) Ionto/Phonophoresis and Ultrasound, Patient/Familyeducation, Body Mechanics, Posture and Home Exercise Program Total Treatment time: 45 minutes Total Timed Code Treatment: 0 minutes SANNA WING PT documented in this encounter Plan of Treatment Upcoming Encounters Date Type Department Care Team (Late st Contact Info) Description 08/18/2024 1:30 PM EST Appointment Mammography/[place] [address] Kathia Alvarado APRN [address] [place] [address] documented as of this encounter Visit Diagnoses Diagnosis Right lateral epicondylitis- Primary Lateral epicondylitis of elbow documented in this encounter Care Teams Cost And Sales Record Supervisor Relationship Specialty Start Date End Date Charles Huitron MD [address] [place] [address] PCP - General 07/08/10 documented as of this encounter
--- OUTSIDE RECORDS SUMMARY | 2024-07-12 15:58 | XMS_ITS | Encounter Summary ---
[place] [address] Care Team Providers Care Welt Butter Hand Name Role Phone Charles Huitron MD Primary Care Provider [phone] Reason for Visit * Reason Comments Follow-up breast revision and bilateral NAC reconstruction 12/24/10 Encounter Details Date Type Department Care Team (Late st Contact Info) Description 12/29/2010 2:00 PM EDT Office [place] [address] Bhakti Hammond [facility] [place] [address] Other specified aftercare following surgery (Primary Dx) Discharge Disposition: Home Social History Tobacco Use Types Packs/Day Years Used Date Smoking Tobacco: Former Cigarettes Q uit: 12/23/1985 Alcohol Use Standard Drinks/Week Comments Not Asked 0 (1 standard drink = 0.6 oz pur e alcohol) Sex and Gender Information Value Date Recorded Sex Assigned at Not on file Gender Identity Not on file Sexual Orientation Not on file documented as of this encounter Progress Notes * Bhakti Hammond APRN - 12/29/2010 1:56 PM EDT PLASTIC SURGERY OFFICE NOTE Chelsea Gar returned to our office today for post surgical follow-up Date of Surgery: 12/24/2010 Operation: revision of reconstructed breast, bilateral NAC reconstruction Complications: none Pain: 4/10 Specific complaints/comments: Patient reports that she has had a harder time recovering than she expected. Physical Examination: Well approximated incisions on left breast and bilateral NACs. Flaps viable. No evidence of seroma, hematoma, infection. Plan: Aquaphor and telfa to NAC x 1 week. Wear bra with activity. Prescriptions provided: none Comfort wear bra provided Follow up: 3 months to discuss NAC tattoo documented in this encounter Plan of Treatment Upcoming Encounters Date Type Department Care Team (Late st Contact Info) Description 08/18/2024 1:30 PM EST Appointment Mammography/[place] [phone] Kathia Alvarado APRN [address] [place] [address] documented as of this encounter Visit Diagnoses Diagnosis Other specified aftercare following surgery- Primary documented in this encounter Care Teams Welt Butter Hand Relationship Specialty Start Date End Date Charles Huitron MD [address] [place] [address] PCP - General 07/08/10 documented as of this encounter
--- OUTSIDE RECORDS SUMMARY | 2024-07-12 15:58 | XMS_ITS | Encounter Summary ---
Author Organization [facility] [place] [address] Care Team Providers Care Sign Language Teacher Name Role Phone Charles Huitron MD Primary Care Provider [phone] Reason for Visit * Reason Onset Date Comments Medication Refill 04/13/2013 Encounter Details Date Type Department Care Team (Late st Contact Info) Description 04/13/2013 [place] [phone] Mendez Cutler MD [facility] [place] [address] Migraine (Primary Dx) Social History Tobacco Use Types [...] Miscellaneous Notes * Telephone Encounter - Bhumi Lacy RN - 04/14/2013 9:56 AM EDT Request for Rf of metoprolol succinate XL 25 mg -24 hour tab , take 1 tab ,PO, daily Last Rx - , #30 with 3 RF * Telephone Encounter - Melony Lund - 04/13/2013 3:00 PM EDT Name of Med: metoprolol succinate Strength of Pills:25 mg Dosing Directions: 1 tablet by mouth daily 30 or 90 Day: 30 Pharmacy: [place], [place] Last Appointment:02/27/13 Next Appointment:06/05/13 documented in this encounter Plan of Treatment Upcoming Encounters Date Type Department Care Team (Late st Contact Info) Description 08/18/2024 1:30 PM EST Appointment Mammography/[place] [address] Kathia Alvarado APRN [address] [place] [address] documented as of this encounter Visit Diagnoses Diagnosis Migraine- Primary Migraine, unspecified, without mention of intractable migraine without mention of status migrainosus documented in this encounter Care Teams Sign Language Teacher Relationship Specialty Start Date End Date Charles Huitron MD [address] [address] PCP - General 07/08/10 documented as of this encounter
--- OUTSIDE RECORDS SUMMARY | 2024-07-12 15:58 | XMS_ITS | Encounter Summary ---
Author Organization [facility] [place] [address] Care Team Providers Care Filter Plant Supervisor Name Role Phone Charles Huitron MD Primary Care Provider [phone] Encounter Details Date Type Department Care Team (Late st Contact Info) Description 06/02/2013 9:30 AM EDT Follow-Up Physical Therapy at [facility] [address] [place] [phone] Alvarez Hoyt, PT Bilateral hip pain; Lumbar [...] Progress Notes * Alvarez Hoyt, PT - 06/02/2013 9:26 AM EDT Physical Therapy Progress Note Total [...] 9 10 05/10/13 05/19/13 05/26/13 05/29/13 06/02/13 I. E. Follow up visit for patient with: 1. Bilateral hip pain 2. Lumbar pain S: Pt reports that her hips are doing great. Her back pain is a 3/10 today. She did her walk for 2 miles yesterday and her back pain was there, but not as severe as it has been in the past. At worst it was a 2/10 yesterday during and after her walk. It is a little more this morning because she wasn't able to do her exercises yet. O: Therapeutic Exercise (80331) 15 minutes and Manual Therapy (78518) 25 minutes ?? Nu-Step with arms #10, Seat 10, for 10 min ?? Lower Trunk Rotation 2 min ?? Stretches 2x30 - Passive ?? Piriformis ?? Hamstring ?? Lumbar Rotation Supine - passive (pt crosses arm, stabilize opp shoulder, bring opp knee across towards therapist) ?? Bridging with Ball Squeeze 10x5 ?? Manual Therapy STM to lumbar spine, [...] sx's following our sessions in the clinic. We will continue to work on her spinal flexibility and mobilizations while she continues with her walking and stretching program at home. Ms. Gar will continue to benefit from skilled PT services to improve her LE mobility, strength, and ROM. We will also continue to work on the lumbro- sacral area as this is a source of [...] significant improvement in LE functional ability Therapy [facility] Goals (6 weeks) Patient will... 1. report [...] 08/18/2024 1:30 PM EST Appointment Mammography/[place] [address] Kathia Alvarado APRN [address] [place], [place] [id number] documented as of this encounter Visit Diagnoses Diagnosis Bilateral hip pain Pain in joint, pelvic region and thigh Lumbar pain Lumbago documented in this encounter Care Teams Filter Plant Supervisor Relationship Specialty Start Date End Date Charles Huitron MD [address] [place] [address] PCP - General 07/08/10 documented as of this encounter
--- OUTSIDE RECORDS SUMMARY | 2024-07-12 15:58 | XMS_ITS | Encounter Summary ---
[place] [address] Care Team Providers Care Craft Center Director Name Role Phone Charles Huitron MD Primary Care Provider [phone] Reason for Visit * Reason Comments Follow Up Surgery nipples Encounter Details Date Type Department Care Team (Latest Contact Info) Description 05/20/2011 9:00 AM EDT Clinical Support [place] [phone] NURSE, PLASTIC SURGERY Surgery aftercare (Primary Dx) Discharge Disposition: Home Social History [...] Sign Reading Time Taken Comments Blood Pressure 120/75 05/20/2011 9:14 AM EDT Pulse - - Temperature - - Respiratory Rate - - Oxygen Saturation - - Inhaled Oxygen Concentration - - Weight 90.7 kg (200 lb) 05/20/2011 9:14 AM EDT Height 158.8 cm (5' 2.5) 05/20/2011 9:14 AM EDT Body Mass Index 36 05/20/2011 9:14 AM EDT documented in this encounter Progress Notes * Alaeh Castillo RN - 05/20/2011 11:34 AM EDT Reason for Visit: Postoperative Evaluation s/p NAC 05/13/2011 Subjective: feeling fine no complaints. Objective: Noted bilateral NAC tattooing in tact, beautiful take.Dr. Florez in to see pt. Complications: none Assessment: No signs of infection, seroma, or hematoma.completely healed Plan: Reviewed post op instructions, signs of infection,and correct phone numbers to call us for concerns. No need for follow up, unless there are concerns. Pt agrees with plan of care. Supplies given: none Pictures taken today documented in this encounter Miscellaneous Notes * Miscellaneous - Reuben, Dermatology Teacher - 06/15/2011 1:00 PM EDT documented in this encounter Plan of Treatment Upcoming Encounters Date Type Department Care Team (Late st Contact Info) Description 08/18/2024 1:30 PM EST Appointment Mammography/[place] [phone] Kathia Alvarado APRN [address] [place] [address] documented as of this encounter Visit Diagnoses Diagnosis Surgery aftercare- Primary Other specified aftercare following surgery documented in this encounter Care Teams Craft Center Director Relationship Specialty Start Date End Date Charles Huitron MD [address] [place] [address] PCP - General 07/08/10 documented as of this encounter
--- OUTSIDE RECORDS SUMMARY | 2024-07-12 15:58 | XMS_ITS | Encounter Summary ---
Author Organization [facility] [place] [address] Care Team Providers Care Chief Engineer Waterworks Name Role Phone Charles Huitron MD Primary Care Provider [phone] Encounter Details Date Type Department Care Team (Late st Contact Info) Description 12/23/2010 12:15 PM EDT - 12/23/2010 2:13 PM EDT Surgery [place] [id number] Dasha Giles MD [facility] [place] [address] REVISION OF RECONSTRUCTED BREAST (WRVU 11.17) Social History Tobacco Use Types Packs/Day Years Used Date Smoking Tobacco: Former Cigarettes Q uit: 12/23/1985 Sex and Gender Information Value Date Recorded Sex Assigned at Not on file Gender Identity Not on file Sexual Orientation Not on file documented as of this encounter Last Filed Vital Signs Vital Sign Reading Time Taken Comments Blood Pressure 96/57 12/23/2010 3:17 PM EDT Pulse 66 12/23/2010 3:17 PM EDT Temperature 36.4 ??C (97.5 ??F) 12/23/2010 2:53 PM ED T Respiratory Rate 16 12/23/2010 3:17 PM EDT Oxygen Saturation 92% 12/23/2010 3:17 PM EDT Inhaled Oxygen Concentration - - Weight - - Height - - Body Mass Index - - documented in this encounter Discharge Instructions * Patient Instructions* Emilia Marshall MD - 12/23/2010 1:33 PM EDT Keep dressing clean and dry until follow-up with Dr. Giles. Wear bra 24 hrs/day except during shower You may shower in 48 hr; no bath. Leave nipple dressing in place until followup in clinic. FOLLOWING SURGERY The healing process after breast reduction surgery varies with each person. You should expect to feel tired for the first 2 - 3 weeks due to anesthesia and the healing process. Rest often during the day and get a good night sleep. With any surgery there is some discomfort or pain. We will prescribe pain medication, usually a narcotic and an anti-inflammatory. Take both as prescribed and only as needed. Please read your Narcotic and Postop Pain handout for proper use of your pain medications. Shooting pain and burning sensations are normal and will subside as you heal. Breast swelling is normal as is mild bruising. Expect to have some pink, red, or clear drainage from your incisions for the first 1 to 2 weeks. Continue to use gauze dressing until the drainage is gone. Spitting sutures: Occasionally an area of redness and tenderness develops where a dissolving stitchbecomes irritated and pushes to the surface. This stitch is clear and looks like fish line. If thisoccurs, it is not an emergency. You may clip the stitch or call the clinic for an appointment with a nurse. GETTING A GOOD NIGHT SLEEP Your surgeon may ask you to sleep on your back for a few weeks. Here are some suggestions for a good nights sleep. Try sleeping in a recliner. Have extra pillows in your bed for support: two along your side and one under your knees to relievelower back pressure. Buy a large body pillow or a pillow with arm rests for sitting up in bed. GETTING OUT OF BED You will be asked to limit the use of your arms for a few weeks after surgery. This can be a problem when trying to get out of bed. The following suggestions help you get out of bed with minimal use of your arms. When in bed, pull your knees up towards your chest and tip to the side, gently rolling out of bed. Take care not to roll onto your breasts. Create a nest of pillows to prop you in a semi-upright position helps give you that extra boost to get out of bed. Have someone put gentle pressure to your lower shoulder blades as you sit up. This gives you the extra power you need to get to your feet. SHOWERING AND BATHING Do not shower if you have had a Free Nipple Graft. Your dressing must stay dry and in place until you see your doctor, usually in 7 days. If you have breast drains, the nurses usually remove them within the first 3 days following surgery. You may shower 2 days after surgery (or as directed by your doctor). Do wash by gently touching your breasts. Be sure to have someone nearby when taking your first shower in case you feel dizzy. Remember your center of gravity will be different and you will be taking a narcotic. If you have taping under your breast, leave that in place until your appointment with the doctor in2 weeks. You will continue to tape for 6 weeks following surgery. DO???S AND DON???TS FOR THE NEXT [address] a motor vehicle for 1-2 weeks or until you can handle the steering wheel without discomfort. Do not drive while taking your narcotic. You will be able to wear a seat belt if you place a small pillow over your chest area. Do not engage in sexual activity for at least 1 week. Do not smoke or be around anyone who smokes for 2 weeks after your surgery. Smoking delays healing and can lead to infection. Do not lift more than 5 pounds or bend at the waist to lift for 6 weeks. Do not participate in strenuous activities such as running or aerobics for 6 weeks. Do resume walking at a gentle pace. Protect your incisions from the sun for 6 months. You may return to work in 1-6 weeks (average time is 3 weeks) depending upon your work activity. Do report if pain and swelling in one breast is much greater then the other. Do report signs of infection. SIGNS OF INFECTION: A temperature over 100.4???F or 38???C. Redness at the incision line that is beginning to spread away from the incision after the first 48 hours. Yellow pus-like or foul smelling drainage larger than dime size from the incisions or drainage sites. Increased pain or discomfort that is not relieved by your pain medicine. CONTACT INFORMATION: Contact your doctor during office hours: Wednesday through Wednesday 8 am to 5 pm Call [phone] On weekends or after hours: Call [phone] and ask the tracing lathe set up operator to page the Plastic Surgeon drafter construction. Prescription Line: Wednesday through Wednesday 8 am to 4 pm Call [phone] Narcotic renewals will not be honored after hours or on weekends. Make your request a few days before you run out as it may take up to 24 hours for physician approval. documented in this encounter Medications at Time of Discharge Medication Sig Dispensed Refills Start Date End Date ibuprofen (ADVIL;MOTRIN) 400 mg tablet Take 2 tablets by mouth every 6 hours as needed for Pain. 30 tablet 12 12/23/2010 12/23/2011 OXYcodone (ROXICODONE) 5 mg immediate release tablet Take 1-2 tablets by mouth every 4 hours as needed for Pain. 30 tablet 0 12/23/2010 06/03/2011 documented as of this encounter H&P Notes * Emilia Marshall MD - 12/23/2010 11:10 AM EDT General Surgery - Admission Note Patient Name: Rigo Gar : [id number] MR#: [id number] 12/23/2010 Hospital Day 0 days Problem List: There are no hospital problems to display for this patient. There are no active non-hospital problems to display for this patient. Past Medical and Surgical History: No past medical history on file. No past surgical history on file. Allergies: Allergies Allergen Reactions ??? Amoxicillin Trihydrate Rash red from head to toe ??? Sulfa (Sulfonamide Antibiotics) Rash red rash ??? Haloperidol Other (See Comments) Sx worsen Prior to Admission Medications: Prescriptions prior to admission Medication Sig Dispense Refill ??? simvastatin (ZOCOR) 20 mg tablet ??? lisinopril-hydrochlorothiazide (PRINZIDE;ZESTORETIC) 10-12.5 mg per tablet ??? prazosin (MINIPRESS) 5 mg capsule 5 MG = 1 Capsule(s), PO, QHS ??? b complex vitamins tablet ??? Calcium-Magnesium (CALCIUM AND MAGNESIUM) 750-465 mg Tab ??? Cholecalciferol, Vitamin D3, (VITAMIN D) 1,000 unit Tab ??? [place]-3 Fatty Acids (FISH OIL) 500 mg Cap ??? venlafaxine (EFFEXOR XR) 75 mg 24 hr capsule ??? estrogens, conjugated,-methyltestosterone (ESTRATEST HS) 0.625-1.25 mg per tablet ??? ascorbic acid (VITAMIN C) 1,000 mg tablet ??? traZODone (DESYREL) 150 mg tablet Family History: No family history on file. Current Inpatient Medications: No current [facility]-ordered facility-administered medications on file. No current [facility]-ordered outpatient prescriptions on file. Social History and Habits: History Social History ??? Marital Status: Spouse Name: N/A Number of Children: N/A ??? Years of Education: N/A Occupational History ??? Not on file. Social History Main Topics ??? Smoking status: Not on file ??? Smokeless tobacco: Not on file ??? Alcohol Use: Not on file ??? Drug Use: Not on file ??? Sexually Active: Not on file Other Topics Concern ??? Not on file Social History Narrative ??? No narrative on file History of Present Illness: HPI 55F s/p bilat breast reconstruction. Plan for OR today for asymmetry and nipple reconstruction. Review of Systems: Review of Systems No chest pain No shortness of breath Physical Exam: Last Set of Vitals and range of vitals over past 24 hours: Last value Range last 24 hrs Temperature Heart Rate Heart Rate: -- Blood Pressure BP: -- Respiratory Rate Resp: -- SpO2 SpO2: -- Physical Exam Gen NAD CTAB RRR abd s/nt/nd Chest skin clean, no sign of infection Ext no edema Plan: Reduction on her left TRAM with a combination of direct excision and liposuction. In additionthe skin flap inset on the right has a region of irregular contour and this could be corrected. Bilateral KISS flaps could be done for nipple reconstruction. She would want to consider areolar tattooat some point in the future. She would like to proceed with surgery. ?? Preop orders done ?? Consent signed ?? Discussed Advanced Directives and Code Status. The patient wishesto be Full Code. EMILIA MARSHALL 12/23/2010 documented in this encounter Nursing Notes * Jayla Santizo RN - 12/23/2010 1:42 PM EDT Tumescent Solution: 50ml of 0.5% Sensorcaine, 12.5ml of 8.4% Sodium Bicarb, and 1ml of 1:1000 Epinephrine mixed into [id number] bag of Normal Saline documented in this encounter Miscellaneous Notes * Miscellaneous - Provider, Scanning - 12/25/2010 9:24 AM EDT * Miscellaneous - Provider, Scanning - 12/25/2010 9:18 AM EDT * Op Note - Jose Juan Patterson - 12/23/2010 5:48 PM EDT [facility] Operative Note Patient Name: Rigo Gar : [id number] MR#: [id number] Case Date: 12/23/2010 Surgeon: Surgeon(s) and Role: * EMILIA MARSHALL MD - Surgeon Gavin * JOSE JUAN PATTERSON MD - Surgeon Chief * DASHA GILES MD - Primary Preoperative diagnosis: STATUS POST BILATERAL RECON WITH ASYMMETRY Postoperative diagnosis: STATUS POST BILATERAL RECON WITH ASYMMETRY Procedure(s): REVISION OF RECONSTRUCTED BREAST RECONSTRUCTION, NIPPLE/AREOLA, ABBIE General Estimated Blood Loss: 50 Drains: none Disposition: awakened from anesthesia, extubated and taken to the recovery room in a stable condition, having suffered no apparent untoward event. Condition: doing well without problems (Please see the Surgical Encounter Summary for any Implant and Specimen details pertinent to this patient.) HPI/Surgical Indications: BLANKS Indication for Surgery: This is a 55-year-old female with a history of bilateral breast reconstruction. She had a TRAM on the left and a latissimus dorsi on the right. Patient had continued asymmetry with significant size discrepancy with the left breast being larger than the right breast, additionally excessive scarring of the medial aspect of the left breast as well as along the junction of the TRAM skin and the mastectomy skin. Also, patient is in need of bilateral nipple-areolar complex reconstruction. Given these needs, plan is to take the patient to the Operating Room for revision of the left breast reconstruction with liposuction, direct lipectomy, and nipple-areolar complex reconstruction as well as reconstruction of the right nipple-areolar complex. Description of Procedure: The patient was marked in the Preoperative Holding Area, taken to the Operating Room, and prepped and draped in the standard sterile fashion. At this point in time, we proceeded with reconstruction of the right nipple-areolar complex. She had been marked preoperatively. The left and right sides of the breasts were marked for symmetric height of the NAC. A KISS flap was designed 4 cm in length and 2 cm in height creating two KISS flaps on each breast mound. Incision was made through the skin. These flaps were, developed, defatted, mobilized and rotated. Four-0 PDS suture was used to secure the flaps. The bases of the wounds were closed, and then the two flaps were then sutured together. We then turned our attention to the left breast. Tumescent was infused into the left breast. Of note, the significant bulk was laterally in the left breast as well as superomedially. She had excessive scarring along the inframammary border of the left Breast. We then proceeded with liposuction of the left lateral aspect of the breast removing the excess and redundant volume of tissue in the breast. We then liposuctioned medially, as well. A total of 300 mL of fat was in the canister. We then carefully evaluated the inferior border of the breast for remaining excessive tissue. We then stapled the breast incorporating the deforming scar along the inferior border of the breast into the area to be resected. Once we had this done, we then carefully marked this area after it was stapled and then removed the favio. The total length of this area that we resected was 18 cm. We then carefully made an incision in the skin sharply with a #10 blade, excised the excessive skin inferiorly. We also performed a direct lipectomy in the left lateral aspect of the breast. Hemostasis was then achieved with electro Bovie cautery. The wound was then reapproximated with deep dermal PDS sutures and a subcuticular PDS suture. Once this was complete, protective dressings were placed on the nipples. Of note, there was a small scar at the superior aspect of the TRAM skin on the left breast that was revised, as well. Total length of this was 2.5 cm. Again, the wounds were closed with the deep dermal PDS sutures and Dermabond was applied after this was performed and protection dressings were placed on the nipples themselves. The patient was transferred to the Same-Day Recovery Area in stable condition. Procedure Description: * Brief Op Note - Jose Juan Patterson - 12/23/2010 5:48 PM EDT Brief Operative Note Patient Name: Rigo Gar : [id number] MR#: [id number] Case Date: 12/23/2010 Surgeon: Surgeon(s) and Role: * EMILIA MARSHALL MD - Surgeon Gavin * JOSE JUAN PATTERSON MD - Surgeon Chief * DASHA GILES MD - Primary Preoperative diagnosis: STATUS POST BILATERAL RECON WITH ASYMMETRY Postoperative diagnosis: STATUS POST BILATERAL RECON WITH ASYMMETRY Procedure(s): REVISION OF RECONSTRUCTED BREAST RECONSTRUCTION, NIPPLE/AREOLA, ABBIE General Estimated Blood Loss: 50 Drains: none Disposition: awakened from anesthesia, extubated and taken to the recovery room in a stable condition, having suffered no apparent untoward event. Condition: doing well without problems (Please see the Surgical Encounter Summary for any Implant and Specimen details pertinent to this patient.) * Brief Op Note - Dasha Giles - 12/23/2010 3:20 PM EDT Brief Operative Note Patient Name: Rigo Gar : [id number] MR#: [id number] Case Date: 12/23/2010 Surgeon: Surgeon(s) and Role: * EMILIA MARSHALL MD - Surgeon Gavin * JOSE JUAN PATTERSON MD - Surgeon Chief * DASHA GILES MD - Primary Preoperative diagnosis: STATUS POST BILATERAL RECON WITH ASYMMETRY Postoperative diagnosis: STATUS POST BILATERAL RECON WITH ASYMMETRY Procedure(s): REVISION OF RECONSTRUCTED BREAST RECONSTRUCTION, NIPPLE/AREOLA, ABBIE General Estimated Blood Loss: 50 cc Drains: nond Disposition: awakened from anesthesia, extubated and taken to the recovery room in a stable condition, having suffered no apparent untoward event. Condition: doing well without problems (Please see the Surgical Encounter Summary for any Implant and Specimen details pertinent to this patient.) * OR Attestation - Dasha Giles - 12/23/2010 3:19 PM EDT Attestation: I was present and I participated during the entire procedure (does not need to include opening and closing). DASHA GILES * Brief Op Note - Emilia Marshall MD - 12/23/2010 2:32 PM EDT Brief Operative Note Patient Name: Rigo Gar : [id number] MR#: [id number] Case Date: 12/23/2010 Surgeon: Surgeon(s) and Role: * EMILIA MARSHALL MD - Surgeon Gavin * JOSE JUAN PATTERSON MD - Surgeon Chief * DASHA GILES MD - Primary Preoperative diagnosis: STATUS POST BILATERAL RECON WITH ASYMMETRY Postoperative diagnosis: STATUS POST BILATERAL RECON WITH ASYMMETRY Procedure(s): REVISION OF RECONSTRUCTED BREAST RECONSTRUCTION, NIPPLE/AREOLA, ABBIE General Anesthesia Estimated Blood Loss: 30 ml Drains: none Disposition: awakened from anesthesia, extubated and taken to the recovery room in a stable condition, having suffered no apparent untoward event. Condition: doing well without problems * Miscellaneous - Provider, Scanning - 12/23/2010 12:18 PM EDT documented in this encounter Plan of Treatment Upcoming Encounters Date Type Department Care Team (Late st Contact Info) Description 08/18/2024 1:30 PM EST Appointment Mammography/[place] [address] Kathia Alvarado APRN [address] [place] [address] documented as of this encounter Procedures Procedure Name Priority Date/Time Associated Diagnosis Comments SURGICAL PATHOLOGY REPORT Routine 12/23/2010 2:01 PM EDT SURGICAL PATHOLOGY REPORT Routine 12/23/2010 2:01 PM EDT RECONSTRUCTION, NIPPLE/AREOLA, ABBIE (WRVU 9.11) 12/23/2010 12:41 PM EDT STATUS POST BILATERAL RECON WITH ASYMMETRY REVISION OF RECONSTRUCTED BREAST (WRVU 11.17) 12/23/2010 12:41 PM EDT STATUS POST BILATERAL RECON WITH ASYMMETRY documented in this encounter Results * Surgical Pathology Report (12/23/2010 2:01 PM EDT) Surgical Pathology Report [id number] ? Location: [facility] The signing pathologist has (i) examined the relevant preparation(s) for the specimen(s) and (ii) rendered or confirmed the diagnosis(es). . ?Pathology Surgical Pathology Final Report Clinical Information Specimen Submitted: A - Left breast tissue and left TRAM tissue B - Canceled per gross bench Clinical History/Diagnosis : S/P bilateral reconstruction with asymmetry Gross Description A - Labeled/Fixative: Left breast tissue and left TRAM tissue, fresh. Qty/Size/Weight: ?Multiple, 18.0 x 8.0 x 3.0 cm. Tissue Description: ?? Mcnary elliptical portion of skin with attached and ?detached yellow, lobular adipose tissue. Sections/Processi ng: ??(R1) ??aje/SNS B - _ Microscopic Description Slides reviewed, microscopic description not recorded. Diagnosis Skin of left breast Skin and subcutis with scar CR-0 12/25/10 VAM 12/25/10 Verified by: ? Talon Proctor MD ?Pathologist ?(Electronic Signature) The attending pathologist whose signature appears on this report has reviewed all diagnostic slides and has edited the gross and/or microscopic portion of the report in rendering the final pathologic diagnosis. DAYTON CONTRERAS 12/23/2010 2:01 PM EDT Dasha Giles MD PATHOLOGY/CYTOLOGY ORDERABLES DAYTON CONTRERAS * SURGICAL PATHOLOGY REPORT (12/23/2010 2:01 PM EDT) Surgical Pathology Report ? [facility] ? Provider: ?? DASHA GIELS ?? Pt. Name: ?? RIGO GAR ? Acc #: ?[id number] ?Pt. ? Col Date: ?? 12/23/2010 ? /Sex: ?1955,(55 years),Female ? Rec Date: ?? 12/23/2010 ? LOC: ?SDP ? SURGICAL PATHOLOGY ? ---Pathologic Diagnosis--- ? Skin of left breast ?Skin and subcutis with scar ? CR-0 ? 12/25/10 ? VAM ? 12/25/10 Verified by: ? Talon Proctor MD ? Pathologist ? (Electronic Signature) ? The attending pathologist whose signature appears on this report has ? reviewed all diagnostic slides and has edited the gross and/or ? microscopic portion of the report in rendering the final pathologic ? diagnosis. ? ---Microscopic Description--- ? Slides reviewed, microscopic description not recorded. ? ---Gross Description--- ? A - Labeled/Fixative: Left breast tissue and left TRAM tissue, fresh. ? Qty/Size/Weight: ?Multiple, 18.0 x 8.0 x 3.0 cm. ? Tissue Description: ?? Mcnary elliptical portion of skin with attached and ? detached yellow, lobular adipose tissue. ? Sections/Processi ng: ??(R1) ??aje/SNS ? B - _ ? ---Clinical Information--- ? Specimen Submitted: ? A - Left breast tissue and left TRAM tissue ? B - Canceled per gross bench ? Clinical History/Diagnosis : ? S/P bilateral reconstruction with asymmetry DAYTON CONTRERAS 12/23/2010 2:01 PM EDT Dasha Giles MD PATHOLOGY/CYTOLOGY ORDERABLES Performing Organization Address City/State/[facility] Co de Phone Number DAYTON CONTRERAS documented in this encounter Visit Diagnoses Not on filedocumented in this encounter Administered Medications Inactive Administered Medications - up to 3 most recent administrations Medication Order MAR Action Action Date Dose Rate Site clindamycin (CLEOCIN) injection ONCE PRN, 1 dose, Starting on Wed12/23/10 at 1251, Until Wed12/23/10 at 1251, Intra-Operative (Intra-Procedure), Routine Given 12/23/2010 12:51 PM EDT 900 mg ibuprofen (ADVIL;MOTRIN) tablet 800 mg 800 mg, Oral, EVERY 6 HOURS SCHEDULED, First dose on Wed12/23/10 at 1400, Until Discontinued, Maximum dose of 3200 mg from all sources in 24 hours, Routine Given 12/23/2010 3:15 PM EDT 800 mg documented in this encounter Active and Recently Administered Medications Times are shown in EDT. Scheduled Medication Order 12/21/2010 12/22/2010 12/23/2010 ibuprofen (ADVIL;MOTRIN) tablet 800 mg (CANCELED) 800 mg, Oral, EVERY 6 HOURS SCHEDULED, First dose on Wed12/23/10 at 1400, Until Discontinued, Maximum dose of 3200 mg from all sources in 24 hours, Routine 1515 (Given - Provid er: Torri Almazan RN) PRN Medication Order 12/21/2010 12/22/2010 12/23/2010 clindamycin (CLEOCIN) injection (COMPLETED) ONCE PRN, 1 dose, Starting on Wed12/23/10 at 1251, Until Wed12/23/10 at 1251, Intra-Operative (Intra-Procedure), Routine 1251 (Given - Provid er: Ade Oneal MD) documented in this encounter Care Teams Chief Engineer Waterworks Relationship Specialty Start Date End Date Charles Huitron MD [address] [place] [address] PCP - General 07/08/10 documented as of this encounter
--- OUTSIDE RECORDS SUMMARY | 2024-07-12 15:58 | XMS_ITS | Encounter Summary ---
Author Organization [facility] [place] [address] Care Team Providers Care Manager Management Name Role Phone Charles Huitron MD Primary Care Provider [phone] Encounter Details Date Type Department Care Team (Late st Contact Info) Description 06/20/2013 2:45 PM EST Follow-Up Physical Therapy at [facility] [address] [place] [phone] Alvarez Hoyt, PT Niles Wright MD [facility] [place] [address] Lumbar pain; Bilateral hip pain Discharge Disposition: Home Social History Tobacco [...] Progress Notes * Alvarez Hoyt, PT - 06/20/2013 2:47 PM EST Physical Therapy Progress Note Total treatment time: [...] 10 05/10/13 05/19/13 05/26/13 05/29/13 06/02/13 06/09/13 06/20/13 I. E. Re-Eval this visit Follow up visit for patient with: 1. Lumbar pain 2. Bilateral hip pain S: Pt reports that her hips and back are both doing great without any pain symptoms in the back or hips. Walking has gotten so much better from where she used to be. O: Therapeutic Exercise (32907) 25 minutes and Manual Therapy (58752) 15 minutes ?? Nu-Step with arms #7, Seat 6, for 10 min, Level 1 ?? Lower Trunk Rotation 2 min ?? Stretches 2x30 - Passive ?? Piriformis ?? Hamstring ?? Lumbar Rotation Supine - passive (pt crosses arm, stabilize opp shoulder, bring opp knee across towards therapist) ?? MIRIAM Bridging 10x5 ?? Supine Long axis distraction 2 min (uni LE, then B LE) ?? Manual Therapy STM to lumbar spine, piriformis, hamstring origins, IT band - Prone 15 min ?? Spinal Rotation Mobs L2-L5 Prone 2 minutes ?? (PT proximal hand press toward floor away from spine opposite PT, distal hand on opposite ASIS pulling toward ceiling) ?? Bird Dog 10x5 holds A: Ms. Gar continues to have improved mobility and lumbar pain sx's following our sessions in the clinic. Now that her pain is well managed, I would like to reassess her progress next visit for next steps. We will likely reduce the number of visits to spread them out now that she is doing better. Ms. Gar will continue to benefit from skilled PT services to improve her LE mobility, strength,and ROM. We will also continue to work on the lumbro-sacral area as this is a source of pain and decreased mobility. P: RE-EVAL Next visit. Cont physical therapy for improved ROM, strengthening, [...] significant improvement in LE functional ability Therapy Custodial Goals (6 weeks) Patient will... 1. report [...] 08/18/2024 1:30 PM EST Appointment Mammography/[place] [address] Kathia Alvarado APRN [address] [place] [address] documented as of this encounter Visit Diagnoses Diagnosis Lumbar pain Lumbago Bilateral hip pain Pain in joint, pelvic region and thigh documented in this encounter Care Teams Manager Management Relationship Specialty Start Date End Date Charles Huitron MD [address] [address] PCP - General 07/08/10 documented as of this encounter
--- OUTSIDE RECORDS SUMMARY | 2024-07-12 15:58 | XMS_ITS | Encounter Summary ---
Author Organization [facility]ly [facility] [place] [address] Care Team Providers Care Regrinder Operator Name Role Phone Charles Huitron MD Primary Care Provider [phone] Encounter Details Date Type Department Care Team (Late st Contact Info) Description 01/02/2013 10:30 AM EDT Follow-Up Physical Therapy at [facility] [address] [place] [phone] Alvarez Hoyt, PT Right lateral epicondylitis (Primary [...] Progress Notes * Alvarez Hoyt, PT - 01/02/2013 10:31 AM EDT Physical Therapy Progress Note Total treatment time: 40 minutes Total timed code treatment: 35 minutes Date of Exam/First Treatment: 12/09/2012 Date of onset: Jul 2012 Referring Provider: Charles Huitron Medicare Certification period: 12/09/2012 - 02/03/13 Follow up visit for patient with 1. Right lateral epicondylitis S: Pt reports that her elbow is doing good today. Rates today's sx's 0/10. She would like to try goout on her kayak before her next appointment. My discomfort is really little and I haven't taken any pain medications in many days. O: Therapeutic Exercise (74152) 10 minutes, Manual Therapy (25531) 15 minutes and Ultrasound (12706) 10 minutes ?? UBE 6 min (reverse direction every minute) ?? Ultrasound 2.5 w/cm2, 3.3 mHz to the R elbow extensors 8 minutes (not including set up) ?? Manual Therapy 15 minutes ?? STM to the wrist extensor wad, elbow flexors/extensors, ?? Therex 5 minutes ?? Wrist/Elbow Stretches 2x30 ?? Wrist Extensors (straight elbow) ?? Pronator ?? Wrist Extensors straight arm with pronation (arm by side) A: Pt. Responded well to today's session and did not report soreness or muscle pain during or afterany of our activities today. Focus of today's session was on manual therapy and modalities for symptom relief. I would like to discharge her to a home program next visit to consist of further stretching, strengthening and self management of symptoms. P: Plan to re-Eval next visit to discharge to home program. Previous Clinic Exercises/Activities: T-Band Exercises Red 10x Scapular retraction Wrist [...] the affected elbow. 3. Report ability to shot coat tender and open jars with little difficulty using her R hand. 4. Demonstrate ability to lift 1 gal (8-10 lbs) to above shoulder level with report of some R elbow difficulty as reported on the NIKIA/ASES. Therapy Halfway Goals (6 weeks) Patient to... 1. improve [...] 08/18/2024 1:30 PM EST Appointment Mammography/[place] [address] Kathia Alvarado APRN [address] [place] [address] documented as of this encounter Visit Diagnoses Diagnosis Right lateral epicondylitis- Primary Lateral epicondylitis of elbow documented in this encounter Care Teams Regrinder Operator Relationship Specialty Start Date End Date Charles Huitron MD [address] [place] [address] PCP - General 07/08/10 documented as of this encounter
--- OUTSIDE RECORDS SUMMARY | 2024-07-12 15:58 | XMS_ITS | Encounter Summary ---
Author Organization [facility] Address [facility] [place] [address] Care Team Providers Care Compressor Operator Name Role Phone Charles Huitron MD Primary Care Provider [phone] Encounter Details Date Type Department Care Team (Late st Contact Info) Description 09/15/2012 12:45 PM EST Office [place] [address] Mendez Cutler MD [facility] [place] [address] Migraine (Primary Dx); Pressure in head Discharge Disposition: Home Social History Tobacco Use [...] Sign Reading Time Taken Comments Blood Pressure 132/76 09/15/2012 12:52 PM EST Pulse 72 09/15/2012 12:52 PM EST Temperature - - Respiratory Rate - - Oxygen Saturation - - Inhaled Oxygen Concentration - - Weight 89.8 kg (198 lb) 09/15/2012 12:52 PM EST reported Height 158.8 cm (5' 2.5) 09/15/2012 12:52 PM ES T reported Body Mass Index 35.64 09/15/2012 12:52 PM EST documented in this encounter Progress Notes * Mendez Cutler MD - 09/15/2012 1:03 PM EST This is a 57 y.o. woman, seen in consultation today at the request of her primary physician, Dr. Huitron, for evaluation of chronic headaches. HPI This patient has had bifrontal periorbital head pressure since childhood, only during the summer.On a hot day she always gets head pressure often accompanied by bright halos around objects, withno well formed auras or any sort. Accompaniments to headaches include nausea, photophobia, phonophobia, exercise intolerance and fatigue. This has gotten worse x 5-6 years. She tried sumatriptan for one of these episodes which helped. Diagnostic work-up: No imaging Nl TSH Review of systems:chronic head pain and accompanying sx as above. All other systems were negative. PMH Breast cancer s/p bilateral mastectomy and remaining oophercetomy 2007 and reconstructive surgery. Depression; ADD' Hyst age 27 Current Outpatient Prescriptions Medication Sig Dispense Refill ??? traZODone (DESYREL) 100 mg tablet Take 100 mg by mouth nightly. ??? Atomoxetine (STRATTERA) 80 mg Cap Take [...] tablet Take 1 tabletby mouth daily. ??? [place]-3 Fatty Acids (FISH OIL) 500 mg Cap [...] capsule Take 225 mg by mouth daily. 225 mg = 3 capsules [The [facility] problem list, medication list and allergy list were reviewed but are inaccurate]. 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 Some cervical paraspinal muscle spasm was noted, with some limitation of range of movement. There were no carotid bruits. Fundoscopy was benign bilaterally. Paranasal sinuses were non-tender. Submandibular regions were benign. TMJ regions were benign. Lungs were clear. Cardiac auscultation was normal. Extremities and skin were normal. Neurological Exam: Mental status exam was normal. Cranial nerves 2-12 were normal. Motor tone and strength were normal. Muscle stretch reflexes were normal. Plantar refexes were flexor. Sensory exam was normal. Coordination was normal. Station and gait were normal. Impression: Migrainous headaches with heat trigger Diagnostic plan: MRI brain Therapeutic plan: Try beta kris prophylaxis this summer Follow up plan: The patient will follow up in Headache Clinic in 6 mo Potential adverse effects of all medications were discussed in detail. We also discussed non-pharmacological approaches to acute and chronic pain as well as coping strategies. I answered all of the patient's questions and she was comfortable with the plan. Addendum: The MRI reveals a pineal cyst. We will discuss the need (minimal in my opinion) for further imagingon follow up visit. Will forward this to PCP in case pt does not return. documented in this encounter Plan of Treatment Upcoming Encounters Date Type Department Care Team (Late st Contact Info) Description 08/18/2024 1:30 PM EST Appointment Mammography/[place] [address] Kathia Alvarado APRN [address] [place] [address] documented as of this encounter Results * MRI brain WO contrast (10/10/2012 10:22 AM EST) Anatomical Region Laterality Modality Head Magnetic Resonan ce 10/10/2012 10:2 2 AM EST Narrative 10/10/2012 4:06 PM EST Examination MR Brain without Contrast Clinical History head pressure with nausea Comparison None. Technique MR images were obtained of the brain without intravenous contrast. Findings No areas of restricted diffusion to suggest acute infarct. ??The corpus callosum and brainstem are normally formed. ??Pituitary is normal. ??Craniocervical junction is normal. ??No marrow signal abnormalities. There is a 1.5 cm T1 hypointense, T2 hyperintense lesion in the pineal gland causing mild mass effect on the tectum. The ventricles are normal in size and symmetric. ?? Scattered periventricular and subcortical areas T2 prolongation, nonspecific likely representing small vessel ischemic changes. ??No mass, mass effect, or midline shift. ??Normal major intracranial vascular flow voids throughout. ??Mild mucosal bilateral maxillary and left posterior ethmoid sinuses. 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 Recommend repeat MR with contrast and thin slices through the region of the pineal gland for further evaluation. Film and interpretation reviewed by the attending Procedure Note Solo Mccarthy MD - 10/10/2012 Examination MR Brain without Contrast Clinical History head pressure with nausea Comparison None. Technique MR images were obtained of the brain without intravenous contrast. Findings No areas of restricted diffusion to suggest acute infarct. The corpuscallosum and brainstem are normally formed. Pituitary is normal. Craniocervical junction is normal. No marrow signal abnormalities. There is a 1.5 cm T1 hypointense, T2 hyperintense lesion in the pineal gland causing mild mass effect on the tectum. The ventricles are normal in size and symmetric. Scattered periventricular and subcortical areas T2 prolongation,nonspecific likely representing small vessel ischemic changes. No mass, mass effect,or midline shift. Normal major intracranial vascular flow voids throughout.Mild mucosal bilateral maxillary and left posterior ethmoid sinuses. Impression 1.5 cm cystic pineal lesion without evidence of hydrocephalus, that mostlikely represents a benign pineal cyst. Recommend repeat MR with contrast andthin slices through the region of the pineal gland for further evaluation. Film and interpretation reviewed by the attending Mendez Cutler MD IMG MRI ORDERABLES documented in this encounter Visit Diagnoses Diagnosis Migraine- Primary Migraine, unspecified, without mention of intractable migraine without mention of status migrainosus Pressure in head Headache Migraine Migraine, unspecified, without mention of intractable migraine without mention of status migrainosus Pressure in head Headache documented in this encounter Care Teams Compressor Operator Relationship Specialty Start Date End Date Charles Huitron MD [address] [place] [address] PCP - General 07/08/10 documented as of this encounter
--- OUTSIDE RECORDS SUMMARY | 2024-07-12 15:58 | XMS_ITS | Encounter Summary ---
Author Organization [facility] [place] [address] Care Team Providers Care Consumer Marketing Manager Name Role Phone Charles Huitron MD Primary Care Provider [phone] Reason for Visit * Reason Onset Date Comments Patient Not Seen 03/01/2013 Encounter Details Date Type Department Care Team (Late st Contact Info) Description 02/27/2013 9:15 AM EDT [place] [phone] Mendez Cutler MD [facility] [address] PATIENT NOT SEEN (Primary Dx) Discharge Disposition: Home Social History [...] Sign Reading Time Taken Comments Blood Pressure 108/58 02/27/2013 9:11 AM EDT Pulse 70 02/27/2013 9:11 AM EDT Temperature - - Respiratory Rate - - Oxygen Saturation - - Inhaled Oxygen Concentration - - Weight 89.8 kg (198 lb) 02/27/2013 9:11 AM EDT Height 157.5 cm (5' 2) 02/27/2013 9:11 AM EDT Body Mass Index 36.21 02/27/2013 9:11 AM EDT documented in this encounter Progress Notes * Mendez Cutler MD - 03/01/2013 10:50 AM EDT This patient was not seen in this encounter. documented in this encounter Plan of Treatment Upcoming Encounters Date Type Department Care Team (Late st Contact Info) Description 08/18/2024 1:30 PM EST Appointment Mammography/[place] [address] Kathia Alvarado APRN [address] [place] [address] documented as of this encounter Visit Diagnoses Diagnosis PATIENT NOT SEEN- Primary documented in this encounter Care Teams Consumer Marketing Manager Relationship Specialty Start Date End Date Charles Huitron MD [address] [place] [address] PCP - General 07/08/10 documented as of this encounter
--- OUTSIDE RECORDS SUMMARY | 2024-07-12 15:58 | XMS_ITS | Encounter Summary ---
Author Organization [facility] Address [facility] [place] [address] Care Team Providers Care Senior Construction Project Manager Name Role Phone Charles Huitron MD Primary Care Provider [phone] Encounter Details Date Type Department Care Team (Latest Contact Info) Description 10/10/2012 8:43 AM EST - 10/10/2012 11:59 PM [facility] Hospital [place] [phone] CLINIC, Mendez Hameed MD [facility] [place] [address] Migraine; Pressure in head Discharge Disposition: Home Social [...] Take 1 tablet by mouth daily. 02/24/2024 [place]-3 Fatty Acids (FISH OIL) 500 mg Cap Take 1 capsule by mouth daily. 02/24/2024 prazosin (MINIPRESS) 5 mg capsule Take 5 mg by mouth nightly. 05/01/2014 simvastatin (ZOCOR) 20 mg tablet Take 20 mg by mouth daily. 02/24/2024 venlafaxine (EFFEXOR-XR) 75 mg 24 hr capsule Take 225 mg by mouth daily. 3 capsules--total 225 mg. 06/26/2014 documented as of this encounter Miscellaneous Notes * Miscellaneous - Provider, Scanning - 11/08/2012 9:57 AM EDT documented in this encounter Plan of Treatment Upcoming Encounters Date Type Department Care Team (Late st Contact Info) Description 08/18/2024 1:30 PM EST Appointment Mammography/[place] [address] Kathia Alvarado APRN [address] [place] [address] documented as of this encounter Procedures Procedure Name Priority Date/Time Associated Diagnosis Comments MRI BRAIN WO CONTRAST Routine 10/10/2012 10:22 AM EST Migraine Pressure in head documented in this encounter Results * MRI brain WO [...] Headache documented in this encounter Care Teams Senior Construction Project Manager Relationship Specialty Start Date End Date Charles Huitron MD [address] [place] [address] PCP - General 07/08/10 documented as of this encounter
--- OUTSIDE RECORDS SUMMARY | 2024-07-12 15:58 | XMS_ITS | Encounter Summary ---
Author Organization [facility] [place] [address] Care Team Providers Care Disposal Man Name Role Phone Charles Huitron MD Primary Care Provider [phone] Encounter Details Date Type Department Care Team (Late st Contact Info) Description 05/19/2013 10:15 AM EDT Follow-Up Physical Therapy at [facility] [address] [place] [address] Alvarez Hoyt, PT Charles Huitron MD [address] [place] [address] [facility] [address] [place] [address] Bilateral hip pain; Lumbar pain Discharge Disposition: Home Social History [...] Progress Notes * Alvarez Hoyt, PT - 05/19/2013 10:24 AM EDT Physical Therapy Progress Note Total [...] 6 7 8 9 10 05/10/13 05/19/13 I. E. Follow up visit for patient with: 1. Bilateral hip pain 2. Lumbar pain S: Pt reports that her hips are feeling ok. She hasn't been walking, but she has been doing her exercises every day. Rates today's sx's 7.5/10 in her lower back and 1-2/10 in her hips. She reports that walking begins to hurt her pretty quickly. O: Therapeutic Exercise (23679) 25 minutes and Manual Therapy (57627) 15 minutes ?? Nu-Step with arms #10, Seat 10, with moist heat in back for 8 min ?? Lower Trunk Rotation 2 min ?? Stretches 2x30 - Passive ?? Piriformis ?? Hamstring ?? Supine IT-Band *discontinued as she did not report any pain or stretch ?? Manual Therapy STM to lumbar spine, piriformis, hamstring origins, IT band - Prone 15 min ?? Prone Press up 2x ?? Quadruped Stretch for Lumbar Spine 2x30 ?? Iliocostalis in Quadruped 2x30 ?? Standing IT Band stretch 2x30 A: Ms. Gar had some difficulty getting into and out of the prone position due to her back/buttock pain symptoms. I had her discontinue the IT band stretch in supine as she was not reporting a stretch or pain with this. In the standing position she was able to feel more of a stretch with this. Ms. Gar will continue to benefit from skilled PT services to improve her LE mobility, strength, andROM. We will also continue to work on the lumbro-sacral area as this is a source of pain and decreased mobility. P: Cont physical therapy for improved ROM, strengthening, manual therapy. Previous Clinic Exercises/Activities: Current goals: GOALS: Therapy Short Term Goals [...] 08/18/2024 1:30 PM EST Appointment Mammography/[place] [address] Kathia Alvarado APRN [address] [place] [address] documented as of this encounter Visit Diagnoses Diagnosis Bilateral hip pain Pain in joint, pelvic region and thigh Lumbar pain Lumbago documented in this encounter Care Teams Disposal Man Relationship Specialty Start Date End Date Charles Huitron MD [address] [place] [address] PCP - General 07/08/10 documented as of this encounter
--- OUTSIDE RECORDS SUMMARY | 2024-07-12 15:58 | XMS_ITS | Encounter Summary ---
Author Organization [facility] [place] [address] Care Team Providers Care Tin Cutter Name Role Phone Charles Huitron MD Primary Care Provider [phone] Encounter Details Date Type Department Care Team (Late st Contact Info) Description 04/25/2013 Orders [place] [phone] Niles Wright MD [facility] [place] [address] Hip pain Social History Tobacco Use Types [...] 08/18/2024 1:30 PM EST Appointment Mammography/[place] [phone] Kathia Alvarado APRN [address] [place] [address] documented as of this encounter Results * XR pelvis AP [...] Pain in joint, pelvic region and thigh Hip pain Pain in joint, pelvic region and thigh documented in this encounter Care Teams Tin Cutter Relationship Specialty Start Date End Date Charles Huitron MD [address] [place] [address] PCP - General 07/08/10 documented as of this encounter
--- OUTSIDE RECORDS SUMMARY | 2024-07-12 15:58 | XMS_ITS | Encounter Summary ---
Author Organization [facility] [place] [address] Care Team Providers Care Home Health Outreach Coordinator Name Role Phone Charles Huitron MD Primary Care Provider [phone] Reason for Visit * Reason Onset Date Comments Pre Procedure Call 05/12/2011 s/p breast re con Encounter Details Date Type Department Care Team (Late st Contact Info) Description 05/12/2011 Telephone [place] [phone] Dorcas Florez MD [facility] [place] [address] Pre Procedure Call (s/p breast recon) Social History Tobacco Use Types Packs/Day Years [...] encounter Miscellaneous Notes * Telephone Encounter - Lili Orozco CMA - 05/12/2011 4:01 PM EDT Pre-op Surgery Call Left message with patient/on machine/significant other. documented in this encounter Plan of Treatment Upcoming Encounters Date Type Department Care Team (Late st Contact Info) Description 08/18/2024 1:30 PM EST Appointment Mammography[place] [address] Kathia Alvarado APRN [address] [place] [address] documented as of this encounter Visit Diagnoses Not on filedocumented in this encounter Care Teams Home Health Outreach Coordinator Relationship Specialty Start Date End Date Charles Huitron MD [address] [facility] [address] [place] [address] PCP - General 07/08/10 documented as of this encounter
--- OUTSIDE RECORDS SUMMARY | 2024-07-12 15:58 | XMS_ITS | Encounter Summary ---
Author Organization [facility] [place] [address] Care Team Providers Care Yarn Spinner Name Role Phone Charles Huitron MD Primary Care Provider [phone] Encounter Details Date Type Department Care Team (Late st Contact Info) Description 12/29/2012 11:00 AM EDT Follow-Up Physical Therapy at [facility] [address] [place] [phone] Alvarez Hoyt, PT Right lateral epicondylitis (Primary [...] Progress Notes * Alvarez Hoyt, PT - 12/29/2012 11:01 AM EDT Physical Therapy Progress Note Total treatment time: 40 minutes Total timed code treatment: 35 minutes Date of Exam/First Treatment: 12/09/2012 Date of onset: Jul 2012 Referring Provider: Charles Huitron Medicare Certification period: 12/09/2012 - 02/03/13 Follow up visit for patient with 1. Right lateral epicondylitis S: Pt reports that her elbow is sore today. Her kayak almost fell off her car and she had to crank on the straps to get it re-situated. Rates today's sx's 10/23. O: Therapeutic Exercise (36729) 10 minutes, Manual Therapy (44864) 15 minutes and Ultrasound (98543) 10 minutes Moist Heat (before session) 10 minutes to the R elbow ?? UBE 6 min (reverse direction every [...] side) A: Pt. Responded well to today's session. Focus of today's session was on manual therapy and modalities for symptom relief. Ms. Gar has been very compliant with her HEP and will continue with her stretching and strengthening at home. Her wrist extensor muscle wad is improved in mobility and not as painful during manual therapy. Continued with modalities for sx relief and manual therapy for improved flexibility. Ms. Gar will benefit from skilled PT for stretching, soft tissue massage and modalities for further elbow flexibility gains P: Add Heat prior to session if sx's flared up. Cont with UBE for warm up. Cont physical therapy for modalities, stretching, soft tissue. Plan to re-Eval in 2 visits (late next week) Previous Clinic Exercises/Activities: T-Band Exercises Red 10x [...] the affected elbow. 3. 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 4. Demonstrate ability to lift 1 gal (8-10 lbs) to above shoulder level with report of some R elbow difficulty as reported on the NIKIA/ASES. Therapy Retirement Goals (6 weeks) Patient to... 1. improve [...] 08/18/2024 1:30 PM EST Appointment Mammography/[place] [address] Kathia Alvarado APRN [address] [place] [address] documented as of this encounter Visit Diagnoses Diagnosis Right lateral epicondylitis- Primary Lateral epicondylitis of elbow documented in this encounter Care Teams Yarn Spinner Relationship Specialty Start Date End Date Charles Huitron MD [address] [address] PCP - General 07/08/10 documented as of this encounter
--- OUTSIDE RECORDS SUMMARY | 2024-07-12 15:58 | XMS_ITS | Encounter Summary ---
Author Organization [place] [address] Care Team Providers Care Aerial Erector Name Role Phone Charles Huitron MD Primary Care Provider [phone] Reason for Visit * Reason Comments Procedure bilateral nipple are angela Encounter Details Date Type Department Care Team (Latest Contact Info) Description 05/13/2011 1:00 PM EDT Procedure [place] [phone] Dorcas Florez MD [facility] [place] [address] Breast cancer (Primary Dx) Discharge Disposition: Home Social History [...] Sign Reading Time Taken Comments Blood Pressure 148/57 05/13/2011 2:25 PM EDT Pulse - - Temperature - - Respiratory Rate - - Oxygen Saturation - - Inhaled Oxygen Concentration - - Weight - - Height - - Body Mass Index - - documented in this encounter Patient Instructions * Patient Instructions* Lili Orozco, JAREN - 05/13/2011 2:27 PM EDT Leave dressing on for two days then remove and shower as usual and apply Aquaphor daily. documented in this encounter Progress Notes * Dorcas Florez MD - 05/13/2011 3:04 PM EDT Please see procedure note * Lili Orozco CMA - 05/13/2011 2:24 PM EDT Plastic Surgery Minor Worksheet Skin Prep: chlorhexadine Sterile water Xylocaine w/epi 1:100,000 buffered w/ 8.4% Na Bicarb: 4.0 cc Prescription: none Post op instructions: documented in this encounter Procedure Notes * Dorcas Florez MD - 05/13/2011 3:07 PM EDTAssociated Order(s): TATTOOING Procedure(s): CORRECT SKIN COLR DEFCT 6.1-20SQ CM PRFM Pre-Procedure Diagnose(s): Breast cancer PLASTIC SURGERY MINOR PROCEDURE CLINIC NOTE Dorcas Florez MD Primary Care Physician: .CHARLES HUITRON MD Meds: Current outpatient prescriptions ordered prior to encounter Medication Sig Dispense Refill ??? lisinopril-hydrochlorothiazide (PRINZIDE;ZESTORETIC) 10-12.5 mg per tablet Take 1 tablet by mouth daily. ??? simvastatin (ZOCOR) 20 mg tablet Take 20 mg by mouth daily. ??? venlafaxine (EFFEXOR-XR) 75 mg 24 hr capsule Take by mouth daily. 225 mg = Take 3 - 75mg tabs daily ??? ibuprofen (ADVIL;MOTRIN) 400 mg tablet Take 2 tablets by mouth every 6 hours as needed for Pain. 30 tablet 12 ??? prazosin (MINIPRESS) 5 mg capsule 5 MG = 1 Capsule(s), PO, QHS ??? b complex vitamins tablet ??? Calcium-Magnesium (CALCIUM AND MAGNESIUM) 750-465 mg Tab ??? Cholecalciferol, Vitamin D3, (VITAMIN D) 1,000 unit Tab ??? [place]-3 Fatty Acids (FISH OIL) 500 mg Cap ??? estrogens, conjugated,-methyltestosterone (ESTRATEST HS) 0.625-1.25 mg per tablet ??? ascorbic acid (VITAMIN C) 1,000 mg tablet ??? OXYcodone (ROXICODONE) 5 mg immediate release tablet Take 1-2 tablets by mouth every 4 hours asneeded for Pain. 30 tablet 0 Allergies: Allergies Allergen Reactions ??? Amoxicillin Trihydrate Rash red from head to toe ??? Sulfa (Sulfonamide Antibiotics) Rash red rash ??? Haloperidol Other (See Comments) Sx worsen Indications: S/P breast reconstruction Procedure detail: After informed consent was obtained, the patient was brought to the minor surgery operating room table where they were seated in the supine position. The breast region was then prepped and draped in the standard sterile fashion. The bilateral NAC were measured and a circular region was marked with this same diameter. On the right breast, the scar pattern was largely circular and she wished to have this entire area tattooed to hide her scar. A matching NAC size was marked on the opposite side where the flap skin panel was not circular. . A dye tattoo color was then used to tattoo this dimension with multiple passes in all orientations until adequate color transfer had been achieved. The NAC was then washed and dressed with akwaphor and a sterile dressing. The procedure was well-tolerated. There were no complications and all sponge and needle counts were correct. Anesthesia: Local Drains: None Complications: None reported EBL: minimal Impression: S/p NAC tattooing well tolerated. Postoperative Plan: 1. F/U in 1 week for wound check. 3 months for examination. 2. Keep dressing in place x 48 hours then wash and apply akwaphor daily. documented in this encounter Miscellaneous Notes * Miscellaneous - Reuben, Pill Maker - 05/25/2011 10:21 AM EDT documented in this encounter Plan of Treatment Upcoming Encounters Date Type Department Care Team (Late st Contact Info) Description 08/18/2024 1:30 PM EST Appointment Mammography/DXA at [facility] [place] [address] Kathia Alvarado APRN [address] [place] [address] documented as of this encounter Procedures Procedure Name Priority Date/Time Associated Diagnosis Comments CORRECT SKIN COLR DEFCT 6.1-20SQ CM PRFM Routine 05/13/2011 3:07 PM EDT Breast cancer documented in this encounter Results * CORRECT SKIN COLR DEFCT 6.1-20SQ CM PRFM (05/13/2011 3:07 PM EDT) Narrative Dorcas Florez MD - 05/13/2011 3:07 PM EDT PLASTIC SURGERY MINOR PROCEDURE CLINIC NOTE Dorcas Florez MD Primary Care Physician: .CHARLES HUITRON MD Meds: Current outpatient prescriptions ordered prior to encounterMedicationSigDispenseRefill? ? lisinopril-hydrochlorothiazide (PRINZIDE;ZESTORETIC) 10-12.5 mg per tabletTake 1 tablet by mouth daily. ? simvastatin (ZOCOR) 20 mg tabletTake 20 mg by mouth daily. ? venlafaxine (EFFEXOR-XR) 75 mg 24 hr capsuleTake ??by mouth daily. 225 mg ??= ??Take 3 - 75mg ??tabs daily ? ibuprofen (ADVIL;MOTRIN) 400 mg tabletTake 2 tablets by mouth every 6 hours as needed for Pain. 30 tablet 12? ? prazosin (MINIPRESS) 5 mg capsule5 MG = 1 Capsule(s), PO, QHS ? b complex vitamins tablet ? Calcium-Magnesium (CALCIUM AND MAGNESIUM) 750-465 mg Tab ? Cholecalciferol, Vitamin D3, (VITAMIN D) 1,000 unit Tab ? [place]-3 Fatty Acids (FISH OIL) 500 mg Cap ? estrogens, conjugated,-methyltestosterone (ESTRATEST HS) 0.625-1.25 mg per tablet ? ascorbic acid (VITAMIN C) 1,000 mg tablet ? OXYcodone (ROXICODONE) 5 mg immediate release tabletTake 1-2 tablets by mouth every 4 hours as needed for Pain. 30 tablet 0 Allergies: AllergiesAllergenReactions? ? Amoxicillin TrihydrateRashred from head to toe? ? Sulfa (Sulfonamide Antibiotics)Rashred rash? ? HaloperidolOther (See Comments)Sx worsen Indications: S/P breast reconstruction Procedure detail: After informed consent was obtained, the patient was brought to the minor surgery operating room table where they were seated in the supine position. The breast region was then prepped and draped in the standard sterile fashion. The ??bilateral NAC were measured and a circular region was marked with this same diameter. ??On the right breast, the scar pattern was largely circular and she wished to have this entire area tattooed to hide her scar. ??A matching NAC size was marked on the opposite side where the flap skin panel was not circular. ??. A dye tattoo color was then used to tattoo this dimension with multiple passes in all orientations until adequate color transfer had been achieved. The NAC was then washed and dressed with akwaphor and a sterile dressing. The procedure was well-tolerated. There were no complications and all sponge and needle counts were correct. Anesthesia: Local Drains: None Complications: None reported EBL: minimal Impression: S/p NAC tattooing well tolerated. Postoperative Plan: 1. F/U in 1 week for wound check. ??3 months for examination. 2. Keep dressing in place x 48 hours then wash and apply akwaphor daily. Procedure Note Dorcas Florez MD - 05/13/2011 3:07 PM EDT PLASTIC SURGERY MINOR PROCEDURE CLINIC NOTE Dorcas Florez MD Primary Care Physician: .CHARLES HUITRON MD Meds: Current outpatient prescriptions ordered prior to encounter Medication Sig Dispense Refill ? ? lisinopril-hydrochlorothiazide (PRINZIDE;ZESTORETIC) 10-12.5 mg pertablet Take 1 tablet by mouth daily. ? ? simvastatin (ZOCOR) 20 mg tablet Take 20 mg by mouth daily. ? ? venlafaxine (EFFEXOR-XR) 75 mg 24 hr capsule Take by mouth daily. 225mg = Take 3 - 75mg tabs daily ? ? ibuprofen (ADVIL;MOTRIN) 400 mg tablet Take 2 tablets by mouth every 6hours as needed for Pain. 30 tablet 12 ? ? prazosin (MINIPRESS) 5 mg capsule 5 MG = 1 Capsule(s), PO, QHS ? ? b complex vitamins tablet ? ? Calcium-Magnesium (CALCIUM AND MAGNESIUM) 750-465 mg Tab ? ? Cholecalciferol, Vitamin D3, (VITAMIN D) 1,000 unit Tab ? ? [place]-3 Fatty Acids (FISH OIL) 500 mg Cap ? ? estrogens, conjugated,-methyltestosterone (ESTRATEST HS) 0.625-1.25 mgper tablet ? ? ascorbic acid (VITAMIN C) 1,000 mg tablet ? ? OXYcodone (ROXICODONE) 5 mg immediate release tablet Take 1-2 tablets bymouth every 4 hours as needed for Pain. 30 tablet 0 Allergies: Allergies Allergen Reactions ? ? Amoxicillin Trihydrate Rash red from head to toe ? ? Sulfa (Sulfonamide Antibiotics) Rash red rash ? ? Haloperidol Other (See Comments) Sx worsen Indications: S/P breast reconstruction Procedure detail: After informed consent was obtained, the patient was brought to the minor surgery operating room table where they were seated in the supine position. The breast region was then prepped and draped in the standardsterile fashion. The bilateral NAC were measured and a circular region was marked with this same diameter. On the right breast,the scar pattern was largely circular and she wished to have this entirearea tattooed to hide her scar. A matching NAC size was marked on theopposite side where the flap skin panel was not circular. . A dye tattoocolor was then used to tattoo this dimension with multiple passes in all orientations until adequate color transfer had been achieved. The NAC was then washed and dressed with akwaphor and a sterile dressing. The procedure was well-tolerated. There were no complications and all sponge and needle counts were correct. Anesthesia: Local Drains: None Complications: None reported EBL: minimal Impression: S/p NAC tattooing well tolerated. Postoperative Plan: 1. F/U in 1 week for wound check. 3 months for examination. 2. Keep dressing in place x 48 hours then wash and apply akwaphor daily. Dorcas Florez MD DERM PROCEDURE ORDER ROMAN documented in this encounter Visit Diagnoses Diagnosis Breast cancer- Primary Malignant neoplasm of breast (female), unspecified site documented in this encounter Care Teams Aerial Erector Relationship Specialty Start Date End Date Charles Huitron MD [address] [place] [address] PCP - General 07/08/10 documented as of this encounter
--- OUTSIDE RECORDS SUMMARY | 2024-07-12 15:58 | XMS_ITS | Encounter Summary ---
Author Organization [facility] [place] [address] Care Team Providers Care Marine Insulator Name Role Phone Charles Huitron MD Primary Care Provider [phone] Reason for Visit * Reason Comments Advice Only discuss HRT Encounter Details Date Type Department Care Team (Late st Contact Info) Description 07/04/2012 10:15 AM EST Office Visit Obstetrics [place] [phone] Rufus Padron MD [facility] OBSTETRICS & [place] [address] Post-menopause on HRT (hormone replacement therapy) (Primary Dx) Discharge Disposition: Home Social History [...] Sign Reading Time Taken Comments Blood Pressure 128/78 07/04/2012 10:19 AM EST Pulse - - Temperature - - Respiratory Rate - - Oxygen Saturation - - Inhaled Oxygen Concentration - - Weight 92.7 kg (204 lb 6.4 oz) 07/04/2012 10:19 AM EST Height 158.1 cm (5' 2.25) 07/04/2012 10:[address] Body Mass Index 37.09 07/04/2012 10:19 AM EST documented in this encounter Progress Notes * Rufus Padron MD - 07/04/2012 10:54 AM EST Copy: Charles Huitron M.D. [address], [address] [place] [address] Chelsea Gar is a 57-year-old patient, seen at the request of Dr. Huitron for evaluation of hormone treatment in the menopause with previous hysterectomy, bilateral salpingo-oophorectomy, and bilateral mastectomy. She is BRCA positive. She comes with her daughter who is also BRCA positive. Her daughter also had bilateral mastectomy and bilateral salpingo-oophorectomy. Her daughter is being treated with the control pill. Chelsea Gar had a previous hysterectomy and then had bilateral mastectomy and bilateral salpingo-oophorectomy. She then had depression. The bilateral salpingo-oophorectomy was done at age 53. She was admitted for depression to psychiatry and was started on Estratest Half Strength. Whenever she has tried to reduce her dose of Estratest, she does get a little more taylor and a little more emotional. I reviewed the history of hormone replacement therapy and the history of estrogen alone and also the addition of androgens with Estratest. Presumably, she is not at risk for breast cancer, since she has had bilateral mastectomy, but there is always a chance that some breast tissue is still present, of course. With estrogen alone, after 10 to 15 years, the risk of breast cancer does go up a little bit. She does not have a uterus, so she is not at risk for endometrial carcinoma. Estrogen alone has not been shown to put patients at risk for cardiovascular issues, except for DVT and possibly stroke. This was reviewed with her. Testosterone does change her lipid profile. Overall, Estratest will not put her at significantly increased risk and so I think it is a matter of trial and error, if she ever wants to try and come off it to see if she can do without. If she develops vaginal dryness in the future, she will be a candidate for ultra low dose estrogen, which will not have increased risk of DVT or stroke. Her daughter is on the control pill and is on a 20 mcg pill. I reviewed the levels of hormones that we are discussing and the history of hormone replacement and our present knowledge. Thirty minutes at least was spent in tuar-ty-hunt discussion. For now, she would like to stay on Estratest Half Strength and she may give it some thought and try to come off of it sometime in the future. documented in this encounter Plan of Treatment Upcoming Encounters Date Type Department Care Team (Late st Contact Info) Description 08/18/2024 1:30 PM EST Appointment Mammography/[place] [phone] Kathia Alvarado APRN [address] [place] [address] documented as of this encounter Visit Diagnoses Diagnosis Post-menopause on HRT (hormone replacement therapy)- Primary Need for prophylactic hormone replacement therapy (postmenopausal) documented in this encounter Care Teams Marine Insulator Relationship Specialty Start Date End Date Charles Huitron MD [address] [address] PCP - General 07/08/10 documented as of this encounter
--- OUTSIDE RECORDS SUMMARY | 2024-07-12 15:58 | XMS_ITS | Encounter Summary ---
Author Organization [facility] [place] [address] Care Team Providers Care Cell Liner Name Role Phone Charles Huitron MD Primary Care Provider [phone] Encounter Details Date Type Department Care Team (Late st Contact Info) Description 06/28/2012 Abstract [place] [address] Torri Yang, RN Social History Tobacco Use [...] 08/18/2024 1:30 PM EST Appointment Mammography/[place] [phone] Kathia Alvarado APRN [address] [place] [address] documented as of this encounter Visit Diagnoses Not on filedocumented in this encounter Care Teams Cell Liner Relationship Specialty Start Date End Date Charles Huitron MD [address] [place] [address] PCP - General 07/08/10 documented as of this encounter
--- OUTSIDE RECORDS SUMMARY | 2024-07-12 15:58 | XMS_ITS | Encounter Summary ---
Author Organization [facility] [place] [address] Care Team Providers Care Service Station Manager Name Role Phone Charles Huitron MD Primary Care Provider [phone] Encounter Details Date Type Department Care Team (Late st Contact Info) Description 06/05/2013 8:15 AM EDT [place] [address] Mendez Cutler MD [facility] [place] [address] Migraine (Primary Dx) Discharge Disposition: Home Social History [...] Sign Reading Time Taken Comments Blood Pressure 122/72 06/05/2013 8:24 AM EDT Pulse 79 06/05/2013 8:24 AM EDT Temperature - - Respiratory Rate - - Oxygen Saturation - - Inhaled Oxygen Concentration - - Weight 88.9 kg (196 lb) 06/05/2013 8:24 AM EDT Height 158.8 cm (5' 2.5) 06/05/2013 8:24 AM EDT Body Mass Index 35.28 06/05/2013 8:24 AM EDT documented in this encounter Progress Notes * Mendez Cutler MD - 06/05/2013 8:51 AM EDT Chelsea is back to discuss her chronic headaches. Fortunately the metoprolol was very effective in preventing migraines last summer and she was able to dc it without reemergence of HAs. HPI This patient has had bifrontal periorbital [...] of these episodes which helped. 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 All other systems were negative. PMH Breast cancer s/p bilateral mastectomy and remaining oophercetomy 2007 and reconstructive surgery. Depression; 'ADD' Hyst age 27 Current Outpatient Prescriptions Medication [...] tablet Take 1 tabletby mouth daily. ??? [place]-3 Fatty Acids (FISH OIL) 500 mg Cap [...] daily. 225 mg = 3 capsules [The [facility] problem list, medication list and allergy list were reviewed but are inaccurate]. 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 Some cervical paraspinal muscle spasm was noted, with some limitation of range of movement. Neurological Exam: Nl Impression: Migrainous headaches with heat trigger Therapeutic plan: Try beta kris prophylaxis this next summer as well Follow up plan: The patient will follow up in Headache Clinic in mid summer 2013 Potential adverse effects of all medications were discussed in detail. We also discussed non-pharmacological approaches to acute and chronic pain as well as coping strategies. I answered all of the patient's questions and she was comfortable with the plan. I told her that f/u of the MRI in 1-2 years was the best approach to the minor MRI findings documented in this encounter Plan of Treatment Upcoming Encounters Date Type Department Care Team (Late st Contact Info) Description 08/18/2024 1:30 PM EST Appointment Mammography/[place] [phone] Kathia Alvarado APRN [address] [place] [address] documented as of this encounter Visit Diagnoses Diagnosis Migraine- Primary Migraine, unspecified, without mention of intractable migraine without mention of status migrainosus documented in this encounter Care Teams Service Station Manager Relationship Specialty Start Date End Date Charles Huitron MD [address] [place] [address] PCP - General 07/08/10 documented as of this encounter
--- OUTSIDE RECORDS SUMMARY | 2024-07-12 15:58 | XMS_ITS | Encounter Summary ---
Author Organization [facility] [place] [address] Care Team Providers Care Bottle Capper Name Role Phone Charles Huitron MD Primary Care Provider [phone] Encounter Details Date Type Department Care Team (Late st Contact Info) Description 04/25/2013 [place] [phone] Elisa Cooper Social History Tobacco Use Types Packs/Day Years [...] encounter Miscellaneous Notes * Telephone Encounter - Elisa Cooper - 04/25/2013 2:02 PM EDT Ask patient to verify the following: Full name Mailing address Phone # InTake: [employer] How long have you been experiencing these symptoms? MONTHS, ACUTE [id number] Has anyone ever seen you before for this issue? NO Is this a work related injury? NO If yes, what was your DOI? If no, is this a sports related injury? NO If yes, what was your DOI? Have you recently had any of the following studies or treatments? NO ?? X-Ray ?? MRI ?? CT Scan ?? LABS ?? Physical Therapy ?? INJECTION Have you seen an Orthopaedic surgeon for this condition? NO Who did you see? Where were you seen (facility)? When? Phone # Fax# Have you had surgery for this issue? NO If different than above: Who performed surgery? Where were you seen (facility)? When? Phone # Fax# Will need to retrieve OPERATIVE REPORT and IMPLANT STICKERS. (if patient has joint replacement or hardware fixated); retrieve for opposite side. CALLED AND BOOKED PER [facility]. documented in this encounter Plan of Treatment Upcoming Encounters Date Type Department Care Team (Late st Contact Info) Description 08/18/2024 1:30 PM EST Appointment Mammography[place] [address] Kathia Alvarado APRN [address] [place] [address] documented as of this encounter Visit Diagnoses Not on filedocumented in this encounter Care Teams Bottle Capper Relationship Specialty Start Date End Date Charles Huitron MD [address] [place] [address] PCP - General 07/08/10 documented as of this encounter
--- OUTSIDE RECORDS SUMMARY | 2024-07-12 15:58 | XMS_ITS | Encounter Summary ---
Author Organization [facility] [place] [address] Care Team Providers Care Manager Equity Name Role Phone Charles Huitron MD Primary Care Provider [phone] Encounter Details Date Type Department Care Team (Late st Contact Info) Description 12/12/2012 8:45 AM EDT Follow-Up Physical Therapy at [facility] [address] [place] [phone] Alvarez Hoyt, PT Right lateral epicondylitis (Primary [...] Progress Notes * Alvarez Hoyt, PT - 12/12/2012 8:39 AM EDT Physical Therapy Progress Note Total treatment time: 40 minutes Total timed code treatment: 30 minutes Date of Exam/First Treatment: 12/09/2012 Date of onset: Jul 2012 Referring Provider: Charles Huitron Medicare Certification period: 12/09/2012 - 02/03/13 Follow up visit for patient with 1. Right lateral epicondylitis S: Pt reports that her elbow is feeling a little better. She thinks that the treatments are helping. Rates today's sx's 10/23. O: Therapeutic Exercise (64815) 10 minutes, Manual Therapy (42713) 10 minutes and Ultrasound ([id number]) 10 minutes ?? Moist Heat (before session) 10 minutes to the R elbow ?? Ultrasound 2.5 w/cm2, 3.3 mHz to the R elbow extensors 8 minutes (not including set up) ?? Manual Therapy 10 minutes ?? STM to the wrist extensor wad, elbow flexors/extensors, ?? Therex 10 minutes ?? Wrist/Elbow Stretches 2x30 ?? Wrist Extensors (bent elbow) ?? Wrist Extensors (straight elbow) ?? Pronator ?? Wrist Extensors straight arm with pronation (arm by side) ?? Triceps ?? Wrist Flexors ?? B shoulder retractors ?? Scapular retraction 5x10 ?? Cryotherapy - Ice Cup Massage to the lateral extensors. 5 minutes A: Pt. Responded well to today's session. She is wearing her lateral extensor strap and has begun to see a reduction in sx's. She does continue to have irritability of the wrist extensors origins andattachment to the lateral epicondyle. Ms. Gar will benefit from skilled PT for stretching, soft tissue massage and modalities for further elbow flexibility gains P: Cont with moist heat to lateral elbow prior to session. Cont physical therapy for modalities, stretching, soft tissue. Previous Clinic Exercises/Activities: Current goals: Therapy Short Term Goals (3 weeks) Patient to... 1. be indep with home exercise program. 2. Improve NIKIA/ASES score by 9 points for statistically significant improvement in functional mobility and use of the affected elbow. 3. 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 4. Demonstrate ability to lift 1 gal (8-10 lbs) to above shoulder level with report of some R elbow difficulty as reported on the NIKIA/ASES. Therapy Bingo Usher Goals (6 weeks) Patient to... 1. improve [...] on the NIKIA/ASES. documented in this encounter Miscellaneous Notes * Miscellaneous - Provider, Scanning - 04/07/2013 9:51 AM EDT documented in this encounter Plan of Treatment Upcoming Encounters Date Type Department Care Team (Late st Contact Info) Description 08/18/2024 1:30 PM EST Appointment Mammography/[place] [address] Kathia Alvarado APRN [address] [place] [address] documented as of this encounter Visit Diagnoses Diagnosis Right lateral epicondylitis- Primary Lateral epicondylitis of elbow documented in this encounter Care Teams Manager Equity Relationship Specialty Start Date End Date Charles Huitron MD [address] [place] [address] PCP - General 07/08/10 documented as of this encounter
--- OUTSIDE RECORDS SUMMARY | 2024-07-12 15:58 | XMS_ITS | Encounter Summary ---
Author Organization [facility] [place] [address] Care Team Providers Care Enterprise Resource Planning Consultant Name Role Phone Charles Huitron MD Primary Care Provider [phone] Reason for Visit * Reason Comments Eye Problem Encounter Details Date Type Department Care Team (Late st Contact Info) Description 03/07/2011 8:29 AM EDT - 03/07/2011 10:00 AM EDT [place] [address] Slick Boswell PA [facility] [place] [address] EMERGENCY DEPT, [facility] [place] [address] Conjunctivitis unspecified Discharge Disposition: Home Social History Tobacco Use [...] Sign Reading Time Taken Comments Blood Pressure 146/66 03/07/2011 8:37 AM EDT Pulse 73 03/07/2011 8:37 AM EDT Temperature 36.8 ??C (98.2 ??F) 03/07/2011 8:37 AM ED T Respiratory Rate 16 03/07/2011 8:37 AM EDT Oxygen Saturation 92% 03/07/2011 8:37 AM EDT Inhaled Oxygen Concentration - - Weight 81.6 kg (180 lb) 03/07/2011 8:37 AM EDT Height 157.5 cm (5' 2) 03/07/2011 8:37 AM EDT Body Mass Index 32.92 03/07/2011 8:37 AM EDT documented in this encounter Discharge Instructions * Discharge Instructions* Slick Boswell PA - 03/07/2011 9:44 AM EDT 1. Follow printed instructions. 2. Do not wear contact lens until treatment has ended. 3.Gentamicin 3% eye drop 1 drop to left eye every 8 hours for 7 days. 4. If not clearing in 48 hours or if worsens follow up with Opthalmology or ER. 5. Follow up in ER as needed. * Attachments The following attachments cannot be sent through Care Everywhere. * [place]: AFTER YOUR VISIT ([place]) documented in this encounter Medications at Time of Discharge Medication Sig Dispensed Refills Start Date End Date gentamicin (GARAMYCIN) 0.3 % ophthalmic solution Place 1 drop into the left eye 3 times daily for 7 days. 10 mL 0 03/07/2011 03/14/2011 ibuprofen (ADVIL;MOTRIN) 400 mg tablet Take 2 tablets by mouth every 6 hours as needed for Pain. 30 tablet 12 12/23/2010 12/23/2011 OXYcodone (ROXICODONE) 5 mg immediate release tablet Take 1-2 tablets by mouth every 4 hours as needed for Pain. 30 tablet 0 12/23/2010 06/03/2011 documented as of this encounter ED Notes * Marianna Fink RN - 03/07/2011 9:30 AM EDT OD- 20/25 (-1), OS 20/20, OU 20/25 (-1) * Slick Boswell PA - 03/07/2011 9:20 AM EDT Chief Complaint Patient presents with ??? Eye Problem . The history is provided by the patient. Had cold for a few days and yest. Left eye felt itchy and I removed my contact lens. This AM red with yellow discharge. Allergies Allergen Reactions ??? Amoxicillin Trihydrate Rash red from head to toe ??? Sulfa (Sulfonamide Antibiotics) Rash red rash ??? Haloperidol Other (See Comments) Sx worsen Review of Systems Constitutional: Negative. HENT: Negative. Eyes: Positive for discharge, redness and itching. Negative for photophobia, pain and visual disturbance. Respiratory: Negative. Cardiovascular: Negative. Gastrointestinal: Negative. Genitourinary: Negative. Physical Exam Nursing note and vitals reviewed. Constitutional: She appears well-developed and well-nourished. HENT: Right Ear: External ear normal. Left Ear: External ear normal. Nose: Nose normal. Mouth/Throat: Oropharynx is clear and moist. Eyes: EOM are normal. Pupils are equal, round, and reactive to light. Right eye exhibits no discharge. Left eye exhibits no discharge. Neck: Normal range of motion. Neck supple. Left conjunctiva injected and yellow crusty discharge on left lower lid. Fluorescein stain neg. Procedures MDM Contact lens wearer with conjunctivitis. ED Course: JESUS Steven 03/07/11 0950 documented in this encounter Miscellaneous Notes * Discharge Summary - Provider, Scanning - 03/09/2011 1:31 PM EDT * ED Triage - Merlyn Frank RN - 03/07/2011 8:38 AM EDT Pt comes in today for ? [place] eye in left eye, sclera, A&Ox3. Skin w/p/d. NAD. Eye drainage, itching, reddened sclera, noted to have edema under left eye this am. No trauma. documented in this encounter Plan of Treatment Upcoming Encounters Date Type Department Care Team (Late st Contact Info) Description 08/18/2024 1:30 PM EST Appointment Mammography/[place] [phone] Kathia Alvarado APRN [address] [place] [address] documented as of this encounter Visit Diagnoses Diagnosis Conjunctivitis unspecified Conjunctivitis, unspecified documented in this encounter Care Teams Enterprise Resource Planning Consultant Relationship Specialty Start Date End Date Charles Huitron MD [address] [place] [address] PCP - General 07/08/10 documented as of this encounter
--- OUTSIDE RECORDS SUMMARY | 2024-07-12 15:58 | XMS_ITS | Encounter Summary ---
Author Organization Replaced By [facility] [place] [address] Care Team Providers Care Production Manager Name Role Phone Charles Huitron MD Primary Care Provider [phone] Encounter Details Date Type Department Care Team (Late st Contact Info) Description 12/22/2012 10:30 AM EDT Follow-Up Physical Therapy at [facility] [address] [place] [phone] Alvarez Hoyt, PT Right lateral epicondylitis (Primary [...] Progress Notes * Alvarez Hoyt, PT - 12/22/2012 10:15 AM EDT Physical Therapy Progress Note Total treatment time: 40 minutes Total timed code treatment: 40 minutes Date of Exam/First Treatment: 12/09/2012 Date of onset: Jul 2012 Referring Provider: Charles Huitron Medicare Certification period: 12/09/2012 - 02/03/13 Follow up visit for patient with 1. Right lateral epicondylitis S: Pt reports that her elbow is achy today. It has been achy over the last few days and she is wondering if it is because of the weather changes. Rates today's sx's 3-11/23. She is still getting some cracking in her elbow too. O: Therapeutic Exercise (73982) 15 minutes, Manual Therapy (69164) 15 minutes and Ultrasound ([id number]) 10 minutes ?? UBE 6 min (reverse [...] T-Band Exercises Red 10x ?? Scapular retraction (NEW) ?? Wrist extension ?? Wrist flexion ?? Bicep Curls ?? Triceps Extension (band over shoulder in Hammering Fashion) ?? Cryotherapy - Ice Cup Massage to the lateral extensors. 5 minutes A: Pt. Responded well to today's session. Continued with modalities for sx relief and manual therapy for improved flexibility. Ms. Gar will benefit from skilled PT for stretching, soft tissue massage and modalities for further elbow flexibility gains P: Cont with UBE for warm up. Cont [...] the affected elbow. 3. 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 4. Demonstrate ability to lift 1 gal (8-10 lbs) to above shoulder level with report of some R elbow difficulty as reported on the NIKIA/ASES. Therapy Director Cost Goals (6 weeks) Patient to... 1. improve [...] 08/18/2024 1:30 PM EST Appointment Mammography/[place] [address] Kathia Alvarado APRN [address] [place] [address] documented as of this encounter Visit Diagnoses Diagnosis Right lateral epicondylitis- Primary Lateral epicondylitis of elbow documented in this encounter Care Teams Production Manager Relationship Specialty Start Date End Date Charles Huitron MD [address] [place] [address] PCP - General 07/08/10 documented as of this encounter
--- OUTSIDE RECORDS SUMMARY | 2024-07-12 15:58 | XMS_ITS | Encounter Summary ---
Author Organization [facility] [address] Care Team Providers Care Nut Chopper Name Role Phone Charles Huitron MD Primary Care Provider [phone] Encounter Details Date Type Department Care Team (Late st Contact Info) Description 12/19/2012 2:30 PM EDT Follow-Up Physical Therapy at [facility] [address] [place] [address] Alvarez Hoyt, PT Charles Huitron MD [address] [place] [address] [facility] [address] [place] [id number] Right lateral epicondylitis (Primary Dx) Discharge Disposition: [...] Progress Notes * Alvarez Hoyt, PT - 12/19/2012 2:22 PM EDT Physical Therapy Progress Note Total treatment time: 40 minutes Total timed code treatment: 40 minutes Date of Exam/First Treatment: 12/09/2012 Date of onset: Jul 2012 Referring Provider: Charles Huitron Medicare Certification period: 12/09/2012 - 02/03/13 Follow up visit for patient with 1. Right lateral epicondylitis S: Pt reports that her elbow is feeling much better and hasn't really been bad for about 2 days. Yesterday she did have a little pain, but after icing for 2 minutes it recovered very well. 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 She notices cracking in her elbow which wasn't there before. Rates today's sx's 0/10. O: Therapeutic Exercise ([id number]) 15 minutes, Manual Therapy (14431) 15 minutes and Ultrasound ([id number]) 10 minutes ?? UBE 6 min (reverse [...] shoulder retractors ?? Scapular retraction 5x10 ?? T-Band Exercises Red 10x (NEW) ?? Wrist extension ?? Wrist flexion ?? Bicep Curls ?? Triceps Extension (band over shoulder in Hammering Fashion) A: Pt. Responded well to today's session. Her lateral epicondylitis sx's have receded greatly sinceinitiating therapy. I added new strengthening exercises which she was able to perform using good mechanics. Discontinued moist heat and replaced with warm up on the UBE which she did well with. Ms. Gar will benefit from skilled PT for stretching, soft tissue massage and modalities for further elbow flexibility gains P: Cont with moist heat to lateral elbow prior to session. Cont physical therapy for modalities, stretching, soft tissue. Previous Clinic Exercises/Activities: Moist Heat (before session) 10 minutes to the R elbow Cryotherapy - Ice Cup Massage to the lateral extensors. 5 minutes Current goals: Therapy Short Term Goals (3 weeks) Patient to... 1. be indep with home exercise program. 2. Improve NIKIA/ASES score by 9 points for statistically significant improvement in functional mobility and use of the affected elbow. 3. 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 4. Demonstrate ability to lift 1 gal (8-10 lbs) to above shoulder level with report of some R elbow difficulty as reported on the NIKIA/ASES. Therapy [facility] Goals (6 weeks) Patient to... 1. improve [...] PM EST Appointment Mammography/[place] [address] Kathia Alvarado APRN [address] [place] [address] documented as of this encounter Visit Diagnoses Diagnosis Right lateral epicondylitis- Primary Lateral epicondylitis of elbow documented in this encounter Care Teams Nut Chopper Relationship Specialty Start Date End Date Charles Huitron MD [address] [place] [address] PCP - General 07/08/10 documented as of this encounter
--- OUTSIDE RECORDS SUMMARY | 2024-07-12 15:58 | XMS_ITS | Encounter Summary ---
Author Organization [facility] [place] [address] Care Team Providers Care Mains And Service Supervisor Name Role Phone Charles Huitron MD Primary Care Provider [phone] Reason for Visit * Reason Comments Foot Pain Encounter Details Date Type Department Care Team (Late st Contact Info) Description 06/03/2011 9:31 AM EDT - 06/03/2011 12:05 PM EDT [place] [address] Slick Boswell PA [facility] [place] [address] EMERGENCY DEPT, [facility] [place] [address] Closed fracture of metatarsal bone(s) Discharge Disposition: [...] Sign Reading Time Taken Comments Blood Pressure 145/87 06/03/2011 11:55 AM EDT Pulse 59 06/03/2011 11:55 AM EDT Temperature 36.6 ??C (97.9 ??F) 06/03/2011 9:42 AM ED T Respiratory Rate 16 06/03/2011 11:55 AM EDT Oxygen Saturation 98% 06/03/2011 9:42 AM EDT Inhaled Oxygen Concentration - - Weight - - Height - - Body Mass Index - - documented in this encounter Discharge Instructions * Discharge Instructions* Darlene Quan MD - 06/03/2011 11:55 AM EDT Dx: Fracture of base of MT 5, left foot; small avulsion fracture of cuboid, left foot Instructions: -air cast boot -weight bearing as tolerated -ice, elevation -crutches as needed -follow up with orthopaedics in 2 weeks, general orthopaedic clinc -Tylenol for pain; no ibuprofen or NSAIDs documented in this encounter Medications at Time [...] 12/23/2010 12/23/2011 documented as of this encounter ED Notes * Merlyn You RN - 06/03/2011 11:58 AM EDT Cast walker boot applied, declined crutches at this time * Merlyn You RN - 06/03/2011 11:50 AM EDT Applied cast boot.. Instructions given, pending d/c instructions rom Darlene Sampson MD ortho resdent Pt ambulatory inboot w/ good gait, decrease in pain. Motrin really helped. * Merlyn oYu RN - 06/03/2011 11:02 AM EDT Ice pack on left foot, elevated, medicated w/ motrin for pain management, xrays reveal fx, pending ortho exam, resting comfortably in her room on strethcer, watching tv and crosswords. Pending plans,no change in clinical status. * Slick Boswell PA - 06/03/2011 10:21 AM EDT Chief Complaint Patient presents with ??? Foot Pain HPI Sitting in my recliner with left foot tucked under me and did not realize that my foot was asleep. I twisted my left foot. Allergies Allergen Reactions ??? Amoxicillin Trihydrate Rash red from head to toe ??? Sulfa (Sulfonamide Antibiotics) Rash red rash ??? Haloperidol Other (See Comments) Sx worsen Review of Systems All other systems reviewed and are negative. Positive for pain along 5 TH MT, denies numbness or tingling. Denies knee pain now. Physical Exam Nursing note and vitals reviewed. Constitutional: She appears well-developed and well-nourished. HENT: Head: Normocephalic and atraumatic. Eyes: Conjunctivae and EOM are normal. Pupils are equal, round, and reactive to light. Neck: Normal range of motion. Neck supple. Cardiovascular: Normal rate and regular rhythm. Pulmonary/Chest: Effort normal and breath sounds normal. Left knee with FROM, no swelling or effusion, no pain on palpation. Left foot slight discomfort at lateral malaous, Pain on palp. Prox. Head of 5 TH MT, pain with movement of 5 TH toe. Pulses and sensation intact. Procedures MDM Number of Diagnoses or Management Options Amount and/or Complexity of Data Reviewed Tests in the radiology section of CPT??: reviewed Discuss the patient with other providers: yes Independent visualization of images, tracings, or specimens: yes Rad. 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 Subtle cortical irregularity at the lateral margin of the cuboid c/w fracture if point tenderness. I spoke with Ortho. They will see and treat the patient. ED Course: JESUS Steven 06/03/11 1200 documented in this encounter Miscellaneous Notes * Discharge Summary - Juan Juarez - 06/04/2011 8:35 AM EDT * Consult Note - Darlene Quan MD - 06/03/2011 2:50 PM EDT Emergency Department - Consultation Note Date of Consultation: 06/03/2011 Consult Service: Orthopaedic Surgery Responsible Attending: Julio Place of Service: ED Reason for Consult: We are seeing Chelsea Gar at the request of the Emergency Department for the evaluation of left foot pain. I have reviewed the available records, interviewed, and examined the patient. Active Problem List: There are no hospital problems to display for this patient. Active Non-Hospital Problems Diagnoses ??? S/P breast reconstruction ??? Breast cancer History of Present Illness: HPI The patient is a 56-year-old woman who was working at her computer yesterday, got up, and inverted her left ankle. She had pain in the lateral aspect of her foot. She took Tylenol and elevated and iced the foot. She presented to the ED today since symptoms were not improving. She says that she i s unable to bear weight. Review of Systems: Review of Systems Negative other than as noted in HPI Past Medical and Surgical History: PMH: HTN, resolved; depression; hypercholesterolemia Past Surgical History Procedure Date ??? Revise breast reconstruction 12/23/2010 REVISION OF RECONSTRUCTED BREAST performed by DASHA MENDENHALL at [facility] MAIN OR ??? Nipple/areola reconstruction 12/23/2010 RECONSTRUCTION, NIPPLE/AREOLA, ABBIE performed by DASHA MENDENHALL at [facility] MAIN OR 7 surgeries following mastectomy and breast reconstruction for infection Ovariohysterectomy Benign hand tumor Gall Bladder Medications: Current facility-administered medications ordered in [facility] Medication Dose Route Frequency Provider Last Rate Last Dose ??? ibuprofen (ADVIL;MOTRIN) 400 mg tablet Current outpatient prescriptions ordered in [facility] Medication Sig Dispense Refill ??? lisinopril-hydrochlorothiazide (PRINZIDE;ZESTORETIC) [...] needed for Pain. 30 tablet 12 ??? DISCONTD: OXYcodone (ROXICODONE) 5 mg immediate release tablet Take 1-2 tablets by mouth every 4 hours as needed for Pain. 30 tablet 0 ??? prazosin (MINIPRESS) 5 mg capsule 5 MG = 1 Capsule(s), PO, QHS ??? b complex vitamins tablet ??? Calcium-Magnesium (CALCIUM AND MAGNESIUM) 750-465 mg Tab ??? Cholecalciferol, Vitamin D3, (VITAMIN D) 1,000 unit Tab ??? [place]-3 Fatty Acids (FISH OIL) 500 mg Cap ??? estrogens, conjugated,-methyltestosterone (ESTRATEST HS) 0.625-1.25 mg per tablet ??? ascorbic acid (VITAMIN C) 1,000 mg tablet Allergies: Allergies Allergen Reactions ??? Amoxicillin Trihydrate Rash red from head to toe ??? Sulfa (Sulfonamide Antibiotics) Rash red rash ??? Haloperidol Other (See Comments) Sx worsen Social History and Habits: History Social History ??? Marital Status: Spouse Name: N/A Number of Children: N/A ??? Years of Education: N/A Occupational History ??? Not on file. Social History Main Topics ??? Smoking status: Former Smoker Quit date: 12/23/1985 ??? Smokeless tobacco: Not on file ??? Alcohol Use: No stopprd 21 yrs. ago ??? Drug Use: Not on file ??? Sexually Active: Not on file Other Topics Concern ??? Not on file Social History Narrative ??? No narrative on file Physical Exam: Last set of vitals and range over past 24 hours: Last value Range last 24 hrs Temperature Temp: 36.6 ??C (97.9 ??F) Temp: [36.6 ??C (97.9 ??F)] Heart Rate Heart Rate: 59 Heart Rate: [59-68] Blood Pressure BP: 145/87 mmHg BP: (130-145)/(76-87) Respiratory Rate Resp: 16 Resp: [16] SpO2 SpO2: 98 % SpO2: [98 %] Physical Exam General: Alert, appropriate, NAD LLE: Ecchymosis lateral aspect of foot; point tender base of MT5 and over cuboid; mild tenderness over lateral malleolus No ankle swelling Distal extremity neurovascularly intact Laboratory (Last 24 Hours): No results found for this or any previous visit (from the past 24 hour(s)). Radiology: Radiographs of the foot document a fracture of the 5th metatarsal base and a small avulsion fracture off the cuboid Assessment: Chelsea Gar is a 56 y.o. Female s/p injury to left foot with MT5 base fx and small cuboid avulsion fx Recommendations: -air cast boot (provided) -crutches prn -WBAT -ice and elevation -f/u general orthopaedic clinic 2 weeks DARLENE QUAN MD 06/03/2011 * Miscellaneous - Provider, Scanning - 06/03/2011 12:58 PM EDT * ED Triage - Merlyn You RN - 06/03/2011 9:44 AM EDT Pt was at her computer yesterday, her left foot went to sleep, she stood up, tried to walk quickly and suddenly twisted her left foot laterally, now w/ significant pain, bruising on Bottom and lateral mallelous + pain w/ weight bearing. No other trauma. DP + PT +, CSM +, limited ROm due to pain. Noother trauma, hx of depression, HTN, hyperlipids. A&OX3. Skin w/p/d. NAD. documented in this encounter Plan of Treatment Upcoming Encounters Date Type Department Care Team (Late st Contact Info) Description 08/18/2024 1:30 PM EST Appointment Mammography/[place] [address] Kathia Alvarado APRN [address] [place] [address] documented as of this encounter Procedures Procedure Name Priority Date/Time Associated Diagnosis Comments XR FOOT MINIMUM 3 VIEWS Routine 06/03/2011 9:59 AM EDT documented in this encounter Results * [...] identified. Sukhdev Kim MD IMG DX ORDERABLES * XR FOOT MINIMUM 3 VIEWS (06/03/2011 9:59 AM EDT) Anatomical Region Laterality Modality Foot N/A Radiographic Varsha ging 06/03/2011 9:59 AM EDT Narrative 06/04/2011 8:42 AM EDT LEFT FOOT, THREE VIEWS, 06/03/11: ?? CLINICAL HISTORY: ??Twisted left ankle and foot last night. ??Now presenting with pain with weight-bearing. ?? FINDINGS: ??Two well-corticated ossicles are present at the base of the fifth metatarsal. ??The appearance is consistent with remote fracture and subsequent nonunion. ??I do not see an acute fracture at this location, but the patient may present with an acute injury to the surrounding soft tissues. ??On the AP and oblique views there is a subtle cortical irregularity at the lateral margin of the cuboid. ??This is the center of point tenderness. ??The appearance is consistent with a fracture of the lateral aspect of the cuboid, probably extending into the calcaneal cuboid joint. Procedure Note Mauricio Hutton MD - 06/04/2011 LEFT FOOT, THREE VIEWS, 06/03/11: CLINICAL HISTORY: Twisted left ankle and foot last night. Now presentingwith pain with weight-bearing. FINDINGS: Two well-corticated ossicles are present at the base of thefifth metatarsal. The appearance is consistent with remote fracture andsubsequent nonunion. I do not see an acute fracture at this location, but thepatient may present with an acute injury to the surrounding soft tissues. On the APand oblique views there is a subtle cortical irregularity at the lateralmargin of the cuboid. This is the center of point tenderness. The appearance is consistent with a fracture of the lateral aspect of the cuboid, probably extending into the calcaneal cuboid joint. Slick LEE [facility] DX ORDERABLES documented in this encounter Visit Diagnoses Diagnosis Closed fracture of metatarsal bone(s) Closed fracture of metatarsal bone(s) documented in this encounter Administered Medications Inactive Administered Medications - up to 3 most recent administrations Medication Order MAR Action Action Date Dose Rate Site ibuprofen (ADVIL;MOTRIN) 400 mg tablet 1 dose, Starting on Wed06/03/11 at 1014, Until Wed06/03/11 at 1030, MERLYN YOU: Cabinet Override Given 06/03/2011 10:30 AM EDT mg documented in this encounter Active and Recently Administered Medications Times are shown in EDT. No Frequency Medication Order 06/01/2011 06/02/2011 06/03/2011 ibuprofen (ADVIL;MOTRIN) 400 mg tablet (COMPLETED) 1 dose, Starting on Wed06/03/11 at 1014, Until Wed06/03/11 at 1030, MERLYN YOU: Cabinet Override 1030 (Given - Provid er: Merlyn You RN) documented in this encounter Care Teams Mains And Service Supervisor Relationship Specialty Start Date End Date Charles Huitron MD [address] [place] [address] PCP - General 07/08/10 documented as of this encounter
--- OUTSIDE RECORDS SUMMARY | 2024-07-12 15:58 | XMS_ITS | Encounter Summary ---
Author Organization [facility] [place] [address] Care Team Providers Care Environmental Services Director Name Role Phone Charles Huitron MD Primary Care Provider [phone] Encounter Details Date Type Department Care Team (Late st Contact Info) Description 02/27/2013 [place] [address] Mendez Cutler MD [facility] [place] [address] Social History Tobacco Use Types Packs/Day Years [...] Telephone Encounter - Bhumi Lacy RN - 02/27/2013 3:[address] Cutler - I have left a message for Chelsea to inform her that Dr. Cutler is very sorry he wasunable to have the appt. scheduled today since he arrived late. He wishes her good luck with her brother's illness. documented in this encounter Plan of Treatment Upcoming Encounters Date Type Department Care Team (Late st Contact Info) Description 08/18/2024 1:30 PM EST Appointment Mammography/[place] [address] Kathia Alvarado APRN [address] [place] [address] documented as of this encounter Visit Diagnoses Not on filedocumented in this encounter Care Teams Environmental Services Director Relationship Specialty Start Date End Date Charles Huitron MD [address] [place] [address] PCP - General 07/08/10 documented as of this encounter
--- OUTSIDE RECORDS SUMMARY | 2024-07-12 15:58 | XMS_ITS | Encounter Summary ---
Author Organization [facility] Address [facility] [place] [address] Care Team Providers Care Geosciences Professor Name Role Phone Charles Huitron MD Primary Care Provider [phone] Encounter Details Date Type Department Care Team (Late st Contact Info) Description 07/30/2011 8:07 AM EST - 07/30/2011 11:59 PM [facility] Hospital Encounter XRay at [facility] [address] [place] [id number] Fx metatarsal Social History Tobacco Use Types Packs/Day Years [...] 08/18/2024 1:30 PM EST Appointment Mammography[place] [address] Kathia Alvarado APRN [address] [place] [address] documented as of this encounter Procedures Procedure Name Priority Date/Time Associated Diagnosis Comments XR FOOT MINIMUM 3 VIEWS Routine 07/30/2011 8:24 AM EST Fx metatarsal documented in this encounter Results * XR [...] which showed some healing. COMPARISON: 06/18/11 and 10/19/11. TECHNIQUE: Three views of the left foot [...] in this encounter Visit Diagnoses Diagnosis Fx metatarsal Closed fracture of metatarsal bone(s) documented in this encounter Care Teams Geosciences Professor Relationship Specialty Start Date End Date Charles Huitron MD [address] [place] [address] PCP - General 07/08/10 documented as of this encounter
--- OUTSIDE RECORDS SUMMARY | 2024-07-12 15:59 | XMS_ITS | Encounter Summary ---
[place] [address] Care Team Providers Care Substitute Crossing Guard Name Role Phone Chrales Huitron MD Primary Care Provider [phone] Encounter Details Date Type Department Care Team (Late st Contact Info) Description 01/17/2008 [place] [address] Fab Delgado MD Social History Tobacco Use Types Packs/Day Years Used Date Smoking Tobacco: Never Assessed Sex and Gender Information Value Date Recorded Sex Assigned at Not on file Gender Identity Not on file Sexual Orientation Not on file documented as of this encounter Plan of Treatment Upcoming Encounters Date Type Department Care Team (Late st Contact Info) Description 08/18/2024 1:30 PM EST Appointment Mammography[place] [address] Kathia Alvarado APRN [address] [place] [address] documented as of this encounter Procedures Procedure Name Priority Date/Time Associated Diagnosis Comments SURGICAL PATHOLOGY REPORT Routine 01/20/2008 1:31 PM EDT documented in this encounter Results * Surgical Pathology Report (01/20/2008 1:31 PM EDT) Surgical Pathology Report [id number] ? Location: [facility]; 0306; A The signing pathologist has (i) examined the relevant preparation(s) for the specimen(s) and (ii) rendered or confirmed the diagnosis(es). . ?Pathology Surgical Pathology Final Report Clinical Information Specimen Submitted: A - Lt breast tissue: lt breast Clinical Diagnosis: Cancer phobia Gross Description Labeled/Fixative : ? LT breast tissue, fresh. Qty/Size/Weight: ?Multiple, 5.0 x 5.0 x 2.0 cm. Tissue Description: ?? Aggregate of yellow, lobular adipose tissue ?fragments. Sections/Process ing: ??(R1) ??aje/SNS Microscopic Description Slides reviewed, microscopic description not recorded. Diagnosis Left breast, excision: ?? 1. Benign adipose tissue with focal acute inflammation and fat necrosis ?? 2. No breast parenchyma sampled ?? 3. No evidence of atypia or malignancy CR-0 01/24/08 [facility] 01/24/08 Verified by: ? Filomena Pizano ?Pathologist ?(Electronic Signature) The attending pathologist whose signature appears on this report has reviewed all diagnostic slides and has edited the gross and/or microscopic portion of the report in rendering the final pathologic diagnosis. [facility] 01/20/2008 1:31 PM EDT Fab Delgado MD PATHOLOGY/CYTOLOGY O RDERABLES [facility] documented in this encounter Visit Diagnoses Not on filedocumented in this encounter Care Teams Substitute Crossing Guard Relationship Specialty Start Date End Date Charles Huitron MD [address] [place] [address] PCP - General 07/08/10 documented as of this encounter
--- OUTSIDE RECORDS SUMMARY | 2024-07-12 15:59 | XMS_ITS | Encounter Summary ---
Author Organization [facility] [place] [address] Care Team Providers Care Crew Member Name Role Phone Charles Huitron MD Primary Care Provider [phone] Encounter Details Date Type Department Care Team (Late st Contact Info) Description 09/28/2007 Orders Only [place] [address] Juan Perez MD [facility] [place]EC[place] [address] Social History Tobacco Use Types Packs/Day Years Used Date Smoking Tobacco: Never Assessed Sex and Gender Information Value Date Recorded Sex Assigned at Not on file Gender Identity Not on file Sexual Orientation Not on file documented as of this encounter Plan of Treatment Upcoming Encounters Date Type Department Care Team (Late st Contact Info) Description 08/18/2024 1:30 PM EST Appointment Mammography/[place] [phone] Kathia Alvarado APRN [address] [place], [place] [address] documented as of this encounter Procedures Procedure Name Priority Date/Time Associated Diagnosis Comments SURGICAL PATHOLOGY REPORT Routine 09/28/2007 1:29 PM EST documented in this encounter Results * Surgical Pathology Report (09/28/2007 1:29 PM EST) Pathologist [facility] Surgical Pathology Report [id number] ? Location: [facility] The signing pathologist has (i) examined the relevant preparation(s) for the specimen(s) and (ii) rendered or confirmed the diagnosis(es). . ?Pathology Surgical Pathology Final Report Clinical Information Specimen Submitted: A - Bilateral tubes and ovaries, na Clinical History/Diagnosis : BRCA2 mutation, ovaries per protocol Clinical Diagnosis: BRCA2 mutation, ovaries per protocol Gross Description Labeled/Fixative: ?Labeled with the patient's name, bilateral tubes and ? ovaries; formalin. Qty/Size/Weight: ? Two (unoriented as to laterality). Tissue Description: ?The first ovary measures 3.0 x 2.0 x 1.0 cm, 5 g ? (tube with attached ovary). ?? Surface: ?Beebe-white, cerebriform. ?? Tumor: ?None grossly identified. ?? Parenchyma: ? Heterogeneous admixture of beebe-yellow areas and ? corpora albicantia. ?? Fallopian tube: ? 1.0 x 0.5 x 0.5 cm. ??Beebe to pink, tubular portion of ? tissue. Tissue Description: ?Ovary and attached tube. ??The second ovary is ? 2.5 x 1.5 x 1.5 cm, 6 g. ?? Surface: ?Beebe-white and cerebriform. ?? Tumor: ?None identified. ?? Parenchyma: ? Heterogeneous admixture of beebe-yellow parenchyma ? with scant, scattered corpora albicantia. ?? Fallopian tube: ? The tube measures 2.5 x 0.5 x 0.5 cm. ??Beebe-pink, ? tubular tissue. Sections/Processi ng: ?? (1-6) the first ovary and tube serially sectioned; ? (7-14) second ovary and tube serially sectioned. ? (T14) ??aje/RR Microscopic Description Slides reviewed, microscopic description not recorded. Diagnosis Right and left fallopian tubes and ovaries (bilateral salpingo-oophorec gavino): ?1. No evidence of malignancy. ?2. Tubo-ovarian adhesions and para-ovarian cysts. CR-0 10/06/07 [facility] 10/06/07 Verified by: ? José Scott MD ?Pathologist ?(Electronic Signature) The attending pathologist whose signature appears on this report has reviewed all diagnostic slides and has edited the gross and/or microscopic portion of the report in rendering the final pathologic diagnosis. . Comment ?? The fallopian tubes and ovaries were entirely submitted for histologic evaluation. [facility] 09/28/2007 1:29 PM EST Juan Perez MD PATHOLOGY/CYTOLOGY O [facility] [place] [facility] documented in this encounter Visit Diagnoses Not on filedocumented in this encounter Care Teams Crew Member Relationship Specialty Start Date End Date Charles Huitron MD [address] [place] [address] PCP - General 07/08/10 documented as of this encounter
--- OUTSIDE RECORDS SUMMARY | 2024-07-12 15:59 | XMS_ITS | Encounter Summary ---
Author Organization [facility] [place] [address] Care Team Providers Care Health Companion Name Role Phone Charles Huitron MD Primary Care Provider [phone] Encounter Details Date Type Department Care Team (Late st Contact Info) Description 09/10/2006 Orders Only Radiology and Cardiology Results [address] [place] [phone] Apd Conversion, Results Provider, Social History Tobacco Use Types Packs/Day Years Used Date Smoking Tobacco: Never Assessed Sex and Gender Information Value Date Recorded Sex Assigned at Not on file Gender Identity Not on file Sexual Orientation Not on file documented as of this encounter Plan of Treatment Upcoming Encounters Date Type Department Care Team (Late st Contact Info) Description 08/18/2024 1:30 PM EST Appointment Mammography/[place] [address] Kathia Alvarado APRN [address] [place] [address] documented as of this encounter Procedures Procedure Name Priority Date/Time Associated Diagnosis Comments CRP, CARDIAC RISK (HS CRP) Routine 09/10/2006 8:45 AM EST documented in this encounter Results * (ABNORMAL) CRP, cardiac risk (HS CRP) (09/10/2006 8:45 AM EST) C-Reactive Protein High Sensitivity 5.00(Exte rnal Lab) mg/L CONVERSION 09/10/2006 8:45 AM EST Results Provider Apd Conversion MD ELIEL ARVIZU ORDERABLES JORGEDANIEL OJEDA CONVERSION documented in this encounter Visit Diagnoses Not on filedocumented in this encounter Care Teams Health Companion Relationship Specialty Start Date End Date Charles Huitron MD [address] [place] [address] PCP - General 07/08/10 documented as of this encounter
--- OUTSIDE RECORDS SUMMARY | 2024-07-12 15:59 | XMS_ITS | Encounter Summary ---
Author Organization [facility] [place] [address] Care Team Providers Care Student Financial Aid Manager Name Role Phone Charles Huitron MD Primary Care Provider [phone] Encounter Details Date Type Department Care Team (Late st Contact Info) Description 10/24/2010 10:00 AM EST Office Visit Occupational [place] [phone] [facility], Rn None Discharge Disposition: Home Social History Tobacco Use [...] 08/18/2024 1:30 PM EST Appointment Mammography/[place] [address] Kathia Alvarado APRN [address] [place] [address] documented as of this encounter Visit Diagnoses Not on filedocumented in this encounter Care Teams Student Financial Aid Manager Relationship Specialty Start Date End Date Charles Huitron MD [address] [place] [address] PCP - General 07/08/10 documented as of this encounter
--- OUTSIDE RECORDS SUMMARY | 2024-07-12 15:59 | XMS_ITS | Encounter Summary ---
Author Organization [facility] [address] Care Team Providers Care Biostatistics Professor Name Role Phone Charles Huitron MD Primary Care Provider [phone] Encounter Details Date Type Department Care Team (Late st Contact Info) Description 09/24/2005 Orders Only Radiology and Cardiology Results [address] [place] [id number] Apd Conversion, Results Provider, Social History Tobacco [...] 08/18/2024 1:30 PM EST Appointment Mammography/[place] [address] Kathia Alvarado APRN [address] [place] [address] documented as of this encounter Procedures Procedure Name Priority Date/Time Associated Diagnosis Comments MEASLES (RUBEOLA) ANTIBODY, IGG Routine 09/24/2005 10:45 AM EST VARICELLA ZOSTER ANTIBODY, IGG Routine 09/24/2005 10:45 AM EST documented in this encounter Results * (ABNORMAL) Varicella zoster Antibody, IgG (09/24/2005 10:45 AM EST) Varicella Zoster Antibody IgG 4.8(ExtH) 0 - 0.8 Index CONVERSION 09/24/2005 10:4 5 AM EST Results Provider Apd Conversion IMMUN OLOGY ORDERABLES Performing Organization Address City/[facility] Co de Phone Number CONVERSION * (ABNORMAL) Measles (Rubeola) Antibody, IgG (09/24/2005 10:45 AM EST) Rubeola Antibody IgG 5.7(ExtH) 0 - 0.8 Index CONVERSION 09/24/2005 10:4 5 AM EST Results Provider Apd Conversion IMMUN OLOGY ORDERABLES Performing Organization Address City/[facility] Co de Phone Number JORGE CONVERSION documented in this encounter Visit Diagnoses Not on filedocumented in this encounter Care Teams Biostatistics Professor Relationship Specialty Start Date End Date Charles Huitron MD [address] [address] PCP - General 07/08/10 documented as of this encounter
--- OUTSIDE RECORDS SUMMARY | 2024-07-12 15:59 | XMS_ITS | Encounter Summary ---
Author Organization [facility] [place] [address] Care Team Providers Care Plaster Patternmaker Name Role Phone Charles Huitron MD Primary Care Provider [phone] Encounter Details Date Type Department Care Team (Latest Contact Info) Description 12/23/2010 10:17 AM EDT - 12/23/2010 4:30 PM EDT Hospital [place] [phone] Dasha Giles MD [facility] [place] [address] HX: breast cancer Discharge Disposition: Home Social History Tobacco Use [...] Wednesday 8 am to 5 pm Call [phone] On weekends or after hours: Call [phone] and ask the denier control operator to page the Plastic Surgeon color control supervisor. Prescription Line: Wednesday through Wednesday 8 am to 4 pm Call [phone] Narcotic renewals will not be honored after [...] Admission Note Patient Name: Rigo Gar : [id number] MR#: [id number] 12/23/2010 Hospital Day 0 days Problem List: [...] D3, (VITAMIN D) 1,000 unit Tab ??? [place]-3 Fatty Acids (FISH OIL) 500 mg Cap ??? venlafaxine (EFFEXOR XR) 75 mg 24 hr capsule ??? estrogens, conjugated,-methyltestosterone (ESTRATEST HS) 0.625-1.25 mg per tablet ??? ascorbic acid (VITAMIN C) 1,000 mg tablet ??? traZODone (DESYREL) 150 mg tablet Family History: No family history on file. Current Inpatient Medications: No current [facility]-ordered facility-administered medications on file. No current [facility]-ordered outpatient prescriptions on file. Social [...] and 1ml of 1:1000 Epinephrine mixed into [id number] bag of Normal Saline documented in this encounter Miscellaneous Notes * Miscellaneous - Provider, Scanning - 12/25/2010 9:24 AM EDT * Miscellaneous - Provider, Scanning - 12/25/2010 9:18 AM EDT * Op Note - Jose Juan Patterson - 12/23/2010 5:48 PM EDT [facility] Operative Note Patient Name: Rigo Gar : [id number] MR#: [id number] Case Date: 12/23/2010 Surgeon: Surgeon(s) and Role: [...] Operative Note Patient Name: Rigo Gar : [id number] MR#: [id number] Case Date: 12/23/2010 Surgeon: Surgeon(s) and Role: [...] Operative Note Patient Name: Rigo Gar : [id number] MR#: [id number] Case Date: 12/23/2010 Surgeon: Surgeon(s) and Role: [...] Operative Note Patient Name: Rigo Gar : [id number] MR#: [id number] Case Date: 12/23/2010 Surgeon: Surgeon(s) and Role: [...] 08/18/2024 1:30 PM EST Appointment Mammography/[place] [address] Kathia Alvarado APRN [address] [place] [address] documented as of this encounter Procedures Procedure [...] 2:01 PM EDT) Surgical Pathology Report [id number] ? Location: [facility] The signing pathologist has (i) examined the [...] 8.0 x 3.0 cm. Tissue Description: ?? [place] elliptical portion of skin with attached and [...] 2:01 PM EDT) Surgical Pathology Report ? [facility] ? Provider: ?? DASHA GILES ?? Pt. Name: ?? RIGO GAR ? Acc #: ?[id number] ?Pt. ? Col Date: ?? 12/23/2010 ? [...] x 3.0 cm. ? Tissue Description: ?? [place] elliptical portion of skin with attached and [...] Dasha Giles MD PATHOLOGY/CYTOLOGY ORDERABLES [facility] CONTRERAS documented in this encounter Visit Diagnoses Diagnosis HX: breast cancer Personal history of malignant neoplasm of breast documented in this encounter Administered Medications Inactive Administered Medications - up to 3 most recent administrations Medication Order MAR Action Action Date Dose Rate Site ibuprofen (ADVIL;MOTRIN) tablet 800 mg 800 mg, [...] MD) documented in this encounter Care Teams Plaster Patternmaker Relationship Specialty Start Date End Date Charles Huitron MD [address] [place] [address] PCP - General 07/08/10 documented as of this encounter
--- OUTSIDE RECORDS SUMMARY | 2024-07-12 15:59 | XMS_ITS | Encounter Summary ---
Author Organization [facility] [place] [address] Care Team Providers Care Nitric Acid Plant Operator Name Role Phone Charles Huitron MD Primary Care Provider [phone] Encounter Details Date Type Department Care Team (Late st Contact Info) Description 11/16/2007 [place] [address] Elle Russell MD [facility] [place] [address] Social History Tobacco Use Types Packs/Day Years Used Date Smoking Tobacco: Never Assessed Sex and Gender Information Value Date Recorded Sex Assigned at Not on file Gender Identity Not on file Sexual Orientation Not on file documented as of this encounter Plan of Treatment Upcoming Encounters Date Type Department Care Team (Late st Contact Info) Description 08/18/2024 1:30 PM EST Appointment Mammography/[place] [address] Kathia Alvarado APRN [address] [place], [place] [address] documented as of this encounter Procedures Procedure Name Priority Date/Time Associated Diagnosis Comments SURGICAL PATHOLOGY REPORT Routine 11/16/2007 9:37 AM EDT documented in this encounter Results * Surgical Pathology Report (11/16/2007 9:37 AM EDT) Surgical Pathology Report [id number] ? Location: 4L The signing pathologist has (i) examined the relevant preparation(s) for the specimen(s) and (ii) rendered or confirmed the diagnosis(es). . ?Pathology Addendum Report Addendum Discussion Benign reactive lymph node. see note. NOTE. The lymph node shows secondary follicles with expanded mantle zones and normal appearing paracortical zones. There is follicle lysis. Immunohistochemistry Studies: Interpretation: ??Formalin-fixed, paraffin-embedded tissue sections are studied for CD3, CD5, CD10, CD20, CD21, Bcl2,cyclin D1 kappa and lambda Ig ligh chains on block(s) A2 using the Avidin-Biotin Complex Technique with appropriate controls. ??The germinal center lymphocytes express CD20, CD10 and are negative for Bcl2. CD21 highlights follicular dendritic cell meshworks.The paracortical T-lymphocytes express CD3, CD5 , Bcl2. Plasma cells are polytypic for light chains. The lymphocytes are negative for cyclin D1. 11/22/07 PK 11/22/07 Verified by: ? David Jo MD ?Hematopathologist ?(Electronic Signature) The attending pathologist whose signature appears on this report has reviewed all diagnostic slides and has edited the gross and/or microscopic portion of the report in rendering the final pathologic diagnosis. 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 Left axilla, formalin. Qty/Size/Weight: ?Multiple cylindrical cores of winter-white and ?yellow-white, fatty and fibrofatty tissue, ranging ?from minute to 1.8 x 0.3 cm. Sections/Processing: ??(T3) ??aje/SNS Microscopic Description Slides reviewed, microscopic description not recorded. Immunohistochemistry Studies: Formalin-fixed, paraffin-embedded tissue sections are studied using the B-SA system technique with appropriate positive and negative controls. Block ? Antibody ? Result A2 ? CK 5D3 and AE1/3 ?Both negative A3 ? CK 5D3 and AE1/3 ?Both negative . Microscopic Description These immunohistochemical studies provide ancillary information and are used only in conjunction with standard diagnostic procedures. Diagnosis Left axillary node, core biopsy: ?? No evidence of metastatic carcinoma (see Comment) CR-0 11/17/07 WAW 11/18/07 Verified by: ? Filomena Pizano MD ?Pathologist ?(Electronic Signature) The attending pathologist whose signature appears on this report has reviewed all diagnostic slides and has edited the gross and/or microscopic portion of the report in rendering the final pathologic diagnosis. Comment This case is also being evaluated by the hematopathologists for a lymphoproliferative disorder. ??An addendum report will follow. [facility] LUCASIUM 11/16/2007 9:37 AM EDT Elle Russell MD PATHOLOGY/CYTOLOGY O RDERABLES DAY[facility] CONTRERAS documented in this encounter Visit Diagnoses Not on filedocumented in this encounter Care Teams Nitric Acid Plant Operator Relationship Specialty Start Date End Date Charles Huitron MD [address] [place] [address] PCP - General 07/08/10 documented as of this encounter
--- OUTSIDE RECORDS SUMMARY | 2024-07-12 15:59 | XMS_ITS | Encounter Summary ---
Author Organization [place] [address] Care Team Providers Care Wire Stripper Name Role Phone Charles Huitron MD Primary Care Provider [phone] Encounter Details Date Type Department Care Team (Late st Contact Info) Description 01/17/2008 Orders [place] [address] Lorene Giles MD [facility] [place] [address] Social History Tobacco Use Types Packs/Day Years Used Date Smoking Tobacco: Never Assessed Sex and Gender Information Value Date Recorded Sex Assigned at Not on file Gender Identity Not on file Sexual Orientation Not on file documented as of this encounter Plan of Treatment Upcoming Encounters Date Type Department Care Team (Late st Contact Info) Description 08/18/2024 1:30 PM EST Appointment Mammography/[place] [phone] Kathia Alvarado APRN [address] [place], [place] [address] documented as of this encounter Procedures Procedure Name Priority Date/Time Associated Diagnosis Comments SURGICAL PATHOLOGY REPORT Routine 01/17/2008 3:54 PM EDT documented in this encounter Results * Surgical Pathology Report (01/17/2008 3:54 PM EDT) Surgical Pathology Report [id number] ? Location: 3T; 0306; A The signing pathologist has (i) examined the relevant preparation(s) for the specimen(s) and (ii) rendered or confirmed the diagnosis(es). . ?Pathology Surgical Pathology Final Report Clinical Information Specimen Submitted: A - Right mastectomy 1.125kg, Right breast: B - Left mastectomy 1.210 kg, Left breast Clinical History: Hx of breast cancer. ??On both specimens, the short stitch is superior, the long stitch is lateral. ??Expedite pathology please. Clinical Diagnosis: High-risk breast cancer Gross Description A - Labeled/Fixativ e: Right mastectomy 1.125 kg, right breast; fresh. Qty/Size/Weight : ?Three, 20.5 x 20.0 x 4.6 cm, 1075 g. Tissue Description: ?? Right skin-sparing mastectomy. ?? Skin: ?10.5 x 3.5 cm. ??Negative for mass lesion. ?? Nipple: ?1.1 x 0.6 cm. ??Everted. ?? Deep Margin: ? Inked black. ??Superficial margin inked blue. ?? Parenchyma: ?Adipose and dense, winter-white fibrous tissue. Sections/Proces sing: ??(1) nipple, bisected; (2) nipple disc; (3) lower ?outer quadrant; (4) upper outer quadrant; (5) upper ?inner quadrant; (6) lower inner quadrant. ??(R6) B - Labeled/Fixativ e: Left mastectomy 1.210 kg, left breast; fresh. Qty/Size/Weight : ?Two, 23.0 x 21.0 x 4.3 cm, 1136 g. Tissue Description: ?? A left skin-sparing mastectomy. ?? Skin: ?10.5 x 3.1 cm. ??Negative for mass lesions. ?? Nipple: ?1.2 x 0.6 cm. ??Everted. ?? Deep Margin: ? Inked black. ??Superficial margin inked blue. ?? Parenchyma: ?Adipose and dense, winter-white fibrous tissue. Sections/Proces sing: ??(1) nipple, bisected; (2) nipple disc; (3) lower ?inner quadrant; (4) upper inner quadrant; (5) upper ?outer quadrant; (6) lower outer quadrant. ?? (R6) ?aje/JRENNY Microscopic Description Slides reviewed, microscopic description not recorded. Diagnosis A - Breast, right mastectomy: ?Benign breast tissue showing apocrine and simple duct cysts. ?Benign nipple. B - Breast, left mastectomy: ?Benign breast tissue showing apocrine and simple duct cysts. . Diagnosis ?Benign nipple. 01/19/08 CCB 01/19/08 Verified by: ? Elizabeth Dueñas, DO ?Pathologist ?(Electronic Signature) The attending pathologist whose signature appears on this report has reviewed all diagnostic slides and has edited the gross and/or microscopic portion of the report in rendering the final pathologic diagnosis. [facility] 01/17/2008 3:54 PM EDT Lorene Giles MD PATHOLOGY/CYTOLOGY ORDERABLES Performing Organization Address City/State/[facility] [place] Phone Number [facility] documented in this encounter Visit Diagnoses Not on filedocumented in this encounter Care Teams Wire Stripper Relationship Specialty Start Date End Date Charles Huitron MD [address] [place] [address] PCP - General 07/08/10 documented as of this encounter
--- OUTSIDE RECORDS SUMMARY | 2024-07-12 15:59 | XMS_ITS | Encounter Summary ---
Author Organization [facility] [place] [address] Care Team Providers Care Tile And Mottle Supervisor Name Role Phone Charles Huitron MD Primary Care Provider [phone] Encounter Details Date Type Department Care Team (Late st Contact Info) Description 10/27/2010 10:00 AM EDT Office Visit [place] [phone] [facility] NURSE [facility], Rn None [...] 08/18/2024 1:30 PM EST Appointment Mammography[place] [address] Kathia Alvarado APRN [address] [place] [address] documented as of this encounter Visit Diagnoses Not on filedocumented in this encounter Care Teams Tile And Mottle Supervisor Relationship Specialty Start Date End Date Charles Huitron MD [address] [place] [address] PCP - General 07/08/10 documented as of this encounter
--- OUTSIDE RECORDS SUMMARY | 2024-07-12 15:59 | XMS_ITS | Encounter Summary ---
Author Organization [facility] [place] [address] Care Team Providers Care Research Scholar Name Role Phone Charles Huitron MD Primary Care Provider [phone] Encounter Details Date Type Department Care Team (Late st Contact Info) Description 10/20/2010 8:15 AM EST [place] [address] Lorene Giles MD [facility] [place] [address] Discharge Disposition: Home Social History Tobacco Use [...] 08/18/2024 1:30 PM EST Appointment Mammography[place] [address] Kathia Alvarado APRN [address] [place] [address] documented as of this encounter Visit Diagnoses Not on filedocumented in this encounter Care Teams Research Scholar Relationship Specialty Start Date End Date Charles Huitron MD [address] [place] [address] PCP - General 07/08/10 documented as of this encounter
[2024-07-14 09:32] LABS: HIV-1/2 Ag & Ab Screen Negative (Negative)
[2024-07-14 09:49] LABS: Hepatitis C Ab w Rflx HCV PCR Negative (Negative)
[2024-07-14 11:27] LABS: Syphilis Serology (RPR) Negative (Negative)
== END 2024-07-12 15:39 | disposition home or self-care (01) ==
LOC: NCHCN 15:38
PROVIDERS: Visit Provider Nurse Practitioner Family
DX: I10 Essential (primary) hypertension (principal)
CPT/HCPCS: 80053; 80061; 85027; 86803; 87389; 86592

== ENCOUNTER 2024-10-11 15:46 | Outpatient (REF) | payer MEDICARE, SELFPAY ==
[2024-10-11 16:30] LABS: COMMENT (LAB VIEW ONLY) 59.54 mg/dL
[2024-10-12 11:11] LABS: Syphilis Serology (RPR) Negative (Negative)
[2024-10-12 11:41] LABS: Chlamydia Result Negative (Negative); GC Result Negative (Negative)
[2024-10-12 13:16] LABS: HIV-1/2 Ag & Ab Screen Negative (Negative)
[2024-10-12 13:47] LABS: Hepatitis C Ab w Rflx HCV PCR Negative (Negative)
== END 2024-10-11 15:47 | disposition home or self-care (01) ==
LOC: NCHCN 15:46
PROVIDERS: Visit Provider Nurse Practitioner Family
DX: Z11.59 Encounter for screening for other viral diseases (principal); E11.9 Type 2 diabetes mellitus without complications
CPT/HCPCS: 86803; 87389; 87491; 87591; 82043; 82570; 86592

== ENCOUNTER 2025-07-17 11:42 | Outpatient (REF) | payer MEDICARE, SELFPAY ==
[2025-07-17 16:30] LABS: ALT 24 U/L (10-49); AST 19 U/L (<34); Albumin 4.0 g/dL (3.2-5.0); Alkaline Phosphatase 108 U/L (46-116); Anion Gap 7.6 mmol/L (3-11); BUN 17 mg/dL (9-23); Bilirubin, Total 0.20 mg/dL (0.2-1.2); CO2 31.4 mmol/L (20.0-31.0); Calcium 9.1 mg/dL (8.3-10.6); Chloride 103 mmol/L (98-107); Cholesterol 164 mg/dL (<200); Glucose 53 mg/dL (74-106); HDL Cholesterol 46 mg/dL (>40); Potassium 3.9 mmol/L (3.5-5.1); Sodium 142 mmol/L (136-145); Total Protein 6.3 g/dL (5.7-8.2)
== END 2025-07-17 11:43 | disposition home or self-care (01) ==
LOC: NCHCN 11:42
PROVIDERS: Visit Provider Nurse Practitioner Family
DX: E78.5 Hyperlipidemia, unspecified (principal); I10 Essential (primary) hypertension
CPT/HCPCS: 80053; 80061